=== PATIENT | female | born 2000 | race Two or more races ===

== ENCOUNTER 2020-04-05 21:34 | Emergency (ER) | payer MEDICAID, SELFPAY ==
[2020-04-05 22:04] VITALS: BP 128/81; PULSE 94; RESP 16; TEMP 36.9; O2SAT 99; BMI 35.6
[2020-04-05 23:58] VITALS: BP 141/84; PULSE 92; RESP 18; TEMP 36.1; O2SAT 100
--- NOTE | 2020-04-06 01:11 | ED.EXTPRO ---
HPI - Extremity Problem General Chief complaint: Extremity Problem Stated complaint: Wrist pain Time Seen by Provider: 04/05/20 22:14 Source: patient Mode of arrival: ambulatory Limitations: no limitations History of Present Illness HPI Narrative: Patient comes emergency room complaining of 1 week numbness and tingling, intermittent in the 3rd 4th and 5th fingers of the left hand, sometimes it hurts on the thumb and index. Patient denies any injury. Patient denies loss of strength. Patient states that sometimes there are specific spots in the forearm that heard in the dorsal and ventral part of the forearm. Patient states that in the mornings, her fingers are slightly discolored. Related Data Previous Rx's Medication Instructions Recorded naproxen 375 mg PO BID #10 tab 04/06/20 prednisone 20 mg PO DAILY #5 tab 04/06/20 Allergies Allergy/AdvReac Type Severity Reaction Status Date / Time No Known Allergies Allergy Unverified 11/10/19 18:25 [No Known Allergies*] Review of Systems Review of Systems: Constitutional : No Weight loss, No Fever, No Chills, No Night Sweats, No Fatigue, No Malaise ENT/Mouth : No Hearing loss, No Ear Pain, No Nasal Congestion, No Sinus Pain, No Hoarseness, No sore throat, No Rhinorrhea, No Swallowing Difficulty Eyes: No Eye Pain, No Swelling, No Redness, No Foreign Body, No Discharge, No Vision Changes Cardiovascular : No Chest Pain, No SOB, No Dyspnea on Exertion, No Orthopnea, No Edema, No Palpitations Respiratory : No Cough, No Sputum, No Wheezing, No Smoke Exposure, No Dyspnea Gastrointestinal : No Nausea, No Vomiting, No Diarrhea, No Constipation, No abdominal Pain, No Hematochezia, No Melena Genitourinary : no irregular bleeding, No Dysuria, No Urinary Frequency, No Hematuria, No Urinary Incontinence, No Urgency, No Flank Pain, No Urinary Flow Changes, No Hesitancy Musculoskeletal : Complaining nonspecific intermittent pain in the left hand from the fingers to the elbow Skin : No Skin Lesions, No rash Neuro : No Weakness, No Numbness, No Paresthesias, No Loss of Consciousness, No Dizziness, No Headache Psych : No Anxiety/Panic, No Depression, No SI/HI/AH/VH, No Social Issues, Heme/Lymph: No Bruising, No Bleeding,No Lymphadenopathy Endocrine : No Polyuria, No Polydipsia, No Temperature Intolerance REPLACED BY [facility] Past Medical History Medical History No known health problems Social History Social History Advance Directives: No Physical Exam Vital Signs: Vital Signs: Last Vital Signs Temp 97.0 F 04/05/20 23:58 Pulse 92 04/05/20 23:58 Resp 18 04/05/20 23:58 BP 141/84 H 04/05/20 23:58 Pulse Ox 100 04/05/20 23:58 Body Mass Index 35.6 Appearance: Alert. Oriented X3. No acute distress. Eyes: Pupils equal, round and reactive to light. ENT: Pharynx normal. Neck: Normal inspection. Neck supple. No lymph nodes noted. No crepitus CVS: Normal heart rate and rhythm. Pulses normal. Normal S1 and S2 Respiratory: No respiratory distress. Breath sounds normal. No Wheezing. No rales Abdomen: Soft and nontender. No rigidity. No distention. good BS x4 Skin: Skin warm and dry. Normal skin color. Normal skin turgor. Extremities: No lower extremity edema. Patient is able to flex and extend all fingers, normal strength 5/5 bilaterally, no pain at the elbow or wrist. Dorsal aspect of the left hand is slightly swollen, no ecchymosis, fingers are normal color Neuro: Oriented X 3. No motor deficit. No sensory deficit. Moving all extermities. No slurred speech. Course Course Course Narrative: Although the pattern of discomfort is not related to any specific nerve distribution, it seems that the symptoms are more prominent around the ulnar nerve distribution. Patient states that she spends almost all night sleeping with the flexed elbow. I discussed with the patient that she may have cubital tunnel syndrome. However, she needs to follow up with her primary care physician, as vasculitis is still a differential. However, it is only unilateral. Patient has no symptoms above the elbow. DVT in the arm is not suspected at this time Discharge Plan Discharge Clinical Impression: Cubital tunnel syndrome on left Patient Disposition: Home, Self-Care Instructions: Cubital Tunnel Syndrome (ED) Additional Instructions: Avoid sleeping with your left elbow bent. Please follow-up with your primary care physician tomorrow. If you have any worsening or new symptoms, please return to the emergency room or call 911 Prescriptions: New naproxen 375 mg tablet 375 mg PO BID Qty: 10 RF: 0 prednisone 20 mg tablet 20 mg PO DAILY Qty: 5 RF: 0
== END 2020-04-06 03:21 | disposition home or self-care (01) ==
PROVIDERS: Emergency Provider Emergency Medicine
DX: G56.22 Lesion of ulnar nerve, left upper limb (principal)
CPT/HCPCS: 99283; 99284

== ENCOUNTER 2020-04-17 09:40 | Emergency (ER) | payer MEDICAID, SELFPAY ==
[2020-04-17 11:59] VITALS: BP 129/77; PULSE 89; RESP 18; TEMP 37.2; O2SAT 98; BMI 34.0
--- NOTE | 2020-04-17 12:09 | ED.URI ---
HPI - URI/Sore Throat General Chief Complaint: General Medical Stated Complaint: sorethroat Time Seen by Provider: 04/17/20 12:08 Source: patient Mode of arrival: ambulatory Limitations: no limitations History of Present Illness HPI Narrative: 19 yo female with no PMH here with sore throat and nausea MD elicited complaint: sore throat Onset (ago): day(s) (1) Consistency: constant Severity: mild Description of mucous: clear Able to tolerate fluids by mouth: Yes Exacerbating factors: swallowing Relieving factors: nothing Context: sick contacts Associated symptoms: denies other symptoms Treatments prior to arrival: none Related Data Previous Rx's Medication Instructions Recorded naproxen 375 mg PO BID #10 tab 04/06/20 prednisone 20 mg PO DAILY #5 tab 04/06/20 ondansetron 4 mg PO Q8H PRN #20 tab 04/17/20 Allergies Allergy/AdvReac Type Severity Reaction Status Date / Time No Known Allergies Allergy Unverified 11/10/19 18:25 [No Known Allergies*] Review of Systems Review of Systems: Constitutional : No Fever, No Chills ENT/Mouth : No swallowing difficulty, no change in voice, pos sore throat Eyes: No Eye Pain, No Swelling Cardiovascular : No Chest Pain, No SOB Respiratory : No Cough, No Sputum Gastrointestinal : No Nausea, No Vomiting, No Diarrhea Genitourinary : No Dysuria Musculoskeletal : No Myalgias Skin : No rash Neuro : No Weakness, No Numbness, No Headache PMFSH Past Medical History Attestation statement: The following information was validated with the patient. Medical History No known health problems Social History Social History Alcohol intake: never Smoking Status: Never smoker Use of substances other than those prescribed or required for medical reasons: No Advance Directives: No Advance Directives Information Provided: No Physical Exam Vital Signs: Vital Signs: Last Vital Signs Temp 99.0 F 04/17/20 11:59 Pulse 89 04/17/20 11:59 Resp 18 04/17/20 11:59 BP 129/77 04/17/20 11:59 Pulse Ox 98 04/17/20 11:59 Body Mass Index 34.0 Appearance: Alert. Oriented X3. No acute distress. Eyes: Pupils equal, round and reactive to light. ENT: Pharynx mild erythema no swelling no exudate Neck: Normal inspection. Neck supple. CVS: Normal heart rate and rhythm. Pulses normal. Respiratory: No respiratory distress. Breath sounds normal. Abdomen: Soft and nontender. Skin: Skin warm and dry. Normal skin color. Normal skin turgor. Extremities: No lower extremity edema. No calf ttp Neuro: Oriented X 3. No motor deficit. No sensory deficit. Course Course Course Narrative: results negative called patient MDM - URI/Sore Throat MDM Narrative Medical decision making narrative: 19 yo female with sore throat significant other will need COVID swab and rapid strep - given precautions to return Lab Data Labs: Lab Results 04/17/20 Range/Units 12:52 Coronavirus (PCR) NEGATIVE (Negative) Influenza Type A (PCR) NEGATIVE (Negative) Influenza Type B (PCR) NEGATIVE (Negative) RSV RNA Qual (PCR) NEGATIVE (Negative) Discharge Plan Discharge Clinical Impression: Pharyngitis Qualifiers: Pharyngitis/tonsillitis etiology: unspecified etiology Qualified Code(s): J02.9 - Acute pharyngitis, unspecified Patient Disposition: Home, Self-Care Instructions: Pharyngitis (ED) Additional Instructions: return to ED for any worsening symptoms or concerns I WILL CALL YOU WITH YOUR RESULTS AT HOME Prescriptions: New ondansetron 4 mg tablet,disintegrating 4 mg PO Q8H PRN (Reason: nausea and vomiting) Qty: 20 RF: 0 No Action naproxen 375 mg tablet 375 mg PO BID Qty: 10 RF: 0 prednisone 20 mg tablet 20 mg PO DAILY Qty: 5 RF: 0 Interventions: ED Discharge Assessment Last Done: 04/17/20 12:53 Discharge Date/Time: 04/17/20 12:59
[2020-04-17 14:22] LABS: Influenza A PCR NEGATIVE (Negative); Influenza B PCR NEGATIVE (Negative); Resp Syncy Virus RNA Qual PCR NEGATIVE (Negative); SARS COV2 PCR INHOUSE NEGATIVE (Negative)
== END 2020-04-17 12:59 | disposition home or self-care (01) ==
PROVIDERS: Emergency Provider Emergency Medicine
DX: J02.9 Acute pharyngitis, unspecified (principal); Z20.822 Contact with and (suspected) exposure to COVID-19
CPT/HCPCS: 0241U; 36415; 87071; 87147; 87880; 99283

== ENCOUNTER 2020-07-26 07:37 | Outpatient (REF) | payer MEDICAID, SELFPAY ==
--- NOTE | 2020-07-26 08:00 | EMG_ITS ---
Bilateral median and ulnar motor and sensory studies were performed. Bilateral radial sensory studies were performed and paraspinal muscles were tested with a needle. IMPRESSION: Mild bilateral ulnar neuropathy across cubital tunnel. MD ANA Garcia/DAYO / [id number]
== END 2020-07-26 07:38 | disposition home or self-care (01) ==
LOC: HO.NEURO 07:37
PROVIDERS: PCP Nurse Practitioner; Visit Provider Nurse Practitioner
DX: G56.03 Carpal tunnel syndrome, bilateral upper limbs (principal)
CPT/HCPCS: 95886; 95911

== ENCOUNTER 2020-09-09 19:04 | Emergency (ER) | payer MEDICAID, SELFPAY ==
[2020-09-09 19:15] VITALS: BP 126/90; PULSE 90; RESP 18; TEMP 36.9; O2SAT 99; BMI 30.2
--- NOTE | 2020-09-09 20:00 | ED.GENADULT ---
HPI - General Adult General Chief complaint: General Medical Stated complaint: Cold symptoms Time Seen by Provider: 09/09/20 19:41 Source: patient Mode of arrival: ambulatory Limitations: no limitations History of Present Illness HPI narrative: 20 y/o female presenting with sinus pain and sore throat for the last 4 days. She has been around her boyfriend who is also ill with similar symptoms. She denies known COVID exposure. No fever, chills, vomiting or diarrhea. No abdominal pain, rash or urinary symptoms. Her nasal discharge is green and yellow and she has a headache. MD complaint: sinus pain Onset (ago): day(s) (4) Location: head, face and mouth Radiation: non-radiation Severity: moderate Quality: aching Pain Consistency: constant Relieving factors: none Exacerbating factors: movement Associated symptoms: headaches and malaise Treatments prior to arrival: none Related Data Previous Rx's Medication Instructions Recorded naproxen 375 mg PO BID #10 tab 04/06/20 prednisone 20 mg PO DAILY #5 tab 04/06/20 ondansetron 4 mg PO Q8H PRN #20 tab 04/17/20 amoxicillin-pot clavulanate 1 tab PO BID #14 tab 09/09/20 [Augmentin] fluticasone propionate [Flonase 1 spray INTRANASAL BID #16 g 09/09/20 Allergy Relief] Allergies Allergy/AdvReac Type Severity Reaction Status Date / Time No Known Allergies Allergy Unverified 11/10/19 18:25 [No Known Allergies*] Review of Systems Review of Systems: Constitutional: No Fever, No Chills ENT/Mouth: + sore throat, + Rhinorrhea, No Swallowing Difficulty Cardiovascular: No Chest Pain, No SOB Respiratory: No Cough, No Sputum, No Wheezing, No dyspnea Gastrointestinal: No Nausea, No Vomiting, No Diarrhea, No abdominal Pain Musculoskeletal: No joint pain, No Myalgias Skin: No Skin Lesions, No rash Neuro: No Dizziness, + Headache Heme/Lymph: No Lymphadenopathy PMFSH Past Medical History Attestation statement: The following information was validated with the patient. Medical History No known health problems Social History Social History Alcohol intake: never Advance Directives: No Advance Directives Information Provided: No Patient : No Physical Exam Vital Signs: Vital Signs: Last Vital Signs Temp 98.4 F 09/09/20 19:15 Pulse 90 09/09/20 19:15 Resp 18 09/09/20 19:15 BP 126/90 H 09/09/20 19:15 Pulse Ox 99 09/09/20 19:15 Body Mass Index 30.2 Appearance: Alert. Oriented X3. No acute distress. Eyes: Pupils equal, round and reactive to light. ENT: Pharynx with mild posterior oropharyngeal erythema, mild tonsillar erythema, no exudates. Normal TM's bilaterally. Erythematous nasal turbinates, tender maxillary sinuses Neck: Normal inspection. Neck supple. CVS: Normal heart rate and rhythm. Pulses normal. Respiratory: No respiratory distress. Breath sounds normal. Skin: Skin warm and dry. Normal skin color. Normal skin turgor. No rashes. Extremities: No lower extremity edema. Neuro: Oriented X 3. Non-focal Course Course Course Narrative: 20 y/o female presenting with sinus pain, headache, sore throat x4 days. COVID is negative. Her boyfriend has similar symptoms. She has normal VS and appears well. Given her sinus tenderness and green nasal discharge will treat for acute sinus infection. Stable for d/c home. Medical Decision Making Lab Data Labs: Lab Results 09/09/20 Range/Units 19:43 COVID-19 ([facility]) Negative (Negative) COVID-19 Clin Com See Note Critical Care Time Critical Care Time Critical Care Time: No Discharge Plan Discharge Clinical Impression: Sinus infection Qualifiers: Sinusitis location: maxillary Chronicity: acute Recurrence: non-recurrent Qualified Code(s): J01.00 - Acute maxillary sinusitis, unspecified Patient Disposition: Home, Self-Care Instructions: Sinusitis (ED) Additional Instructions: Your COVID test was negative. Recommend taking the prescribed medications as directed for a sinus infection. Follow up with your doctor this week. If you develop new or worsening symptoms call 911 or come back to the ER for further evaluation. Prescriptions: New amoxicillin-pot clavulanate [Augmentin] 875-125 mg tablet 1 tab PO BID Qty: 14 RF: 0 fluticasone propionate [Flonase Allergy Relief] 50 mcg/actuation spray,suspension 1 spray intranasal BID Qty: 16 RF: 0 No Action naproxen 375 mg tablet 375 mg PO BID Qty: 10 RF: 0 prednisone 20 mg tablet 20 mg PO DAILY Qty: 5 RF: 0 ondansetron 4 mg tablet,disintegrating 4 mg PO Q8H PRN (Reason: nausea and vomiting) Qty: 20 RF: 0
[2020-09-09 20:23] LABS: COVID-19 Test Negative (Negative); IDNOW Serial# 08D9AD1C
== END 2020-09-09 20:33 | disposition home or self-care (01) ==
PROVIDERS: Physician Assistant; Emergency Provider Internal Medicine; PCP Nurse Practitioner
DX: J02.9 Acute pharyngitis, unspecified (principal); Z20.822 Contact with and (suspected) exposure to COVID-19; Z79.899 Other long term (current) drug therapy
CPT/HCPCS: 36415; 87635; 99283

== ENCOUNTER → 2020-11-08 08:19 | Outpatient (BNVA) | payer MEDICAID, SELFPAY | PROVIDERS: Visit Provider Advanced Practice Midwife | DX: Z32.01 Encounter for pregnancy test, result positive (principal) | CPT/HCPCS: 81025; 99202 ==

== ENCOUNTER 2020-11-12 12:26 | Outpatient (REF) | payer MEDICAID, SELFPAY ==
--- NOTE | ~2020-11-12 | US_ITS ---
EXAMINATION: US OBSTETRICAL ULTRASOUND CLINICAL INFORMATION: Encounter for positive test. Spotting. COMPARISON: None. LMP: 09/02/2020. Gestational age by maternal dates is 10 weeks 1 day. Estimated date of delivery by maternal dates is 06/09/2020. TECHNIQUE: Transabdominal first trimester OB ultrasound FINDINGS: The uterus is normal in size and shape and measures 8.2 x 6.4 x 7.5 cm in dimension. There is an intrauterine gestational sac. Handley-rump length measures 1.7 cm suggesting gestational age of 8 weeks 2 days with estimated date of delivery of June 22 2020. heart rate is 167 bpm. There is a yolk sac. The maternal ovaries are normal. The right ovary measures 3.3 x 1.9 x 1.9 cm and the left ovary measures 2.7 x 1.2 x 1.3 cm. There is no fluid in the chest. US/US OB <= 14 weeks fetus IMPRESSION: 1. Single intrauterine gestation with ultrasound gestational age of 8 weeks 2 days +/- 4 days. 2. Estimated date of delivery is 06/22/2020 +/- 4 days.
== END 2020-11-12 12:27 | disposition home or self-care (01) ==
LOC: HO.US 12:26
PROVIDERS: PCP Nurse Practitioner; Visit Provider Advanced Practice Midwife
DX: O26.851 Spotting complicating pregnancy, first trimester (principal); Z3A.10 10 weeks gestation of pregnancy
CPT/HCPCS: 76801

== ENCOUNTER 2020-11-22 09:10 | Outpatient (REF) | payer MEDICAID, SELFPAY | END 2020-11-22 09:11 | disposition home or self-care (01) | LOC: HO.LAB 09:10 | PROVIDERS: PCP Nurse Practitioner; Visit Provider Advanced Practice Midwife | DX: Z36.82 Encounter for antenatal screening for nuchal translucency (principal); Z86.2 Personal history of diseases of the blood and blood-forming organs and certain disorders involving the immune mechanism; Z3A.09 9 weeks gestation of pregnancy; Z79.899 Other long term (current) drug therapy | CPT/HCPCS: 99212 ==

== ENCOUNTER 2020-11-23 13:52 | Outpatient (REF) | payer MEDICAID, SELFPAY ==
[2020-11-23 15:58] LABS: Hematocrit 37.5 % (37-47); Hemoglobin 12.5 g/dl (12.0-16.0); Mean Corpuscular HGB Conc 33.3 g/dl (31.0-35.0); Mean Corpuscular Hemoglobin 28.2 pg (27.0-33.0); Mean Corpuscular Volume 84.5 fL (80-98); Mean Platelet Volume 9.7 fL (9.4-12.3); Platelet Count 296 X10*3/uL (160-400); Red Blood Count 4.44 X10*6/uL (4.20-5.50); Red Cell Distribution Width 14.1 % (11.0-16.0); White Blood Count 9.4 X10*3/uL (4.8-10.8)
[2020-11-23 16:15] LABS: Glucose 1 Hour PP 50gm Dose 126 mg/dL (60-140)
[2020-11-23 16:40] LABS: Syphilis Screen Nonreactive (Nonreactive)
[2020-11-23 16:43] LABS: Amphetamine Screen Urine Not Detected (Not Detect); Barbiturates, Urine Not Detected (Not Detect); Benzodiazepines Screen Urine Not Detected (Not Detect); Cannabinoid Screen Urine Not Detected (Not Detect); Cocaine Screen Urine Not Detected (Not Detect); Fentanyl, urine Not Detected (Not Detect); Opiate Screen Urine Not Detected (Not Detect); Phencyclidine Screen Urine Not Detected (Not Detect)
[2020-11-25 05:01] LABS: Rubella IgG Antibody 1.61 Index
[2020-11-26 04:27] LABS: HIV AB/AG Nonreactive (Nonreactive); HIV Num 1 0.07 S/CO (0.00-0.99); ~HepC Num1 0.09 S/CO (0.00-0.79); ~Hepatitis C Antibody Nonreactive (Nonreactive)
[2020-11-26 04:31] LABS: HBsAGNum1 0.13 S/CO (0.00-0.99); Hepatitis B Surface Antigen Negative (Negative)
== END 2020-11-23 13:53 | disposition home or self-care (01) ==
LOC: HO.LAB 13:52
PROVIDERS: PCP Nurse Practitioner; Visit Provider Advanced Practice Midwife
DX: Z34.90 Encounter for supervision of normal pregnancy, unspecified, unspecified trimester (principal)
CPT/HCPCS: 80307; 85027; 86762; 86780; 86787; 86803; 86850; 86886; 86900; 86901; 87086; 87340; 87389

== ENCOUNTER 2020-12-17 10:28 | Outpatient (REF) | payer MEDICAID, SELFPAY ==
[2020-12-17 16:04] LABS: CT PCR NOT DETECTED (Not Detect.); NG PCR NOT DETECTED (Not Detect.)
[2020-12-18 09:23] LABS: BV Int Neg Control Negative (Negative); BV Int Pos Control Positive (Positive)
== END 2020-12-17 10:29 | disposition home or self-care (01) ==
LOC: HO.LAB 10:28
PROVIDERS: PCP Nurse Practitioner; Visit Provider Advanced Practice Midwife
DX: Z01.419 Encounter for gynecological examination (general) (routine) without abnormal findings (principal); O99.211 Obesity complicating pregnancy, first trimester; Z3A.13 13 weeks gestation of pregnancy; Z20.2 Contact with and (suspected) exposure to infections with a predominantly sexual mode of transmission
CPT/HCPCS: 81003; 87480; 87491; 87510; 87591; 87660; 99212

== ENCOUNTER 2020-12-21 11:11 | Outpatient (REF) | payer MEDICAID, SELFPAY ==
--- NOTE | ~2020-12-21 | US_ITS ---
EXAMINATION: OBSTETRICAL ULTRASOUND, FIRST TRIMESTER HISTORY: 20-year-old at 13.6 weeks of gestation NT screening COMPARISON: 11/12/2020 TECHNIQUE: Real time transabdominal imaging with color and M-mode Doppler. FINDINGS: A single, live IUP Heart Rate: 149 beats per minute. BPD: 2.6:14.3 weeks HC 9.7 :14.4 weeks FL 1.3 cm :13.6 weeks AUA: 14.2 weeks, [facility] 06/19/2021 Due to position, NT measurement was unable to be obtained. The embryo appears sonographically wnl for this GA. Both maternal ovaries are seen and appear normal. GESTATIONAL AGE: 1. Established GA: 13.6 wks 2. GA from AUA: 14.2 wks ESTIMATED DATE OF DELIVERY: 1. Established [facility]: 06/22/2021 2. [place] from [facility]: 06/19/2021 US/US OB 1T nuc measure IMPRESSION: 1. Single live IUP 2. Size equals dates, biometry is consistent with 14.2 weeks confirming her due date of 06/22/2021. MFM Consultation: I reviewed the availability of serum aneuploidy screening which includes cell-free DNA and placental protein based tests. I discussed the sensitivity, false-positive rate, and other limitations associated with each test. I also reviewed the availability of invasive diagnostic tests that are associated small but definite risk of miscarriage. We also reviewed the differences between screening tests and diagnostic tests. After our discussion, she opted for the screening that is based on cell-free DNA or non-invasive testing (NIPT). The result will be faxed to your office in approximately 7 days. A follow up at 18 weeks for survey has been scheduled. Thank you very much for this referral. Total time 30 minutes. The time spent was devoted to counseling the patient about the disease and diagnosis, coordinating care including reviewing her records, pertinent lab data and studies, as well as discussing diagnostic evaluation and workup, plan therapeutic interventions and future disposition of care. This includes any additional research needed to obtain further information in formulating the plan of care of this patient. This note was generated with a voice recognition program. Please excuse any errors which may have been overlooked during my review of this note. Sometimes these errors may affect the content or meaning of a given sentence.
== END 2020-12-21 11:12 | disposition home or self-care (01) ==
LOC: HO.US 11:11
PROVIDERS: PCP Nurse Practitioner; Visit Provider Advanced Practice Midwife
DX: Z36.82 Encounter for antenatal screening for nuchal translucency (principal)
CPT/HCPCS: 76813

== ENCOUNTER → 2021-01-14 09:38 | Outpatient (BNVA) | payer MEDICAID, SELFPAY | PROVIDERS: PCP Nurse Practitioner; Visit Provider Advanced Practice Midwife | DX: Z34.02 Encounter for supervision of normal first pregnancy, second trimester (principal); Z3A.17 17 weeks gestation of pregnancy | CPT/HCPCS: 81003; 99212 ==

== ENCOUNTER 2021-01-25 13:27 | Outpatient (REF) | payer MEDICAID, SELFPAY ==
--- NOTE | ~2021-01-25 | US_ITS ---
EXAMINATION: US OBSTETRICAL CLINICAL INFORMATION: 20-year-old at 18.6 weeks of gestation High BMI Screening for anomaly COMPARISON: 12/21/2020 TECHNIQUE: Real-time transabdominal ultrasound was performed using C1-5 megahertz transducer. FINDINGS: A single, active, fetus is seen in breech presentation. The placenta is posterior without previa, and the amniotic fluid volume is wnl. MEASUREMENTS: 1. Biparietal Diameter: 4.4 cm; 19.2 wks 2. Occipital Frontal Diameter: 5.5 cm 3. Head Circumference: 16.0 cm; 18.6 wks 4. Abdominal Circumference: 13.3 cm; 18.6 wks 5. Femur Length: 2.8 cm; 18.4 wks 6. Humerus Length: 2.7 cm; 18.4 wks 7. Tibia Length: 2.5 cm; 18.6 wks 8. Ulna Length: 2.6 cm; 19.2 wks 9. Lateral ventricle: 0.7 cm 10. Cerebellum: 1.9 cm; 19.3 wks 11. Cisterna Magna: 0.4 cm 12. Nuchal Fold: 3.14 mm 13. Heart Rate: 142 beats per minute Rt ovary: normal Lt ovary: normal Cervical length 3.4 cm on T/A. GESTATIONAL AGE: 1. Established GA: 18.6 wks 2. GA from [facility]: 19.0 wks ESTIMATED DATE OF DELIVERY: 1. Established [facility]: 06/22/2021 2. [facility]: 06/21/2021 ANATOMY: The views of the orbits, 3 vessel trachea, ductal and aortic arches were suboptimal due to position. The visualized anatomy includes but not limited to: 1. Cranium: Normal 2. Intracranial anatomy: cavum septum pellucidi, lateral ventricles, choroid plexus, cerebellum, posterior fossa, third and fourth ventricles. 3. face: lip/palate, profile, nasal bone 4. Heart: four-chamber view of the heart, ventricular septum, foramen ovale, pulmonary vein, left and right outflow tracts, three-vessel view, situs.. 5. Diaphragm: Normal 6. Abdominal wall: Normal 7. Cord Insertion: Normal 8. Spine: Cervical, thoracic, lumbar, sacral. 9. Stomach: Normal size and shape 10. Right Kidney: Normal 11. Left Kidney: Normal 12. 3 vessel cord: Normal 13. Upper extremity: Open hands, fifth digit. 14. Lower extremity: Tibia, fibula, bilateral feet. 15. Bladder: Normal 16. Genitalia: Male, patient aware US/US OB /maternal detail IMPRESSION: 1. Single, living, intrauterine with appropriate biometry. 2. Normal survey DISCUSSION: I reviewed today's ultrasound findings. We discussed the limitations of ultrasound in diagnosing aneuploidy and other congenital abnormalities. I reviewed the differences between screening test and diagnostic test. Amniocentesis was discussed and declined. She was informed that the baseline incidence of congenital abnormalities is approximately 3-5%. Not all these conditions are diagnosable in utero. RECOMMENDATIONS: 1. Follow-up in 4 weeks for growth and cardiac anatomy. (Scheduled) Thank you for allowing me to participate in her care. Total time 20 minutes. The time spent was devoted to counseling the patient about the disease and diagnosis, coordinating care including reviewing her records, pertinent lab data and studies, as well as discussing diagnostic evaluation and workup, plan therapeutic interventions and future disposition of care. This includes any additional research needed to obtain further information in formulating the plan of care of this patient. This note was generated with a voice recognition program. Please excuse any errors which may have been overlooked during my review of this note. Sometimes these errors may affect the content or meaning of a given sentence.
== END 2021-01-25 13:28 | disposition home or self-care (01) ==
LOC: HO.US 13:27
PROVIDERS: Visit Provider Advanced Practice Midwife
DX: O35.9XX0 Maternal care for (suspected) fetal abnormality and damage, unspecified, not applicable or unspecified (principal); Z3A.18 18 weeks gestation of pregnancy
CPT/HCPCS: 76811

== ENCOUNTER → 2021-02-12 14:54 | Outpatient (BNVA) | payer MEDICAID, SELFPAY | PROVIDERS: PCP Nurse Practitioner; Visit Provider Advanced Practice Midwife | DX: Z34.02 Encounter for supervision of normal first pregnancy, second trimester (principal); Z3A.21 21 weeks gestation of pregnancy | CPT/HCPCS: 81003; 90686; 99212 ==

== ENCOUNTER 2021-02-22 10:25 | Outpatient (REF) | payer MEDICAID, SELFPAY ==
--- NOTE | ~2021-02-22 | US_ITS ---
EXAMINATION: OBSTETRICAL ULTRASOUND, Follow up HISTORY: A 20-year-old at the 22.6 weeks of gestation Follow-up survey COMPARISON: 01/25/2021 TECHNIQUE: Real time transabdominal imaging with color and M-mode Doppler. PRESENTATION: Transverse PLACENTA LOCATION: Posterior without previa AMNIOTIC FLUID: Normal MEASUREMENTS: 1. Biparietal Diameter: 5.4 cm; 22.4 wks 2. Head Circumference: 20.5 cm; 22.5 wks 3. Abdominal Circumference: 18.1 cm; 23.0 wks 4. Femur Length: 3.8 cm; 22.3 wks 5. Heart Rate: 144 beats per minute WEIGHT: Estimated weight is 524 grams (1 lbs 2 oz) -- 34 %. Normal views of lateral cerebral ventricle, profile, nose/lips, orbits, 4ch view, LVOT, RVOT, three-vessel view, 3 vessel trachea view, aortic and ductal arches. Previously limited anatomy were seen. No abnormalities were seen in visualized anatomy. GESTATIONAL AGE: 1. Established GA: 22.6 wks 2. GA from AUA: 22.5 wks ESTIMATED DATE OF DELIVERY: 1. Established [facility]: 06/22/2021 2. [facility] from [facility]: 06/23/2021 US/US OB follow up IMPRESSION: 1. A single fetus with appropriate interval growth. 2. Previously limited views of the anatomy were seen as listed above. No abnormalities were noted in visualized anatomy. 3. This completes the survey. I reviewed the limitations of ultrasound in diagnosing aneuploidy and other congenital abnormalities. Amniocentesis was again reviewed and she declined. She was informed that the baseline instance of congenital abnormalities and defects in the general population is approximately 3-5%. Not all these conditions are diagnosable in utero. RECOMMENDATIONS: 1. f/u PRN Thank you very much for this referral. This note was generated with a voice recognition program. Please excuse any errors which may have been overlooked during my review of this note. Sometimes these errors may affect the content or meaning of a given sentence.
== END 2021-02-22 10:26 | disposition home or self-care (01) ==
LOC: HO.US 10:25
PROVIDERS: Visit Provider Advanced Practice Midwife
DX: Z34.92 Encounter for supervision of normal pregnancy, unspecified, second trimester (principal)
CPT/HCPCS: 76816

== ENCOUNTER → 2021-03-13 13:28 | Outpatient (BNVA) | payer MEDICAID, SELFPAY | PROVIDERS: PCP Nurse Practitioner; Visit Provider Advanced Practice Midwife | DX: Z34.02 Encounter for supervision of normal first pregnancy, second trimester (principal); Z3A.25 25 weeks gestation of pregnancy; Z20.2 Contact with and (suspected) exposure to infections with a predominantly sexual mode of transmission | CPT/HCPCS: 81003; 99212 ==

== ENCOUNTER 2021-04-11 13:36 | Outpatient (REF) | payer MEDICAID, SELFPAY ==
[2021-04-11 15:07] LABS: Hematocrit 33.4 % (37.0-47.0); Hemoglobin 10.8 g/dl (12.0-16.0); Mean Corpuscular HGB Conc 32.3 g/dl (31.0-35.0); Mean Corpuscular Volume 86.5 fL (80.0-98.0); Mean Platelet Volume 10.2 fL (9.4-12.3); Platelet Count 287 X10*3/uL (160-400); Red Blood Count 3.86 X10*6/uL (4.20-5.50); Red Cell Distribution Width 13.4 % (11.0-16.0); White Blood Count 9.8 X10*3/uL (4.8-10.8)
[2021-04-11 17:09] LABS: Glucose 1 Hour PP 50gm Dose 92 mg/dL (60-140)
[2021-04-12 08:45] LABS: Syphilis Screen Nonreactive (Nonreactive)
== END 2021-04-11 13:37 | disposition home or self-care (01) ==
LOC: HO.LAB 13:36
PROVIDERS: PCP Nurse Practitioner; Visit Provider Advanced Practice Midwife
DX: Z34.93 Encounter for supervision of normal pregnancy, unspecified, third trimester (principal); Z3A.29 29 weeks gestation of pregnancy
CPT/HCPCS: 36415; 85027; 86780; 99212

== ENCOUNTER → 2021-04-26 14:28 | Outpatient (BNVA) | payer MEDICAID, SELFPAY | PROVIDERS: PCP Nurse Practitioner; Visit Provider Advanced Practice Midwife | DX: Z34.03 Encounter for supervision of normal first pregnancy, third trimester (principal); Z3A.31 31 weeks gestation of pregnancy | CPT/HCPCS: 99212 ==

== ENCOUNTER → 2021-05-15 10:43 | Outpatient (BNVA) | payer MEDICAID, SELFPAY | PROVIDERS: PCP Nurse Practitioner; Visit Provider Advanced Practice Midwife | DX: O99.213 Obesity complicating pregnancy, third trimester (principal); Z3A.34 34 weeks gestation of pregnancy | CPT/HCPCS: 99212 ==

== ENCOUNTER 2021-05-29 10:45 | Outpatient (REF) | payer MEDICAID, SELFPAY ==
[2021-05-29 16:22] LABS: CT PCR NOT DETECTED (Not Detect.); NG PCR NOT DETECTED (Not Detect.)
== END 2021-05-29 10:46 | disposition home or self-care (01) ==
LOC: HO.LAB 10:45
PROVIDERS: PCP Nurse Practitioner; Visit Provider Advanced Practice Midwife
DX: O99.013 Anemia complicating pregnancy, third trimester (principal); D64.9 Anemia, unspecified; O26.893 Other specified pregnancy related conditions, third trimester; R51.9 Headache, unspecified; Z67.40 Type O blood, Rh positive; Z3A.36 36 weeks gestation of pregnancy; Z79.899 Other long term (current) drug therapy
CPT/HCPCS: 87081; 87491; 87591; 99212

== ENCOUNTER → 2021-06-05 13:54 | Outpatient (BNVA) | payer MEDICAID, SELFPAY | PROVIDERS: PCP Nurse Practitioner; Visit Provider Advanced Practice Midwife | DX: Z34.03 Encounter for supervision of normal first pregnancy, third trimester (principal); Z3A.37 37 weeks gestation of pregnancy | CPT/HCPCS: 81003; 99212 ==

== ENCOUNTER → 2021-06-12 09:31 | Outpatient (BNVA) | payer MEDICAID, SELFPAY | PROVIDERS: PCP Nurse Practitioner; Visit Provider Advanced Practice Midwife | DX: O99.213 Obesity complicating pregnancy, third trimester (principal); E66.9 Obesity, unspecified; Z3A.38 38 weeks gestation of pregnancy | CPT/HCPCS: 81003; 99212 ==

== ENCOUNTER → 2021-06-19 09:34 | Outpatient (BNVA) | payer MEDICAID, SELFPAY | PROVIDERS: PCP Nurse Practitioner; Visit Provider Advanced Practice Midwife | DX: O99.213 Obesity complicating pregnancy, third trimester (principal); E66.9 Obesity, unspecified; Z3A.39 39 weeks gestation of pregnancy | CPT/HCPCS: 81003; 99212 ==

== ENCOUNTER → 2021-07-02 15:03 | Outpatient (BNVA) | payer MEDICAID, SELFPAY | PROVIDERS: Visit Provider Obstetrics & Gynecology | DX: Z39.2 Encounter for routine postpartum follow-up (principal) | CPT/HCPCS: 99212 ==

== ENCOUNTER → 2021-09-04 14:38 | Outpatient (BNVA) | payer MEDICAID, SELFPAY | PROVIDERS: PCP Nurse Practitioner; Visit Provider Advanced Practice Midwife | DX: Z39.2 Encounter for routine postpartum follow-up (principal) | CPT/HCPCS: 99212 ==

== ENCOUNTER → 2021-12-17 13:47 | Outpatient (BNVA) | payer MEDICAID, SELFPAY | PROVIDERS: Visit Provider Advanced Practice Midwife | DX: Z39.2 Encounter for routine postpartum follow-up (principal); Z30.09 Encounter for other general counseling and advice on contraception | CPT/HCPCS: 99212 ==

== ENCOUNTER → 2022-01-03 10:16 | Outpatient (BNVA) | payer MEDICAID, SELFPAY | PROVIDERS: Visit Provider Advanced Practice Midwife | DX: Z30.430 Encounter for insertion of intrauterine contraceptive device (principal); Z30.09 Encounter for other general counseling and advice on contraception; Z32.02 Encounter for pregnancy test, result negative | CPT/HCPCS: 58300; 81025; 99212; J7298 ==

== ENCOUNTER 2022-02-06 09:46 | Outpatient (REF) | payer MEDICAID, SELFPAY | END 2022-02-06 09:47 | disposition home or self-care (01) | LOC: HO.LNP 09:46 | PROVIDERS: Visit Provider Advanced Practice Midwife | DX: Z01.419 Encounter for gynecological examination (general) (routine) without abnormal findings (principal) | CPT/HCPCS: 36415; 85027; 88142; 99212 ==

== ENCOUNTER 2022-02-06 10:14 | Outpatient (REF) | payer MEDICAID, SELFPAY ==
[2022-02-06 10:51] LABS: Hematocrit 37.5 % (37.0-47.0); Hemoglobin 12.3 g/dl (12.0-16.0); Mean Corpuscular HGB Conc 32.8 g/dl (31.0-35.0); Mean Corpuscular Hemoglobin 27.8 pg (27.0-33.0); Mean Corpuscular Volume 84.8 fL (80.0-98.0); Mean Platelet Volume 9.5 fL (9.4-12.3); Platelet Count 366 X10*3/uL (160-400); Red Blood Count 4.42 X10*6/uL (4.20-5.50); White Blood Count 8.3 X10*3/uL (4.8-10.8)
== END 2022-02-06 10:15 | disposition home or self-care (01) ==
LOC: HO.LAB 10:14
PROVIDERS: PCP Nurse Practitioner; Visit Provider Advanced Practice Midwife
DX: T83.83XA Hemorrhage due to genitourinary prosthetic devices, implants and grafts, initial encounter (principal); Z86.2 Personal history of diseases of the blood and blood-forming organs and certain disorders involving the immune mechanism; Z30.431 Encounter for routine checking of intrauterine contraceptive device
CPT/HCPCS: 36415; 85027; 99212

== ENCOUNTER 2022-03-28 12:40 | Outpatient (REF) | payer MEDICAID, SELFPAY ==
--- NOTE | ~2022-03-28 | US_ITS ---
EXAMINATION: US PELVIS CLINICAL INFORMATION: Status post IUD 6 weeks ago with pain and bleeding. COMPARISON: OB ultrasound 02/22/2021 TECHNIQUE: Ultrasound of the pelvis is performed using both transabdominal and transvaginal transducers along with Doppler. Transvaginal imaging is performed due to inadequate visualization transabdominally. FINDINGS: Uterus: The uterus is anteverted and measures 7.5 x 3.8 x 5.2 cm. The double wall endometrial thickness is 10 mm. An IUD is present in the endometrial canal in good position. The uterus is smooth in contour and has normal myometrial echogenicity. No visible fibroid. Adnexa: Both ovaries are visualized. There is normal color flow to the adnexa. There is no ovarian torsion. There is no pelvic ascites or fluid collection. Right ovary measures 3.2 x 2.4 x 1.8 cm for a volume of 7.2 mL with numerous follicles noted in a subcortical position. Left ovary measures 3.3 x 1.9 x 2.2 cm for a volume of 7.2 mL. There are numerous follicles present in a subcortical position. US/US pelvic and transvaginal IMPRESSION: An IUD is present in the uterus in good position. No other abnormality is seen.
== END 2022-03-28 12:41 | disposition home or self-care (01) ==
LOC: HO.US 12:40
PROVIDERS: Visit Provider Advanced Practice Midwife
DX: T83.9XXA Unspecified complication of genitourinary prosthetic device, implant and graft, initial encounter (principal)
CPT/HCPCS: 76830; 76856

== ENCOUNTER → 2022-05-01 13:32 | Outpatient (BNVA) | payer MEDICAID, SELFPAY | PROVIDERS: PCP Nurse Practitioner; Visit Provider Advanced Practice Midwife | DX: Z30.431 Encounter for routine checking of intrauterine contraceptive device (principal) | CPT/HCPCS: 99212 ==

== ENCOUNTER 2023-01-23 13:32 | Outpatient (REF) | payer MEDICAID, SELFPAY ==
[2023-01-25 14:32] LABS: BV Int Neg Control Negative (Negative); BV Int Pos Control Positive (Positive)
== END 2023-01-23 13:33 | disposition home or self-care (01) ==
LOC: HO.LNP 13:32
PROVIDERS: Visit Provider Advanced Practice Midwife
DX: Z01.419 Encounter for gynecological examination (general) (routine) without abnormal findings (principal); T83.89XA Other specified complication of genitourinary prosthetic devices, implants and grafts, initial encounter; N92.0 Excessive and frequent menstruation with regular cycle; Z86.2 Personal history of diseases of the blood and blood-forming organs and certain disorders involving the immune mechanism; Z20.2 Contact with and (suspected) exposure to infections with a predominantly sexual mode of transmission; Z78.9 Other specified health status; Z79.899 Other long term (current) drug therapy
CPT/HCPCS: 0353U; 84443; 85027; 87480; 87510; 87660; 99395

== ENCOUNTER 2023-01-23 13:32 | Outpatient (AMB) | payer MEDICAID, SELFPAY ==
[2023-01-23 13:52] VITALS: BP 120/64; BMI 34.0
--- NOTE | 2023-01-23 13:52 | A.OFFVIS_ITS ---
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 Emergency Vehicle Dispatcher Required: Yes Emergency Vehicle Dispatcher Language: Surinamese Information Interpreted: non-clinical & clinical Forensic Audit Expert: Forensic Audit Expert Present (Andreia) Allergies No Known Allergies [No Known Allergies*] Allergy (Verified 01/23/23 13:54) Medication List - Last Reconciled 01/23/23 by Elizabeth Dickinson CNM levonorgestrel (Mirena) intrauterine Is last menstrual period known: Yes Last menstrual period: 01/19/23 Post menopausal: No Patient : No HPI 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 she had a normal negative Pap done last year. She says her periods have gotten longer and heavier since she had the IUD placed. They come for 3-5 days and then they seem to stop for day and then they come back heavier again for another 2-3 days. She still sometimes breastfeed is a 1-year-old baby mostly for comfort. [facility] Medical History Hx of iron deficiency anemia Family History Mother Hypertension Maternal Grandfather Colon cancer Maternal Aunt Hx of breast cancer Social History Household Members: Family Both parents involved: Yes Caregiver staying overnight: No Housing: Apartment Are you a primary healthcare or medical to a significant other at home: No Do you presently have visiting nurse or other home services: No 75 years or older and lives alone: No Alcohol intake: never Patient Tobacco Use Status: Never used Tobacco Special abbey needs: No Agree to transfusion: Yes Patient : No Female Reproductive History Menstrual Age of Menarche: 11 Duration of menses: other (irregular) Date of last menstrual period: 01/19/23 control method: progestin IUCD Total pregnancies: 1 Full term: 1 Number of Living Children: 1 Date of last pap smear: 02/06/22 (negative) History of abnormal pap smear: No Physical Exam Vital Signs: Last Vital Signs BP 120/64 01/23/23 13:52 BMI result Body Mass Index 34.0 Const General: healthy appearing, comfortable, no acute distress, well developed and alert Nutritional Appearance: average body habitus Orientation/consciousness: patient oriented x3 Limitations: no limitations HEENT Head: Yes normocephalic Neck Neck: Yes normal visual inspection Thyroid: Thyroid normal Chest Chest palpation & inspection: normal inspection of the chest Breast/axilla inspection: normal inspection of the breasts and normal inspection of the axillae Breast/axilla palpation: normal palpation of the breasts and normal palpation of the axillae Resp Effort & Inspection: normal respiratory effort GI Inspection: Yes normal to inspection, No Abdominal wall edema and No distended Palpation (GI): Soft to palpation and nontender Other: Moderate menses present cervix multiparous with Mirena string in place about 2-3 cm. Uterus small midposition mobile nontender adnexa nontender good tone with Kegel. General: Yes bladder normal to palpation External Female Exam: normal external appearance and normal appearance of the urethra Speculum Exam - Vagina: normal appearance of the vagina, normal palpation and normal vaginal discharge Speculum Exam - Cervix: normal appearance of the cervix, normal palpation and nontender Bimanual exam- vagina & uterus: normal bimanual exam, normal palpation, uterine size normal, bladder normal to palpation, consistency normal, normal palpation, uterine mobility normal, uterine shape normal, No Cervical tenderness present, non-tender and no cervical motion tenderness Bimanual Exam- Adnexa, other: normal adnexae, no masses, normal and No adnexal tenderness Neuro General: patient oriented x3 Results Reviewed Results Reviewed: Name: Go LangeAnne harris Age/Sex: 21/F Attending: Elizabeth Dickinson CNM : 2000 Submitted by: Elizabeth Dickinson CNM Copies to: MR #: [id number] Status: DEP REF Collected: 02/06/22 [facility] Received: 02/06/22 Interpretation Satisfactory for evaluation. Negative for intraepithelial lesion or malignancy. Clinical Information LMP: 02/13 Previous PAP test: Never Material Received ThinPrep-Cervical Electronically Signed By: An Martinez 02/21/22 7095 The Pap Test is a screening procedure with the inherent possibility of both false negative and false positive results. Results should be interpreted in the context of historic and current clinical findings. Reliability of the Pap Test is enhanced by performing the test on a regular repetitive basis. Patient: Anne Ochoa Age/Sex: 21/F MR#: [id number] Page 1 of 1 Assessment & Plan Assessment & Plan (1) Presence of 52 mg levonorgestrel-releasing intrauterine device (IUD): Code(s): Z97.5 - Presence of (intrauterine) contraceptive device (2) Cervical cancer screening: Comment: 02/06/2022 Pap is negative. Code(s): Z12.4 - Encounter for screening for malignant neoplasm of cervix (3) IUD check up: Code(s): Z30.431 - Encounter for routine checking of intrauterine contraceptive device (4) Encounter for IUD insertion: Comment: mirena iud inserted 01/03/22, w menses, smooth. strings trimmed to 3 cms Code(s): Z30.430 - Encounter for insertion of intrauterine contraceptive device (5) (infant): Code(s): Z78.9 - Other specified health status (6) Menorrhagia due to intrauterine device (IUD): Code(s): T83.89XA - Other specified complication of genitourinary prosthetic devices, implants and grafts, initial encounter; N92.0 - Excessive and frequent menstruation with regular cycle (7) Hx of iron deficiency anemia: Code(s): Z86.2 - Personal history of diseases of the blood and blood-forming organs and certain disorders involving the immune mechanism Plan -----Discussed in this visit the following: healthy balanced diet, regular and consistent exercise, getting recommended health screens, doing the best she can for her particular health concerns, kegel exercises, pap smear screening and followup recommendations, mammography screening and SBE, normal changes in cycles in her life stage--- . Discussed the unusual pattern of heavier menses after placement of a Mirena IUD. Will order an ultrasound to see if there is any other reason that could explain her bleeding pattern for instance a polyp or something. Will also get a CBC and TSH and will see her after to review all. Teaching also done about how to use tampons and discussed other methods of dealing with menses to give her other options. Orders: Orders CT NG by PCR Today Z20.2 - Contact with and (suspected) exposure to infections with a predominantly sexual mode of transmission Complete Blood Count no Diff Today N92.0 - Excessive and frequent menstruation with regular cycle, T83.89XA - Other specified complication of genitourinary prosthetic devices, implants and grafts, initial encounter, Z12.4 - Encounter for screening for malignant neoplasm of cervix, Z30.430 - Encounter for insertion of intrauterine contraceptive device, Z30.431 - Encounter for routine checking of intrauterine contraceptive device, Z78.9 - Other specified health status, Z86.2 - Personal history of diseases of the blood and blood-forming organs and certain disorders involving the immune mechanism, Z97.5 - Presence of (intrauterine) contraceptive device Thyroid Stimulating Hormone Today N92.0 - Excessive and frequent menstruation with regular cycle, T83.89XA - Other specified complication of genitourinary prosthetic devices, implants and grafts, initial encounter, Z12.4 - Encounter for screening for malignant neoplasm of cervix, Z30.430 - Encounter for insertion of intrauterine contraceptive device, Z30.431 - Encounter for routine checking of intrauterine contraceptive device, Z78.9 - Other specified health status, Z97.5 - Presence of (intrauterine) contraceptive device Bacterial Vaginosis Panel Today Z20.2 - Contact with and (suspected) exposure to infections with a predominantly sexual mode of transmission Coding Level of Care Code Est Pt Prev Care 18-39y(75373) Diagnoses Presence of 52 mg levonorgestrel-releasing intrauterine device (IUD) Z97.5 Cervical cancer screening Z12.4 IUD check up Z30.431 Encounter for IUD insertion Z30.430 (infant) Z78.9 Menorrhagia due to intrauterine device (IUD) T83.89XA; N92.0 Hx of iron deficiency anemia Z86.2
== END 2023-01-23 15:02 | disposition home or self-care (01) ==
PROVIDERS: Visit Provider Advanced Practice Midwife
DX: Z01.419 Encounter for gynecological examination (general) (routine) without abnormal findings (principal); Z97.5 Presence of (intrauterine) contraceptive device
CPT/HCPCS: 99395

== ENCOUNTER 2023-01-23 15:12 | Outpatient (REF) | payer MEDICAID, SELFPAY ==
[2023-01-23 16:01] LABS: Hematocrit 37.9 % (37.0-47.0); Hemoglobin 12.6 g/dl (12.0-16.0); Mean Corpuscular HGB Conc 33.2 g/dl (31.0-35.0); Mean Corpuscular Hemoglobin 28.4 pg (27.0-33.0); Mean Corpuscular Volume 85.6 fL (80.0-98.0); Mean Platelet Volume 10.2 fL (9.4-12.3); Platelet Count 328 X10*3/uL (160-400); Red Blood Count 4.43 X10*6/uL (4.20-5.50); Red Cell Distribution Width 13.4 % (11.0-16.0); White Blood Count 9.1 X10*3/uL (4.8-10.8)
[2023-01-23 16:50] LABS: Thyroid Stimulating Hormone 0.82 uIU/mL (0.32-4.0)
[2023-01-24 01:21] LABS: CT PCR NOT DETECTED (Not Detect.); NG PCR NOT DETECTED (Not Detect.)
== END 2023-01-23 15:13 | disposition home or self-care (01) ==
LOC: HO.LAB 15:12
PROVIDERS: Visit Provider Advanced Practice Midwife
DX: N92.0 Excessive and frequent menstruation with regular cycle (principal); T83.89XA Other specified complication of genitourinary prosthetic devices, implants and grafts, initial encounter; Z12.4 Encounter for screening for malignant neoplasm of cervix; Z30.431 Encounter for routine checking of intrauterine contraceptive device; Z78.9 Other specified health status; Z86.2 Personal history of diseases of the blood and blood-forming organs and certain disorders involving the immune mechanism; Z97.5 Presence of (intrauterine) contraceptive device; Z20.2 Contact with and (suspected) exposure to infections with a predominantly sexual mode of transmission
CPT/HCPCS: 0353U; 84443; 85027

== ENCOUNTER 2023-02-18 14:36 | Outpatient (REF) | payer MEDICAID, SELFPAY ==
--- NOTE | ~2023-02-18 | US_ITS ---
EXAMINATION: US PELVIS CLINICAL INFORMATION: Complication of genitourinary prosthetic device. Last menstrual period a week ago. COMPARISON: 03/31/2022 pelvic ultrasound. TECHNIQUE: Ultrasound of the pelvis is performed using both transabdominal and transvaginal transducers along with Doppler. Transvaginal imaging is performed due to inadequate visualization transabdominally. FINDINGS: The uterus measures 7.8 x 3.8 x 4.6 cm. No discrete fibroids are appreciated. US/US pelvic and transvaginal IMPRESSION: No discrete fibroids appreciated. Endometrial thickness is 0.6 cm. No significant free fluid. IUD appears abnormally positioned low in the cervix. Correlation with clinical exam and gynecologic consultation recommended to determine further management. Right ovary measures 3.2 x 1.6 x 1.8 cm, volume 4.8 mL. Left ovary measures 3.0 x 1.8 x 1.6 cm, volume 4.5 mL. Bilateral ovaries demonstrate multiple small follicles. IMPRESSION: IUD appears abnormally positioned low in the cervix. Correlation with clinical exam and gynecologic consultation recommended to determine further management including possible removal/repositioning. This study was presented today, 02/24/2023, at 9:42 AM for interpretation. PSA staff will provide results to referring provider at this time.
== END 2023-02-18 14:37 | disposition home or self-care (01) ==
LOC: HO.US 14:36
PROVIDERS: PCP Nurse Practitioner; Visit Provider Advanced Practice Midwife
DX: T83.89XA Other specified complication of genitourinary prosthetic devices, implants and grafts, initial encounter (principal); N92.0 Excessive and frequent menstruation with regular cycle
CPT/HCPCS: 76830; 76856

== ENCOUNTER 2023-03-17 09:44 | Outpatient (AMB) | payer MEDICAID, SELFPAY ==
--- NOTE | 2023-03-17 09:44 | MHC.OFFVIS ---
Intake Vital Signs 03/17/23 09:46 Height 5 ft 1 in Weight 186 lb BMI 35.1 BP 116/68 Intake Visit Reasons: Ultra sound follow up Clinical Orthoptist Required: No Information Interpreted: clinical only Client Experience Consultant: Client Experience Consultant Present Allergies No Known Allergies [No Known Allergies*] Allergy (Verified 03/17/23 09:46) Medication List - Last Reconciled 03/17/23 by Elizabeth Dickinson CNM levonorgestrel (Mirena) intrauterine Is last menstrual period known: Yes Last menstrual period: 03/11/23 Patient : No Do you need a note to return to daycare/school/sports/work: No HPI Ultra sound follow up HPI Details Patient is here for ultrasound follow-up the ultrasound was done just to double check on her Mirena IUs. She is using it for control she is nursing her 2-year-old still and in the middle of potty training him. PFSH Medical History Hx of iron deficiency anemia Family History Mother Hypertension Maternal Grandfather Colon cancer Maternal Aunt Hx of breast cancer Social History Household Members: Family Both parents involved: Yes Caregiver staying overnight: No Housing: Apartment Are you a primary post acute care nurse practitioner to a significant other at home: No Do you presently have visiting nurse or other home services: No 75 years or older and lives alone: No Alcohol intake: never Patient Tobacco Use Status: Never used Tobacco Special abbey needs: No Agree to transfusion: Yes Patient : No Female Reproductive History Menstrual Age of Menarche: 11 Duration of menses: 8-10 days Date of last menstrual period: 03/11/23 control method: progestin IUCD Date of last pap smear: 02/06/22 (negative, no prev.pap) Physical Exam Vital Signs: Last Vital Signs BP 116/68 03/17/23 09:46 BMI result Body Mass Index 35.1 Results Reviewed Results Reviewed: Patient: Anne Ochoa MR#: [id number] : 2000 Acct:[id number] Age/Sex: 22 / F ADM Date: 02/18/23 Loc: HO.US Attending Dr: Elizabeth Dickinson CNM Ordering Physician: Elizabeth Dickinson CNM Date of Service: 02/18/23 Procedure(s): US pelvic and transvaginal Accession Number(s): [id number] cc: Brinda Lizarraga ; Elizabeth Dickinson CNM~ ADDENDUMResults Acknowledgement: STONEY Cedeno (02/24/2023 11:06:37): Results given to Sabiha Rosas RN from the referring's office, at 11:05 a.m. 02/24/2023. Addendum Dictated By: Kassie Gandhi MD Addendum Signed By: <Electronically signed by Kassie Gandhi MD in OV> 02/24/23 1230 Addendum Cosigned By: DD/ TD/TT: / EXAMINATION: US PELVIS CLINICAL INFORMATION: Complication of genitourinary prosthetic device. Last menstrual period a week ago. COMPARISON: 03/31/2022 pelvic ultrasound. TECHNIQUE: Ultrasound of the pelvis is performed using both transabdominal and transvaginal transducers along with Doppler. Transvaginal imaging is performed due to inadequate visualization transabdominally. FINDINGS: The uterus measures 7.8 x 3.8 x 4.6 cm. No discrete fibroids are appreciated. US/US pelvic and transvaginal IMPRESSION: No discrete fibroids appreciated. Endometrial thickness is 0.6 cm. No significant free fluid. IUD appears abnormally positioned low in the cervix. Correlation with clinical exam and gynecologic consultation recommended to determine further management. Right ovary measures 3.2 x 1.6 x 1.8 cm, volume 4.8 mL. Left ovary measures 3.0 x 1.8 x 1.6 cm, volume 4.5 mL. Bilateral ovaries demonstrate multiple small follicles. IMPRESSION: IUD appears abnormally positioned low in the cervix. Correlation with clinical exam and gynecologic consultation recommended to determine further management including possible removal/repositioning. This study was presented today, 02/24/2023, at 9:42 AM for interpretation. PSA staff will provide results to referring provider at this time. Dictated By: Kassie Gandhi MD Signed By: <Electronically signed by Kassie Gandhi MD in OV> 02/24/23 0949 DD/ 1504 Assessment & Plan Assessment & Plan (1) Presence of 52 mg levonorgestrel-releasing intrauterine device (IUD): Comment: Per ultrasound IUD is slightly low in the uterus we will replace it with her next menses she is getting very regular menses 26 day cycles. IUD still functional not causing her pain she does get right-sided twinges that would be not related to the position of the IUD. Code(s): Z97.5 - Presence of (intrauterine) contraceptive device Plan I reviewed the ultrasound with her and that we do need to replace the IUD and ideally since she is getting regular menses it would be best to replace it with her next menses I reviewed her recent menses dates with her and she essentially has 26 day cycles with the 1st 2 days of her menses being just spotting which she counts as. And then 2 days into it she gets more of a regular flow discussed that optimal replacement would be when she has her regular flow of the menses. It will make insertion easier for her. In the meantime she is having some twinges on the right side but the ultrasound did not show any pathology with either of her ovaries. Discussed normal cyclic changes that can still occur even with the Mirena IU S. also discussed that the Mirena IU S is still emitting levonorgestrel so she is still protected from however if she has any symptoms that feel to her like the IUD has fallen out or has causing pain with intercourse then she should stop and await the re insertion. We will see her with her next menses for removal of this IUD and replacement with a new Mirena. Coding Level of Care Code Est Pt Level 3 (93698) Diagnoses Presence of 52 mg levonorgestrel-releasing intrauterine device (IUD) Z97.5
[2023-03-17 09:46] VITALS: BP 116/68; BMI 35.1
== END 2023-03-17 10:19 | disposition home or self-care (01) ==
LOC: HO.HWSM 09:44
PROVIDERS: PCP Nurse Practitioner; Visit Provider Advanced Practice Midwife
DX: Z97.5 Presence of (intrauterine) contraceptive device (principal)
CPT/HCPCS: 99213

== ENCOUNTER → 2023-03-17 09:44 | Outpatient (BNVA) | payer MEDICAID, SELFPAY | PROVIDERS: PCP Nurse Practitioner; Visit Provider Advanced Practice Midwife | DX: Z30.431 Encounter for routine checking of intrauterine contraceptive device (principal) | CPT/HCPCS: 99212 ==

== ENCOUNTER 2023-06-05 14:09 | Outpatient (AMB) | payer MEDICAID, SELFPAY ==
--- NOTE | 2023-06-05 14:58 | MHC.OFFVIS ---
Intake Vital Signs 06/05/23 15:02 Height 5 ft 1 in Weight 184 lb BMI 34.8 BP 130/70 Intake Visit Reasons: IUD exchange Hazardous Waste Material Technician Required: No Information Interpreted: non-clinical & clinical Hybrid Derivatives Trader: Hybrid Derivatives Trader Present (Andreia) Allergies No Known Allergies [No Known Allergies*] Allergy (Verified 06/05/23 14:59) Medication List - Last Reconciled 06/05/23 by Elizabeth Dickinson CNM levonorgestrel (Mirena) intrauterine Is last menstrual period known: Yes Last menstrual period: 06/03/23 Post menopausal: No HPI IUD exchange HPI Details Patient is here to exchange her IUD she had had an ultrasound done that showed that her Mirena IU S was lowering down in her uterus and needed to be replaced her periods started 2 days ago and is really heavy. The last time she had sex was about a month ago. Her baby's about to be 2 years old. PFSH Medical History Hx of iron deficiency anemia Family History Mother Hypertension Maternal Grandfather Colon cancer Maternal Aunt Hx of breast cancer Social History Household Members: Family Both parents involved: Yes Caregiver staying overnight: No Housing: Apartment Are you a primary live in caregiver to a significant other at home: No Do you presently have visiting nurse or other home services: No 75 years or older and lives alone: No Alcohol intake: never Patient Tobacco Use Status: Never used Tobacco Special abbey needs: No Agree to transfusion: Yes Female Reproductive History Menstrual Age of Menarche: 11 Date of last menstrual period: 06/03/23 control method: progestin IUCD Total pregnancies: 1 Full term: 1 Number of Living Children: 1 Date of last pap smear: 02/06/22 (negative) Physical Exam Vital Signs: Last Vital Signs BP 130/70 06/05/23 15:02 BMI result Body Mass Index 34.8 Other: Heavy menses Mirena strings visible see procedures for details. External Female Exam: normal external appearance Speculum Exam - Vagina: normal appearance of the vagina and normal vaginal discharge Speculum Exam - Cervix: normal appearance of the cervix Bimanual exam- vagina & uterus: normal bimanual exam, uterine size normal, consistency normal, uterine mobility normal, uterine shape normal and non-tender Bimanual Exam- Adnexa, other: normal adnexae, no masses and No adnexal tenderness Office Procedures IUD Insert/Removal Details Details: ---Patient is here for her IUD removal and insertion. Bimanual exam was done. Her uterus is firm, nontender, and appropriate sized, and is midposition to antiverted . The IUD strings were grasped with ring forceps, and as patient coughed the IUD was removed easily with 1 tug. ---The cervix was recleaned with Betadine. Tenaculum was placed on the cervix slowly to minimize cramping. The uterus was sounded slowly and gently she show a measurement of 7 1/2 cm. The IUD was removed from its package, after checking identifying information and lot dates and expiration dates and and gently inserted into the os, as per the IUD insertion procedure. The strings were then trimmed to 3-4 centimetres. The tenaculum was removed and gentle pressure applied with a swab, until any bleeding subsided from the tenaculum sites. The speculum was gently removed. The patient sat up. I Reviewed what to expect, and what indications would necessitate a call. Pt to call for fever, untoward pain or cramping. I reviewed any appropriate backup method. Pt to return for recheck as scheduled. 65177-ABP Insertion 56528-TFE Removal Procedure code (CPT) selection complete Office Meds Mirena 21 mcg/24 hours (8 yrs) 52 mg intrauterine device Performing Provider: Elizabeth Dickinson CNM [facility] Administered by: GEORGIA Zamora on 06/05/23 16:29 Dose Route Admin Location Dispensed Lot Number Expiration Date [facility] Glass Ribbon Machine Operator Assistant 1 device intrauterine [facility] 1 device [id number] 03/24/25 64456-486-26 [employer] Results AMB Test Urine AMB Test Urine Negative Last Edit by GEORGIA Zamora on 06/05/23 16:30 Assessment & Plan Assessment & Plan (1) Presence of 52 mg levonorgestrel-releasing intrauterine device (IUD): Comment: Per ultrasound IUD is slightly low in the uterus we will replace it with her next menses she is getting very regular menses 26 day cycles. IUD still functional not causing her pain she does get right-sided twinges that would be not related to the position of the IUD. Code(s): Z97.5 - Presence of (intrauterine) contraceptive device (2) IUD complication: Code(s): T83.9XXA - Unspecified complication of genitourinary prosthetic device, implant and graft, initial encounter (3) Encounter for IUD insertion: Comment: mirena iud inserted 01/03/22, w menses, smooth. strings trimmed to 3 cms; Mirena which was low in her uterus was removed today 06/05/2023 and new Mirena inserted strings trimmed to between 3 and 3.5 cm., performed with heavy menses. Code(s): Z30.430 - Encounter for insertion of intrauterine contraceptive device (4) Hx of iron deficiency anemia: Code(s): Z86.2 - Personal history of diseases of the blood and blood-forming organs and certain disorders involving the immune mechanism Plan Mirena was removed and new Mirena was inserted per procedure please see the procedure section for the details. I recommend the patient do not have sex for next week reviewed signs and symptoms of expulsion or problem and for her to call if there are any but we will see her in 6 weeks. Orders: Orders AMB HCG Urine Test Today Z32.02 - Encounter for test, result negative AMB IUD Insertion/Removal - Practice Supplied Today Z30.430 - Encounter for insertion of intrauterine contraceptive device Coding Level of Care Code Est Pt Level 3 (98981) Diagnoses Presence of 52 mg levonorgestrel-releasing intrauterine device (IUD) Z97.5 IUD complication T83.9XXA Encounter for IUD insertion Z30.430 Hx of iron deficiency anemia Z86.2 CPT Codes Details - CPT: 50537-VJI Insertion ([id number]) Details - CPT: 36681-DTL Removal ([id number])
[2023-06-05 15:02] VITALS: BP 130/70; BMI 34.8
== END 2023-06-05 16:19 | disposition home or self-care (01) ==
LOC: HO.HWSM 14:09
PROVIDERS: PCP Nurse Practitioner; Visit Provider Advanced Practice Midwife
DX: T83.9XXA Unspecified complication of genitourinary prosthetic device, implant and graft, initial encounter (principal); Z30.433 Encounter for removal and reinsertion of intrauterine contraceptive device; Z86.2 Personal history of diseases of the blood and blood-forming organs and certain disorders involving the immune mechanism
CPT/HCPCS: 58300; 58301

== ENCOUNTER → 2023-06-05 14:09 | Outpatient (BNVA) | payer MEDICAID, SELFPAY | PROVIDERS: PCP Nurse Practitioner; Visit Provider Advanced Practice Midwife | DX: Z30.433 Encounter for removal and reinsertion of intrauterine contraceptive device (principal); T83.9XXA Unspecified complication of genitourinary prosthetic device, implant and graft, initial encounter; Z86.2 Personal history of diseases of the blood and blood-forming organs and certain disorders involving the immune mechanism | CPT/HCPCS: 58300; 58301; J7298 ==

== ENCOUNTER 2023-07-22 13:20 | Outpatient (AMB) | payer MEDICAID, SELFPAY ==
[2023-07-22 14:50] VITALS: BP 110/60; BMI 34.8
--- NOTE | 2023-07-22 14:50 | MHC.OFFVIS ---
Vital Signs 07/22/23 14:50 Height 5 ft 1 in Weight 184 lb BMI 34.8 BP 110/60 Intake Visit Reasons: 6 week follow up Airworthiness Inspector Required: No Information Interpreted: clinical only Adjutant General: Adjutant General Present Allergies No Known Allergies [No Known Allergies*] Allergy (Verified 07/22/23 14:51) Medication List - Last Reconciled 07/22/23 by Elizabeth Dickinson CNM levonorgestrel (Mirena) intrauterine Is last menstrual period known: Yes Last menstrual period: 07/22/23 Do you need a note to return to daycare/school/sports/work: No HPI HPI 6 week follow up: Details: Patient is here for an IUD check she has not having any problems with it at all she had sex with it and it did not bother at all. She is only spotting with a little bit with the last when she would get heavy periods that would last. Inserted 6 weeks ago. We will do an exam and check for the string if the string is not visible then we will do a test.. PFSH Medical History Hx of iron deficiency anemia Family History Mother Hypertension Maternal Grandfather Colon cancer Maternal Aunt Hx of breast cancer Social History Household Members: Family Both parents involved: Yes Caregiver staying overnight: No Housing: Apartment Are you a primary post acute care nurse practitioner to a significant other at home: No Do you presently have visiting nurse or other home services: No 75 years or older and lives alone: No Alcohol intake: never Patient Tobacco Use Status: Never used Tobacco Special abbey needs: No Agree to transfusion: Yes Female Reproductive History Menstrual Age of Menarche: 11 Duration of menses: 3-5 days Date of last menstrual period: 07/22/23 control method: progestin IUCD Total pregnancies: 1 Full term: 1 Physical Exam Vital Signs: Last Vital Signs BP 110/60 07/22/23 14:50 BMI result Body Mass Index 34.8 Other: Light menses present cervix multiparous with Mirena string visible. External Female Exam: normal external appearance and normal appearance of the urethra Speculum Exam - Vagina: normal appearance of the vagina and normal vaginal discharge Speculum Exam - Cervix: normal appearance of the cervix and Cervical os closed Assessment & Plan Assessment & Plan (1) Presence of 52 mg levonorgestrel-releasing intrauterine device (IUD): Comment: Per ultrasound IUD was slightly low in the uterus, mirena replaced on 06/05/23... Code(s): Z97.5 - Presence of (intrauterine) contraceptive device Category: Social Hx Plan Reviewed the there is a range bleeding patterns that may occur for her with this new Mirena it might be her known to get menses it might be to not get menses if her menses go way completely and then start to return in 5 or 6 years, I would recommend using an alternative method of contraception until it is replaced, although it theoretically can be used for up to 8 years you see her for her annual exams whenever they are due. Coding Level of Care Code Est Pt Level 3 (64923) Diagnoses Presence of 52 mg levonorgestrel-releasing intrauterine device (IUD) Z97.5
== END 2023-07-22 15:36 | disposition home or self-care (01) ==
PROVIDERS: PCP Nurse Practitioner; Visit Provider Advanced Practice Midwife
DX: Z97.5 Presence of (intrauterine) contraceptive device (principal)
CPT/HCPCS: 99213

== ENCOUNTER → 2023-07-22 13:20 | Outpatient (BNVA) | payer MEDICAID, SELFPAY | PROVIDERS: PCP Nurse Practitioner; Visit Provider Advanced Practice Midwife | DX: Z97.5 Presence of (intrauterine) contraceptive device (principal) | CPT/HCPCS: 99212 ==

== ENCOUNTER 2023-10-28 08:45 | Outpatient (REF) | payer MEDICAID, SELFPAY ==
[2023-10-28 11:08] LABS: MANUAL DIFF FLAG NO
[2023-10-28 11:17] LABS: Basophils Percent Auto 0.3 % (0-2); Eosinophils Absolute Auto 0.1 X10*3/uL (0.0-0.4); Eosinophils Percent Auto 1.6 % (0-4); Hematocrit 37.5 % (37.0-47.0); Hemoglobin 12.7 g/dl (12.0-16.0); Imm Gran Abs Auto 0.03 X10*3/uL (0.00-0.03); Imm Gran Pct Auto 0.4 % (0.0-0.4); Lymphocytes Absolute Auto 2.6 X10*3/uL (1.2-4.9); Mean Corpuscular HGB Conc 33.9 g/dl (31.0-35.0); Mean Corpuscular Hemoglobin 29.4 pg (27.0-33.0); Mean Corpuscular Volume 86.8 fL (80.0-98.0); Mean Platelet Volume 10.4 fL (9.4-12.3); Monocytes Absolute Auto 0.4 X10*3/uL (0.1-1.2); Monocytes Percent Auto 5.9 % (2-11); Neutrophils Absolute Auto 4.2 x10*3/uL (2.0-8.3); Neutrophils Percent Auto 56.8 % (45-73); Platelet Count 268 X10*3/uL (160-400); Red Blood Count 4.32 X10*6/uL (4.20-5.50); Red Cell Distribution Width 12.8 % (11.0-16.0); White Blood Count 7.4 X10*3/uL (4.8-10.8)
[2023-10-28 11:29] LABS: Estimated Average Glucose 97 mg/dL
[2023-10-28 11:59] LABS: Anion Gap 10 (12-20); Blood Urea Nitrogen 10 mg/dL (9-16); Calcium 9.7 mg/dL (8.4-10.2); Carbon Dioxide 27 mmol/L (22-29); Chloride 106 mmol/L (96-108); Cholesterol 158 mg/dL (<200); Estimated Glomerular Filt Rate > 60; Glucose Random 92 mg/dL (60-115); HDL Cholesterol 33 mg/dL (>40); LDL Cholesterol Calculated 107 mg/dL (<100); Potassium 3.6 mmol/L (3.3-5.1); Sodium 139 mmol/L (135-145); TSH reflex Free T4 1.23 uIU/mL (0.32-4.0); Triglycerides 90 mg/dL (<150)
== END 2023-10-28 08:46 | disposition home or self-care (01) ==
LOC: HO.HHCL 08:45
PROVIDERS: Visit Provider Nurse Practitioner
DX: E66.9 Obesity, unspecified (principal)
CPT/HCPCS: 36415; 80048; 80061; 83036; 84443; 85025

== ENCOUNTER 2023-11-16 12:18 | Outpatient (REF) | payer MEDICAID, SELFPAY ==
--- NOTE | ~2023-11-16 | US_ITS ---
EXAMINATION: US DIAGNOSTIC ULTRASOUND BREAST, RIGHT CLINICAL INFORMATION: 23-year-old female with right breast pain 3-4 o'clock axis. No associated palpable abnormality. COMPARISON: None available. TECHNIQUE: Ultrasound of the right breast is performed with real-time reddy scale imaging and color Doppler. Attention was given to the 3-4:00 axis as directed by the patient in the region of reported breast pain. FINDINGS: There is no focal suspicious finding. There is no solid mass, cystic abnormality, abnormal shadowing, or architectural abnormality. Only normal breast parenchyma is identified. Results are discussed with the patient at time of visit. US/US breast RT limited mamm only IMPRESSION: No findings suspicious for malignancy right breast. No ultrasound abnormality or correlate to explain right breast pain 3-4 o'clock axis. Recommend clinical management and follow-up. ASSESSMENT: BI-RADS 1: Negative RECOMMENDATION: 1. Patient should be managed based on the clinical impression. Electronically signed by: Omar Burns MD 11/16/2023 04:31 PM EDT
== END 2023-11-16 12:19 | disposition home or self-care (01) ==
LOC: HO.MAMMO 12:18
PROVIDERS: PCP Nurse Practitioner; Visit Provider Nurse Practitioner
DX: N64.4 Mastodynia (principal)
CPT/HCPCS: 76642

== ENCOUNTER → 2023-11-16 13:00 | Outpatient (BNV) | payer MEDICAID, SELFPAY | PROVIDERS: PCP Nurse Practitioner; Visit Provider Radiology Diagnostic Radiology | DX: N64.4 Mastodynia (principal) | CPT/HCPCS: 76642 ==

== ENCOUNTER 2024-02-02 07:55 | Outpatient (REF) | payer MEDICAID, SELFPAY ==
--- NOTE | ~2024-02-02 | US_ITS ---
EXAMINATION: US DIAGNOSTIC ULTRASOUND BREAST, RIGHT CLINICAL INFORMATION: Right breast painful warm mass at 12:00. Patient had ultrasound November 16, 2023 which was normal. Patient just completed a 10 day course of antibiotics and feels better.. COMPARISON: Comparison is made with relevant prior imaging. TECHNIQUE: Ultrasound of the breast is performed with real-time reddy scale imaging and color Doppler. FINDINGS: Targeted color Doppler ultrasound scanning from 10-2 o'clock demonstrates normal fibroglandular breast tissue. There is no mass or fluid collection. Results are discussed with the patient at time of visit. US/US breast RT limited mamm only IMPRESSION: No sonographic mass or fluid collection to explain the patient's symptoms of warm painful mass. Recommend clinical evaluation and follow-up at this time. ASSESSMENT: BI-RADS 1: Negative RECOMMENDATION: 1. Patient should be managed based on the clinical impression. Decision to proceed with biopsy should be based on clinical grounds and degree of clinical concern. 2. Otherwise, routine annual screening mammography at age 40. This patient's information was entered into a reminder system with a target due date for their next mammogram. Electronically signed by: Cindy Gibson DO 02/02/2024 09:29 AM PAVAN
== END 2024-02-02 07:56 | disposition home or self-care (01) ==
LOC: HO.MAMMO 07:55
PROVIDERS: PCP Nurse Practitioner; Visit Provider Family Medicine
DX: N61.1 Abscess of the breast and nipple (principal); N63.15 Unspecified lump in the right breast, overlapping quadrants
CPT/HCPCS: 76642

== ENCOUNTER → 2024-02-02 08:45 | Outpatient (BNV) | payer MEDICAID, SELFPAY | PROVIDERS: PCP Nurse Practitioner; Visit Provider Internal Medicine | DX: N61.1 Abscess of the breast and nipple (principal) | CPT/HCPCS: 76642 ==

== ENCOUNTER 2024-02-04 11:22 | Outpatient (AMB) | payer MEDICAID, SELFPAY ==
--- NOTE | 2024-02-04 11:32 | A.OFFVIS_ITS ---
Vital Signs 3 02/04/24 11:40 Height 5 ft 2.5 in Weight 180 lb 2 oz BMI 32.4 BP 120/67 Blood Pressure Location Lt brachial Position Sitting Pulse 87 Intake Visit Reasons: Right breast abscess Intake Note: Patient is seen in office for evaluation of a right breast abscess. Pt c/o: around 10/2023 started having rt breast pain and warm to the touch, had an ultrasound done and was told no mass or fluid, she still can feel a lump in the rt breast, denies discharge, redness or prior breast concerns us:02/02/24 Plastic Boat Buffer Required: No Food Operations Manager: Food Operations Manager Present Accompanied by: Self / Same As Patient Allergies No Known Allergies [No Known Allergies*] Allergy (Verified 02/04/24 11:38) Medication List - Last Reconciled 02/04/24 by Leoncio Nunez MD levonorgestrel (Mirena) intrauterine HPI Comments Details: 23-year-old female patient presenting for evaluation of pain in the right breast. She reports a painful lump which intermittently increases in size and causes increased discomfort. She has undergone ultrasound of the breast on 2 occasions both of which revealed no suspicious findings or fluid collections. She was treated with ibuprofen and doxycycline without significant improvement. She reports breast-feeding her child for approximately 2 years. She underwent an ultrasound of the right breast on 02/02/2024. This revealed no sonographic mass or fluid collection to explain the patient's clinical symptoms. She denies a previous history of breast surgeries. Her family history is significant for breast cancer in a maternal aunt. [facility] Medical History Hx of iron deficiency anemia Family History Mother Hypertension Maternal Grandfather Colon cancer Maternal Aunt Hx of breast cancer Social History Household Members: Family Both parents involved: Yes Caregiver staying overnight: No Housing: Apartment Are you a primary home visit field care manager to a significant other at home: No Do you presently have visiting nurse or other home services: No 75 years or older and lives alone: No Alcohol intake: never Patient Tobacco Use Status: Never used Tobacco Special abbey needs: No Agree to transfusion: Yes Female Reproductive History Menstrual Age of Menarche: 11 Total pregnancies: 1 Number of Living Children: 1 Review of Systems Const All systems reviewed & are unremarkable except as noted in HPI and below Physical Exam Vital Signs: Last Vital Signs Pulse 87 02/04/24 11:40 BP 120/67 02/04/24 11:40 BMI result Body Mass Index 32.4 Const General: no acute distress Nutritional Appearance: well nourished Orientation/consciousness: patient oriented x3 Chest Other: Right breast with a palpable mass located in the upper inner quadrant extending towards the nipple, tender to palpation, not definitely fluctuant. No overlying redness is noted in the skin. No discharge noted from the nipple and no other palpable mass or enlarged lymph nodes are appreciated. Left breast: No skin change, nipple discharge, palpable mass or enlarged lymph nodes appreciated. Chest/axillae images: 2 1. Site of palpable mass right breast. Resp Effort & Inspection: normal respiratory effort, no audible wheezes, no cough and no respiratory distress Neuro General: patient oriented x3 Assessment & Plan Assessment & Plan (1) Breast mass, right: Code(s): N63.10 - Unspecified lump in the right breast, unspecified quadrant Category: Medical Qualifiers: Breast mass location: upper inner quadrant Qualified Code(s): N63.12 - Unspecified lump in the right breast, upper inner quadrant Plan 23-year-old female patient presenting with a painful lump in the right breast at the upper inner quadrant which clinically appears suggestive of an abscess however ultrasound reveals no suspicious findings to indicate a mass or abscess. I therefore recommended a lumpectomy of this painful mass and after discussion of the procedure, risks, and alternatives, she consents to the surgery. Coding Level of Care Code New Pt Level 4 (28071) Diagnoses Mass of upper inner quadrant of right breast N63.12 Breast mass location: upper inner quadrant
[2024-02-04 11:40] VITALS: BP 120/67; PULSE 87; BMI 32.4
== END 2024-02-04 11:52 | disposition home or self-care (01) ==
PROVIDERS: PCP Nurse Practitioner; Visit Provider Surgery
DX: N63.12 Unspecified lump in the right breast, upper inner quadrant (principal)
CPT/HCPCS: 99204

== ENCOUNTER → 2024-02-04 11:22 | Outpatient (BNVA) | payer MEDICAID, SELFPAY | PROVIDERS: PCP Nurse Practitioner; Visit Provider Surgery | DX: N63.12 Unspecified lump in the right breast, upper inner quadrant (principal) | CPT/HCPCS: 99202 ==

== ENCOUNTER 2024-02-29 11:21 | Day surgery (SDC) | payer MEDICAID, SELFPAY ==
[2024-02-25 11:46] VITALS: BMI 32.4
--- NOTE | 2024-02-25 12:17 | P.CONAN_ITS ---
Documented by User: Shira Hooper NP 02/25/24 12:18 HPI - Anesthesia Eval Consult details Narrative: 23yo F for Right Breast Lumpectomy PMFSH Active Problems Active Problems: All Active Problems Breast mass, right (Acute) Menorrhagia due to intrauterine device (IUD) (Acute) Presence of 52 mg levonorgestrel-releasing intrauterine device (IUD) (Acute) Cervical cancer screening (Acute) IUD complication (Acute) IUD check up (Acute) Encounter for IUD insertion (Acute) control counseling (Acute) () (Acute) Encounter for care after hospital delivery (Acute) state (Acute) Encounter for supervision of normal in third trimester (Acute) Obesity (BMI 35.0-39.9 without comorbidity) (Acute) Supervision of normal in second trimester (Acute) test positive (Acute) Hx of iron deficiency anemia (Acute) Past Medical History Medical History Hx of iron deficiency anemia Family History Family History Mother Hypertension Maternal Grandfather Colon cancer Maternal Aunt Hx of breast cancer Surgical History Surgical History (Updated 02/29/24 @ 11:46 by Bita Mejia RN) No pertinent past surgical history Social History Social History Household Members: Family Housing: Apartment Are you a primary career development specialist to a significant other at home: No Do you presently have visiting nurse or other home services: No Alcohol intake: never Patient Tobacco Use Status: Never used Tobacco Have you been hit, kicked, punched, or otherwise hurt by someone within the past year? If so, by whom?: No Special abbey needs: No Agree to transfusion: Yes Are you DNR?: No Advance Directives: No Advance Directives Information Provided: Yes Recently lost weight without trying: No Nutrition Risks: No Nutritional Risk FDLMP: not often due to IUD : No Meds Allergies Allergy/AdvReac Type Severity Reaction Status Date / Time No Known Allergies Allergy Verified 02/29/24 11:18 [No Known Allergies*] Home Medications ?Medication ?Instructions ?Recorded ?Confirmed ?Last Taken ?Type levonorgestrel 21 mcg/24 hr (up to intrauterine 02/06/22 02/04/24 Unknown History 8 years) 52 mg intrauterine device (Mirena) Exam Height,Weight and Vital Signs: Height 5 ft 2.5 in Weight 81.647 kg Assessment and Plan Assessment Anesthesia Assessment: Chart Reviewed Documented by User: Fredy Greenberg MD 02/29/24 12:54 PMFSH Past Medical History Medical History Hx of iron deficiency anemia Family History Family History Mother Hypertension Maternal Grandfather Colon cancer Maternal Aunt Hx of breast cancer Family history of problems with anesthesia: No Surgical History Surgical History (Updated 02/29/24 @ 11:46 by Bita Mejia RN) No pertinent past surgical history History of Problems with Anesthesia: No Social History Social History Household Members: Family Housing: Apartment Are you a primary career development specialist to a significant other at home: No Do you presently have visiting nurse or other home services: No Alcohol intake: never Patient Tobacco Use Status: Never used Tobacco Have you been hit, kicked, punched, or otherwise hurt by someone within the past year? If so, by whom?: No Special abbey needs: No Agree to transfusion: Yes Are you DNR?: No Advance Directives: No Advance Directives Information Provided: Yes Recently lost weight without trying: No Nutrition Risks: No Nutritional Risk FDLMP: not often due to IUD : No Meds Allergies Allergy/AdvReac Type Severity Reaction Status Date / Time No Known Allergies Allergy Verified 02/29/24 11:18 [No Known Allergies*] Home Medications ?Medication ?Instructions ?Recorded ?Confirmed ?Last Taken ?Type levonorgestrel 21 mcg/24 hr (up to intrauterine 02/06/22 02/04/24 Unknown History 8 years) 52 mg intrauterine device (Mirena) Exam Airway Mallampati Class: II TM Dist: >3cm Neck ROM: Full Assessment and Plan Assessment Anesthesia Assessment: Anesthesia Plan Discussed Final Anesthetic Review Family History of Problems with Anesthesia: No History of Problems with Anesthesia: No NPO: Yes ASA Class: II Final Preanesthetic Review: No Changes in Pt Med Stat, Meds/Allgs Chart Reviewed, Consent Obtained/Reviewed, Anes Risks/Benef Reviewed and DNR Form (If Appl.) Patient Risk: Low Procedure Risk: Low Anesthetic Plan Anesthetic Plan: GA Disposition: Standard PACU
[2024-02-29] VITALS (8 sets, daily range): BP systolic 124–137; BP diastolic 82–92; PULSE 65–86; RESP 16–18; TEMP 36.1–36.7; O2SAT 96–100
[2024-02-29 11:38] LABS: UPreg QC Valid YES; Urine Pregnancy NEGATIVE (NEGATIVE)
[2024-02-29] MEDS: Lactated Ringers 1,000 ML 100 ML IVCONT (11:41)
--- NOTE | 2024-02-29 13:05 | MHC.SHP ---
Pre-Procedural Eval Section A - 24 Hr Update-Section A only Date of Service: 02/29/24 The patient is an INPATIENT: No Changes since office visit: Yes Patient answered all questions; No Cold of Flu in the past 2 weeks, No New Medical Problems and No Changes in Medication The patient has been examined within 24 hours of the surgical procedure. The History & Physical has been completed within 30 days and I have reviewed it.: Yes Section B - Complete if H&P > 30 days Chief Complaint: Unspecified lump in the right breast, upper inner Allergies: Allergies Allergy/AdvReac Type Severity Reaction Status Date / Time No Known Allergies Allergy Verified 02/29/24 11:18 [No Known Allergies*] Plan Diagnosis/Plan: Unchanged I have reviewed the history and physical and performed a pertinent physical examination on my patient. No changes have occurred unless specified. Time Spent With Patient Time: Total time managing care of this patient today ____ minutes.
--- NOTE | 2024-02-29 13:57 | P.OP_ITS ---
Operative Note Operative Note Date of Service: 02/29/24 Narrative: Preoperative diagnosis: Right breast mass Postoperative diagnosis: Same Procedure: Right breast lumpectomy Surgeon: Leoncio Nnuez MD Data Software Engineer: Aleida Paredes PA-C Anesthesia: General LMA Indications for procedure: 23-year-old female patient presenting with a painful lump located in the right breast at the upper inner quadrant. The lump has been increasing in size and causing increased discomfort. Ultrasound was negative for any suspicious density or fluid collection. Operative findings: Mastitis with multiple collections of pus. Specimen: Wound culture, right breast mass Estimated blood loss: 10 mL Complications: None Procedure details: Patient was brought to the OR placed in a supine position. After administering general anesthesia the patient's right breast was prepped with ChloraPrep and draped in a sterile fashion. A surgical time-out was called the consent confirmed. Patient received preoperative antibiotics and Venodyne boots were in place. Local anesthesia consisting of 0.5% Sensorcaine was infiltrated along the margin of the areola in the upper inner quadrant. A curvilinear incision was then made measuring the same location and carried out through subcutaneous tissue. Superior and inferior skin flaps were then created using electrocautery. Electrocautery was then used to dissect around the palpable mass. An Allis clamp was used to retract the mass and electrocautery used to dissect the mass free from the surrounding breast tissue. Several collections of purulent material were encountered and cultured. These were suctioned dry. The mass was then removed and marked with a long suture on the lateral margin, short suture on the superior margin and looped suture on the posterior margin. This was sent to pathology for further examination. Wounds were then irrigated with saline solution and suctioned dry. Wounds were checked for hemostasis. Hemostasis was assured using electrocautery. Deep breast tissue was then reapproximated using interrupted 3-0 Polysorb sutures. Dermis was reapproximated using interrupted 3-0 Polysorb sutures. Skin was then closed using a running subcuticular 4-0 Polysorb suture. Steri-Strips, 2 x 2 gauze and Tegaderm were then applied. The patient tolerated the procedure well. Sponge, instrument, needle counts reported as correct. The patient was transferred to PACU in stable condition.
[2024-02-29] MEDS: fentaNYL citrate/PF 100 MCG/2 ML VIAL 50 MCG IVPUSH (14:21)
== END 2024-02-29 15:34 | disposition home or self-care (01) ==
PROVIDERS: Nurse Practitioner; PCP Nurse Practitioner; Visit Provider Surgery
PROC: (CPT 19301; principal; 2024-02-29 14:00)
DX: N61.1 Abscess of the breast and nipple (principal); N64.4 Mastodynia; N60.31 Fibrosclerosis of right breast
CPT/HCPCS: 19301; 81025; 87070; 87205; 88307; J0131; J0690; J1100; J2003; J2250; J2405; J2704; J2795; J3010

== ENCOUNTER → 2024-02-29 11:21 | Outpatient (BNV) | payer MEDICAID, SELFPAY | PROVIDERS: PCP Nurse Practitioner; Visit Provider Surgery | DX: N63.12 Unspecified lump in the right breast, upper inner quadrant (principal) | CPT/HCPCS: 19301 ==

== ENCOUNTER 2024-03-10 13:01 | Outpatient (AMB) | payer MEDICAID, SELFPAY ==
--- NOTE | 2024-03-10 13:08 | A.OFFVIS_ITS ---
Vital Signs 3 03/10/24 13:16 Height 5 ft 2.5 in Weight 178 lb 4 oz BMI 32.1 BP 125/71 Blood Pressure Location Lt brachial Position Sitting Pulse 77 Intake Visit Reasons: S/P Rt breast lumpectomy Intake Note: Patient is seen in office for post op assessment post right breast lumpectomy. Pt c/o:after surgery was 3 days with vomit and diarrhea, unsure if due to stomach bug, currently has no symptoms, incision area is looking well, no redness, discharge or swelling surgery: 02/29/24 Body Line Finisher Required: No Accompanied by: Self / Same As Patient Allergies No Known Allergies [No Known Allergies*] Allergy (Verified 03/10/24 13:16) Medication List - Last Reconciled 03/10/24 by Leoncio Nunez MD doxycycline hyclate 100 mg PO BID levonorgestrel (Mirena) intrauterine HPI Comments Details: 23-year-old female patient status post excision of a large mass of the right breast at the upper inner quadrant on 02/29/2024. Pathology revealed extensive abscess and granulation formation. Subsequent wound cultures were positive for Corynebacterium species. She was placed on doxycycline postoperatively. She continues on this but reports missing several days due to nausea and vomiting. She denies any fever or chills. In general she feels improved. [facility] Medical History (Updated 02/29/24 @ 14:03 by Leoncio Nunez MD) Hx of iron deficiency anemia Surgical History (Updated 03/03/24 @ 09:10 by Brinda Stark Ana Luisa) History of lumpectomy of right breast (02/29/24) No pertinent past surgical history Family History Mother Hypertension Maternal Grandfather Colon cancer Maternal Aunt Hx of breast cancer Social History Household Members: Family Both parents involved: Yes Caregiver staying overnight: No Housing: Apartment Are you a primary career advisor to a significant other at home: No Do you presently have visiting nurse or other home services: No 75 years or older and lives alone: No Alcohol intake: never Comment: improved Patient Tobacco Use Status: Never used Tobacco Special abbey needs: No Agree to transfusion: Yes Female Reproductive History Menstrual Age of Menarche: 11 Physical Exam Const General: comfortable Nutritional Appearance: well nourished Orientation/consciousness: patient oriented x3 Chest Other: Periareolar incision in the upper inner quadrant is clean, dry, and intact. There is a slight redness in the skin at the upper inner quadrant with fullness consistent with a prior excision. No tenderness noted to palpation. This may be postoperative change or residual phlegmon/granulation. Chest/axillae images: 2 1. Incision upper inner quadrant Brook areolar Resp Effort & Inspection: normal respiratory effort Skin Other: Warm, dry, no rash Neuro General: patient oriented x3 Assessment & Plan Assessment & Plan (1) Mastitis of right breast unrelated to of : Code(s): N61.0 - Mastitis without abscess Category: Medical Plan 23-year-old female status post excision of a right breast mass. Pathology revealed abscess and granulation with no malignancy or atypia. Pathology was reviewed with the patient today. Overall she is much improved. I recommended that she continue the antibiotics as prescribed. She will return in 2 weeks for follow-up examination. Coding Level of Care Code Global (87986) Diagnoses Mastitis of right breast unrelated to of N61.0
[2024-03-10 13:16] VITALS: BP 125/71; PULSE 77; BMI 32.1
== END 2024-03-10 13:20 | disposition home or self-care (01) ==
PROVIDERS: PCP Nurse Practitioner; Visit Provider Surgery
DX: N61.0 Mastitis without abscess (principal)
CPT/HCPCS: 99024

== ENCOUNTER → 2024-03-10 13:01 | Outpatient (BNVA) | payer MEDICAID, SELFPAY | PROVIDERS: PCP Nurse Practitioner; Visit Provider Surgery | DX: N61.0 Mastitis without abscess (principal); Z48.817 Encounter for surgical aftercare following surgery on the skin and subcutaneous tissue; Z98.890 Other specified postprocedural states | CPT/HCPCS: 99212 ==

== ENCOUNTER 2024-03-11 22:12 | Emergency (ER) | payer MEDICAID, SELFPAY ==
[2024-03-11 22:35] VITALS: BP 129/80; PULSE 82; RESP 16; TEMP 37.1; O2SAT 98; BMI 32.9
[2024-03-11 23:08] LABS: MANUAL DIFF FLAG NO
[2024-03-11 23:09] LABS: Basophils Percent Auto 0.3 % (0-2); Eosinophils Absolute Auto 0.2 X10*3/uL (0.0-0.4); Eosinophils Percent Auto 1.7 % (0-4); Hematocrit 39.8 % (37.0-47.0); Hemoglobin 13.7 g/dl (12.0-16.0); Imm Gran Abs Auto 0.04 X10*3/uL (0.00-0.03); Imm Gran Pct Auto 0.3 % (0.0-0.4); Lymphocytes Absolute Auto 3.7 X10*3/uL (1.2-4.9); Lymphocytes Percent Auto 31.2 % (20-40); Mean Corpuscular HGB Conc 34.4 g/dl (31.0-35.0); Mean Corpuscular Hemoglobin 29.3 pg (27.0-33.0); Mean Corpuscular Volume 85.2 fL (80.0-98.0); Mean Platelet Volume 9.4 fL (9.4-12.3); Monocytes Absolute Auto 0.5 X10*3/uL (0.1-1.2); Monocytes Percent Auto 4.6 % (2-11); Neutrophils Absolute Auto 7.3 x10*3/uL (2.0-8.3); Neutrophils Percent Auto 61.9 % (45-73); Platelet Count 333 X10*3/uL (160-400); Red Blood Count 4.67 X10*6/uL (4.20-5.50); Red Cell Distribution Width 12.7 % (11.0-16.0); White Blood Count 11.8 X10*3/uL (4.8-10.8)
[2024-03-11 23:25] LABS: Alanine Aminotransferase 35 U/L (0-31); Albumin Level 4.6 g/dL (3.5-5.0); Alkaline Phosphatase 67 U/L (39-117); Anion Gap 12 (12-20); Aspartate Amino Transferase 22 U/L (5-31); Bilirubin Total 0.3 mg/dL (0.0-1.0); Blood Urea Nitrogen 8 mg/dL (9-16); Calcium 9.8 mg/dL (8.4-10.2); Carbon Dioxide 25 mmol/L (22-29); Chloride 106 mmol/L (96-108); Creatinine Clr Calc Pharmacy 122.5; Estimated Glomerular Filt Rate > 60; Glucose Random 84 mg/dL (60-115); Potassium 3.6 mmol/L (3.3-5.1); Sodium 139 mmol/L (135-145); Total Protein 8.6 g/dL (6.5-8.0)
[2024-03-12 00:04] VITALS: BP 113/63; PULSE 79; RESP 16; TEMP 36.8; O2SAT 98
--- NOTE | 2024-03-12 00:19 | ED.GENADULT ---
HPI - General Adult General Chief complaint: General Medical Stated complaint: R breast bleeding Time Seen by Provider: 03/12/24 00:03 Source: patient Mode of arrival: ambulatory Limitations: no limitations History of Present Illness ED Provider: Dr. Macie Cornell HPI narrative: Patient comes to the emergency room complaining of serosanguineous drainage from the right breast incision. Patient denies seeing pus. Patient states that on February 28 she had a lumpectomy done. Patient has been taking doxycycline. Patient states that sometime last week she had and GI bug and could not tolerate anything p.o. and skipped 4 doses of antibiotics. Patient had an appointment [address] Nunez from surgery, patient did not have any significant redness or drainage. Patient states that the pain in her right breast has been present since the surgery, no changes in pain. Denies fever chills Related Data Home Medications ?Medication ?Instructions ?Recorded ?Confirmed levonorgestrel 21 mcg/24 hr (up to intrauterine 02/06/22 03/10/24 8 years) 52 mg intrauterine device (Mirena) Previous Rx's ?Medication ?Instructions ?Recorded doxycycline hyclate 100 mg tablet 100 mg PO BID #20 tabs 02/29/24 ciprofloxacin HCl 500 mg tablet 500 mg PO BID #14 tabs 03/12/24 ketorolac 10 mg tablet 10 mg PO Q8H #12 tabs 03/12/24 Allergies Allergy/AdvReac Type Severity Reaction Status Date / Time No Known Allergies Allergy Verified 03/11/24 22:40 [No Known Allergies*] Review of Systems Review of Systems: Constitutional : No Weight loss, No Fever, No Chills, No Night Sweats, No Fatigue, No Malaise ENT/Mouth : No Hearing loss, No Ear Pain, No Nasal Congestion, No Sinus Pain, No Hoarseness, No sore throat, No Rhinorrhea, No Swallowing Difficulty Eyes: No Eye Pain, No Swelling, No Redness, No Foreign Body, No Discharge, No Vision Changes Cardiovascular : No Chest Pain, No SOB, No Dyspnea on Exertion, No Orthopnea, No Edema, No Palpitations Respiratory : No Cough, No Sputum, No Wheezing, No Smoke Exposure, No Dyspnea Gastrointestinal : No Nausea, No Vomiting, No Diarrhea, No Constipation, No abdominal Pain, No Hematochezia, No Melena Genitourinary : no irregular bleeding, No Dysuria, No Urinary Frequency, No Hematuria, No Urinary Incontinence, No Urgency, No Flank Pain, No Urinary Flow Changes, No Hesitancy Musculoskeletal : No joint pain, No Myalgias, No Joint Swelling Skin : Complaining of serosanguineous drainage from the right breast Neuro : No Weakness, No Numbness, No Paresthesias, No Loss of Consciousness, No Dizziness, No Headache Psych : No Anxiety/Panic, No Depression, No SI/HI/AH/VH, No Social Issues, Heme/Lymph: No Bruising, No Bleeding,No Lymphadenopathy Endocrine : No Polyuria, No Polydipsia, No Temperature Intolerance [facility] Past Medical History Medical History Hx of iron deficiency anemia Surgical History History of lumpectomy of right breast (02/29/24) No pertinent past surgical history Family History Family History Mother Hypertension Maternal Grandfather Colon cancer Maternal Aunt Hx of breast cancer Social History Social History Household Members: Family Housing: Apartment Are you a primary child care associate teacher to a significant other at home: No Do you presently have visiting nurse or other home services: No Alcohol intake: current Alcohol intake frequency: holidays/special occasions only Comment: improved Patient Tobacco Use Status: Never used Tobacco Smoked in Last 30 Days: No Use of substances other than those prescribed or required for medical reasons: No Special abbey needs: No Agree to transfusion: Yes Advance Directives: No Advance Directives Information Provided: Yes Do you have a plan to hurt others: No Plan Patient : No Physical Exam ED Vital Signs: Vital Signs - 24 hr 03/11/24 22:35 03/12/24 00:04 Temperature 98.7 F 98.3 F Pulse Rate 82 79 Respiratory Rate 16 16 Blood Pressure 129/80 113/63 Pulse Oximetry 98 98 Oxygen Delivery Method Room Air Room Air BMI result Body Mass Index 32.9 Const Other: Appearance: Alert. Oriented X3. No acute distress. Well-appearing Eyes: Pupils equal, round and reactive to light. ENT: Pharynx normal. Neck: Normal inspection. Neck supple. No lymph nodes noted. No crepitus CVS: Normal heart rate and rhythm. Pulses normal. Normal S1 and S2 Respiratory: No respiratory distress. Breath sounds normal. No Wheezing. No rales Abdomen: Soft and nontender. No rigidity. No distention. Skin: Incision looks clean, there is no serosanguineous drainage, no pus drainage. No obvious formation of abscess. There is very mild erythema over right breast, a little bit warm to touch but no significantly more than the left breast. Extremities: No lower extremity edema. No Lacerations. No Rash Neuro: Oriented X 3. No motor deficit. No sensory deficit. Moving all extremities. No slurred speech. CN 2 through 12 grossly intact Psych: calm, cooperative, normal affect Medical Decision Making Medical Decision Making MDM Narrative: Patient states that ibuprofen has not been working well for the pain. Patient was given IM Toradol and p.o. for home. Patient's antibiotics were switched to levofloxacin. I reviewed patient's chart, patient had an infection with Corynebacterium species, nonspecific. Corynebacterium mastitis known to be susceptible to doxycycline which she has been taking, also susceptible to ciprofloxacin. Patient was given the 1st dose in the emergency room. Patient has an appointment with Dr. Nunez in 2 days. Patient instructed to follow-up tomorrow, to give a call the office in check of the wants to see her tomorrow. Patient's vitals stable, blood pressure 113/63, heart rate 79, temperature 98.3 degrees, oxygen saturation 98% on room air. I discussed with the patient that it is possible that she may have a seroma. However, there are no signs of cellulitis or pus drainage/abscess at this time. Labs unremarkable Differential Diagnosis Differential Diagnoses: The differential diagnosis associated with the presentation includes (Cellulitis, abscess, seroma) Lab Data 03/11/24 22:58 03/11/24 22:58 Labs: Lab Results 03/11/24 Range/Units 22:58 WBC 11.8 H (4.8-10.8) X10*3/uL RBC 4.67 (4.20-5.50) X10*6/uL Hgb 13.7 (12.0-16.0) g/dl Hct 39.8 (37.0-47.0) % MCV 85.2 (80.0-98.0) fL MCH 29.3 (27.0-33.0) pg MCHC 34.4 (31.0-35.0) g/dl RDW 12.7 (11.0-16.0) % Plt Count 333 (160-400) X10*3/uL MPV 9.4 (9.4-12.3) fL Immature Gran % (Auto) 0.3 (0.0-0.4) % Neut % (Auto) 61.9 (45-73) % Lymph % (Auto) 31.2 (20-40) % [place] % (Auto) 4.6 (2-11) % Eos % (Auto) 1.7 (0-4) % Baso % (Auto) 0.3 (0-2) % Lymph # (Auto) 3.7 (1.2-4.9) X10*3/uL [place] # (Auto) 0.5 (0.1-1.2) X10*3/uL Eos # (Auto) 0.2 (0.0-0.4) X10*3/uL Baso # (Auto) 0.0 (0.0-0.2) X10*3/uL Abs Immat Gran (auto) 0.04 H (0.00-0.03) X10*3/uL Absolute Neuts (auto) 7.3 (2.0-8.3) x10*3/uL Absolute Nucleated RBC 0.000 (0.0-0.012) X10*3/uL Nucleated RBC % (auto) 0.0 (0.0-0.2) /100WBC Sodium 139 (135-145) mmol/L Potassium 3.6 (3.3-5.1) mmol/L Chloride 106 (96-108) mmol/L Carbon Dioxide 25 (22-29) mmol/L Anion Gap 12 (12-20) BUN 8 L (9-16) mg/dL Creatinine 0.68 (0.5-1.4) mg/dL Estim Creat Clear Calc 122.5 Estimated GFR > 60 Random Glucose 84 (60-115) mg/dL Calcium 9.8 (8.4-10.2) mg/dL Total Bilirubin 0.3 (0.0-1.0) mg/dL AST 22 (5-31) U/L ALT 35 H (0-31) U/L Alkaline Phosphatase 67 (39-117) U/L Total Protein 8.6 H (6.5-8.0) g/dL Albumin 4.6 (3.5-5.0) g/dL Discharge Plan Discharge Clinical Impression: Seroma of breast Patient Disposition: Home, Self-Care Instructions: Postoperative Bleeding (ED) Additional Instructions: Please follow-up with your primary care physician tomorrow. If you have any worsening or new symptoms, please return to the emergency room or call 911 Prescriptions: New ciprofloxacin HCl 500 mg tablet 500 mg PO BID Qty: 14 0RF ketorolac 10 mg tablet 10 mg PO Q8H Qty: 12 0RF Rx Instructions: Do not mix this medication with other NSAIDs, only Tylenol needed No Action doxycycline hyclate 100 mg tablet 100 mg PO BID Qty: 20 0RF Mirena 20 mcg/24 hours (8 yrs) 52 mg intrauterine device intrauterine Print Language: Vietnamese
[2024-03-12] MEDS: Ketorolac Tromethamine 30 MG/ML VIAL IVPUSH (00:52)
[2024-03-12] MEDS: levoFLOXacin 500 MG TABLET PO (00:52)
[2024-03-12 00:57] VITALS: BP 113/63; PULSE 79; RESP 16; TEMP 36.8; O2SAT 98
== END 2024-03-12 01:13 | disposition home or self-care (01) ==
PROVIDERS: Emergency Provider Emergency Medicine; PCP Nurse Practitioner
DX: L76.34 Postprocedural seroma of skin and subcutaneous tissue following other procedure (principal); Y83.8 Other surgical procedures as the cause of abnormal reaction of the patient, or of later complication, without mention of misadventure at the time of the procedure; Y82.8 Other medical devices associated with adverse incidents; Y92.009 Unspecified place in unspecified non-institutional (private) residence as the place of occurrence of the external cause; N64.89 Other specified disorders of breast; N64.4 Mastodynia; I10 Essential (primary) hypertension
CPT/HCPCS: 36415; 80053; 85025; 96374; 99284; J1885

== ENCOUNTER 2024-03-14 13:13 | Outpatient (AMB) | payer MEDICAID, SELFPAY ==
--- NOTE | 2024-03-14 13:26 | A.OFFVIS_ITS ---
Intake Visit Reasons: bleeding /drainage rt breast/Seroma? Intake Note: This patient presents for wound check, bleeding, draining right breast, ? seroma. Pt c/o; no changes. [facility] Psychiatrist Required: Yes [employer] [facility] Psychiatrist Language: Honey Producer Services: [facility] Psychiatrist Present [facility] Psychiatrist Name: Yadira Information Interpreted: non-clinical & clinical Accompanied by: Self / Same As Patient Allergies No Known Allergies [No Known Allergies*] Allergy (Verified 03/14/24 13:27) HPI Comments Details: Patient developed discharge from the incision last Thursday. Was seen in the emergency department and noted to have redness in the skin. She was subsequently started on Cipro and ketorolac. She has not taken the ketorolac but has taken the Cipro twice daily. She has pain with palpation however continues to have some discharge. She feels the redness has improved over the last 2 days. She denies any fever or chills. [facility] Medical History Hx of iron deficiency anemia Surgical History History of lumpectomy of right breast (02/29/24) No pertinent past surgical history Family History Mother Hypertension Maternal Grandfather Colon cancer Maternal Aunt Hx of breast cancer Social History Household Members: Family Both parents involved: Yes Caregiver staying overnight: No Housing: Apartment Are you a primary child adolescent care to a significant other at home: No Do you presently have visiting nurse or other home services: No 75 years or older and lives alone: No Alcohol intake: current Alcohol intake frequency: holidays/special occasions only Comment: improved Patient Tobacco Use Status: Never used Tobacco Special abbey needs: No Agree to transfusion: Yes Female Reproductive History Menstrual Age of Menarche: 11 Physical Exam Const General: no acute distress Nutritional Appearance: well nourished Orientation/consciousness: patient oriented x3 Chest Chest/axillae images: 2 1. Healing incision Brook areolar at the upper inner quadrant. No definite separation identified but liquid appears to be coming from the inferior aspect of the wound. Light erythema noted in the skin better compared to picture from Thursday. 2. Area of fullness suggestive of a possible seroma. Neuro General: patient oriented x3 Assessment & Plan Assessment & Plan (1) Mastitis of right breast unrelated to of : Code(s): N61.0 - Mastitis without abscess Category: Medical Plan 23-year-old female patient with a right breast mass status post excision found to have abscess and phlegmon now with a seroma postoperative. She had some leakage over the weekend and was started on Cipro. This seems to be improving. We discussed needle aspiration of the fluid but I will hold off for now as the antibiotics seem to be helping. Patient expressed understanding and agrees with the plan. She will return in 10 days for follow-up examination. Coding Level of Care Code Global (00170) Diagnoses Mastitis of right breast unrelated to of N61.0
== END 2024-03-14 13:33 | disposition home or self-care (01) ==
PROVIDERS: PCP Nurse Practitioner; Visit Provider Surgery
DX: N61.0 Mastitis without abscess (principal)
CPT/HCPCS: 99024

== ENCOUNTER → 2024-03-14 13:13 | Outpatient (BNVA) | payer MEDICAID, SELFPAY | PROVIDERS: PCP Nurse Practitioner; Visit Provider Surgery | DX: N61.0 Mastitis without abscess (principal) | CPT/HCPCS: 99212 ==

== ENCOUNTER 2024-03-24 13:09 | Outpatient (REF) | payer MEDICAID, SELFPAY ==
[2024-03-24 13:54] LABS: MANUAL DIFF FLAG NO
[2024-03-24 14:23] LABS: Basophils Percent Auto 0.3 % (0-2); Eosinophils Absolute Auto 0.2 X10*3/uL (0.0-0.4); Eosinophils Percent Auto 2.1 % (0-4); Hematocrit 37.6 % (37.0-47.0); Imm Gran Abs Auto 0.04 X10*3/uL (0.00-0.03); Imm Gran Pct Auto 0.4 % (0.0-0.4); Mean Corpuscular HGB Conc 34.6 g/dl (31.0-35.0); Mean Corpuscular Hemoglobin 29.5 pg (27.0-33.0); Mean Corpuscular Volume 85.3 fL (80.0-98.0); Mean Platelet Volume 9.3 fL (9.4-12.3); Monocytes Absolute Auto 0.5 X10*3/uL (0.1-1.2); Monocytes Percent Auto 4.9 % (2-11); Neutrophils Percent Auto 61.3 % (45-73); Platelet Count 300 X10*3/uL (160-400); Red Blood Count 4.41 X10*6/uL (4.20-5.50); Red Cell Distribution Width 12.4 % (11.0-16.0); White Blood Count 9.8 X10*3/uL (4.8-10.8)
--- OUTSIDE RECORDS SUMMARY | 2024-03-24 17:29 | XMS_ITS | Encounter Summary ---
Author Organization [employer] Address [address] [facility] 7t [place] [address] Care Team Providers Care Wheel Inspector Name Role Phone Gail Stephens NP Primary Care Provider [phone] Reason for Visit * Reason Onset Date Comments recall april follow up 03/03/2024 Encounter Details Date Type Department Care Team (Late st Contact Info) Description 03/03/2024 Telephone [facility] MEDICINE [address] [place] [address] Gail Stephens NP [address] [place] [address] recall april up Social History Tobacco Use [...] with others, in a hotel, in a long-term, living outside on the street, on a [...] [place] - 03/03/2024 1:52 PM EST T/C medical chemist spoke with pt, pt agreed to come in on 05/23/24 @ 2:30 pm for follow up. Reminder letter will be sent. documented in this encounter Plan of Treatment Upcoming Encounters Date Type Department Care Team (Late st Contact Info) Description 05/23/2024 2:30 PM EDT Office Visit [facility] MEDICINE [address] [place] [address] Gail Stephens NP [address] [place] [address] documented as of this encounter Visit Diagnoses Not on filedocumented in this encounter Additional Health Concerns Assessment Noted Time PHQ-9 Depression Total Score: 0 10/02/19 24 1:26 PM EDT documented as of this encounter Care Teams Wheel Inspector Relationship Specialty Start Date End Date Gail Stephens NP [address] [place] [address] PCP - General Family Medicine 01/12/23 documented as of this encounter
--- OUTSIDE RECORDS SUMMARY | 2024-03-24 17:29 | XMS_ITS | Encounter Summary ---
Author Organization [employer] Address [address] [facility] 7[address] [place] [address] Care Team Providers Care Cad Intern Name Role Phone Gail Stephens NP Primary Care Provider [phone] Encounter Details Date Type Department Care Team [...] with others, in a hotel, in a residential, living outside on the street, on a [...] 2:30 PM EDT Office Visit [facility] [address] [place] [address] Gail Stephens NP [address] [place] [address] documented as of this encounter Procedures Procedure [...] Blood Count 9.8 4.8 - 10.8 X10*3/uL [facility] Red Blood Count 4.41 4.20 - 5.50 X10*6/uL [facility] Hemoglobin 13.0 12.0 - 16.0 g/dl [facility] Hematocrit 37.6 37.0 - 47.0 % [facility] Mean Corpuscular Volume 85.3 80.0 - 98.0 fL [facility] Mean Corpuscular Hemoglobin 29.5 27.0 - 33.0 pg [facility] Mean Corpuscular HGB Conc 34.6 31.0 - 35.0 g/dl [facility] Red Cell Distribution Width 12.4 11.0 - 16.0 % [facility] Platelet Count 300 160 - 400 X10*3/uL [facility] Mean Platelet Volume 9.3(L) 9.4 - 12.3 fL [facility] Neutrophils Percent Auto 61.3 45 - 73 % [facility] Imm Gran Pct Auto 0.4 0.0 - 0.4 % [facility] Lymphocytes Percent Auto 31.0 20 - 40 % [facility] Monocytes Percent Auto 4.9 2 - 11 % [facility] Eosinophils Percent Auto 2.1 0 - 4 % [facility] Basophils Percent Auto 0.3 0 - 2 % [facility] NRBC Pct Auto 0.0 0.0 - 0.2 /100WBC [facility] Neutrophils Absolute Auto 6.0 2.0 - 8.3 x10*3/uL [facility] Imm Gran Abs Auto 0.04(H) 0.00 - 0.03 X10*3/uL [facility] Lymphocytes Absolute Auto 3.0 1.2 - 4.9 X10*3/uL [facility] Monocytes Absolute Auto 0.5 0.1 - 1.2 X10*3/uL [facility] Eosinophils Absolute Auto 0.2 0.0 - 0.4 X10*3/uL [facility] Basophils Absolute Auto 0.0 0.0 - 0.2 X10*3/uL [facility] NRBC Abs Auto 0.000 0.0 - 0.012 X10*3/uL [facility] 03/24/2024 1:52 PM EST 03/24/2024 1:52 PM EST us Generic External Data Provider LAB BLOOD ORDERAB LES Final Result [facility] [address] [place] [phone] * (ABNORMAL) Comprehensive Metabolic Panel (03/11/2024 10:58 PM EST) Sodium 139 135 - 145 mmol/L [facility] Potassium 3.6 3.3 - 5.1 mmol/L [facility] Chloride 106 96 - 108 mmol/L [facility] Carbon Dioxide 25 22 - 29 mmol/L [facility] Anion Gap 12 12 - 20 [facility] Urea Nitrogen (BUN) 8(L) 9 - 16 mg/dL [facility] Creatinine, Serum 0.68 0.5 - 1.4 mg/dL [facility] Creatinine Clr Calc Pharmacy 122.5 [facility] Comment:Provided height and weight: 154.94 cm,79.1 kg.eGFR (calculated from the MDRD study equation) and eCrCl(calculated from the Cockcroft-Gault equation) are based ondifferent parameters and may not yield comparable results.If eCrCl result is absurd, please check patient'sheight/weight. Estimated Glomerular Filt Rate >60 [facility] Comment:Chronic Kidney Disea se: Estimated GFR < 60 mL/min/1.07m5Jcniqe Kidney Disease: Estimated GFR < 15 mL/min/1.73m2 Glucose 84 60 - 115 mg/dL [facility] Calcium 9.8 8.4 - 10.2 mg/dL [facility] Bilirubin, Total 0.3 0.0 - 1.0 mg/dL [facility] Aspartate Amino Transferase 22 5 - 31 U/L [facility] Alanine Aminotransferase 35(H) 0 - 31 U/L [facility] Total Protein 8.6(H) 6.5 - 8.0 g/dL [facility] Albumin Level 4.6 3.5 - 5.0 g/dL [facility] Alkaline Phosphatase 67 39 - 117 U/L [facility] 03/11/2024 10:5 8 PM EST 03/11/2024 11:06 PM EST us Generic External Data Provider LAB BLOOD ORDERAB LES Final Result [facility] [address] [place] [phone] * (ABNORMAL) CBC auto differential (03/11/2024 10:58 PM EST) White Blood Count 11.8(H) 4.8 - 10.8 X10*3/uL [facility] Red Blood Count 4.67 4.20 - 5.50 X10*6/uL [facility] Hemoglobin 13.7 12.0 - 16.0 g/dl [facility] Hematocrit 39.8 37.0 - 47.0 % [facility] Mean Corpuscular Volume 85.2 80.0 - 98.0 fL [facility] Mean Corpuscular Hemoglobin 29.3 27.0 - 33.0 pg [facility] Mean Corpuscular HGB Conc 34.4 31.0 - 35.0 g/dl [facility] Red Cell Distribution Width 12.7 11.0 - 16.0 % [facility] Platelet Count 333 160 - 400 X10*3/uL [facility] Mean Platelet Volume 9.4 9.4 - 12.3 fL [facility] Neutrophils Percent Auto 61.9 45 - 73 % [facility] Imm Gran Pct Auto 0.3 0.0 - 0.4 % [facility] Lymphocytes Percent Auto 31.2 20 - 40 % [facility] Monocytes Percent Auto 4.6 2 - 11 % [facility] Eosinophils Percent Auto 1.7 0 - 4 % [facility] Basophils Percent Auto 0.3 0 - 2 % [facility] NRBC Pct Auto 0.0 0.0 - 0.2 /100WBC [facility] Neutrophils Absolute Auto 7.3 2.0 - 8.3 x10*3/uL [facility] Imm Gran Abs Auto 0.04(H) 0.00 - 0.03 X10*3/uL [facility] Lymphocytes Absolute Auto 3.7 1.2 - 4.9 X10*3/uL [facility] Monocytes Absolute Auto 0.5 0.1 - 1.2 X10*3/uL [facility] Eosinophils Absolute Auto 0.2 0.0 - 0.4 X10*3/uL [facility] Basophils Absolute Auto 0.0 0.0 - 0.2 X10*3/uL [facility] NRBC Abs Auto 0.000 0.0 - 0.012 X10*3/uL [facility] 03/11/2024 10:5 8 PM EST 03/11/2024 11:06 PM EST us Generic External Data Provider LAB BLOOD ORDERAB LES Final Result Performing Organization Address City/State/[facility] Co de Phone Number [facility] [address] [place] [phone] * Gross and Microscopic Level 5 (02/29/2024 1:45 PM EST) 02/29/2024 1:45 PM EST 02/29/2024 3:00 PM EST Narrative [facility] - 03/03/2024 3:12 PM EST ----- ------- Name: Anne Ochoa ? Age/Sex: 23/F ? : 2000 Unit#: [id number] ?? Attend Dr: Leoncio Nunez MD ?Re02/29/24 ?Status: DEP SDC ? Location: HO.SSS ?Disch: ? ----- ------- SPEC : [id number] ? RECD: 02/29/24-1500 ? STATUS: ??SOUT ? REQ NUM: [id number] ? AMRITA: 02/29/24-1345 ? SUBM DR: Leoncio Nunez MD ? ENTERED: ??02/29/24-382 ?SP TYPE: Surgical ? OTHR : Gail [...] ? Age/Sex: 23/F ? : 2000 Unit#: [id number] ?? Attend Dr: Leoncio Nunez MD ?Re02/29/24 ?Status: DEP SDC ? Location: HO.SSS ?Disch: ? ----- ------- SPEC : [id number] ? RECD: 02/29/24-1499 ? STATUS: ??SOUT ? REQ NUM: [id number] ? AMRITA: 02/29/24-1523 ? SUBM DR: Leoncio Nunez MD ? ENTERED: ??02/29/24-1511 ?SP TYPE: Surgical ? OTHR : Gail Stephens ? ORDERED: ??Gross Micro L5 ? Copies To: ?? Leoncio Nunez MD ?? [facility] ?? [address] ?? [place] [address] ?? [phone] ?? Gail Stephens ?? [address] ?? [place] [address] ?? [phone] ----- ------- Signed (signature on file) Rafal Guadarrama MD 03/03/241511 ? ----- ------- ? END OF REPORT ? Generic External Data Provider LAB BLOOD ORDERAB LES Final Result Performing Organization Address [facility] de Phone Number [facility] [address] [place] [phone] * HCG, Qualitative, Urine (02/29/2024 11:30 AM EST) Urine NEGATIVE NEGATIVE [facility] Comment:This test was develo ped to detect early . Falsenegative results may occur after the 5th - 7th week ofpregnancy when using this test method. If clinicallyindicated, consider a serum hCG. 02/29/2024 11:3 0 AM EST 02/29/2024 11:33 AM EST Generic External Data Provider LAB URINE ORDERAB LES Final Result Performing Organization Address [facility] de Phone Number [facility] [address] [place] [phone] * Gram stain (02/29/2024 12:00 AM EST) 02/29/2024 02/29/2024 Comment:Breast Rt Narrative [facility] - 03/03/2024 9:33 AM EST RIGHT BREAST CULTURE Gram stain results: 4+ polys 4+ red blood cells 1+ Gram-positive rods RIGHT BREAST CULTURE Corynebacterium species Quant Org ID 1+ Susc N/A Susceptibility not routinely performed on this isolate. Specimen Source: Breast Right Generic External Data Provider LAB MICROBIOLOGY - GENERAL ORDERABLES Final Result Performing Organization Address [facility] de Phone Number [facility] [address] [place] [phone] documented in this encounter Visit Diagnoses Not on filedocumented in this encounter Additional Health Concerns Assessment Noted Time PHQ-9 Depression Total Score: 0 10/02/19 24 1:26 PM EDT documented as of this encounter Care Teams Cad Intern Relationship Specialty Start Date End Date Gail Stephens NP [address] [place] [phone] PCP - General Family Medicine 01/12/23 documented as of this encounter
--- OUTSIDE RECORDS SUMMARY | 2024-03-24 17:29 | XMS_ITS | Clinical Summary ---
Author Organization [employer] Address [address] [facility] 7t [place] [address] Care Team Providers Care Personal Counselor Name Role Phone Gail Stephens NP Primary Care Provider [phone] Allergies No known active allergies Medications cetirizine (ZyrTEC) 5 MG tablet TAKE 2 TABLETS BY MOUTH EVERY DAY 180 tablet 1 02/22/2024 Active Active Problems Problem Noted Date Diagnosed Date S/P lumpectomy, right breast 03/03/2024 Overview (03/03/2024): Procedure performed 02/29/2024 at [facility] Mass overlapping multiple quadrants of [...] Type Department Care Team Description 03/03/[address] [address] Gail Stephens NP recall april follow up 02/29/2024 Orders Only GENERIC EXTERNAL DATA DEPARTMENT Provider, Generic External Data 02/20/2024 Refill [facility] [address] [place] [address] Gail Stephens NP 02/03/[address] [phone] Elizabeth Delgado RN Results 01/19/2024 5:40 PM EST Office Visit [facility] [address] [place] [address] Lorena Man MD Breast abscess (Primary Dx); Mass overlapping multiple quadrants of right breast 01/19/2024 Travel 01/19/2024 Telephone [facility] [address] [place] [address] Gail Stephens NP Nurse Triage from Last 3 Months Immunizations Name Administration Dates Next Due DTaP 09/25/2004, 3,11/30/2001,05/05,2000 HPV, Quadrivalent 01/17/2013,02/11/2012,12/09/19 12 Hep A, ped/adol, 2 dose 02/11/2012,02/05/2010 Hep B, Adolescent or Pediatric 11/30/2001,2000,2000 Hib ([facility]) 11/30/2001,01/01/2001,2000 IPV 09/25/2004, 2,01/01/2001,10/30 Influenza injectable quadriv [...] with others, in a hotel, in a half-way, living outside on the street, on a [...] Description 05/23/2024 2:30 PM EDT Office Visit [facility] [address] [place] [address] Gail Stephens NP [address] [place], [place] [phone] Health Maintenance Due Date Last Done Comments [...] Blood Count 9.8 4.8 - 10.8 X10*3/uL [facility] Red Blood Count 4.41 4.20 - 5.50 X10*6/uL [facility] Hemoglobin 13.0 12.0 - 16.0 g/dl [facility] Hematocrit 37.6 37.0 - 47.0 % [facility] Mean Corpuscular Volume 85.3 80.0 - 98.0 fL [facility] Mean Corpuscular Hemoglobin 29.5 27.0 - 33.0 pg [facility] Mean Corpuscular HGB Conc 34.6 31.0 - 35.0 g/dl [facility] Red Cell Distribution Width 12.4 11.0 - 16.0 % [facility] Platelet Count 300 160 - 400 X10*3/uL [facility] Mean Platelet Volume 9.3(L) 9.4 - 12.3 fL [facility] Neutrophils Percent Auto 61.3 45 - 73 % [facility] Imm Gran Pct Auto 0.4 0.0 - 0.4 % [facility] Lymphocytes Percent Auto 31.0 20 - 40 % [facility] Monocytes Percent Auto 4.9 2 - 11 % [facility] Eosinophils Percent Auto 2.1 0 - 4 % [facility] Basophils Percent Auto 0.3 0 - 2 % [facility] NRBC Pct Auto 0.0 0.0 - 0.2 /100WBC [facility] Neutrophils Absolute Auto 6.0 2.0 - 8.3 x10*3/uL [facility] Imm Gran Abs Auto 0.04(H) 0.00 - 0.03 X10*3/uL [facility] Lymphocytes Absolute Auto 3.0 1.2 - 4.9 X10*3/uL [facility] Monocytes Absolute Auto 0.5 0.1 - 1.2 X10*3/uL [facility] Eosinophils Absolute Auto 0.2 0.0 - 0.4 X10*3/uL [facility] Basophils Absolute Auto 0.0 0.0 - 0.2 X10*3/uL [facility] NRBC Abs Auto 0.000 0.0 - 0.012 X10*3/uL [facility] 03/24/2024 1:52 PM EST 03/24/2024 1:52 PM EST us Generic External Data Provider LAB BLOOD ORDERAB LES Final Result [facility] [address] [place] [phone] * (ABNORMAL) Comprehensive Metabolic Panel (03/11/2024 10:58 PM EST) Sodium 139 135 - 145 mmol/L [facility] Potassium 3.6 3.3 - 5.1 mmol/L [facility] Chloride 106 96 - 108 mmol/L [facility] Carbon Dioxide 25 22 - 29 mmol/L [facility] Anion Gap 12 12 - 20 [facility] Urea Nitrogen (BUN) 8(L) 9 - 16 mg/dL [facility] Creatinine, Serum 0.68 0.5 - 1.4 mg/dL [facility] Creatinine Clr Calc Pharmacy 122.5 [facility] Comment:Provided height and weight: 154.94 cm,79.1 kg.eGFR (calculated from the MDRD study equation) and eCrCl(calculated from the Cockcroft-Gault equation) are based ondifferent parameters and may not yield comparable results.If eCrCl result is absurd, please check patient'sheight/weight. Estimated Glomerular Filt Rate >60 [facility] Comment:Chronic Kidney Disea se: Estimated GFR < 60 mL/min/1.67w8Enppej Kidney Disease: Estimated GFR < 15 mL/min/1.73m2 Glucose 84 60 - 115 mg/dL [facility] Calcium 9.8 8.4 - 10.2 mg/dL [facility] Bilirubin, Total 0.3 0.0 - 1.0 mg/dL [facility] Aspartate Amino Transferase 22 5 - 31 U/L [facility] Alanine Aminotransferase 35(H) 0 - 31 U/L [facility] Total Protein 8.6(H) 6.5 - 8.0 g/dL [facility] Albumin Level 4.6 3.5 - 5.0 g/dL [facility] Alkaline Phosphatase 67 39 - 117 U/L [facility] 03/11/2024 10:5 8 PM EST 03/11/2024 11:06 PM EST us Generic External Data Provider LAB BLOOD ORDERAB LES Final Result [facility] [address] [place] [phone] * Gross and Microscopic Level 5 (02/29/2024 1:45 PM EST) 02/29/2024 1:45 PM EST 02/29/2024 3:00 PM EST Narrative [facility] - 03/03/2024 3:12 PM EST ----- ------- Name: Anne Ochoa ? Age/Sex: 23/F ? : 2000 Unit#: [id number] ?? Attend Dr: Leoncio Nunez MD ?Re02/29/24 ?Status: DEP SDC ? Location: HO.SSS ?Disch: ? ----- ------- SPEC : [id number] ? RECD: 02/29/24-1500 ? STATUS: ??SOUT ? REQ NUM: [id number] ? AMRITA: 02/29/24-8611 ? SUBM DR: Leoncio Nunez MD ? ENTERED: ??02/29/24-0072 ?SP TYPE: Surgical ? OTHR DR: Gail [...] ? Age/Sex: 23/F ? : 2000 Unit#: [id number] ?? Attend Dr: Leoncio Nunez MD ?Re02/29/24 ?Status: DEP SDC ? Location: HO.SSS ?Disch: ? ----- ------- SPEC : [id number] ? RECD: 02/29/24-1500 ? STATUS: ??SOUT ? REQ NUM: [id number] ? AMRITA: 02/29/24-1345 ? SUBM DR: Leoncio Nunez MD ? ENTERED: ??02/29/24-151 ?SP TYPE: Surgical ? OTHR : Gail Stephens ? ORDERED: ??Gross Micro L5 ? Copies To: ?? Leoncio Nunez MD ?? [facility] ?? [address] ?? [place] [address] ?? [phone] ?? Apprajeffrey,Gail ?? [address] ?? [place] ?? [phone] ----- ------- Signed (signature on file) Rafal Guadarrama MD 03/03/24 1512 ? ----- ------- ? END OF REPORT ? us Generic External Data Provider LAB BLOOD ORDERAB LES Final Result [facility] [address] [facility] [place] [phone] * HCG, Qualitative, Urine (02/29/2024 11:30 AM EST) Urine NEGATIVE NEGATIVE [facility] Comment:This test was develo ped to detect early . Falsenegative results may occur after the 5th - 7th week ofpregnancy when using this test method. If clinicallyindicated, consider a serum hCG. 02/29/2024 11:3 0 AM EST 02/29/2024 11:33 AM EST Generic External Data Provider LAB URINE ORDERAB LES Final Result Performing Organization Address [facility] de Phone Number [facility] [address] [place] [phone] * Gram stain (02/29/2024 12:00 AM EST) 02/29/2024 02/29/2024 Comment:Breast Rt Narrative [facility] - 03/03/2024 9:33 AM EST RIGHT BREAST CULTURE Gram stain results: 4+ polys 4+ red blood cells 1+ Gram-positive rods RIGHT BREAST CULTURE Corynebacterium species Quant Org ID 1+ Susc N/A Susceptibility not routinely performed on this isolate. Specimen Source: Breast Right [facility] External Data Provider LAB MICROBIOLOGY - GENERAL ORDERABLES Final Result Performing Organization Address [facility] de Phone Number [facility] [address] [place] [phone] * BI US Breast Limited Right (02/02/2024 8:45 AM EST) Anatomical Region Laterality Modality Breast Right Ultrasound 02/02/2024 8:45 AM EST Narrative 02/02/2024 9:32 AM EST ? [facility] [place] ? [address] ?[place] [address] ? Ultrasound Report ? Signed ? Patient: Go Lange,Grace ?MR#: ?? [id number] ? : 2000 ?Acct:[id number] ? Age/Sex: 23 / F ?ADM Date: 12/10/24 ? Loc: HO.MAMMO ? Attending Dr: Lorena Man MD ? Ordering Physician: Lorena Man MD ?? Date of Service: 02/02/24 ?? Procedure(s): US breast RT limited mamm only ?? Accession Number(s): [id number] ? cc: Gail Stephens; Lorena Man MD [...] DD/ 0845 ? TD/TT: 02/02/24 0900 ? Hardboard Panel Printer: ? Procedure Note [place], Emily - 02/02/2024 [place] [facility] [address] [place], [place] [address] Ultrasound Report Signed Patient: Anne Ochoa MMR#: [id number] : 2000Acct:[id number] Age/Sex: 23 FADM Date: 02/02/24 Loc: [facility] Attending Dr: Lorena Man MD Ordering Physician: Lorena Man MD Date of Service: 02/02/24 Procedure(s): US breast RT limited mamm only Accession Number(s): [id number] cc: Gail Stephens; Lorena Man MD EXAMINATION: [...] in OV> 02/02/24928 DD/ 4 TD/TT: 02/02/24899 Hardboard Panel Printer: us Lorena Man MD IMG US PROCEDURES Final Re sult * (ABNORMAL) Lipid Panel, Standard (10/28/2023 8:54 AM EDT) Triglycerides 90 <150 mg/dL [facility] Comment:Desirable Triglyceri de: less than 150 mg/dLBorderline High Triglyceride 150-199 mg/dLHigh Triglyceride: 200-499 mg/dLVery High Triglyceride: greater than or equal to 5OO mg/dL Cholesterol 158 <200 mg/dL [facility] Comment:Desirable Cholestero l: less than 200 mg/dLBorderline High Cholesterol: 200-239 mg/dLHigh Cholesterol: greater than 239 mg/dL LDL Cholesterol Calculated 107(H) <100 mg/dL [facility] Comment:Desirable LDL: less than 100 mg/dLNear Optimal/Above Optimal LDL: 110- 129 mg/dLBorderline High LDL: 130-159 mg/dLHigh LDL: 160-189 mg/dLVery High LDL: greater than or equal to 190 mg/dL HDL Cholesterol 33(L) >40 mg/dL [facility] Comment:Desirable HDL: great er than 40 mg/dL Note: This HDL assay may give artificially low results in patients with liver disease. Blood Venous blood specimen / Unknown 10/28/2023 8:54 AM EDT 10/28/2023 11:03 AM EDT Gail Stephens NP LAB BLOOD ORDERABLES Final Resu lt [facility] [address] [place] [phone] * Pap Smear (02/06/2022 9:46 AM EST) 02/06/2022 9:46 AM EST 02/06/2022 3:45 PM EST Narrative [facility] - 02/21/2022 5:05 PM EST ----- ------- Name: Anne Ochoa ? Age/Sex: 21/F ? : 2000 Unit#: [id number] ?? Attend Dr: AlokElizabeth EUGENE ?Re02/06/22 ?Status: DEP REF ? Location: HO.LNP ?Disch: ? ----- ------- SPEC : [id number] ?RECD: 02/06/22-2912 ? STATUS: ??SOUT ? REQ NUM: [id number] ? AMRITA: 02/06/2246 ? SUBM DR: AlokElizabeth EUGENE ? ENTERED: ??02/06/22-1612 ?SP TYPE: Pap Smr ?OTHR DR: ? ORDERED: ??Pap Smear ? Interpretation ?? Satisfactory for evaluation. ?? Negative for intraepithelial lesion or malignancy. ?Clinical Information LMP: 02/13 Previous PAP test: Never ? Material Received ?? ThinPrep-Cervical ----- ------- Signed (signature on file) An Orosco Michelle 02/21/225 ? ----- ------- ? END OF REPORT ? [facility] External Provider LAB CYT OLOGY ORDERABLES Final Result [facility] [address] [place] [phone] * Hepatitis C Antibody (11/23/2020 3:28 PM EDT) Pathologist [facility] Hepatitis C Antibody Nonreactive Nonreactive [facility] Comment: Antibodies to HCV not detected; does not exclude early acute HCV infection. HIV AB/AG Nonreactive Nonreactive [facility] Comment: HIV-1 p24 Ag and/or [...] detection of this assay. ?? The Ochoa Supervisor [employer] HIV Ag/Ab Combo assay result and supplemental assay results should be interpreted in conjunction with the patient's clinical presentation, history and other laboratory results. ??If the results are inconsistent with clinical evidence, additional testing is suggested to confirm the result. Hepatitis B Surface Antigen Negative Negative [facility] 11/23/2020 3:28 PM EDT Elizabeth [place] HISTORICAL/NON ORDERABLE LABS Fi nal Result Performing Organization Address [facility] de Phone Number [facility] [address] * CHLAMYDIA/N. GONORRHOEAE RNA, TMA, UROGENITAL (04/25/2020 3:36 PM EST) Chlamydia trachomatis RNA, TMA, Urogenital NOT DETECTED NOT DETECTED [facility] COMMENT SEE COMMENT [facility] Comment: The analytical performance characteristics of this assay, when used to test SurePath(TM) specimens have been determined by [employer]. The modifications have not been cleared or approved by the FDA. This assay has been validated pursuant to the CLIA regulations and is used for clinical purposes. ?? For additional information, please refer to https://education.ENT Surgical.DosYogures/faq/LWI709 (This link is being provided for information/ educational purposes only.) ?? Neisseria gonorrhoeae RNA, TMA, Urogenital NOT DETECTED NOT DETECTED [facility] 04/25/2020 3:36 PM EST Brinda Lizarraga NP HISTORICAL/NON ORDERABLE LABS F inal Result Performing Organization Address [facility] de Phone Number [facility] [address] from Last 3 Months or Most Recently Relevant to Health Maintenance Insurance # 7 [place] [id number] [facility] C3 # 7 [place] [id number] Care Teams Personal Counselor Relationship Specialty Start Date End Date Gail Stephens NP [address] [place] [phone] PCP - General Family Medicine 01/12/23
--- OUTSIDE RECORDS SUMMARY | 2024-03-24 17:29 | XMS_ITS | Encounter Summary ---
Author Organization [employer] Address [address] [facility] [address] [place] [address] Care Team Providers Care Gluer Machine Setup Operator Name Role Phone Gail Stephens NP Primary Care Provider [phone] Reason for Visit * Reason Onset Date Comments Med Refill 11/24/2023 Encounter Details Date Type Department Care Team (Late st Contact Info) Description 11/24/2023 Refill [facility] MED[facility]INE [address] [place] [address] Gail Stephens NP [address] [place] [address] Social History Tobacco Use Types Packs/Day Years [...] with others, in a hotel, in a fci, living outside on the street, on a [...] Description 05/23/2024 2:30 PM EDT Office Visit [facility] MED[facility]INE [address] [place] [address] Gail Stephens NP [address] [place] [address] documented as of this encounter Visit Diagnoses Not on filedocumented in this encounter Additional Health Concerns Assessment Noted Time PHQ-9 Depression Total Score: 0 10/02/19 24 1:26 PM EDT documented as of this encounter Care Teams Gluer Machine Setup Operator Relationship Specialty Start Date End Date Gail Stephens NP [address] [place] [address] PCP - General Family Medicine 01/12/23 documented as of this encounter
== END 2024-03-24 13:10 | disposition home or self-care (01) ==
LOC: HO.LAB 13:09
PROVIDERS: PCP Nurse Practitioner; Visit Provider Surgery
DX: Z86.2 Personal history of diseases of the blood and blood-forming organs and certain disorders involving the immune mechanism (principal); N63.12 Unspecified lump in the right breast, upper inner quadrant
CPT/HCPCS: 36415; 85025; 99212

== ENCOUNTER 2024-03-24 13:09 | Outpatient (AMB) | payer MEDICAID, SELFPAY ==
--- NOTE | 2024-03-24 13:10 | MHC.OFFVIS ---
Vital Signs 03/24/24 13:19 Height 5 ft 1 in Weight 176 lb BMI 33.3 BP 142/84 H Blood Pressure Location Lt brachial Position Sitting Pulse 78 Intake Visit Reasons: 2wk S/P Rt breast lumpectomy Intake Note: Patient is seen in office for 2 weeks follow up visit, post right breast lumpectomy. Pt c/o: all done with antbx, state been having bloody discharge, changing dressing twice a day Sleeping Car Service Attendant Required: Yes Sleeping Car Service Attendant Language: Seed Analysis Laboratory Assistant Services: Sleeping Car Service Attendant Present Sleeping Car Service Attendant Name: Brinda HO Information Interpreted: non-clinical & clinical Ammonia Box Operator: Ammonia Box Operator Present Accompanied by: Self / Same As Patient Allergies No Known Allergies [No Known Allergies*] Allergy (Verified 03/24/24 13:19) Medication List - Last Reconciled 03/24/24 by Leoncio Nunez MD levonorgestrel (Mirena) intrauterine HPI Comments Details: 23-year-old female patient status post excision of a right breast mass now with a persistent drainage from her incision and probable seroma previously evaluated in the emergency department. Patient continues to have pain in the upper inner quadrant with slight redness in the skin. She completed the antibiotics as previously prescribed. She is requesting excision of the mass in the upper inner quadrant. She denies fever or chills. PFSH Medical History Hx of iron deficiency anemia Surgical History History of lumpectomy of right breast (02/29/24) No pertinent past surgical history Family History Mother Hypertension Maternal Grandfather Colon cancer Maternal Aunt Hx of breast cancer Social History Household Members: Family Both parents involved: Yes Caregiver staying overnight: No Housing: Apartment Are you a primary career specialist to a significant other at home: No Do you presently have visiting nurse or other home services: No 75 years or older and lives alone: No Alcohol intake: current Alcohol intake frequency: holidays/special occasions only Comment: improved Patient Tobacco Use Status: Never used Tobacco Special abbey needs: No Agree to transfusion: Yes Female Reproductive History Menstrual Age of Menarche: 11 Physical Exam Vital Signs: Last Vital Signs Pulse 78 03/24/24 13:19 BP 142/84 H 03/24/24 13:19 BMI result Body Mass Index 33.3 Const General: no acute distress Nutritional Appearance: well nourished Orientation/consciousness: patient oriented x3 Chest Other: Area of fullness noted in the upper inner quadrant right breast with tenderness to palpation. There is a slight pinkish change in the skin overlying this suggestive of a mastitis. Skin Other: Warm, dry, no rash Neuro General: patient oriented x3 Extrem Other: No edema Assessment & Plan Assessment & Plan (1) Breast mass, right: Code(s): N63.10 - Unspecified lump in the right breast, unspecified quadrant Category: Medical Qualifiers: Breast mass location: upper inner quadrant Qualified Code(s): N63.12 - Unspecified lump in the right breast, upper inner quadrant (2) Hx of iron deficiency anemia: Code(s): Z86.2 - Personal history of diseases of the blood and blood-forming organs and certain disorders involving the immune mechanism Category: Medical Plan Recommend ultrasound-guided aspiration of fluid collection right breast. Patient reporting bruising in the lower extremities therefore we will check CBC. Patient will follow-up after ultrasound-guided aspiration. Orders: Orders US breast cyst asp RT Today N63.12 - Unspecified lump in the right breast, upper inner quadrant Complete Blood Count Auto Diff Today Z86.2 - Personal history of diseases of the blood and blood-forming organs and certain disorders involving the immune mechanism Coding Level of Care Code Global (25238) Diagnoses Mass of upper inner quadrant of right breast N63.12 Breast mass location: upper inner quadrant Hx of iron deficiency anemia Z86.2
[2024-03-24 13:19] VITALS: BP 142/84; PULSE 78; BMI 33.3
--- OUTSIDE RECORDS SUMMARY | 2024-03-24 16:58 | XMS_ITS | Encounter Summary ---
Author Organization [employer] Address [address] [place] [address] Care Team Providers Care Skiver Machine Name Role Phone Gail Stephens NP Primary Care Provider [phone] Reason for Visit * Reason Onset Date Comments Med Refill 11/24/2023 Encounter Details Date Type Department Care Team (Late st Contact Info) Description 11/24/2023 Refill [facility] [address] [place] [address] Gail Stephens NP [address] [place] [address] Social History Tobacco Use Types Packs/Day Years Used Date Smoking Tobacco: Never Smokeless Tobacco: Never Alcohol Use Standard Drinks/Week Comments Never 0 (1 standard drink = 0.6 oz pur e alcohol) Alcohol Answer Date Recorded How often do you have a drink containing alcohol ? 0 10/02/2023 How many drinks containing a lcohol do you have on a typical day when you are drinking? 0 10/02/2023 How often do you have six or more drinks on one occasion? 0 10/02/2023 Depression Answer Date Recorded Patient Health Questionnaire-9 Score 0 10/02/2023 Patient Health Questionnaire-9 Score 0 10/02/2023 Last PHQ-9: Questionnaire Data Not on file 0 10/02/2023 Housing Stability Answer Date Recorded What is your housing situation today? I do not have housing (Staying with others, in a hotel, in a jail, living outside on the street, on a beach, in a car, or in a park 10/02/[address] you li ve. Do you have problems with any of the following? None of the above 10/02/2023 Food Insecurity Answer Date Recorded Within the past 12 months, y ou worried that your food would run out before you got money to buy more: Never True 06/24/2023 Within the past 12 months,th e food you bought just didn't last and you didn't have enough money to get more: Never True 02/2023 Transportation Answer Date Recorded In the past 12 months, has l ack of transportation kept you from medical appts, meetings, work or from getting things needed for daily living? No 06/24/2023 Utilities Answer Date Recorded In the past 12 months, has t he electric, gas, oil or water company threatened to shut off services in your home? No 06/24/2023 Depression Answer Date Recorded Patient Health Questionnaire-2 Score 0 10/02/2023 Internet Access Answer Date Recorded Internet Access Q1 Yes 10/26/2023 Internet Access Q2 Not on file 10/26/2023 Comments Unknown Sex and Gender Information Value Date Recorded Sex Assigned at Female 12/23/2021 10:22 AM EDT Legal Sex Female 10:22 AM EDT Gender Identity Female 12/23/2021 10:22 AM EDT Sexual Orientation Straight 12/23/2021 10 :22 AM EDT documented as of this encounter Plan of Treatment Upcoming Encounters Date Type Department Care Team (Late st Contact Info) Description 05/23/2024 2:30 PM EDT Office Visit [facility] [address] [place] [address] Gail Stephens NP [address] [place] [address] documented as of this encounter Visit Diagnoses Not on filedocumented in this encounter Additional Health Concerns Assessment Noted Time PHQ-9 Depression Total Score: 0 10/02/19 24 1:26 PM EDT documented as of this encounter Care Teams Skiver Machine Relationship Specialty Start Date End Date Gail Stephens NP [address] [place] [address] PCP - General Family Medicine 01/12/23 documented as of this encounter
--- OUTSIDE RECORDS SUMMARY | 2024-03-24 16:58 | XMS_ITS | Clinical Summary ---
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 Role Phone Gail Stephens NP Primary Care Provider [phone] Allergies No known active allergies Medications cetirizine (ZyrTEC) 5 MG tablet TAKE 2 TABLETS BY MOUTH EVERY DAY 180 tablet 1 02/22/2024 Active Active Problems Problem Noted Date Diagnosed Date S/P lumpectomy, right breast 03/03/2024 Overview (03/03/2024): Procedure performed 02/29/2024 at [facility] Mass overlapping multiple quadrants of right maryjane ast 01/19/2024 Breast abscess 01/19/2024 Assessment & Plan (01/19/2024 6:01 PM EST): Mass is too deep to be incised and drained today - Recommending warm compression 01/19/24 - Prescribed doxycycline (Vibramycin) 100 MG capsule 01/19/24 - Prescribed ibuprofen 600 MG tablet 01/19/24 - Ordered BI US Breast Complete Right 01/19/24 - Referral to General Surgery 01/19/24 - ER precautions discussed. - Seek medical attention for worsening symptoms. Breast pain, right 10/05/2023 Assessment & Plan (10/05/2023 10:03 PM EDT): -may be due to weaning -will complete US and diagnostic mammogram given her maternal aunt's history of breast cancer at age 30 -reviewed signs of infection -advised application of cold compress to breast to facilitate milk cessation -return to clinic with worsening or no improvement in symptoms -follow-up 6 weeks Obesity (BMI 30-39.9) 10/05/2023 Assessment & Plan (10/05/2023 9:54 PM EDT): -Healthy diet and exercise teaching completed: Eat a variety of fruit and vegetables, whole grains such as whole-wheat flour, bulgur (cracked wheat), oatmeal, and brown rice. Intake protein from beans, nuts, fish, and lean meats. Eat low-fat or fat- free dairy products. Limit highly processed foods such as hot dogs, sandwich meat, etc. Engage in minimum of 150 min of moderate intensity exercise weekly -labs ordered to evaluate Routine adult health maintenance 10/05/2023 Assessment & Plan (10/05/2023 10:04 PM EDT): -age appropriate screening completed. 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 Advised increased dietary consumption of iron rich foods. Will offer supplementation as necessary Encounters Date Type Department Care Team Description 03/03/[address] [address] Gail Stephens NP recall april follow up 02/29/2024 Orders Only GENERIC EXTERNAL DATA DEPARTMENT Provider, Generic External Data 02/20/2024 Refill [facility] [address] [place] [address] Gail Stephens NP 02/03/[address] [address] Elizabeth Delgado RN Results 01/19/2024 5:40 PM EST Office Visit [facility] [address] [place] [address] Lorena Man MD Breast abscess (Primary Dx); Mass overlapping multiple quadrants of right breast 01/19/2024 Travel 01/19/2024 Telephone [facility] [address] [place] [address] Gail Stephens NP Nurse Triage from Last 3 Months Immunizations Name Administration Dates Next Due DTaP 09/25/2004, 3,11/30/2001,05/05,2000 HPV, Quadrivalent 01/17/2013,02/11/2012,12/09/19 12 Hep A, ped/adol, 2 dose 02/11/2012,02/05/2010 Hep B, Adolescent or Pediatric 11/30/2001,2000,2000 Hib ([facility]) 11/30/2001,01/01/2001,2000 IPV 09/25/2004, 2,01/01/2001,10/30 Influenza injectable quadriv alent preservative free 02/12/2021,02/13/2015 Influenza live intranasal qu adrivalent LIAV4 01/23/2014 Influenza, IIV3, injectable 02/05/2010 Influenza, live, intranasal 01/17/2013, 2 MMR 09/25/2004,2001 Meningococcal MCV4P ACYW-135 12/09/2011,02/06/20 10 Pneumococcal Conjugate PCV 7 11/30/2001,05/08/19 02 Tdap 12/09/2011 Varicella 12/09/2011,2001 Family History Medical History Relation Name Comments Hypertension Father Dementia Maternal Grandmother Hypertension Mother Stomach cancer Mother's Brother Breast cancer Mother's Sister Relation Name Status Comments Father Maternal Grandmother Mother Mother's Brother Mother's Sister Social History Tobacco Use Types Packs/Day Years Used Date Smoking Tobacco: Never Smokeless Tobacco: Never Tobacco Cessation:Counseling Given: Not Answered Alcohol Use Standard Drinks/Week Comments Never 0 [...] with others, in a hotel, in a mcfp, living outside on the street, on a [...] Orientation Straight 12/23/2021 10 :22 AM EDT Last Filed Vital Signs Vital Sign Reading Time Taken Comments Blood Pressure 136/79 01/19/2024 5:27 PM EST Pulse 76 01/19/2024 5:27 PM EST Temperature 36.8 ??C (98.2 ??F) 01/19/2024 5:27 PM ES T Respiratory Rate 20 01/19/2024 5:27 PM EST Oxygen Saturation 98% 11/23/2023 2:49 PM EDT Inhaled Oxygen Concentration - - Weight 81.3 kg (179 lb 3.2 oz) 01/19/2024 5:27 P M EST Height 161.9 cm (5' 3.75 ) 11/23/2023 2:49 PM ED T Body Mass Index 31 11/23/2023 2:49 PM EDT Plan of Treatment Upcoming Encounters Date Type Department Care Team (Late st Contact Info) Description 05/23/2024 2:30 PM EDT Office Visit [facility] [address] [place] [address] Gail Stephens NP [address] [place], [place] [phone] Health Maintenance Due Date Last Done Comments Family Planning (PISQ) 08/07/2015 Chlamydia and Gonorrhea Screening 04/25/2021 04/25/2020 DTaP/Tdap/Td Vaccines (7 - Td or Tdap) 12/08/2021 12/09/2011, 09/25/2004, 08/15/2002, Additional history exists COVID-19 Vaccine ( season) 2023 11/03/2020, 10/06/2020 Influenza Vaccine (#1) 2023 , 02/13/2015, 01/23/2014, Additional history exists Alcohol/Substance Use Screening 10/01/2024 10/02/2023 Depression Screening 10/01/2024 10/02/2023, 10/02/19 24 SDOH Screening 10/01/2024 10/02/2023 Tobacco Screening 11/22/2024 11/23/2023 Pap Smear 02/06/2025 02/06/2022 Lipid Panel 10/27/2028 10/28/2023 Zoster Vaccines (1 of 2) 2050 RSV Patients and Patients Aged 60 years or older (1 - 1-dose 75+ series) 08/07/2075 HIB Vaccines Completed 11/30/2001, 10/2000, 2000 Hepatitis B Vaccines Completed 11/30/2001, 01/01/2001, 2000 Pneumococcal Vaccine: Pediatrics (0 to 5 Years) and At-Risk Patients (6 to 49) Years) Aged Out 11/30/2001, 05/07/2001 No longer eligibl e based on patient's age to complete this topic IPV Vaccines Completed 09/25/2004, 04/23, 01/01/2001, Additional history exists Meningococcal Vaccine Aged Out 12/09/2011, 010 No longer eligible based on patient's age to complete this topic Hepatitis A Vaccines Completed 02/11/2012, 02/06/20 10 HPV Vaccines Completed 01/17/2013, 01/23, 12/09/2011 HIV Screening Completed 11/23/2020, 04/25/2020 Hepatitis C Screening Completed 11/23/2020, 021 RSV under 20 months Aged Out No longe r eligible based on patient's age to complete this topic Rotavirus Vaccines Aged Out No longer eligible based on patient's age to complete this topic Procedures Procedure Name Priority Date/Time Associated Diagnosis Comments CBC WITH AUTO DIFFERENTIAL Routine 03/24/2024 1:52 PM EST COMPREHENSIVE METABOLIC PANEL Routine 03/11/2024 10:58 PM EST CBC WITH AUTO DIFFERENTIAL Routine 03/11/2024 10:58 PM EST GROSS AND MICROSCOPIC LEVEL 5 Routine 02/29/2024 1:45 PM EST HCG, QL, URINE Routine 02/29/2024 11:30 AM EST GRAM STAIN Routine 02/29/2024 12:00 AM EST BI US BREAST LIMITED RIGHT Urgent 02/02/2024 8:45 AM EST LIPID PANEL, STANDARD Routine 10/28/2023 8:54 AM EDT Obesity (BMI 30-39.9) PAP SMEAR Routine 02/06/2022 9:46 AM EST KAUR HISTORICAL HEPATITIS C ANTIBODY Routine 11/23/2020 3:28 PM EDT KAUR HISTORICAL CHLAMYDIA/N. GONORRHOEAE RNA, TMA, UROGENITAL Routine 04/25/2020 3:36 PM EST from Last 3 Months or Most Recently Relevant to Health Maintenance Results * (ABNORMAL) CBC auto differential (03/24/2024 1:52 PM EST) Only the most recent of2 resultswithin the time period is included. White Blood Count 9.8 4.8 - 10.8 X10*3/uL [facility] Red Blood Count 4.41 4.20 - 5.50 X10*6/uL [facility] Hemoglobin 13.0 12.0 - 16.0 g/dl [facility] Hematocrit 37.6 37.0 - 47.0 % [facility] Mean Corpuscular Volume 85.3 80.0 - 98.0 fL [facility] Mean Corpuscular Hemoglobin 29.5 27.0 - 33.0 pg [facility] Mean Corpuscular HGB Conc 34.6 31.0 - 35.0 g/dl [facility] Red Cell Distribution Width 12.4 11.0 - 16.0 % [facility] Platelet Count 300 160 - 400 X10*3/uL [facility] Mean Platelet Volume 9.3(L) 9.4 - 12.3 fL [facility] Neutrophils Percent Auto 61.3 45 - 73 % [facility] Imm Gran Pct Auto 0.4 0.0 - 0.4 % [facility] Lymphocytes Percent Auto 31.0 20 - 40 % [facility] Monocytes Percent Auto 4.9 2 - 11 % [facility] Eosinophils Percent Auto 2.1 0 - 4 % [facility] Basophils Percent Auto 0.3 0 - 2 % [facility] NRBC Pct Auto 0.0 0.0 - 0.2 /100WBC [facility] Neutrophils Absolute Auto 6.0 2.0 - 8.3 x10*3/uL [facility] Imm Gran Abs Auto 0.04(H) 0.00 - 0.03 X10*3/uL [facility] Lymphocytes Absolute Auto 3.0 1.2 - 4.9 X10*3/uL [facility] Monocytes Absolute Auto 0.5 0.1 - 1.2 X10*3/uL [facility] Eosinophils Absolute Auto 0.2 0.0 - 0.4 X10*3/uL [facility] Basophils Absolute Auto 0.0 0.0 - 0.2 X10*3/uL [facility] NRBC Abs Auto 0.000 0.0 - 0.012 X10*3/uL [facility] 03/24/2024 1:52 PM EST 03/24/2024 1:52 PM EST us Generic External Data Provider LAB BLOOD ORDERAB LES Final Result [facility] [address] [place] [phone] [phone] * (ABNORMAL) Comprehensive Metabolic Panel (03/11/2024 10:58 PM EST) Sodium 139 135 - 145 mmol/L [facility] Potassium 3.6 3.3 - 5.1 mmol/L [facility] Chloride 106 96 - 108 mmol/L [facility] Carbon Dioxide 25 22 - 29 mmol/L [facility] Anion Gap 12 12 - 20 [facility] Urea Nitrogen (BUN) 8(L) 9 - 16 mg/dL [facility] Creatinine, Serum 0.68 0.5 - 1.4 mg/dL [facility] Creatinine Clr Calc Pharmacy 122.5 [facility] Comment:Provided height and weight: 154.94 cm,79.1 kg.eGFR (calculated from the MDRD study equation) and eCrCl(calculated from the Cockcroft-Gault equation) are based ondifferent parameters and may not yield comparable results.If eCrCl result is absurd, please check patient'sheight/weight. Estimated Glomerular Filt Rate >60 [facility] Comment:Chronic Kidney Disea se: Estimated GFR < 60 mL/min/1.98w1Mmliwx Kidney Disease: Estimated GFR < 15 mL/min/1.73m2 Glucose 84 60 - 115 mg/dL [facility] Calcium 9.8 8.4 - 10.2 mg/dL [facility] Bilirubin, Total 0.3 0.0 - 1.0 mg/dL [facility] Aspartate Amino Transferase 22 5 - 31 U/L [facility] Alanine Aminotransferase 35(H) 0 - 31 U/L [facility] Total Protein 8.6(H) 6.5 - 8.0 g/dL [facility] Albumin Level 4.6 3.5 - 5.0 g/dL [facility] Alkaline Phosphatase 67 39 - 117 U/L [facility] 03/11/2024 10:5 8 PM EST 03/11/2024 11:06 PM EST us Generic External Data Provider LAB BLOOD ORDERAB LES Final Result [facility] [address] [place] [phone] * Gross and Microscopic Level 5 (02/29/2024 1:45 PM EST) 02/29/2024 1:45 PM EST 02/29/2024 3:00 PM EST Narrative [facility] - 03/03/2024 3:12 PM EST ----- ------- Name: Anne Ochoa ? Age/Sex: 23/F ? : 2000 Unit#: [id number] ?? Attend Dr: Leoncio Nunez MD ?Re02/29/24 ?Status: DEP SDC ? Location: HO.SSS ?Disch: ? ----- ------- SPEC : [id number] ? RECD: 02/29/24-1500 ? STATUS: ??SOUT ? REQ NUM: [id number] ? AMRITA: 02/29/24-4882 ? SUBM DR: Leoncio Nunez MD ? ENTERED: ??02/29/24-8322 ?SP TYPE: Surgical ? OTHR DR: Gail Stephens ? ORDERED: ??Gross Micro L5 ? Diagnosis ?? Breast, right, lumpectomy: ?- Breast tissue with extensive abscess and granulation tissue formation, duct ectasia, ?? and associated fibrosis. ?- No atypia or malignancy identified. ?Clinical History Unspecified lump in the right breast, upper inner ?Microscopic Description Microscopic sections reviewed. ? Material Received ?? Right breast lumpectomy ? Gross Description Received in formalin labeled ?right breast lumpectomy? is a 4.3 (medial-lateral) x 3.2 (superior-inferior) x up to 2.0 (anterior-posterior) cm portion of focally cauterized, connolly- white and yellow-brown lobular fibrofatty breast tissue. ??As stated on the specimen container and specimen requisition slip a short stitch denotes the superior margin, a long stitch denotes the lateral margin and a loop stitch denotes the deep margin. ??The tissue at the anterior-lateral aspect is markedly cauterized somewhat concave, connolly-brown. ??The margins are inked as follows: ANTERIOR-YELLOW, POSTERIOR-ORANGE, SUPERIOR-BLUE, INFERIOR-GREEN, MEDIAL-BLACK AND LATERAL-RED. ??The specimen is serially sectioned to reveal predominantly homogeneous, dense, rubbery, firm and focally gritty connolly-white fibrous breast tissue with a lesser amount of fay-yellow lobular fat. ??The breast tissue towards the lateral aspect is remarkable for focal hemorrhage and a clefted-cystic friable focus which communicates with the anterior and posterior margins. ??In addition there is a 0.25 cm cystic focus of question fat necrosis. ??There is no evidence of prior biopsy. ??The specimen is entirely submitted from medial to lateral in cassettes A1-A13 as follows: A1 medial cap (black ink); A2-A12 remaining cross-sections through the center of the specimen perpendicular to the superior (blue), inferior (green), anterior (yellow) and posterior (orange) margins; A13 lateral cap (red ink). ??CEDS This case was reviewed intradepartmentally. ? CONTINUED ON NEXT PAGE ----- ------- Name: Anne Ochoa ? Age/Sex: 23/F ? : 2000 Unit#: [id number] ?? Attend Dr: Leoncio Nunez MD ?Re02/29/24 ?Status: DEP SDC ? Location: HO.SSS ?Disch: ? ----- ------- SPEC : [id number] ? RECD: 02/29/24-1500 ? STATUS: ??SOUT ? REQ NUM: [id number] ? AMRITA: 02/29/24-1345 ? SUBM DR: Leoncio Nunez MD ? ENTERED: ??02/29/24-151 ?SP TYPE: Surgical ? OTHR : Gail Stephens ? ORDERED: ??Gross Micro L5 ? Copies To: ?? Leoncio Nunez MD ?? [facility] Sur[facility] ?? [address] ?? [place] [address] ?? [phone] ?? Apprajeffrey,Gail ?? [address] ?? [place] ?? [phone] ----- ------- Signed (signature on file) Rafal Guadarrama MD 03/03/24 1512 ? ----- ------- ? END OF REPORT ? us Generic External Data Provider LAB BLOOD ORDERAB LES Final Result [facility] [address] [facility] [place] [address] [phone] * HCG, Qualitative, Urine (02/29/2024 11:30 AM EST) Urine NEGATIVE NEGATIVE [facility] Comment:This test was develo ped to detect early . Falsenegative results may occur after the 5th - 7th week ofpregnancy when using this test method. If clinicallyindicated, consider a serum hCG. 02/29/2024 11:3 0 AM EST 02/29/2024 11:33 AM EST Generic External Data Provider LAB URINE ORDERAB LES Final Result Performing Organization Address [facility] de Phone Number [facility] [address] [place] [phone] * Gram stain (02/29/2024 12:00 AM EST) 02/29/2024 02/29/2024 Comment:Breast Rt Narrative [facility] - 03/03/2024 9:33 AM EST RIGHT BREAST CULTURE Gram stain results: 4+ polys 4+ red blood cells 1+ Gram-positive rods RIGHT BREAST CULTURE Corynebacterium species Quant Org ID 1+ Susc N/A Susceptibility not routinely performed on this isolate. Specimen Source: Breast Right [employer] External Data Provider LAB MICROBIOLOGY - GENERAL ORDERABLES Final Result Performing Organization Address [facility] de Phone Number [facility] [address] [place] [phone] * BI US Breast Limited Right (02/02/2024 8:45 AM EST) Anatomical Region Laterality Modality Breast Right Ultrasound 02/02/2024 8:45 AM EST Narrative 02/02/2024 9:32 AM EST ? [facility] ? [address] ?[place] [address] ? Ultrasound Report ? Signed ? Patient: Go Lange,Grace ?MR#: ?? [id number] ? : 2000 ?Acct:[id number] ? Age/Sex: 23 / F ?ADM Date: 12/10/24 ? Loc: HO.MAMMO ? Attending Dr: Lorena Man MD ? Ordering Physician: Lorena Man MD ?? Date of Service: 02/02/24 ?? Procedure(s): US breast RT limited mamm only ?? Accession Number(s): [id number] ? cc: Gail Stephens; Lorena Man MD ? EXAMINATION: ?? US DIAGNOSTIC ULTRASOUND BREAST, RIGHT ? CLINICAL INFORMATION: ? Right breast painful warm mass at 12:00. Patient had ultrasound ?? November 16, 2023 which was normal. Patient just completed a 10 day ?? course of antibiotics and feels better.. ? COMPARISON: ?? Comparison is made with relevant prior imaging. ? TECHNIQUE: ?? Ultrasound of the breast is performed with real-time reddy scale imaging ?? and color Doppler. ? FINDINGS: ?? Targeted color Doppler ultrasound scanning from 10-2 o'clock ?? demonstrates normal fibroglandular breast tissue. There is no mass or ?? fluid collection. ? Results are discussed with the patient at time of visit. ? US/US breast RT limited mamm only ?? IMPRESSION: ?? No sonographic mass or fluid collection to explain the patient's ?? symptoms of warm painful mass. Recommend clinical evaluation and ?? follow-up at this time. ? ASSESSMENT: ? BI-RADS 1: Negative ? RECOMMENDATION: ?? 1. Patient should be managed based on the clinical impression. ? Decision to proceed with biopsy should be based on clinical grounds and ?? degree of clinical concern. ? 2. Otherwise, routine annual screening mammography at age 40. ? This patient's information was entered into a reminder system with a ?? target due date for their next mammogram. ? Electronically signed by: ??Cindy Gibson DO ??02/02/2024 09:29 AM EST ?? RP ? Dictated By: ?Cindy Gibson DO ? Signed By: ?<Electronically signed by Cindy Gibson, DO in OV> ? 02/02/24 0929 ? DD/ 0845 ? TD/TT: 02/02/24 0900 ? [employer]: ? Procedure Note [place], Emliy - 02/02/2024 [place] [facility] [address] [place], [place] [address] Ultrasound Report Signed Patient: Anne Ochoa MMR#: [id number] : 2000Acct:[id number] Age/Sex: 23 FADM Date: 02/02/24 Loc: [facility] Attending Dr: Lorena Man MD Ordering Physician: Lorena Man MD Date of Service: 02/02/24 Procedure(s): US breast RT limited mamm only Accession Number(s): [id number] cc: Gail Stephens; Lorena Man MD EXAMINATION: US DIAGNOSTIC ULTRASOUND BREAST, RIGHT CLINICAL INFORMATION: Right breast painful warm mass at 12:00. Patient had ultrasound November 16, 2023 which was normal. Patient just completed a 10 day course of antibiotics and feels better.. COMPARISON: Comparison is made with relevant prior imaging. TECHNIQUE: Ultrasound of the breast is performed with real-time reddy scale imaging and color Doppler. FINDINGS: Targeted color Doppler ultrasound scanning from 10-2 o'clock demonstrates normal fibroglandular breast tissue. There is no mass or fluid collection. Results are discussed with the patient at time of visit. US/US breast RT limited mamm only IMPRESSION: No sonographic mass or fluid collection to explain the patient's symptoms of warm painful mass. Recommend clinical evaluation and follow-up at this time. ASSESSMENT: BI-RADS 1: Negative RECOMMENDATION: 1. Patient should be managed based on the clinical impression. Decision to proceed with biopsy should be based on clinical grounds and degree of clinical concern. 2. Otherwise, routine annual screening mammography at age 40. This patient's information was entered into a reminder system with a target due date for their next mammogram. Electronically signed by: Cindy Gibson DO 02/02/2024 09:29 AM EST Dictated By: Cindy Gibson DO Signed By: <Electronically signed by Cindy Gibson DO in OV> 02/02/[address]28 DD/ 4 TD/TT: 02/02/24899 [employer]: us Lorena Man MD IMG US PROCEDURES Final Re sult * (ABNORMAL) Lipid Panel, Standard (10/28/2023 8:54 AM EDT) Triglycerides 90 <150 mg/dL [facility] Comment:Desirable Triglyceri de: less than 150 mg/dLBorderline High Triglyceride 150-199 mg/dLHigh Triglyceride: 200-499 mg/dLVery High Triglyceride: greater than or equal to 5OO mg/dL Cholesterol 158 <200 mg/dL [facility] Comment:Desirable Cholestero l: less than 200 mg/dLBorderline High Cholesterol: 200-239 mg/dLHigh Cholesterol: greater than 239 mg/dL LDL Cholesterol Calculated 107(H) <100 mg/dL [facility] Comment:Desirable LDL: less than 100 mg/dLNear Optimal/Above Optimal LDL: 110- 129 mg/dLBorderline High LDL: 130-159 mg/dLHigh LDL: 160-189 mg/dLVery High LDL: greater than or equal to 190 mg/dL HDL Cholesterol 33(L) >40 mg/dL [facility] Comment:Desirable HDL: great er than 40 mg/dL Note: This HDL assay may give artificially low results in patients with liver disease. Blood Venous blood specimen / Unknown 10/28/2023 8:54 AM EDT 10/28/2023 11:03 AM EDT Gail Stephens NP LAB BLOOD ORDERABLES Final Resu lt [facility] [address] [place] [phone] * Pap Smear (02/06/2022 9:46 AM EST) 02/06/2022 9:46 AM EST 02/06/2022 3:45 PM EST Narrative [facility] - 02/21/2022 5:05 PM EST ----- ------- Name: Anne Ochoa ? Age/Sex: 21/F ? : 2000 Unit#: [id number] ?? Attend Dr: AlokElizabeth EUGENE ?Re02/06/22 ?Status: DEP REF ? Location: HO.LNP ?Disch: ? ----- ------- SPEC : [id number] ?RECD: 02/06/22-1073 ? STATUS: ??SOUT ? REQ NUM: [id number] ? AMRITA: 02/06/2246 ? SUBM DR: AlokElizabeth EUGENE ? ENTERED: ??02/06/22-1612 ?SP TYPE: Pap Smr ?OTHR DR: ? ORDERED: ??Pap Smear ? Interpretation ?? Satisfactory for evaluation. ?? Negative for intraepithelial lesion or malignancy. ?Clinical Information LMP: 02/13 Previous PAP test: Never ? Material Received ?? ThinPrep-Cervical ----- ------- Signed (signature on file) An Orocso Michelle 02/21/225 ? ----- ------- ? END OF REPORT ? [facility] External Provider LAB CYT OLOGY ORDERABLES Final Result [facility] [address] [place] [address] [phone] * Hepatitis C Antibody (11/23/2020 3:28 PM EDT) Pathologist [facility] Hepatitis C Antibody Nonreactive Nonreactive [facility] Comment: Antibodies to HCV not detected; does not exclude early acute HCV infection. HIV AB/AG Nonreactive Nonreactive [facility] Comment: HIV-1 p24 Ag and/or HIV-1/HIV-2 Ab not detected. ?? A test result that is nonreactive does not exclude the possibility of exposure to or infection with HIV-1 and/or HIV-2. Nonreactive results in this assay for individuals with prior exposure to HIV-1 and/or HIV-2 may be due to antigen and antibody levels that are below the limit of detection of this assay. ?? The [employer] HIV Ag/Ab Combo assay result and supplemental assay results should be interpreted in conjunction with the patient's clinical presentation, history and other laboratory results. ??If the results are inconsistent with clinical evidence, additional testing is suggested to confirm the result. Hepatitis B Surface Antigen Negative Negative [facility] 11/23/2020 3:28 PM EDT Elizabeth [place] HISTORICAL/NON ORDERABLE LABS Fi nal Result Performing Organization Address [facility] de Phone Number [facility] [address] * CHLAMYDIA/N. GONORRHOEAE RNA, TMA, UROGENITAL (04/25/2020 3:36 PM EST) Chlamydia trachomatis RNA, TMA, Urogenital NOT DETECTED NOT DETECTED [facility] COMMENT SEE COMMENT [facility] Comment: The analytical performance characteristics of this assay, when used to test SurePath(TM) specimens have been determined by [employer]. The modifications have not been cleared or approved by the FDA. This assay has been validated pursuant to the CLIA regulations and is used for clinical purposes. ?? For additional information, please refer to https://[email or web address] Center/faq/[id number] (This link is being provided for information/ educational purposes only.) ?? 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
--- OUTSIDE RECORDS SUMMARY | 2024-03-24 16:58 | XMS_ITS | Encounter Summary ---
Author Organization [employer] Address [address] [facility] 7t [place] [address] Care Team Providers Care Assorter Name Role Phone Gail Stephens NP Primary Care Provider [phone] Encounter Details Date Type Department Care Team (Late st Contact Info) Description 02/29/2024 Orders Only GENERIC EXTERNAL DATA DEPARTMENT Provider, Generic External Data Social History Tobacco Use Types Packs/Day Years [...] with others, in a hotel, in a senior care, living outside on the street, on a [...] Description 05/23/2024 2:30 PM EDT Office Visit [facility] [address] [place] [address] Gail Stephens NP [address] [place] [address] documented as of this encounter Procedures Procedure Name Priority Date/Time Associated Diagnosis Comments CBC WITH AUTO DIFFERENTIAL Routine 03/24/2024 1:52 PM EST CBC WITH AUTO DIFFERENTIAL Routine 03/11/2024 10:58 PM EST COMPREHENSIVE METABOLIC PANEL Routine 03/11/2024 10:58 PM EST GROSS AND MICROSCOPIC LEVEL 5 Routine 02/29/2024 1:45 PM EST HCG, QL, URINE Routine 02/29/2024 11:30 AM EST GRAM STAIN Routine 02/29/2024 12:00 AM EST documented in this encounter Results * (ABNORMAL) CBC auto differential (03/24/2024 1:52 PM EST) White Blood Count 9.8 4.8 - 10.8 X10*3/uL [facility] Red Blood Count 4.41 4.20 - 5.50 X10*6/uL [facility] Hemoglobin 13.0 12.0 - 16.0 g/dl [facility] Hematocrit 37.6 37.0 - 47.0 % [facility] Mean Corpuscular Volume 85.3 80.0 - 98.0 fL [facility] Mean Corpuscular Hemoglobin 29.5 27.0 - 33.0 pg [facility] Mean Corpuscular HGB Conc 34.6 31.0 - 35.0 g/dl [facility] Red Cell Distribution Width 12.4 11.0 - 16.0 % [facility] Platelet Count 300 160 - 400 X10*3/uL [facility] Mean Platelet Volume 9.3(L) 9.4 - 12.3 fL [facility] Neutrophils Percent Auto 61.3 45 - 73 % [facility] Imm Gran Pct Auto 0.4 0.0 - 0.4 % [facility] Lymphocytes Percent Auto 31.0 20 - 40 % [facility] Monocytes Percent Auto 4.9 2 - 11 % [facility] Eosinophils Percent Auto 2.1 0 - 4 % [facility] Basophils Percent Auto 0.3 0 - 2 % [facility] NRBC Pct Auto 0.0 0.0 - 0.2 /100WBC [facility] Neutrophils Absolute Auto 6.0 2.0 - 8.3 x10*3/uL [facility] Imm Gran Abs Auto 0.04(H) 0.00 - 0.03 X10*3/uL [facility] Lymphocytes Absolute Auto 3.0 1.2 - 4.9 X10*3/uL [facility] Monocytes Absolute Auto 0.5 0.1 - 1.2 X10*3/uL [facility] Eosinophils Absolute Auto 0.2 0.0 - 0.4 X10*3/uL [facility] Basophils Absolute Auto 0.0 0.0 - 0.2 X10*3/uL [facility] NRBC Abs Auto 0.000 0.0 - 0.012 X10*3/uL [facility] 03/24/2024 1:52 PM EST 03/24/2024 1:52 PM EST us Generic External Data Provider LAB BLOOD ORDERAB LES Final Result [facility] [address] [place] [phone] * (ABNORMAL) Comprehensive Metabolic Panel (03/11/2024 10:58 PM EST) Sodium 139 135 - 145 mmol/L [facility] Potassium 3.6 3.3 - 5.1 mmol/L [facility] Chloride 106 96 - 108 mmol/L [facility] Carbon Dioxide 25 22 - 29 mmol/L [facility] Anion Gap 12 12 - 20 [facility] Urea Nitrogen (BUN) 8(L) 9 - 16 mg/dL [facility] Creatinine, Serum 0.68 0.5 - 1.4 mg/dL [facility] Creatinine Clr Calc Pharmacy 122.5 [facility] Comment:Provided height and weight: 154.94 cm,79.1 kg.eGFR (calculated from the MDRD study equation) and eCrCl(calculated from the Cockcroft-Gault equation) are based ondifferent parameters and may not yield comparable results.If eCrCl result is absurd, please check patient'sheight/weight. Estimated Glomerular Filt Rate >60 [facility] Comment:Chronic Kidney Disea se: Estimated GFR < 60 mL/min/[id number] Kidney Disease: Estimated GFR < 15 mL/min/1.73m2 Glucose 84 60 - 115 mg/dL [facility] Calcium 9.8 8.4 - 10.2 mg/dL [facility] Bilirubin, Total 0.3 0.0 - 1.0 mg/dL [facility] Aspartate Amino Transferase 22 5 - 31 U/L [facility] Alanine Aminotransferase 35(H) 0 - 31 U/L [facility] Total Protein 8.6(H) 6.5 - 8.0 g/dL [facility] Albumin Level 4.6 3.5 - 5.0 g/dL [facility] Alkaline Phosphatase 67 39 - 117 U/L [facility] 03/11/2024 10:5 8 PM EST 03/11/2024 11:06 PM EST us Generic External Data Provider LAB BLOOD ORDERAB LES Final Result [facility] [address] [place] [phone] * (ABNORMAL) CBC auto differential (03/11/2024 10:58 PM EST) White Blood Count 11.8(H) 4.8 - 10.8 X10*3/uL [facility] Red Blood Count 4.67 4.20 - 5.50 X10*6/uL [facility] Hemoglobin 13.7 12.0 - 16.0 g/dl [facility] Hematocrit 39.8 37.0 - 47.0 % [facility] Mean Corpuscular Volume 85.2 80.0 - 98.0 fL [facility] Mean Corpuscular Hemoglobin 29.3 27.0 - 33.0 pg [facility] Mean Corpuscular HGB Conc 34.4 31.0 - 35.0 g/dl [facility] Red Cell Distribution Width 12.7 11.0 - 16.0 % [facility] Platelet Count 333 160 - 400 X10*3/uL [facility] Mean Platelet Volume 9.4 9.4 - 12.3 fL [facility] Neutrophils Percent Auto 61.9 45 - 73 % [facility] Imm Gran Pct Auto 0.3 0.0 - 0.4 % [facility] Lymphocytes Percent Auto 31.2 20 - 40 % [facility] Monocytes Percent Auto 4.6 2 - 11 % [facility] Eosinophils Percent Auto 1.7 0 - 4 % [facility] Basophils Percent Auto 0.3 0 - 2 % [facility] NRBC Pct Auto 0.0 0.0 - 0.2 /100WBC [facility] Neutrophils Absolute Auto 7.3 2.0 - 8.3 x10*3/uL [facility] Imm Gran Abs Auto 0.04(H) 0.00 - 0.03 X10*3/uL [facility] Lymphocytes Absolute Auto 3.7 1.2 - 4.9 X10*3/uL [facility] Monocytes Absolute Auto 0.5 0.1 - 1.2 X10*3/uL [facility] Eosinophils Absolute Auto 0.2 0.0 - 0.4 X10*3/uL [facility] Basophils Absolute Auto 0.0 0.0 - 0.2 X10*3/uL [facility] NRBC Abs Auto 0.000 0.0 - 0.012 X10*3/uL [facility] 03/11/2024 10:5 8 PM EST 03/11/2024 11:06 PM EST us Generic External Data Provider LAB BLOOD ORDERAB LES Final Result Performing Organization Address City/State/[facility] Co de Phone Number [facility] [address] [place] [phone] * Gross and Microscopic Level 5 (02/29/2024 1:45 PM EST) 02/29/2024 1:45 PM EST 02/29/2024 3:00 PM EST Narrative [facility] - 03/03/2024 3:12 PM EST ----- ------- Name: Anne Ochoa ? Age/Sex: 23/F ? : 2000 Unit#: [id number] ?? Attend Dr: Leoncio Nunez MD ?Re02/29/24 ?Status: DEP SDC ? Location: HO.SSS ?Disch: ? ----- ------- SPEC : [id number] ? RECD: 02/29/24-1500 ? STATUS: ??SOUT ? REQ NUM: [id number] ? AMRITA: 02/29/24-1345 ? SUBM DR: Leoncio Nunez MD ? ENTERED: ??02/29/24-129 ?SP TYPE: Surgical ? OTHR : Gail [...] ? Age/Sex: 23/F ? : 2000 Unit#: [id number] ?? Attend Dr: Leoncio Nunez MD ?Re02/29/24 ?Status: DEP SDC ? Location: HO.SSS ?Disch: ? ----- ------- SPEC : [id number] ? RECD: 02/29/24-1499 ? STATUS: ??SOUT ? REQ NUM: [id number] ? AMRITA: 02/29/24-0980 ? SUBM DR: Leoncio Nunez MD ? ENTERED: ??02/29/24-1511 ?SP TYPE: Surgical ? OTHR : Gail Stephens ? ORDERED: ??Gross Micro L5 ? Copies To: ?? Leoncio Nunez MD ?? [facility] ?? [address] ?? [place] [address] ?? [phone] ?? Gail Stephens ?? [address] ?? [place] [address] ?? [phone] ----- ------- Signed (signature on file) Rafal Guadarrama MD 03/03/241511 ? ----- ------- ? END OF REPORT ? Generic External Data Provider LAB BLOOD ORDERAB LES Final Result Performing Organization Address [facility] de Phone Number [facility] [address] [place] [phone] * HCG, Qualitative, Urine (02/29/2024 11:30 AM EST) Urine NEGATIVE NEGATIVE [facility] Comment:This test was develo ped to detect early . Falsenegative results may occur after the 5th - 7th week ofpregnancy when using this test method. If clinicallyindicated, consider a serum hCG. 02/29/2024 11:3 0 AM EST 02/29/2024 11:33 AM EST Generic External Data Provider LAB URINE ORDERAB LES Final Result Performing Organization Address [facility] de Phone Number [facility] [address] [place] [phone] * Gram stain (02/29/2024 12:00 AM EST) 02/29/2024 02/29/2024 Comment:Breast Rt Narrative [facility] - 03/03/2024 9:33 AM EST RIGHT BREAST CULTURE Gram stain results: 4+ polys 4+ red blood cells 1+ Gram-positive rods RIGHT BREAST CULTURE Corynebacterium species Quant Org ID 1+ Susc N/A Susceptibility not routinely performed on this isolate. Specimen Source: Breast Right Generic External Data Provider LAB MICROBIOLOGY - GENERAL ORDERABLES Final Result Performing Organization Address [facility] de Phone Number [facility] [address] [place] [phone] documented in this encounter Visit Diagnoses Not on filedocumented in this encounter Additional Health Concerns Assessment Noted Time PHQ-9 Depression Total Score: 0 10/02/19 24 1:26 PM EDT documented as of this encounter Care Teams Assorter Relationship Specialty Start Date End Date Gail Stephens NP [address] [place] [phone] PCP - General Family Medicine 01/12/23 documented as of this encounter
--- OUTSIDE RECORDS SUMMARY | 2024-03-24 16:58 | XMS_ITS | Encounter Summary ---
Author Organization [employer] Address [address] [facility] 7t [place] [address] Care Team Providers Care Community Organizer Name Role Phone Gail Stephens NP Primary Care Provider [phone] Reason for Visit * Reason Onset Date Comments recall april follow up 03/03/2024 Encounter Details Date Type Department Care Team (Late st Contact Info) Description 03/03/2024 Telephone [facility] MED[facility]INE [address] [place] [address] Gail Stephens NP [address] [place] [address] recall april up Social History Tobacco Use Types Packs/Day Years [...] with others, in a hotel, in a alf, living outside on the street, on a [...] AM EDT documented as of this encounter Miscellaneous Notes * Telephone Encounter - Rukhsana Aguilar [place] - 03/03/2024 1:52 PM EST T/C vice president medical affairs spoke with pt, pt agreed to come in on 05/23/24 @ 2:30 pm for follow up. Reminder letter will be sent. documented in this encounter Plan of Treatment Upcoming Encounters Date Type Department Care Team (Late st Contact Info) Description 05/23/2024 2:30 PM EDT Office Visit [facility] MED[facility]INE [address] [place] [address] Gail Stephens NP [address] [place] [address] documented as of this encounter Visit Diagnoses Not on filedocumented in this encounter Additional Health Concerns Assessment Noted Time PHQ-9 Depression Total Score: 0 10/02/19 24 1:26 PM EDT documented as of this encounter Care Teams Community Organizer Relationship Specialty Start Date End Date Gail Stephens NP [address] [place] [address] PCP - General Family Medicine 01/12/23 documented as of this encounter
== END 2024-03-24 13:35 | disposition home or self-care (01) ==
PROVIDERS: PCP Nurse Practitioner; Visit Provider Surgery
DX: N63.12 Unspecified lump in the right breast, upper inner quadrant (principal); Z86.2 Personal history of diseases of the blood and blood-forming organs and certain disorders involving the immune mechanism
CPT/HCPCS: 99024

== ENCOUNTER 2024-03-27 13:08 | Emergency (ER) | payer MEDICAID, SELFPAY ==
--- NOTE | ~2024-03-27 | US_ITS ---
CLINICAL HISTORY: Bilateral calf pain. DVT? Venous duplex ultrasound bilateral lower extremity Comparison: None Findings: The visualized deep veins are fully compressible with normal Doppler color flow and spectral tracings. No popliteal cyst. IMPRESSION: 1. Negative for bilateral lower extremity deep vein thrombosis. This document has been electronically signed by: Margoth Martinez MD on 03/27/2024 15:02:14
[2024-03-27 13:23] VITALS: BP 143/91; PULSE 86; RESP 16; TEMP 36.8; O2SAT 99; BMI 316.9
--- NOTE | 2024-03-27 13:28 | ED_ITS ---
HPI - General Adult General Chief complaint: General Medical Stated complaint: feet pain Time Seen by Provider: 03/27/24 14:39 Source: patient Mode of arrival: ambulatory Limitations: no limitations History of Present Illness ED Provider: Tima Gillespie HPI narrative: 23 yold female with pmh of mastitis, iron defiecny anemia presents to the ED for bilateral calf pain since 02/28/23. Patient states she had breast surgery the 28 of February and ever since has had bilateral calf pain. Patient denies any chest pain, shortness of breath, pleurisy, or coughing up blood. Patient denies any recent trauma to lower extremities, fever, redness, bluish black discoloration, or new workouts. Patient denies any abdominal pain or pelvic pain. Patient denies any genitourinary complaints. Related Data Home Medications ?Medication ?Instructions ?Recorded ?Confirmed levonorgestrel 21 mcg/24 hr (up to intrauterine 02/06/22 03/24/24 8 years) 52 mg intrauterine device (Mirena) Previous Rx's ?Medication ?Instructions ?Recorded cyclobenzaprine 10 mg tablet 10 mg PO BEDTIME PRN muscle spasm 03/27/24 #10 tabs ketorolac 10 mg tablet 10 mg PO Q6H PRN pain #20 tabs 03/27/24 ondansetron 4 mg disintegrating 4 mg PO Q8H PRN nausea and 03/27/24 tablet vomiting #6 tabs Allergies Allergy/AdvReac Type Severity Reaction Status Date / Time No Known Allergies Allergy Verified 03/27/24 13:24 [No Known Allergies*] Review of Systems 2 Review of Systems: Bilateral calf pain Yes all other systems are reviewed and are negative PMFSH Past Medical History Medical History Hx of iron deficiency anemia Surgical History History of lumpectomy of right breast (02/29/24) No pertinent past surgical history Family History Family History Mother Hypertension Maternal Grandfather Colon cancer Maternal Aunt Hx of breast cancer Social History Social History Household Members: Family Housing: Apartment Are you a primary care worker to a significant other at home: No Do you presently have visiting nurse or other home services: No Alcohol intake: current Alcohol intake frequency: holidays/special occasions only Comment: improved Patient Tobacco Use Status: Never used Tobacco Special abbey needs: No Agree to transfusion: Yes Advance Directives: No Advance Directives Information Provided: Yes Physical Exam ED Vital Signs: Vital Signs - 24 hr 03/27/24 13:23 Temperature 98.2 F Pulse Rate 86 Respiratory Rate 16 Blood Pressure 143/91 H Pulse Oximetry 99 Oxygen Delivery Method Room Air BMI result Body Mass Index 316.9 Const General: cooperative, healthy appearing, comfortable, no acute distress, well developed, alert, awake and Physically active Orientation/consciousness: patient oriented x3 HENMT Head: Yes normal to inspection, Yes No palpable skull fracture present, Yes normocephalic and Yes atraumatic Eyes General: appearance normal, both eyes and all related structures Neck Neck: Yes normal visual inspection, Yes full ROM, Yes no lymphadenopathy, Yes no meningeal signs, Yes trachea midline, Yes supple, No anterior neck swelling and No tender Chest Chest palpation & inspection: normal inspection of the chest and normal palpation of entire chest wall Resp Effort & Inspection: normal respiratory effort and able to speak in complete sentences Auscultation: clear to auscultation bilaterally Cardio Jugular venous distension: no JVD Heart sounds: S1 normal heart sound present and S2 normal heart sound present GI Inspection: Yes normal to inspection Palpation (GI): Soft to palpation, not firm, nontender, no guarding and not rigid General: Yes no CVA tenderness Back/Spine/Pelvis Back: no CVA tenderness and No back tenderness Skin General skin exam: no rashes or lesions noted, elasticity normal and turgor normal Neuro General: patient oriented x3, gait normal, tone normal, moves all extremities, Normal light touch and pain sensation, no meningeal signs, no focal motor deficits, CN's II-XI intact bilaterally and normal sensation to monofilament Extrem General: Yes normal to inspection, Yes full ROM and Yes capillary refill normal Upper/lower leg/hip images: 2 1. Positive calf pain without any ecchymosis, crepitus, erythema, deformity, or pitting edema. Rest of extremity normal. Motor/neuro/vascular exam intact. 2. Positive calf pain without any ecchymosis, crepitus, erythema, deformity, or pitting edema. Rest of extremity normal. Motor/neuro/vascular exam intact. Psych Appearance: grossly normal, well kempt and not disheveled Course Course Course Narrative: RME; 22-year-old female presents to ED for bilateral leg calf pain since February 28. Patient states she had surgery for breasts on the 28 of February and ever since has had calf pain. Patient denies any chest pain, shortness of breath, pleurisy. Exam positive for bilateral calf tenderness on palpation. Negative for signs of any ulcers, ecchymosis, crepitus, or deformities. Motor/neuro/vascular exam of lower extremities intact. Patient states bilateral legs feel swollen although legs are not swollen on exam. Labs ultrasound ordered. Medications Administered Discontinued Medications Generic Name Dose Route Start Last Admin Trade Name Freq PRN Reason Stop Dose Admin Acetaminophen 975 mg 03/27/24 15:56 03/27/24 16:13 Acetaminophen 325 Mg Tablet PO 03/27/24 15:57 975 mg ONCE ONE Administration Ketorolac Tromethamine 30 mg 03/27/24 15:53 03/27/24 16:15 Ketorolac Tromethamine 30 Mg/Ml Vial IM 03/27/24 15:54 30 mg ONCE ONE Administration Medical Decision Making Medical Decision Making MDM Narrative: 23-year-old female presents to ED for bilateral calf pain since February 28 without any chest pain, shortness of breath or pleurisy. Patient denies any recent trauma to lower extremities. Labs ultrasound ordered. 4:30pm: Patient here for bilateral calf pain since February 28. Ultrasound negative for DVT or popliteal cyst. CPK negative. BNP negative for signs of CHF. No signs of rhabdomyolysis. Not suspecting any fracture or dislocation. Patient's bilateral lower extremities negative for swelling, ecchymosis, crepitus, deformity, hotness, cold, or open wounds. Not suspecting compartment syndrome, fracture, dislocation, arterial occlusion, lymphangitis, osteomyelitis, cellulitis, or any other life-threatening etiology. Patient explained worrisome signs and informed to follow up with primary care provider. Differential Diagnosis Differential Diagnoses: The differential diagnosis associated with the presentation includes (Rhabdomyolysis, DVT, arterial occlusion, periphereal neuropathy) Admission/Observation Consideration of admission/observation: Escalation of care including admission/observation considered Lab Data 03/27/24 13:46 03/27/24 13:46 Labs: Lab Results 03/27/24 Range/Units 13:46 WBC 10.2 (4.8-10.8) X10*3/uL RBC 4.46 (4.20-5.50) X10*6/uL Hgb 13.1 (12.0-16.0) g/dl Hct 37.3 (37.0-47.0) % MCV 83.6 (80.0-98.0) fL MCH 29.4 (27.0-33.0) pg MCHC 35.1 H (31.0-35.0) g/dl RDW 12.5 (11.0-16.0) % Plt Count 310 (160-400) X10*3/uL MPV 9.1 L (9.4-12.3) fL Immature Gran % (Auto) 0.2 (0.0-0.4) % Neut % (Auto) 69.2 (45-73) % Lymph % (Auto) 23.8 (20-40) % [place] % (Auto) 5.6 (2-11) % Eos % (Auto) 1.0 (0-4) % Baso % (Auto) 0.2 (0-2) % Lymph # (Auto) 2.4 (1.2-4.9) X10*3/uL [place] # (Auto) 0.6 (0.1-1.2) X10*3/uL Eos # (Auto) 0.1 (0.0-0.4) X10*3/uL Baso # (Auto) 0.0 (0.0-0.2) X10*3/uL Abs Immat Gran (auto) 0.02 (0.00-0.03) X10*3/uL Absolute Neuts (auto) 7.1 (2.0-8.3) x10*3/uL Absolute Nucleated RBC 0.000 (0.0-0.012) X10*3/uL Nucleated RBC % (auto) 0.0 (0.0-0.2) /100WBC PT 13.4 H (10.9-12.4) SEC INR 1.2 H (0.9-1.1) APTT 34.7 (26.0-36.8) SEC Sodium 140 (135-145) mmol/L Potassium 3.7 (3.3-5.1) mmol/L Chloride 107 (96-108) mmol/L Carbon Dioxide 25 (22-29) mmol/L Anion Gap 12 (12-20) BUN 11 (9-16) mg/dL Creatinine 0.65 (0.5-1.4) mg/dL Estim Creat Clear Calc 731.9 Estimated GFR > 60 Random Glucose 92 (60-115) mg/dL Calcium 9.4 (8.4-10.2) mg/dL Magnesium 2.0 (1.6-2.6) mg/dL Total Bilirubin 0.3 (0.0-1.0) mg/dL AST 19 (5-31) U/L ALT 21 (0-31) U/L Alkaline Phosphatase 53 (39-117) U/L Total Creatine Kinase 64 (26-140) U/L B-Natriuretic Peptide < 10 (<100) pg/mL Total Protein 8.1 H (6.5-8.0) g/dL Albumin 4.5 (3.5-5.0) g/dL Beta HCG, Quant < 2 mIU/mL Independent Interpretation I performed an independent interpretation of an: Ultrasound Radiology Impression Discussion of test interpretation with radiology: I have reviewed the radiologist's reading. Independent Historian Clinical information obtained from an independent historian. History obtained from or confirmed by: Other (Patient) Prescription Management I considered prescription management with: Pain Medication and Other Discharge Plan Discharge Clinical Impression: Bilateral calf pain, Muscle spasm Patient Disposition: Home, Self-Care Instructions: Leg Cramps (ED), Muscle Spasm (ED), Leg Pain (ED) Additional Instructions: Your blood work came back reassuring. Ultrasound came back negative for blood clots. Recommend follow-up with primary care provider. Return to the ED immediately for any swelling, redness, worsening calf pain, chest pain, shortness of breath, bluish black discoloration, inability to walk, fever, chills, or any other concerning symptoms. Do not take any other NSAIDs while taking ketorolac. Do not take any Motrin, ibuprofen, Aleve, naproxen, diclofenac, or meloxicam. CLINICAL HISTORY: Bilateral calf pain. DVT? Venous duplex ultrasound bilateral lower extremity Comparison: None Findings: The visualized deep veins are fully compressible with normal Doppler color flow and spectral tracings. No popliteal cyst. IMPRESSION: 1. Negative for bilateral lower extremity deep vein thrombosis. 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 Do not take work or while driving ondansetron 4 mg tablet,disintegrating 4 mg PO Q8H PRN (Reason: nausea and vomiting) Qty: 6 0RF No Action Mirena 20 mcg/24 hours (8 yrs) 52 mg intrauterine device intrauterine Stand Alone Forms: Work/School Release Interventions: ED Discharge Assessment Last Done: 03/27/24 16:56 Discharge Date/Time: 03/27/24 16:56 Print Language: [place]er
[2024-03-27 13:51] LABS: Basophils Percent Auto 0.2 % (0-2); Eosinophils Absolute Auto 0.1 X10*3/uL (0.0-0.4); Hematocrit 37.3 % (37.0-47.0); Hemoglobin 13.1 g/dl (12.0-16.0); Imm Gran Abs Auto 0.02 X10*3/uL (0.00-0.03); Imm Gran Pct Auto 0.2 % (0.0-0.4); Lymphocytes Absolute Auto 2.4 X10*3/uL (1.2-4.9); Lymphocytes Percent Auto 23.8 % (20-40); MANUAL DIFF FLAG NO; Mean Corpuscular HGB Conc 35.1 g/dl (31.0-35.0); Mean Corpuscular Hemoglobin 29.4 pg (27.0-33.0); Mean Corpuscular Volume 83.6 fL (80.0-98.0); Mean Platelet Volume 9.1 fL (9.4-12.3); Monocytes Absolute Auto 0.6 X10*3/uL (0.1-1.2); Monocytes Percent Auto 5.6 % (2-11); Neutrophils Absolute Auto 7.1 x10*3/uL (2.0-8.3); Neutrophils Percent Auto 69.2 % (45-73); Platelet Count 310 X10*3/uL (160-400); Red Blood Count 4.46 X10*6/uL (4.20-5.50); Red Cell Distribution Width 12.5 % (11.0-16.0); White Blood Count 10.2 X10*3/uL (4.8-10.8)
--- OUTSIDE RECORDS SUMMARY | 2024-03-27 13:51 | XMS_ITS | Encounter Summary ---
Author Organization [employer] Address [address] [facility] [address] [place] [address] Care Team Providers Care Agriculture Engineer Name Role Phone Gail Stephens NP Primary Care Provider [phone] Reason for Visit * Reason Onset Date Comments Med Refill 11/24/2023 Encounter Details Date Type Department Care Team (Late st Contact Info) Description 11/24/2023 Refill [facility] MEDICINE [address] [place] [address] Gail Stephens NP [address] [place] [address] Social History Tobacco Use Types Packs/Day Years [...] with others, in a hotel, in a nursing home, living outside on the street, on a [...] Description 05/23/2024 2:30 PM EDT Office Visit [facility] MEDICINE [address] [place] [address] Gail Stephens NP [address] [place] [address] documented as of this encounter Visit Diagnoses Not on filedocumented in this encounter Additional Health Concerns Assessment Noted Time PHQ-9 Depression Total Score: 0 10/02/19 24 1:26 PM EDT documented as of this encounter Care Teams Agriculture Engineer Relationship Specialty Start Date End Date Gail Stephens NP [address] [place] [address] PCP - General Family Medicine 01/12/23 documented as of this encounter
--- OUTSIDE RECORDS SUMMARY | 2024-03-27 13:51 | XMS_ITS | Encounter Summary ---
Author Organization [employer] Address [address] [facility] [address] [place] [address] Care Team Providers Care Bunghole Borer Name Role Phone Gail Stephens NP Primary Care Provider [phone] Encounter Details Date Type Department Care Team [...] Description 05/23/2024 2:30 PM EDT Office Visit [facility] MEDICINE [address] [place] [address] Gail Stephens NP [address] [place] [address] documented as of this encounter Procedures Procedure [...] Blood Count 9.8 4.8 - 10.8 X10*3/uL [facility] Red Blood Count 4.41 4.20 - 5.50 X10*6/uL [facility] Hemoglobin 13.0 12.0 - 16.0 g/dl [facility] Hematocrit 37.6 37.0 - 47.0 % [facility] Mean Corpuscular Volume 85.3 80.0 - 98.0 fL [facility] Mean Corpuscular Hemoglobin 29.5 27.0 - 33.0 pg [facility] Mean Corpuscular HGB Conc 34.6 31.0 - 35.0 g/dl [facility] Red Cell Distribution Width 12.4 11.0 - 16.0 % [facility] Platelet Count 300 160 - 400 X10*3/uL [facility] Mean Platelet Volume 9.3(L) 9.4 - 12.3 fL [facility] Neutrophils Percent Auto 61.3 45 - 73 % [facility] Imm Gran Pct Auto 0.4 0.0 - 0.4 % [facility] Lymphocytes Percent Auto 31.0 20 - 40 % [facility] Monocytes Percent Auto 4.9 2 - 11 % [facility] Eosinophils Percent Auto 2.1 0 - 4 % [facility] Basophils Percent Auto 0.3 0 - 2 % [facility] NRBC Pct Auto 0.0 0.0 - 0.2 /100WBC [facility] Neutrophils Absolute Auto 6.0 2.0 - 8.3 x10*3/uL [facility] Imm Gran Abs Auto 0.04(H) 0.00 - 0.03 X10*3/uL [facility] Lymphocytes Absolute Auto 3.0 1.2 - 4.9 X10*3/uL [facility] Monocytes Absolute Auto 0.5 0.1 - 1.2 X10*3/uL [facility] Eosinophils Absolute Auto 0.2 0.0 - 0.4 X10*3/uL [facility] Basophils Absolute Auto 0.0 0.0 - 0.2 X10*3/uL [facility] NRBC Abs Auto 0.000 0.0 - 0.012 X10*3/uL [facility] 03/24/2024 1:52 PM EST 03/24/2024 1:52 PM EST us Generic External Data Provider LAB BLOOD ORDERAB LES Final Result [facility] [address] [place] [phone] [phone] * (ABNORMAL) Comprehensive Metabolic Panel (03/11/2024 10:58 PM EST) Sodium 139 135 - 145 mmol/L [facility] Potassium 3.6 3.3 - 5.1 mmol/L [facility] Chloride 106 96 - 108 mmol/L [facility] Carbon Dioxide 25 22 - 29 mmol/L [facility] Anion Gap 12 12 - 20 [facility] Urea Nitrogen (BUN) 8(L) 9 - 16 mg/dL [facility] Creatinine, Serum 0.68 0.5 - 1.4 mg/dL [facility] Creatinine Clr Calc Pharmacy 122.5 [facility] Comment:Provided height and weight: 154.94 cm,79.1 kg.eGFR (calculated from the MDRD study equation) and eCrCl(calculated from the Cockcroft-Gault equation) are based ondifferent parameters and may not yield comparable results.If eCrCl result is absurd, please check patient'sheight/weight. Estimated Glomerular Filt Rate >60 [facility] Comment:Chronic Kidney Disea se: Estimated GFR < 60 mL/min/1.27j0Capzem Kidney Disease: Estimated GFR < 15 mL/min/1.73m2 Glucose 84 60 - 115 mg/dL [facility] Calcium 9.8 8.4 - 10.2 mg/dL [facility] Bilirubin, Total 0.3 0.0 - 1.0 mg/dL [facility] Aspartate Amino Transferase 22 5 - 31 U/L [facility] Alanine Aminotransferase 35(H) 0 - 31 U/L [facility] Total Protein 8.6(H) 6.5 - 8.0 g/dL [facility] Albumin Level 4.6 3.5 - 5.0 g/dL [facility] Alkaline Phosphatase 67 39 - 117 U/L [facility] 03/11/2024 10:5 8 PM EST 03/11/2024 11:06 PM EST us Generic External Data Provider LAB BLOOD ORDERAB LES Final Result [facility] [address] [place] [phone] * (ABNORMAL) CBC auto differential (03/11/2024 10:58 PM EST) White Blood Count 11.8(H) 4.8 - 10.8 X10*3/uL [facility] Red Blood Count 4.67 4.20 - 5.50 X10*6/uL [facility] Hemoglobin 13.7 12.0 - 16.0 g/dl [facility] Hematocrit 39.8 37.0 - 47.0 % [facility] Mean Corpuscular Volume 85.2 80.0 - 98.0 fL [facility] Mean Corpuscular Hemoglobin 29.3 27.0 - 33.0 pg [facility] Mean Corpuscular HGB Conc 34.4 31.0 - 35.0 g/dl [facility] Red Cell Distribution Width 12.7 11.0 - 16.0 % [facility] Platelet Count 333 160 - 400 X10*3/uL [facility] Mean Platelet Volume 9.4 9.4 - 12.3 fL [facility] Neutrophils Percent Auto 61.9 45 - 73 % [facility] Imm Gran Pct Auto 0.3 0.0 - 0.4 % [facility] Lymphocytes Percent Auto 31.2 20 - 40 % [facility] Monocytes Percent Auto 4.6 2 - 11 % [facility] Eosinophils Percent Auto 1.7 0 - 4 % [facility] Basophils Percent Auto 0.3 0 - 2 % [facility] NRBC Pct Auto 0.0 0.0 - 0.2 /100WBC [facility] Neutrophils Absolute Auto 7.3 2.0 - 8.3 x10*3/uL [facility] Imm Gran Abs Auto 0.04(H) 0.00 - 0.03 X10*3/uL [facility] Lymphocytes Absolute Auto 3.7 1.2 - 4.9 X10*3/uL [facility] Monocytes Absolute Auto 0.5 0.1 - 1.2 X10*3/uL [facility] Eosinophils Absolute Auto 0.2 0.0 - 0.4 X10*3/uL [facility] Basophils Absolute Auto 0.0 0.0 - 0.2 X10*3/uL [facility] NRBC Abs Auto 0.000 0.0 - 0.012 X10*3/uL [facility] 03/11/2024 10:5 8 PM EST 03/11/2024 11:06 PM EST us Generic External Data Provider LAB BLOOD ORDERAB LES Final Result Performing Organization Address City/State/[facility] Co de Phone Number [facility] [address] [place] [phone] * Gross and Microscopic Level 5 (02/29/2024 1:45 PM EST) 02/29/2024 1:45 PM EST 02/29/2024 3:00 PM EST Narrative [facility] - 03/03/2024 3:12 PM EST ----- ------- Name: Anne Ochoa ? Age/Sex: 23/F ? : 2000 Unit#: [id number] ?? Attend Dr: Leoncio Nunez MD ?Re02/29/24 ?Status: DEP SDC ? Location: HO.SSS ?Disch: ? ----- ------- SPEC : [id number] ? RECD: 02/29/24-1500 ? STATUS: ??SOUT ? REQ NUM: [id number] ? AMRITA: 02/29/24-1345 ? SUBM DR: Leoncio Nunez MD ? ENTERED: ??02/29/24-308 ?SP TYPE: Surgical ? OTHR : Gail [...] ? Age/Sex: 23/F ? : 2000 Unit#: [id number] ?? Attend Dr: Leoncio Nunez MD ?Re02/29/24 ?Status: DEP SDC ? Location: HO.SSS ?Disch: ? ----- ------- SPEC : [id number] ? RECD: 02/29/24-1499 ? STATUS: ??SOUT ? REQ NUM: [id number] ? AMRITA: 02/29/24-5741 ? SUBM DR: Leoncio Nunez MD ? ENTERED: ??02/29/24-1511 ?SP TYPE: Surgical ? OTHR : Gail Stephens ? ORDERED: ??Gross Micro L5 ? Copies To: ?? Leoncio Nunez MD ?? [facility] ?? [address] ?? [place] [address] ?? [phone] ?? Gail Stephens ?? [address] ?? [place] [address] ?? [phone] ----- ------- Signed (signature on file) Rafal Guadarrama MD 03/03/241511 ? ----- ------- ? END OF REPORT ? Generic External Data Provider LAB BLOOD ORDERAB LES Final Result Performing Organization Address [facility] de Phone Number [facility] [address] [place] [phone] * HCG, Qualitative, Urine (02/29/2024 11:30 AM EST) Urine NEGATIVE NEGATIVE [facility] Comment:This test was develo ped to detect early . Falsenegative results may occur after the 5th - 7th week ofpregnancy when using this test method. If clinicallyindicated, consider a serum hCG. 02/29/2024 11:3 0 AM EST 02/29/2024 11:33 AM EST Generic External Data Provider LAB URINE ORDERAB LES Final Result Performing Organization Address [facility] de Phone Number [facility] [address] [place] [phone] * Gram stain (02/29/2024 12:00 AM EST) 02/29/2024 02/29/2024 Comment:Breast Rt Narrative [facility] - 03/03/2024 9:33 AM EST RIGHT BREAST CULTURE Gram stain results: 4+ polys 4+ red blood cells 1+ Gram-positive rods RIGHT BREAST CULTURE Corynebacterium species Quant Org ID 1+ Susc N/A Susceptibility not routinely performed on this isolate. Specimen Source: Breast Right Generic External Data Provider LAB MICROBIOLOGY - GENERAL ORDERABLES Final Result Performing Organization Address [facility] de Phone Number [facility] [address] [place] [phone] documented in this encounter Visit Diagnoses Not on filedocumented in this encounter Additional Health Concerns Assessment Noted Time PHQ-9 Depression Total Score: 0 10/02/19 24 1:26 PM EDT documented as of this encounter Care Teams Bunghole Borer Relationship Specialty Start Date End Date Gail Stephens NP [address] [place] [phone] PCP - General Family Medicine 01/12/23 documented as of this encounter
--- OUTSIDE RECORDS SUMMARY | 2024-03-27 13:51 | XMS_ITS | Clinical Summary ---
Author Organization [employer] Address [address] [facility] 7t [place] [address] Care Team Providers Care Beef Tagger Name Role Phone Gail Stephens NP Primary Care Provider [phone] Allergies No known active allergies Medications cetirizine (ZyrTEC) 5 MG tablet TAKE 2 TABLETS BY MOUTH EVERY DAY 180 tablet 1 02/22/2024 Active Active Problems Problem Noted Date Diagnosed Date S/P lumpectomy, right breast 03/03/2024 Overview (03/03/2024): Procedure performed 02/29/2024 at [facility] Mass overlapping multiple quadrants of right maryjane [...] Type Department Care Team Description 03/03/[address] [address] Gail Stephens NP recall april follow up 02/29/2024 Orders Only GENERIC EXTERNAL DATA DEPARTMENT Provider, Generic External Data 02/20/2024 Refill [facility] [address] [place] [address] Gail Stephens NP 02/03/[address] [address] Elizabeth Delgado RN Results 01/19/2024 5:40 PM EST Office Visit [facility] [address] [place] [address] Lorena Man MD Breast abscess (Primary Dx); Mass overlapping multiple quadrants of right breast 01/19/2024 Travel 01/19/2024 Telephone [facility] [address] [place] [address] Gail Stephens NP Nurse Triage from Last 3 Months Immunizations Name Administration Dates Next Due DTaP 09/25/2004, 3,11/30/2001,05/05,2000 HPV, Quadrivalent 01/17/2013,02/11/2012,12/09/19 12 Hep A, ped/adol, 2 dose 02/11/2012,02/05/2010 Hep B, Adolescent or Pediatric 11/30/2001,2000,2000 Hib ([facility]) 11/30/2001,01/01/2001,2000 IPV 09/25/2004, 2,01/01/2001,10/30 Influenza injectable quadriv [...] with others, in a [place], in a [place] [facility], living outside on the street, on a [...] Description 05/23/2024 2:30 PM EDT Office Visit [facility] [address] [place] [address] Gail Stephens NP [address] [place], [place] [phone] Health Maintenance Due Date Last Done Comments [...] Blood Count 9.8 4.8 - 10.8 X10*3/uL [facility] Red Blood Count 4.41 4.20 - 5.50 X10*6/uL [facility] Hemoglobin 13.0 12.0 - 16.0 g/dl [facility] Hematocrit 37.6 37.0 - 47.0 % [facility] Mean Corpuscular Volume 85.3 80.0 - 98.0 fL [facility] Mean Corpuscular Hemoglobin 29.5 27.0 - 33.0 pg [facility] Mean Corpuscular HGB Conc 34.6 31.0 - 35.0 g/dl [facility] Red Cell Distribution Width 12.4 11.0 - 16.0 % [facility] Platelet Count 300 160 - 400 X10*3/uL [facility] Mean Platelet Volume 9.3(L) 9.4 - 12.3 fL [facility] Neutrophils Percent Auto 61.3 45 - 73 % [facility] Imm Gran Pct Auto 0.4 0.0 - 0.4 % [facility] Lymphocytes Percent Auto 31.0 20 - 40 % [facility] Monocytes Percent Auto 4.9 2 - 11 % [facility] Eosinophils Percent Auto 2.1 0 - 4 % [facility] Basophils Percent Auto 0.3 0 - 2 % [facility] NRBC Pct Auto 0.0 0.0 - 0.2 /100WBC [facility] Neutrophils Absolute Auto 6.0 2.0 - 8.3 x10*3/uL [facility] Imm Gran Abs Auto 0.04(H) 0.00 - 0.03 X10*3/uL [facility] Lymphocytes Absolute Auto 3.0 1.2 - 4.9 X10*3/uL [facility] Monocytes Absolute Auto 0.5 0.1 - 1.2 X10*3/uL [facility] Eosinophils Absolute Auto 0.2 0.0 - 0.4 X10*3/uL [facility] Basophils Absolute Auto 0.0 0.0 - 0.2 X10*3/uL [facility] NRBC Abs Auto 0.000 0.0 - 0.012 X10*3/uL [facility] 03/24/2024 1:52 PM EST 03/24/2024 1:52 PM EST us Generic External Data Provider LAB BLOOD ORDERAB LES Final Result [facility] [address] [place] [address] [phone] * (ABNORMAL) Comprehensive Metabolic Panel (03/11/2024 10:58 PM EST) Sodium 139 135 - 145 mmol/L [facility] Potassium 3.6 3.3 - 5.1 mmol/L [facility] Chloride 106 96 - 108 mmol/L [facility] Carbon Dioxide 25 22 - 29 mmol/L [facility] Anion Gap 12 12 - 20 [facility] Urea Nitrogen (BUN) 8(L) 9 - 16 mg/dL [facility] Creatinine, Serum 0.68 0.5 - 1.4 mg/dL [facility] Creatinine Clr Calc Pharmacy 122.5 [facility] Comment:Provided height and weight: 154.94 cm,79.1 kg.eGFR (calculated from the MDRD study equation) and eCrCl(calculated from the Cockcroft-Gault equation) are based ondifferent parameters and may not yield comparable results.If eCrCl result is absurd, please check patient'sheight/weight. Estimated Glomerular Filt Rate >60 [facility] Comment:Chronic Kidney Disea se: Estimated GFR < 60 mL/min/1.63u2Rsuhtc Kidney Disease: Estimated GFR < 15 mL/min/1.73m2 Glucose 84 60 - 115 mg/dL [facility] Calcium 9.8 8.4 - 10.2 mg/dL [facility] Bilirubin, Total 0.3 0.0 - 1.0 mg/dL [facility] Aspartate Amino Transferase 22 5 - 31 U/L [facility] Alanine Aminotransferase 35(H) 0 - 31 U/L [facility] Total Protein 8.6(H) 6.5 - 8.0 g/dL [facility] Albumin Level 4.6 3.5 - 5.0 g/dL [facility] Alkaline Phosphatase 67 39 - 117 U/L [facility] 03/11/2024 10:5 8 PM EST 03/11/2024 11:06 PM EST us Generic External Data Provider LAB BLOOD ORDERAB LES Final Result [facility] [address] [place] [phone] * Gross and Microscopic Level 5 (02/29/2024 1:45 PM EST) 02/29/2024 1:45 PM EST 02/29/2024 3:00 PM EST Narrative [facility] - 03/03/2024 3:12 PM EST ----- ------- Name: Anne Ochoa ? Age/Sex: 23/F ? : 2000 Unit#: [id number] ?? Attend Dr: Leoncio Nunez MD ?Re02/29/24 ?Status: DEP SDC ? Location: HO.SSS ?Disch: ? ----- ------- SPEC : [id number] ? RECD: 02/29/24-1500 ? STATUS: ??SOUT ? REQ NUM: [id number] ? AMRITA: 02/29/24-9696 ? SUBM DR: Leoncio Nunez MD ? ENTERED: ??02/29/24-5512 ?SP TYPE: Surgical ? OTHR DR: Gail [...] ? Age/Sex: 23/F ? : 2000 Unit#: [id number] ?? Attend Dr: Leoncio Nunez MD ?Re02/29/24 ?Status: DEP SDC ? Location: HO.SSS ?Disch: ? ----- ------- SPEC : [id number] ? RECD: 02/29/24-1500 ? STATUS: ??SOUT ? REQ NUM: [id number] ? AMRITA: 02/29/24-1345 ? SUBM DR: Leoncio Nunez MD ? ENTERED: ??02/29/24-151 ?SP TYPE: Surgical ? OTHR : Gail Stephens ? ORDERED: ??Gross Micro L5 ? Copies To: ?? Leoncio Nunez MD ?? [facility] ?? [address] ?? [place] [address] ?? [phone] ?? Apprajeffrey,Gail ?? [address] ?? [place] ?? [phone] ----- ------- Signed (signature on file) Rafal Guadarrama MD 03/03/24 1512 ? ----- ------- ? END OF REPORT ? us Generic External Data Provider LAB BLOOD ORDERAB LES Final Result [facility] [address] [facility] [place] [address] [phone] * HCG, Qualitative, Urine (02/29/2024 11:30 AM EST) Urine NEGATIVE NEGATIVE [facility] Comment:This test was develo ped to detect early . Falsenegative results may occur after the 5th - 7th week ofpregnancy when using this test method. If clinicallyindicated, consider a serum hCG. 02/29/2024 11:3 0 AM EST 02/29/2024 11:33 AM EST Generic External Data Provider LAB URINE ORDERAB LES Final Result Performing Organization Address [facility] de Phone Number [facility] [address] [place] [phone] * Gram stain (02/29/2024 12:00 AM EST) 02/29/2024 02/29/2024 Comment:Breast Rt Narrative [facility] - 03/03/2024 9:33 AM EST RIGHT BREAST CULTURE Gram stain results: 4+ polys 4+ red blood cells 1+ Gram-positive rods RIGHT BREAST CULTURE Corynebacterium species Quant Org ID 1+ Susc N/A Susceptibility not routinely performed on this isolate. Specimen Source: Breast Right [employer] External Data Provider LAB MICROBIOLOGY - GENERAL ORDERABLES Final Result Performing Organization Address [facility] de Phone Number [facility] [address] [place] [phone] * BI US Breast Limited Right (02/02/2024 8:45 AM EST) Anatomical Region Laterality Modality Breast Right Ultrasound 02/02/2024 8:45 AM EST Narrative 02/02/2024 9:32 AM EST ? [facility] [place] ? [address] ?[place] [address] ? Ultrasound Report ? Signed ? Patient: Go Lange,Grace ?MR#: ?? [id number] ? : 2000 ?Acct:[id number] ? Age/Sex: 23 / F ?ADM Date: 12/10/24 ? Loc: HO.MAMMO ? Attending Dr: Lorena Man MD ? Ordering Physician: Lorena Man MD ?? Date of Service: 02/02/24 ?? Procedure(s): US breast RT limited mamm only ?? Accession Number(s): [id number] ? cc: Gail Stephens; Lorena Man MD [...] DD/ 0845 ? TD/TT: 02/02/24 0900 ? Plate [place] Hand: ? Procedure Note [place], Emily - 02/02/2024 [place] [facility] [address] [place], [place] [address] Ultrasound Report Signed Patient: Anne Ochoa MMR#: [id number] : 2000Acct:[id number] Age/Sex: 23 FADM Date: 02/02/24 Loc: [facility] Attending Dr: Lorena Man MD Ordering Physician: Lorena Man MD Date of Service: 02/02/24 Procedure(s): US breast RT limited mamm only Accession Number(s): [id number] cc: Gail Stephens; Lorena Man MD EXAMINATION: [...] in OV> 02/02/[address] DD/ 4 TD/TT: 02/02/24899 [place] Hand: us Lorena Man MD IMG US PROCEDURES Final Re sult * (ABNORMAL) Lipid Panel, Standard (10/28/2023 8:54 AM EDT) Triglycerides 90 <150 mg/dL [facility] Comment:Desirable Triglyceri de: less than 150 mg/dLBorderline High Triglyceride 150-199 mg/dLHigh Triglyceride: 200-499 mg/dLVery High Triglyceride: greater than or equal to 5OO mg/dL Cholesterol 158 <200 mg/dL [facility] Comment:Desirable Cholestero l: less than 200 mg/dLBorderline High Cholesterol: 200-239 mg/dLHigh Cholesterol: greater than 239 mg/dL LDL Cholesterol Calculated 107(H) <100 mg/dL [facility] Comment:Desirable LDL: less than 100 mg/dLNear Optimal/Above Optimal LDL: 110- 129 mg/dLBorderline High LDL: 130-159 mg/dLHigh LDL: 160-189 mg/dLVery High LDL: greater than or equal to 190 mg/dL HDL Cholesterol 33(L) >40 mg/dL [facility] Comment:Desirable HDL: great er than 40 mg/dL Note: This HDL assay may give artificially low results in patients with liver disease. Blood Venous blood specimen / Unknown 10/28/2023 8:54 AM EDT 10/28/2023 11:03 AM EDT Gail Stephens NP LAB BLOOD ORDERABLES Final Resu lt [facility] [address] [place] [phone] * Pap Smear (02/06/2022 9:46 AM EST) 02/06/2022 9:46 AM EST 02/06/2022 3:45 PM EST Narrative [facility] - 02/21/2022 5:05 PM EST ----- ------- Name: Anne Ochoa ? Age/Sex: 21/F ? : 2000 Unit#: [id number] ?? Attend Dr: AlokElizabeth EUGENE ?Re02/06/22 ?Status: DEP REF ? Location: HO.LNP ?Disch: ? ----- ------- SPEC : [id number] ?RECD: 02/06/22-0136 ? STATUS: ??SOUT ? REQ NUM: [id number] ? AMRITA: 02/06/2246 ? SUBM DR: AlokElizabeth [...] ----- ------- ? END OF REPORT ? [facility] External Provider LAB CYT OLOGY ORDERABLES Final Result [facility] [address] [place] [address] [phone] * Hepatitis C Antibody (11/23/2020 3:28 PM EDT) Pathologist [facility] Hepatitis C Antibody Nonreactive Nonreactive [facility] Comment: Antibodies to HCV not detected; does not exclude early acute HCV infection. HIV AB/AG Nonreactive Nonreactive [facility] Comment: HIV-1 p24 Ag and/or [...] detection of this assay. ?? The Ochoa Proof Plate Maker HIV Ag/Ab Combo assay result and supplemental assay results should be interpreted in conjunction with the patient's clinical presentation, history and other laboratory results. ??If the results are inconsistent with clinical evidence, additional testing is suggested to confirm the result. Hepatitis B Surface Antigen Negative Negative [facility] 11/23/2020 3:28 PM EDT [place] HISTORICAL/NON ORDERABLE LABS Fi nal Result Performing Organization Address [facility] de Phone Number [facility] [address] * CHLAMYDIA/N. GONORRHOEAE RNA, TMA, UROGENITAL (04/25/2020 3:36 PM EST) Chlamydia trachomatis RNA, TMA, Urogenital NOT DETECTED NOT DETECTED [facility] COMMENT SEE COMMENT [facility] Comment: The analytical performance characteristics of this assay, when used to test SurePath(TM) specimens have been determined by [employer]. The modifications have not been cleared or approved by the FDA. This assay has been validated pursuant to the CLIA regulations and is used for clinical purposes. ?? For additional information, please refer to https://education.[employer]TeSys.iConnectivity/faq/YFU776 (This link is being provided for information/ educational purposes only.) ?? Neisseria gonorrhoeae RNA, TMA, Urogenital NOT DETECTED NOT DETECTED [facility] 04/25/2020 3:36 PM EST Brinda Lizarraga NP HISTORICAL/NON ORDERABLE LABS F inal Result Performing Organization Address [facility] de Phone Number [facility] [address] from Last 3 Months or Most Recently Relevant to Health Maintenance Insurance # 7 [place] [id number] [facility] C3 # 7 [place] [id number] Care Teams Beef Tagger Relationship Specialty Start Date End Date Gail Stephens NP [address] [place] [phone] PCP - General Family Medicine 01/12/23
[2024-03-27 14:04] LABS: INTERNATIONAL NORM RATIO 1.2 (0.9-1.1); Prothrombin Time 13.4 SEC (10.9-12.4)
[2024-03-27 14:07] LABS: Partial Thromboplastin Time 34.7 SEC (26.0-36.8)
[2024-03-27 14:11] LABS: B Type Natriuretic Peptide < 10 pg/mL (<100)
[2024-03-27 14:12] LABS: Alanine Aminotransferase 21 U/L (0-31); Albumin Level 4.5 g/dL (3.5-5.0); Alkaline Phosphatase 53 U/L (39-117); Anion Gap 12 (12-20); Aspartate Amino Transferase 19 U/L (5-31); Bilirubin Total 0.3 mg/dL (0.0-1.0); Blood Urea Nitrogen 11 mg/dL (9-16); Calcium 9.4 mg/dL (8.4-10.2); Carbon Dioxide 25 mmol/L (22-29); Chloride 107 mmol/L (96-108); Creatinine Clr Calc Pharmacy 731.9; Estimated Glomerular Filt Rate > 60; Glucose Random 92 mg/dL (60-115); HCG Quantitative < 2 mIU/mL; Potassium 3.7 mmol/L (3.3-5.1); Sodium 140 mmol/L (135-145); Total Protein 8.1 g/dL (6.5-8.0)
[2024-03-27] MEDS: Acetaminophen 325 MG TABLET 975 MG PO (16:13)
[2024-03-27] MEDS: Ketorolac Tromethamine 30 MG/ML VIAL IM (16:15)
[2024-03-27 16:56] VITALS: BP 143/91; PULSE 86; RESP 16; TEMP 36.8; O2SAT 99
== END 2024-03-27 16:56 | disposition home or self-care (01) ==
PROVIDERS: Physician Assistant; Emergency Provider Emergency Medicine
DX: M79.671 Pain in right foot (principal); M79.672 Pain in left foot; M62.838 Other muscle spasm; R06.02 Shortness of breath; R60.0 Localized edema; Z79.899 Other long term (current) drug therapy
CPT/HCPCS: 36415; 80053; 82550; 83735; 83880; 84702; 85025; 85610; 85730; 93970; 96372; 99283; 99284; J1885

== ENCOUNTER → 2024-03-27 13:28 | Outpatient (BNV) | payer MEDICAID, SELFPAY | PROVIDERS: Emergency Provider Emergency Medicine; Visit Provider Radiology Diagnostic Radiology | DX: M79.661 Pain in right lower leg (principal); M79.662 Pain in left lower leg | CPT/HCPCS: 93970 ==

== ENCOUNTER 2024-04-12 12:32 | Outpatient (AMB) | payer MEDICAID, SELFPAY ==
--- OUTSIDE RECORDS SUMMARY | 2024-04-12 13:26 | XMS_ITS | Encounter Summary ---
Author Organization [employer] Address [address] [facility] 7t [place] [address] Care Team Providers Care Donor Processor Name Role Phone Gail Stephens NP Primary Care Provider [phone] Reason for Visit * Reason Onset Date Comments Med Refill 11/24/2023 Encounter Details Date Type Department Care Team (Late st Contact Info) Description 11/24/[address] [facility] [address] [place] [address] Gail Stephens NP [address] [place] [address] Social History Tobacco Use Types Packs/Day Years [...] Care Team (Late st Contact Info) Description 04/15/2024 10:00 AM EST Office Visit [facility] [address] [place] [phone] Denise Aguirre CNP [address] [place] [address] 05/23/2024 2:30 PM EDT Office Visit [facility] [address] [place] [address] Gail Stephens NP [address] [place] [address] documented as of this encounter Visit Diagnoses Not on filedocumented in this encounter Additional Health Concerns Assessment Noted Time PHQ-9 Depression Total Score: 0 10/02/19 24 1:26 PM EDT documented as of this encounter Care Teams Donor Processor Relationship Specialty Start Date End Date Gail Stephens NP [address] [place] [address] PCP - General Family Medicine 01/12/23 documented as of this encounter
--- OUTSIDE RECORDS SUMMARY | 2024-04-12 13:26 | XMS_ITS | Encounter Summary ---
Author Organization [employer] Address [address] [facility] 7t [place] [address] Care Team Providers Care Assembler Production Line Name Role Phone Gail Stephens NP Primary Care Provider [phone] Reason for Visit * Reason Onset Date Comments Chart Prep 03/31/2024 Encounter Details Date Type Department Care Team ([facility] st Contact Info) Description 03/31/2024 Telephone [facility] [address] [place] [address] Gail Stephens NP [address] [place] [address] Chart Prep Social History Tobacco Use Types Packs/Day Years [...] others, in a hotel, in a senior living, living outside on the street, on a [...] encounter Miscellaneous Notes * Telephone Encounter - Lobito Galvin [place] - 03/31/2024 1:44 PM EST Chart Prep Labs: done Images: not done Vaccines due: yes Tdap Flu Covid Referrals: pending appt Screenings: STI screening PISQ Pap Smear Overdue care gaps: None documented in this encounter Plan of Treatment Upcoming Encounters Date Type Department Care Team (Late st Contact Info) Description 04/15/2024 10:00 AM EST Office Visit [facility] [address] [place] [address] Denise Aguirre CNP [address] [place] [address] 05/23/2024 2:30 PM EDT Office Visit [facility] [address] [place], [place] [phone] Gail Stephens NP [address] [place], [place] [phone] documented as of this encounter Visit Diagnoses Not on filedocumented in this encounter Additional Health Concerns Assessment Noted Time PHQ-9 Depression Total Score: 0 10/02/19 24 1:26 PM EDT documented as of this encounter Care Teams Assembler Production Line Relationship Specialty Start Date End Date Gail Stephens NP [address] [place], [place] [phone] PCP - General Family Medicine 01/12/23 documented as of this encounter
--- OUTSIDE RECORDS SUMMARY | 2024-04-12 13:26 | XMS_ITS | Encounter Summary ---
Author Organization [employer] Address [address] [facility] 7t [place] [address] Care Team Providers Care Environmental Air Specialist Name Role Phone Gail Stephens NP Primary Care Provider [phone] Reason for Visit * Reason Onset Date Comments ER Follow-up 03/29/2024 Encounter Details Date Type Department Care Team ([facility] st Contact Info) Description 03/29/2024 Telephone [facility] [address] [place] [address] Gail Stephens NP [address] [place] [address] ER Follow-up Social History Tobacco Use Types Packs/Day Years [...] encounter Miscellaneous Notes * Telephone Encounter - Lindsay Shoemaker LPN - 03/29/2024 2:48 PM EST Triage call to patient who reports ongoing bilateral leg pain not calf specific and is legs below the knees. No swelling and reports when seen in ED had bruising that is now gone. Patient seen in ED 03/27/24 note in chart. Negative findings and was given cyclobenzaprine to take at night. Patient is taking that as ordered and reports that with Tylenol pain is still 7:10. No shortness of breath and remains ambulatory. Disposition reviewed and patient in agreement with plan ASK/ 03/31/24 @1115am. Protocol Used: Leg Pain (Adult) Protocol-Based Disposition: See in Office or Video Visit within 3 Days Video visit not offered Positive Triage Question: * Moderate pain (e.g., interferes with normal activities, limping) and present > 3 days * All higher-acuity triage questions were negative Care Advice Discussed: * Pain Medicines * Reasons To Call Back - Moderate pain (such as limping) lasts more than 3 days - Mild pain lasts more than 7 days - Signs of infection occur (such as spreading redness, warmth, fever) - You become worse * Telephone Encounter - Romulo Ozuna - 03/29/2024 12:23 PM EST Patient calling to report ED visit on : Date: 03/27/2024 Hospital: [facility] Seen for: Leg Pain Symptomatic Yes *if yes message should go to Triage Patient advised will forward to team nurse for follow up documented in this encounter Plan of Treatment Upcoming Encounters Date Type Department Care Team (Late st Contact Info) Description 04/15/2024 10:00 AM EST Office Visit [address] [address] Denise Aguirre CNP [address] [place] [address] 05/23/2024 2:30 PM EDT Office Visit [address] [address] Gail Stephens NP [address] [place] [address] documented as of this encounter Visit Diagnoses Not on filedocumented in this encounter Additional Health Concerns Assessment Noted Time PHQ-9 Depression Total Score: 0 10/02/19 24 1:26 PM EDT documented as of this encounter Care Teams Environmental Air Specialist Relationship Specialty Start Date End Date Gail Stephens NP [address] [place] [address] PCP - General Family Medicine 01/12/23 documented as of this encounter
--- OUTSIDE RECORDS SUMMARY | 2024-04-12 13:26 | XMS_ITS | Encounter Summary ---
Author Organization [employer] Address [address] [facility] [address] 7[address] [place] [address] Care Team Providers Care Diabetes Specialist Name Role Phone Gail Stephens NP Primary Care Provider [phone] Reason for Visit * Reason Onset Date Comments Chart Prep 04/05/2024 Encounter Details Date Type Department Care Team ([facility] st Contact Info) Description 04/05/2024 Telephone [facility] [address] [place] [address] Gail Stephens NP [address] [place] [address] Chart Prep Social History Tobacco Use Types Packs/Day Years Used Date Smoking Tobacco: Never Passive Smoke Exposure: Never Smokeless Tobacco: Never Alcohol Use Standard [...] Telephone Encounter - Lobito Galvin [place] - 04/05/2024 1:11 PM EST Chart Prep Labs: done Images: not applicable Vaccines due: yes Tdap Flu Covid Referrals: pending appt Screenings: pap smear , STI screening Chlamydia and Gonorrhea Overdue care gaps: None documented in this encounter Plan of Treatment Upcoming Encounters Date Type Department Care Team (Late st Contact Info) Description 04/15/2024 10:00 AM EST Office Visit [facility] [address] [place] [phone] Denise Aguirre CNP [address] [place], [place] [phone] 05/23/2024 2:30 PM EDT Office Visit [facility] [address] [place], [place] [phone] Gail Stephens NP [address] [place], [place] [phone] documented as of this encounter Visit Diagnoses Not on filedocumented in this encounter Additional Health Concerns Assessment Noted Time PHQ-9 Depression Total Score: 0 10/02/19 24 1:26 PM EDT documented as of this encounter Care Teams Diabetes Specialist Relationship Specialty Start Date End Date Gail Stephens NP [address] [place], [place] [phone] PCP - General Family Medicine 01/12/23 documented as of this encounter
--- OUTSIDE RECORDS SUMMARY | 2024-04-12 13:26 | XMS_ITS | Encounter Summary ---
Author Organization [employer] Address [address] [place] [address] [address] [place] [address] Care Team Providers Care Game Warden Name Role Phone Gail Stephens NP Primary Care Provider [phone] Reason for Visit * Reason Comments Sick Onsite bilateral leg pain n egative finding in ED 03/27/24 pain is 09/01 Encounter Details Date Type Department Care Team (Late st Contact Info) Description 04/01/2024 11:15 AM EST Office Visit [facility] [address] [place] [address] Denise Aguirre CNP [address] [place] [address] Pain in both knees, unspecified chronicity (Primary Dx); Soft tissue infection Social History Tobacco Use Types Packs/Day Years Used Date Smoking Tobacco: Never Passive Smoke Exposure: Never Smokeless Tobacco: Never Tobacco Cessation:Counseling Given: [...] AM EDT documented as of this encounter Last Filed Vital Signs Vital Sign Reading Time Taken Comments Blood Pressure 129/82 04/01/2024 10:46 AM EST Pulse 85 04/01/2024 10:46 AM EST Temperature - - Respiratory Rate 20 04/01/2024 10:46 AM EST Oxygen Saturation 98% 04/01/2024 10:46 AM EST Inhaled Oxygen Concentration - - Weight 79.9 kg (176 lb 3.2 oz) 04/01/2024 10:46 AM EST Height 157.5 cm (5' 2 ) 04/01/2024 10:46 AM EST Body Mass Index 32.23 04/01/2024 10:46 AM EST documented in this encounter Progress Notes * Denise JIM Aguirre - 04/01/2024 11:15 AM EST Anne Lange is a 23 y.o. female who presents for an ED f/u. Reporting knee pain since beginning of February describes the pain as sharp and says the pain is worse in the morning and at night. She says that walking makes the pain worse. Reports swelling at night. Says she uses ice, heat, and showed me a pill bottle for flexeril 10 mg which she says she's been using for pain control but it has been ineffective. She denies taking Ketorolac which was prescribed by ED (see below). Not working currently, denies strenuous work environment in the past. No exercise at this time Pt also complaining of R breast pain. She is s/p lumpectomy, completed 02/29/2024 at [facility] General Surgery. Last f/u with general surgery was 03/24/2024. At this time pt completed course of antibx and was reporting bloody discharge. The plan was to complete an u/s guided aspiration of fluid collection of the right breast. And pt advised to f/u after the aspiration. Pt says she is still having breast pain and some bloody discharge coming from incision site. Denies fever, but is reporting chills. HPI Pt presented to [facility] ED on 03/27/24 for bilateral calf pain since 02/28/23, denies recent trauma to lower extremities. Pt reports that pain started since she has breast surgery 02/29/24. Physical exam was wnl. Motor/neuro/vascular exam intact, no leg swelling. U/s was jocy for DVT or popliteal cyst. Labs were wnl. No signs of rhabdomyolysis. Pt was discharged with ketorolac. Patient Active Problem List Diagnosis Anemia Disorder of both ulnar nerves Breast pain, right Obesity (BMI 30-39.9) Routine adult health maintenance Mass overlapping multiple quadrants of right breast Breast abscess S/P lumpectomy, right breast Dietary counseling Exercise counseling Pain in both knees Soft tissue infection No Known Allergies Review of Systems Vitals: 02/07/25 1046 BP: 129/82 BP Location: Left arm Patient Position: Sitting BP Cuff Size: Adult Pulse: 85 Resp: 20 SpO2: 98% Weight: 176 lb 3.2 oz (79.9 kg) Height: 5' 2 (1.575 m) Physical Exam Constitutional: General: She is not in acute distress. Appearance: Normal appearance. She is not ill-appearing or toxic-appearing. HENT: Head: Normocephalic and atraumatic. Cardiovascular: Rate and Rhythm: Normal rate and regular rhythm. Pulses: Normal pulses. Dorsalis pedis pulses are 2+ on the right side and 2+ on the left side. Posterior tibial pulses are 2+ on the right side and 2+ on the left side. Heart sounds: Normal heart sounds. No murmur heard. No friction rub. No gallop. Pulmonary: Effort: Pulmonary effort is normal. No respiratory distress. Breath sounds: Normal breath sounds. No stridor. No wheezing or rales. Chest: Breasts: Right: Swelling, skin change and tenderness present. No bleeding or inverted nipple. Left: Normal. Comments: +swelling, erythema, warmth and tenderness to palpation over right breast. Incision site is dry and intact, no drainage at this time. Musculoskeletal: Right knee: No swelling, deformity, effusion, erythema, ecchymosis or lacerations. Decreased range of motion. Tenderness present over the lateral joint line. No MCL, LCL, ACL, PCL or patellar tendon tenderness. No LCL laxity, MCL laxity, ACL laxity or PCL laxity. Normal pulse. Left knee: No swelling, deformity, effusion, erythema, ecchymosis or lacerations. Decreased range of motion. Tenderness present over the lateral joint line. No MCL, LCL, ACL, PCL or patellar tendon tenderness. No LCL laxity, MCL laxity, ACL laxity or PCL laxity.Normal pulse. Right lower leg: No swelling. No edema. Left lower leg: No swelling. No edema. Neurological: Mental Status: She is alert. Problem List Items Addressed This Visit Pain in both knees - Primary Current Assessment & Plan Physical exam showed tenderness of lateral joint line of both knees and calf tenderness of both lower extremities. No systemic symptoms. Based on physical and history high suspicion for patellofemoral syndrome. Low suspicion for DVT, rhabdomyolysis. Will treat conservatively with NSAIDs, ice, and heat. Advised pt to not take ketoralac (pt already not taking) and to continue taking tylenol prn with ibuprofen 800 mg TID. Offered imaging and physical therapy, pt declines at this time. F/u in 2 weeks to reassess pain and reassess consideration for imaging and referral to PT. Relevant Medications ibuprofen 800 MG tablet Soft tissue infection Current Assessment & Plan R breast appears to be infected based on physical exam Will send rx for Bactrim BID x 7 days Advised pt to call general surgery for f/u appt and U/S guided fluid aspiration procedure of Right breast Relevant Medications sulfamethoxazole-trimethoprim (Bactrim DS) 800-160 MG tablet [facility] TENT FINISHER Attestation TENT FINISHER Resident Attestation: Patient was seen and evaluated by Denise Aguirre TENT FINISHER, in collaboration with Barry Richardson MD who has reviewed my assessment and plan. I, Barry Richardson MD , have reviewed the resident's note and agree with the assessment & plan of care as documented above. Visit Conducted in: Jordanian Translation by: Provided by [facility] staff member Milly Robles MA , documented in this encounter Miscellaneous Notes * Assessment & Plan Note - Denise Aguirre CNP - 04/01/2024 11:51 AM EST Associated Problem(s): Pain in both knees Physical exam showed tenderness of lateral joint line of both knees and calf tenderness of both lower extremities. No systemic symptoms. Based on physical and history high suspicion for patellofemoral syndrome. Low suspicion for DVT, rhabdomyolysis. Will treat conservatively with NSAIDs, ice, and heat. Advised pt to not take ketoralac (pt already not taking) and to continue taking tylenol prn with ibuprofen 800 mg TID. Offered imaging and physical therapy, pt declines at this time. F/u in 2 weeks to reassess pain and reassess consideration for imaging and referral to PT. * Assessment & Plan Note - Denise Aguirre CNP - 04/01/2024 11:47 AM EST Associated Problem(s): Soft tissue infection R breast appears to be infected based on physical exam Will send rx for Bactrim BID x 7 days Advised pt to call general surgery for f/u appt and U/S guided fluid aspiration procedure of Right breast documented in this encounter Plan of Treatment Upcoming Encounters Date Type Department Care Team (Late st Contact Info) Description 04/15/2024 10:00 AM EST Office Visit [facility] [address] [place] [id number] Denise Aguirre CNP [address] [place] [address] 05/23/2024 2:30 PM EDT Office Visit [facility] [address] [place] [id number] Gail Stephens NP [address] [place] [address] documented as of this encounter Visit Diagnoses Diagnosis Pain in both knees, unspecified chronicity- Primary Soft tissue infection Unspecified infectious and parasitic diseases documented in this encounter Additional Health Concerns Assessment Noted Time PHQ-9 Depression Total Score: 0 10/02/19 24 1:26 PM EDT documented as of this encounter Care Teams Game Warden Relationship Specialty Start Date End Date Gail Stephens NP [address] [place] [id number] PCP - General Family Medicine 01/12/23 documented as of this encounter
--- OUTSIDE RECORDS SUMMARY | 2024-04-12 13:26 | XMS_ITS | Clinical Summary ---
Author Organization [employer] Address [address] [facility] [address] [place] [address] Care Team Providers Care Supervisor Tank Cleaning Name Role Phone Gail Stephens NP Primary Care Provider [phone] Allergies No known active allergies Medications cetirizine (ZyrTEC) 5 MG tablet TAKE 2 TABLETS BY MOUTH EVERY DAY 180 tablet 1 4 Active ibuprofen 800 MG tabletIndications:P ain in both knees, unspecified chronicity Take 1 tablet (800 mg) by mouth 3 times daily. 90 tablet 5 05/02/19 25 Active sulfamethoxazole-tr imethoprim (Bactrim DS) 800-160 MG tabletIndications:S oft tissue infection Take 2 tablets per day for 7 days. 14 tablet 5 Active cyclobenzaprine (Flexeril) 10 MG tablet 10 mg. 5 Active ondansetron ODT (Zofran-ODT) 4 MG disintegrating tablet Take 4 mg by mouth every 8 (eight) hours if needed. 5 Active acetaminophen (Tylenol) 325 MG tablet Take 650 mg by mouth. 2 Active Active Problems Problem Noted Date Diagnosed Date Pain in both knees 04/01/2024 Assessment & Plan (04/01/2024 11:51 AM EST): Physical exam showed tenderness of lateral joint [...] consideration for imaging and referral to PT. Soft tissue infection 04/01/2024 Assessment & Plan (04/01/2024 11:47 AM EST): R breast appears to be infected based on physical exam Will send rx for Bactrim BID x 7 days Advised pt to call general surgery for f/u appt and U/S guided fluid aspiration procedure of Right breast Dietary counseling 03/30/2024 Exercise counseling 03/30/2024 S/P lumpectomy, right breast 03/03/2024 Overview (03/03/2024): Procedure performed 02/29/2024 [place] [facility] Mass overlapping multiple quadrants of right maryjane [...] Encounters Date Type Department Care Team Description 04/05/2024 Telephone [facility] [address] [place] [phone] Gail Stephens NP Chart Prep 04/01/2024 11:15 AM EST Office Visit [address] [address] Denise Aguirre CNP Pain in both knees, unspecified chronicity (Primary Dx); Soft tissue infection 03/31/2024 Telephone [facility] [address] [place] [phone] Gail Stephens NP Chart Prep 03/29/[address] [address] Gail Stephens NP ER Follow-up 03/03/[address] [address] Gail Stephens NP recall april follow up 02/29/2024 Orders Only GENERIC EXTERNAL DATA DEPARTMENT Provider, Generic External Data 02/20/2024 Refill [facility] [address] [place] [address] Gail Stephens NP 02/03/2024 Telephone [facility] [address] [place] [address] Elizabeth Delgado RN Results 01/19/2024 5:40 PM EST Office Visit [facility] [address] [place] [phone] Lorena Man MD Breast abscess (Primary Dx); Mass overlapping multiple quadrants of right breast 01/19/2024 Travel 01/19/2024 Telephone [facility] [address] [place] [address] Gail Stephens NP Nurse Triage from Last 3 Months Immunizations Name Administration Dates Next Due DTaP 09/25/2004, 3,11/30/2001,05/05,2000 HPV, Quadrivalent 01/17/2013,02/11/2012,12/09/19 12 Hep A, ped/adol, 2 dose 02/11/2012,02/05/2010 Hep B, Adolescent or Pediatric 11/30/2001,2000,2000 Hib (HbOC) 11/30/2001,01/01/2001,2000 IPV 09/25/2004, 2,01/01/2001,10/30 Influenza injectable quadriv alent preservative free 02/12/2021,02/13/2015 Influenza live intranasal qu adrivalent LIAV4 01/23/2014 Influenza live intranasal trivalent 01/17/2013,1 Influenza, IIV3, injectable 02/05/2010 Influenza, live, intranasal [...] with others, in a hotel, in a prison, living outside on the street, on a [...] Pulse 85 04/01/2024 10:46 AM EST Temperature 36.8 ??C (98.2 ??F) 01/19/2024 5:27 PM ES T Respiratory Rate 20 04/01/2024 10:46 AM EST Oxygen Saturation 98% 04/01/2024 10:46 AM EST Inhaled Oxygen Concentration - - Weight 79.9 kg (176 lb 3.2 oz) 04/01/2024 10:46 AM EST Height 157.5 cm (5' 2 ) 04/01/2024 10:46 AM EST Body Mass Index 32.23 04/01/2024 10:46 AM EST Plan of Treatment Upcoming Encounters Date Type Department Care Team (Late st Contact Info) Description 04/15/2024 10:00 AM EST Office Visit [facility] [address] [place] [phone] Denise Agiurre CNP [address] [place] [address] 05/23/2024 2:30 PM EDT Office Visit [facility] [address] [place] [phone] Gail Stephens NP [address] [place] [address] Health Maintenance Due Date Last Done Comments Family Planning (PISQ) 08/07/2015 Chlamydia and Gonorrhea Screening 04/25/2021 04/25/2020 DTaP/Tdap/Td Vaccines (7 - Td or Tdap) 12/08/2021 12/09/2011, 09/25/2004, 08/15/2002, Additional history exists COVID-19 Vaccine ( season) 2023 11/03/2020, 10/06/2020 Influenza Vaccine (#1) 2023 , 02/13/2015, 01/23/2014, Additional history exists Alcohol/Substance Use Screening 10/01/2024 10/02/2023 Depression Screening 10/01/2024 10/02/2023, 10/02/19 24 SDOH Screening 10/01/2024 10/02/2023 Pap Smear 02/06/2025 02/06/2022 Tobacco Screening 04/01/2025 04/01/2024 Lipid Panel 10/27/2028 10/28/2023 Zoster Vaccines (1 [...] topic Hepatitis A Vaccines Completed 02/11/2012, 02/06/20 HPV Vaccines Completed 01/17/2013, 01/23, 12/09/2011 HIV Screening Completed 11/23/2020, 04/25/2020 Hepatitis C Screening Completed 11/23/2020, 021 RSV under 20 months Aged Out No longe r eligible based on patient's age to complete this topic Rotavirus Vaccines Aged Out No longer eligible based on patient's age to complete this topic Procedures Procedure Name Priority Date/Time Associated Diagnosis Comments VASC US LOWER EXTREMITY VENOUS DUPLEX BILATERAL Routine 03/27/2024 3:02 PM EST CREATINE KINASE, TOTAL Routine 1:46 PM EST MAGNESIUM Routine 03/27/2024 1:46 PM EST HCG, TOTAL, QN Routine 03/27/2024 1:46 PM EST COMPREHENSIVE METABOLIC PANEL Routine 03/27/2024 1:46 PM EST B TYPE NATRIURETIC PEPTIDE (BNP) Routine 03/27/2024 1:46 PM EST APTT Routine 03/27/2024 1:46 PM EST PROTHROMBIN TIME-INR Routine 03/27/2024 1:46 PM EST CBC WITH AUTO DIFFERENTIAL Routine 03/27/2024 1:46 PM EST CBC WITH AUTO DIFFERENTIAL Routine 03/24/2024 1:52 [...] PAP SMEAR Routine 02/06/2022 9:46 AM EST ZRACHANA HISTORICAL HEPATITIS C ANTIBODY Routine 11/23/2020 3:28 PM EDT RACHANA HISTORICAL CHLAMYDIA/N. GONORRHOEAE RNA, TMA, UROGENITAL Routine 04/25/2020 3:36 PM EST from Last 3 Months or Most Recently Relevant to Health Maintenance Results * VASC US Lower Extremity Venous Duplex Bilateral (03/27/2024 3:02 PM EST) 03/27/2024 3:02 PM EST Narrative [facility] - 03/27/2024 3:03 PM EST ? [facility] ?[address] ?[place] [address] ? Ultrasound Report ? Signed ? Patient: Anne Ochoa ?MR#: ?? [id number] ? : 2000 ?Acct:[id number] ? Age/Sex: 23 / F ?ADM Date: 03/27/24 ? Loc: HO.ED ? Attending Dr: ? Ordering Physician: Tima Gillespie ?? Date of Service: 03/27/24 ?? Procedure(s): US venous duplex LE BI ?? Accession Number(s): [id number] ? cc: Tima Gillespie; [facility] ? CLINICAL HISTORY: Bilateral calf pain. ??DVT? Venous duplex ultrasound bilateral lower extremity ? Comparison: None ? Findings: ?? The visualized deep veins are fully compressible with normal Doppler color ?? flow and spectral tracings. ?? No popliteal cyst. ? IMPRESSION: ?? 1. Negative for bilateral lower extremity deep vein thrombosis. ? This document has been electronically signed by: Margoth Martinez MD on ?? 03/27/2024 15:02:14 ? Dictated By: ?Martinez,Muneer MD ? Signed By: ?<Electronically signed by Margoth Martinez MD in OV> ? 03/27/24 1503 ? DD/ 1502 ? TD/TT: 03/27/24 1502 ? Heel Slugger: ? Procedure Note Emily Madison - 03/27/[address] [address] Ultrasound Report Signed Patient: Anne Ochoa [facility]#: [id number] : 2000Acct:[id number] Age/Sex: 23 / FADM Date: 03/27/24 Loc: HO.ED Attending Dr: Ordering Physician: Tima Gillespie Date of Service: 03/27/24 Procedure(s): US venous duplex LE BI Accession Number(s): [id number] cc: Tima Gillespie; [facility] CLINICAL HISTORY: Bilateral calf pain. DVT? Venous duplex ultrasound bilateral lower extremity Comparison: None Findings: The visualized deep veins are fully compressible with normal Doppler color flow and spectral tracings. No popliteal cyst. IMPRESSION: 1. Negative for bilateral lower extremity deep vein thrombosis. This document has been electronically signed by: Margoth Martinez MD on 03/27/2024 15:02:14 Dictated By: Margoth Martinez MD Signed By: <Electronically signed by Margoth Martinez MD in OV> 03/27/24 1503 DD/ 1502 TD/TT: 03/27/24 1502 Heel Slugger: [facility] [place] [facility] External Provider CV VASC ULAR PROCEDURES Edited Result - Final [facility] [address] [place] [phone] * (ABNORMAL) CBC auto differential (03/27/2024 1:46 PM EST) Only the most recent of3 resultswithin the time period is included. White Blood Count 10.2 4.8 - 10.8 X10*3/uL [facility] Red Blood Count 4.46 4.20 - 5.50 X10*6/uL [facility] Hemoglobin 13.1 12.0 - 16.0 g/dl [facility] Hematocrit 37.3 37.0 - 47.0 % [facility] Mean Corpuscular Volume 83.6 80.0 - 98.0 fL [facility] Mean Corpuscular Hemoglobin 29.4 27.0 - 33.0 pg [facility] Mean Corpuscular HGB Conc 35.1(H) 31.0 - 35.0 g/dl [facility] Red Cell Distribution Width 12.5 11.0 - 16.0 % [facility] Platelet Count 310 160 - 400 X10*3/uL [facility] Mean Platelet Volume 9.1(L) 9.4 - 12.3 fL [facility] Neutrophils Percent Auto 69.2 45 - 73 % [facility] Imm Gran Pct Auto 0.2 0.0 - 0.4 % [facility] Lymphocytes Percent Auto 23.8 20 - 40 % [facility] Monocytes Percent Auto 5.6 2 - 11 % [facility] Eosinophils Percent Auto 1.0 0 - 4 % [facility] Basophils Percent Auto 0.2 0 - 2 % [facility] NRBC Pct Auto 0.0 0.0 - 0.2 /100WBC [facility] Neutrophils Absolute Auto 7.1 2.0 - 8.3 x10*3/uL [facility] Imm Gran Abs Auto 0.02 0.00 - 0.03 X10*3/uL [facility] Lymphocytes Absolute Auto 2.4 1.2 - 4.9 X10*3/uL [facility] Monocytes Absolute Auto 0.6 0.1 - 1.2 X10*3/uL [facility] Eosinophils Absolute Auto 0.1 0.0 - 0.4 X10*3/uL [facility] Basophils Absolute Auto 0.0 0.0 - 0.2 X10*3/uL [facility] NRBC Abs Auto 0.000 0.0 - 0.012 X10*3/uL [facility] 03/27/2024 1:46 PM EST 03/27/2024 1:49 PM EST us Generic External Data Provider LAB BLOOD ORDERAB LES Final Result [facility] [address] [place] [phone] * Partial Thromboplastin Time, Activated (APTT) (03/27/2024 1:46 PM EST) Partial Thromboplastin Time 34.7 26.0 - 36.8 SEC [facility] Comment:For information rega rding the monitoring of direct thrombininhibitors, please refer to Pharmacy. 03/27/2024 1:46 PM EST 03/27/2024 1:49 PM EST Generic External Data Provider LAB BLOOD ORDERAB LES Final Result Performing Organization Address [facility] Co de Phone Number [facility] [address] [place] [phone] * (ABNORMAL) Prothrombin Time-INR (03/27/2024 1:46 PM EST) Prothrombin Time 13.4(H) 10.9 - 12.4 SEC [facility] INTERNATIONAL NORM RATIO 1.2(H) 0.9 - 1.1 [facility] Comment:INTERNATIONAL NORMAL IZED RATIO (INR) REFERENCE RANGES Reference RangeFor patients not on anticoagulant therapy: 0.9 - 1.1INR ranges for oral anticoagulanttherapy:For prevention and treatment of venous thrombosis and pulmonary embolism: 2.0 - 3.0For acute myocardial infarction with aspirin therapy: 2.0 - 3.0For acute myocardial infarction without aspirin therapy: 3.0 - 4.0For patients with mechanical prosthetic heart valves: 2.5 - 3.5 03/27/2024 1:46 PM EST 03/27/2024 1:49 PM EST us Generic External Data Provider LAB BLOOD ORDERAB LES Final Result Performing Organization Address [facility] Co de Phone Number [facility] [address] [place] [phone] * hCG, Total, Quantitative (03/27/2024 1:46 PM EST) HCG Quantitative <2 mIU/mL [facility] Comment:Weeks post LMP Appro ximate hCG(Last Menstrual Period) Range (mIU/ml)3 - 4 weeks 9 - 1304 - 5 weeks 75 - 2,6005 - 6 weeks 850 - 20,8006 - 7 weeks 4000 - 100,2007 - 12 weeks 11,500 - 289,19776 - 16 weeks 18,300 - 137,38085 - 29 weeks (2nd trimester) 1,400 - 53,72810 - 41 weeks (3rd trimester) 940 - 60,000The Ochoa B- hCG assay is used for the early detection ofpregnancy; it cannot be used to diagnose any conditionunrelated to . If a B-hCG level is not supportedby the clinical evidence, results should be confirmed by analternative method (qualitative urine hCG, for example). 03/27/2024 1:46 PM EST 03/27/2024 1:49 PM EST Generic External Data Provider LAB BLOOD ORDERAB LES Final Result Performing Organization Address [facility] de Phone Number [facility] [address] [place] [phone] * B Type Natriuretic Peptide (BNP) (03/27/2024 1:46 PM EST) B Type Natriuretic Peptide <10 <100 pg/mL [facility] Comment:For those patients w ho are being treated with Natrecor(nesiritide, recombinant BNP), BNP testing should beperformed at least two hours post treatment in order toensure that only endogenous levels of BNP are detected. 03/27/2024 1:46 PM EST 03/27/2024 1:49 PM EST us Generic External Data Provider LAB BLOOD ORDERAB LES Final Result Performing Organization Address [facility] Co de Phone Number [facility] [address] [place] [phone] * Magnesium (03/27/2024 1:46 PM EST) Magnesium 2.0 1.6 - 2.6 mg/dL [facility] 03/27/2024 1:46 PM EST 03/27/2024 1:49 PM EST us Generic External Data Provider LAB BLOOD ORDERAB LES Final Result [facility] [address] [place] [phone] [phone] * Creatine Kinase, Total (03/27/2024 1:46 PM EST) Pathologist [facility] Creatine Kinase Total 64 26 - 140 U/L [facility] 03/27/2024 1:46 PM EST 03/27/2024 1:49 PM EST us Generic External Data Provider LAB BLOOD ORDERAB LES Final Result Performing Organization Address [facility] Co de Phone Number [facility] [address] [place] [address] [phone] * (ABNORMAL) Comprehensive Metabolic Panel (03/27/2024 1:46 PM EST) Only the most recent of2 resultswithin the time period is included. Pathologist [facility] Sodium 140 135 - 145 mmol/L [facility] Potassium 3.7 3.3 - 5.1 mmol/L [facility] Chloride 107 96 - 108 mmol/L [facility] Carbon Dioxide 25 22 - 29 mmol/L [facility] Anion Gap 12 12 - 20 [facility] Urea Nitrogen (BUN) 11 9 - 16 mg/dL [facility] Creatinine, Serum 0.65 0.5 - 1.4 mg/dL [facility] Creatinine Clr Calc Pharmacy 731.9 [facility] Comment:Provided height and weight: 157.48 cm,786 kg.eGFR (calculated from the MDRD study equation) and eCrCl(calculated from the Cockcroft-Gault equation) are based ondifferent parameters and may not yield comparable results.If eCrCl result is absurd, please check patient'sheight/weight. Estimated Glomerular Filt Rate >60 [facility] Comment:Chronic Kidney Disea se: Estimated GFR < 60 mL/min/1.89x3Flccnq Kidney Disease: Estimated GFR < 15 mL/min/1.73m2 Glucose 92 60 - 115 mg/dL [facility] Calcium 9.4 8.4 - 10.2 mg/dL [facility] Bilirubin, Total 0.3 0.0 - 1.0 mg/dL [facility] Aspartate Amino Transferase 19 5 - 31 U/L [facility] Alanine Aminotransferase 21 0 - 31 U/L [facility] Total Protein 8.1(H) 6.5 - 8.0 g/dL [facility] Albumin Level 4.5 3.5 - 5.0 g/dL [facility] Alkaline Phosphatase 53 39 - 117 U/L [facility] 03/27/2024 1:46 PM EST 03/27/2024 1:49 PM EST us Generic External Data Provider LAB BLOOD ORDERAB LES Final Result Performing Organization Address City/State/[facility] Co de Phone Number [facility] [address] [place] [phone] * Gross and Microscopic Level 5 (02/29/2024 1:45 PM EST) 02/29/2024 1:45 PM EST 02/29/2024 3:00 PM EST Narrative [facility] - 03/03/2024 3:12 PM EST ----- ------- Name: Anne Ochoa ? Age/Sex: 23/F ? : 2000 Unit#: [id number] ?? Attend Dr: Leoncio Nunez MD ?Re02/29/24 ?Status: DEP SDC ? Location: HO.SSS ?Disch: ? ----- ------- SPEC : [id number] ? RECD: 02/29/24 ? STATUS: ??SOUT ? REQ NUM: [id number] ? AMRITA: 02/29/248948 ? SUBM DR: Leoncio Nunez MD ? ENTERED: ??02/29/24 ?SP TYPE: Surgical ? OTHR : Gail [...] ? Age/Sex: 23/F ? : 2000 Unit#: [id number] ?? Attend Dr: Leoncio Nunez MD ?Re02/29/24 ?Status: DEP SDC ? Location: HO.SSS ?Disch: ? ----- ------- SPEC : [id number] ? RECD: 02/29/24-1500 ? STATUS: ??SOUT ? REQ NUM: [id number] ? AMRITA: 02/29/24-2338 ? SUBM DR: Leoncio Nunez MD ? ENTERED: ??02/29/24-5812 ?SP TYPE: Surgical ? OTHR DR: Gail Stephens ? ORDERED: ??Gross Micro L5 ? Copies To: ?? Leoncio Nunez MD ?? [facility] ?? [address] ?? [place] [address] ?? [phone] ?? Gail Stephens ?? [address] ?? [place] [address] ?? [phone] ----- ------- Signed (signature on file) Rafal Guadarrama MD 03/03/24 151 ? ----- ------- ? END OF REPORT ? us Generic External Data Provider LAB BLOOD ORDERAB LES Final Result [facility] [address] [place] [address] [place] [phone] * HCG, Qualitative, Urine (02/29/2024 11:30 AM EST) Pathologist [facility] Urine NEGATIVE NEGATIVE [facility] Comment:This test was develo ped to detect early . Falsenegative results may occur after the 5th - 7th week ofpregnancy when using this test method. If clinicallyindicated, consider a serum hCG. 02/29/2024 11:3 0 AM EST 02/29/2024 11:33 AM EST us Generic External Data Provider LAB URINE ORDERAB LES Final Result Performing Organization Address [facility] Co de Phone Number [facility] [address] [place] [address] [phone] * Gram stain (02/29/2024 12:00 AM EST) 02/29/2024 02/29/2024 Comment:Breast Rt Narrative [facility] - 03/03/2024 9:33 AM EST RIGHT BREAST CULTURE Gram stain results: 4+ polys 4+ red blood cells 1+ Gram-positive rods RIGHT BREAST CULTURE Corynebacterium species Quant Org ID 1+ Susc N/A Susceptibility not routinely performed on this isolate. Specimen Source: Breast Right us Generic External Data Provider LAB MICROBIOLOGY - GENERAL ORDERABLES Final Result Performing Organization Address [facility] de Phone Number [facility] [address] [place] [phone] * BI US Breast Limited Right (02/02/2024 8:45 AM EST) Anatomical Region Laterality Modality Breast Right Ultrasound 02/02/2024 8:45 AM EST Narrative 02/02/2024 9:32 AM EST ? [facility] ? [address] ?[place] [address] ? Ultrasound Report ? Signed ? Patient: Go Lange,Grace ?MR#: ?? [id number] ? : 2000 ?Acct:[id number] ? Age/Sex: 23 / F ?ADM Date: 12/10/24 ? Loc: HO.MAMMO ? Attending Dr: Lorena Man MD ? Ordering Physician: Lorena Man MD ?? Date of Service: 02/02/24 ?? Procedure(s): US breast RT limited mamm only ?? Accession Number(s): [id number] ? cc: Gail Stephens; Lorena Man MD [...] ??Cindy Gibson DO ??02/02/2024 09:29 AM EST ? Dictated By: ?Cindy Gibson DO ? Signed By: ?<Electronically signed by Cindy Gibson, DO in OV> ? 02/02/24 0929 ? DD/ 0845 ? TD/TT: 02/02/24 0900 ? Heel Slugger: ? Procedure Note [place], Image - 02/02/2024 [facility] [address] [place] [address] Dr. [place], [place] [address] Ultrasound Report Signed Patient: Anne Ochoa [facility]#: [id number] : 2000Acct:[id number] Age/Sex: 23 / FADM Date: 02/02/24 Loc: PREM Attending Dr: Lorena Man MD Ordering Physician: Lorena Man MD Date of Service: 02/02/24 Procedure(s): US breast RT limited mamm only Accession Number(s): [id number] cc: Gail Stephens; Lorena Man MD EXAMINATION: [...] in OV> 02/02/24928 DD/ 4 TD/TT: 02/02/24899 Heel Slugger: us Lorena Man MD IMG US PROCEDURES Final Re sult * (ABNORMAL) Lipid Panel, Standard (10/28/2023 8:54 AM EDT) Triglycerides 90 <150 mg/dL [facility] Comment:Desirable Triglyceri de: less than 150 mg/dLBorderline High Triglyceride 150-199 mg/dLHigh Triglyceride: 200-499 mg/dLVery High Triglyceride: greater than or equal to 5OO mg/dL Cholesterol 158 <200 mg/dL [facility] Comment:Desirable Cholestero l: less than 200 mg/dLBorderline High Cholesterol: 200-239 mg/dLHigh Cholesterol: greater than 239 mg/dL LDL Cholesterol Calculated 107(H) <100 mg/dL [facility] Comment:Desirable LDL: less than 100 mg/dLNear Optimal/Above Optimal LDL: 110- 129 mg/dLBorderline High LDL: 130-159 mg/dLHigh LDL: 160-189 mg/dLVery High LDL: greater than or equal to 190 mg/dL HDL Cholesterol 33(L) >40 mg/dL [facility] Comment:Desirable HDL: great er than 40 mg/dL Note: This HDL assay may give artificially low results in patients with liver disease. Blood Venous blood specimen / Unknown 10/28/2023 8:54 AM EDT 10/28/2023 11:03 AM EDT Gail Stephens NP LAB BLOOD ORDERABLES Final Resu lt [facility] [address] [place] [phone] * Pap Smear (02/06/2022 9:46 AM EST) 02/06/2022 9:46 AM EST 02/06/2022 3:45 PM EST Narrative [facility] - 02/21/2022 5:05 PM EST ----- ------- Name: Anne Ochoa ? Age/Sex: 21/F ? : 2000 Unit#: [id number] ?? Attend Dr: Elizabeth Dickinson CNM ?Re02/06/22 ?Status: DEP REF ? Location: HO.LNP ?Disch: ? ----- ------- SPEC : [id number] ?RECD: 02/06/22-1545 ? STATUS: ??SOUT ? REQ NUM: [id number] ? AMRITA: 02/06/22-0946 ? SUBM DR: Elizabeth Dickinson CNM ? ENTERED: ??02/06/22-1613 ?SP TYPE: Pap Smr ?OTHR DR: ? ORDERED: ??Pap Smear ? Interpretation ?? Satisfactory for evaluation. ?? Negative for intraepithelial lesion or malignancy. ?Clinical Information LMP: 02/13 Previous PAP test: Never ? Material Received ?? ThinPrep-Cervical ----- ------- Signed (signature on file) An Martinez 02/21/221704 ? ----- ------- ? END OF REPORT ? [facility] [place] [facility] External Provider LAB CYT OLOGY ORDERABLES Final Result [facility] [address] [place] [phone] * Hepatitis C Antibody (11/23/2020 3:28 PM EDT) [facility] Hepatitis C Antibody Nonreactive Nonreactive [facility] Comment: Antibodies to HCV not detected; does not exclude early acute HCV infection. HIV AB/AG Nonreactive Nonreactive [facility] Comment: HIV-1 p24 Ag and/or [...] detection of this assay. ?? The Ochoa Shredded Filler Cutter Operator HIV Ag/Ab Combo assay result and supplemental assay results should be interpreted in conjunction with the patient's clinical presentation, history and other laboratory results. ??If the results are inconsistent with clinical evidence, additional testing is suggested to confirm the result. Hepatitis B Surface Antigen Negative Negative [facility] 11/23/2020 3:28 PM EDT Elizabeth Petrolia HISTORICAL/NON ORDERABLE LABS Fi nal Result Performing Organization Address [facility] de Phone Number [facility] [address] * CHLAMYDIA/N. GONORRHOEAE RNA, TMA, UROGENITAL (04/25/2020 3:36 PM EST) Chlamydia trachomatis RNA, TMA, Urogenital NOT DETECTED NOT DETECTED [facility] COMMENT SEE COMMENT [facility] Comment: The analytical performance characteristics of this assay, when used to test SurePath(TM) specimens have been determined by [facility]. The modifications have not been cleared or approved by the FDA. This assay has been validated pursuant to the CLIA regulations and is used for clinical purposes. ?? For additional information, please refer to https://education.RRsat/faq/YTF720 (This link is being provided for information/ educational purposes only.) ?? Neisseria gonorrhoeae RNA, TMA, Urogenital NOT DETECTED NOT DETECTED [facility] 04/25/2020 3:36 PM EST Brinda Lizarraga NP HISTORICAL/NON ORDERABLE LABS F inal Result Performing Organization Address [facility] de Phone Number [facility] [address] from Last 3 Months or Most Recently Relevant to Health Maintenance Insurance [facility] C3 # 7 [place] [place]INE [id number] # 7 [place]INE [id number] # 7 W[place]INE [id number] Care Teams Supervisor Tank Cleaning Relationship Specialty Start Date End Date Gail Stephens NP [address] [place] [phone] PCP - General Family Medicine 01/12/23
--- NOTE | 2024-04-12 13:46 | A.OFFVIS_ITS ---
Vital Signs 3 04/12/24 13:52 Height 5 ft 2 in Weight 171 lb 15.369 oz BMI 31.4 Intake Visit Reasons: wound check, redness, pain, draining Intake Note: Patient is seen in office for wound check, post right breast lumpectomy. Pt c/o: admits to redness, draining and pain, would like to have the lump removed Business Services Administrator Required: No Ending Machine Operator: Ending Machine Operator Present Accompanied by: Self / Same As Patient Allergies No Known Allergies [No Known Allergies*] Allergy (Verified 04/12/24 13:53) Medication List - Last Reconciled 04/12/24 by Leoncio Nunez MD cyclobenzaprine 10 mg PO BEDTIME PRN doxycycline hyclate 100 mg PO BID ketorolac 10 mg PO Q6H PRN levonorgestrel (Mirena) intrauterine ondansetron 4 mg PO Q8H PRN HPI Comments Details: 23-year-old female patient returning with redness in the right breast at the upper inner quadrant with increased swelling. She is scheduled for a ultrasound with possible aspiration next week at the [facility]. She denies any chills but has had occasional fevers. She denies any discharge from the incision. [facility] Medical History Hx of iron deficiency anemia Surgical History History of lumpectomy of right breast (02/29/24) No pertinent past surgical history Family History Mother Hypertension Maternal Grandfather Colon cancer Maternal Aunt Hx of breast cancer Social History Household Members: Family Both parents involved: Yes Caregiver staying overnight: No Housing: Apartment Are you a primary personal care aid to a significant other at home: No Do you presently have visiting nurse or other home services: No 75 years or older and lives alone: No Alcohol intake: current Alcohol intake frequency: holidays/special occasions only Comment: improved Patient Tobacco Use Status: Never used Tobacco Special abbey needs: No Agree to transfusion: Yes Female Reproductive History Menstrual Age of Menarche: 11 Review of Systems Const All systems reviewed & are unremarkable except as noted in HPI and below Physical Exam Vital Signs: BMI result Body Mass Index 31.4 Const General: no acute distress Nutritional Appearance: well nourished Orientation/consciousness: patient oriented x3 Chest Other: Area of fullness noted in the upper inner quadrant right breast with tenderness to palpation. There is a slight pinkish change in the skin overlying this suggestive of a mastitis. Chest/axillae images: 2 1. Area of mastitis in the upper inner quadrant. Skin Other: Warm, dry, no rash Neuro General: patient oriented x3 Extrem Other: No edema Assessment & Plan Assessment & Plan (1) Mastitis of right breast unrelated to of : Code(s): N61.0 - Mastitis without abscess Category: Medical Plan 23-year-old female patient with persistent area of mastitis in the right upper inner quadrant. She is scheduled for an ultrasound-guided aspiration next week. I will start her on antibiotics in the meantime. She will follow-up after the aspiration to review the results and discuss possible further excision. Patient has expressed understanding and agrees with the plan. Medications: New 2 doxycycline hyclate 100 mg PO BID 20 tabs 0RF Coding Level of Care Code Est Pt Level 3 (06451) Diagnoses Mastitis of right breast unrelated to of N61.0
[2024-04-12 13:52] VITALS: BMI 31.4
== END 2024-04-12 13:59 | disposition home or self-care (01) ==
PROVIDERS: PCP Nurse Practitioner; Visit Provider Surgery
DX: N61.0 Mastitis without abscess (principal)
CPT/HCPCS: 99024

== ENCOUNTER 2024-04-13 12:46 | Inpatient (IN) | payer MEDICAID, SELFPAY ==
[2024-04-13] VITALS (7 sets, daily range): BP systolic 119–132; BP diastolic 72–90; PULSE 82–108; RESP 14–20; TEMP 2.4–36.8; O2SAT 97–98; BMI 31.4
--- NOTE | 2024-04-13 13:41 | ED_ITS ---
HPI - General Adult General Chief complaint: Skin/Abscess/Foreign Body Stated complaint: pain s/p lumpectomy at [facility] [place] month ago Time Seen by Provider: 04/13/24 14:42 Source: patient, family and old records reviewed Mode of arrival: ambulatory Limitations: no limitations History of Present Illness ED Provider: LEROY ARRINGTON narrative: 23 yo female with R breast lumpectomy 02[facility] has had issues with post operative swelling/redness she has been following up with them and has trialed bactim with some improvement but noted recent worsening. She saw office again yesterday they started doxy and were planning for outpatient US and drainage. She notes fevers, n/v, not feeling well. She has pain. Drainaged from areola area yellow and thick at times, nothing from nipple. Pathology was negative MD complaint: breast abscess Onset (ago): week(s) Location: chest Radiation: non-radiation Severity: moderate Quality: aching Pain Consistency: constant Relieving factors: rest Exacerbating factors: movement Associated symptoms: fever/chills, loss of appetite, malaise and nausea/vomiting Treatments prior to arrival: other (abx) Related Data Home Medications ?Medication ?Instructions ?Recorded ?Confirmed levonorgestrel 21 mcg/24 hr (up to intrauterine 02/06/22 04/12/24 8 years) 52 mg intrauterine device (Mirena) Previous Rx's ?Medication ?Instructions ?Recorded cyclobenzaprine 10 mg tablet 10 mg PO BEDTIME PRN muscle spasm 03/27/24 #10 tabs ketorolac 10 mg tablet 10 mg PO Q6H PRN pain #20 tabs 03/27/24 ondansetron 4 mg disintegrating 4 mg PO Q8H PRN nausea and 03/27/24 tablet vomiting #6 tabs doxycycline hyclate 100 mg tablet 100 mg PO BID #20 tabs 04/12/24 Allergies Allergy/AdvReac Type Severity Reaction Status Date / Time No Known Allergies Allergy Verified 04/13/24 13:42 [No Known Allergies*] Review of Systems 2 Review of Systems: Constitutional : pos Fever, pos Chills ENT/Mouth : No sore throat, No Rhinorrhea Eyes: No Eye Pain, No Swelling, No Redness Cardiovascular : No Chest Pain, No SOB Respiratory : No Cough, No Sputum Gastrointestinal : pos Nausea, pos Vomiting, No Diarrhea, No abdominal Pain Genitourinary : No Dysuria, No Hematuria Musculoskeletal : No joint pain, No Myalgias, No Joint Swelling Skin : No Skin Lesions, positive skin rash Neuro : No Weakness, No Numbness, No Headache Psych : No Anxiety, No Depression Heme/Lymph: No Bruising, No Bleeding,No Lymphadenopathy Endocrine : No Polyuria, No Polydipsia All other systems reviewed and are negative PMFSH Past Medical History Attestation statement: The following information was validated with the patient. Source: old records reviewed Medical History Hx of iron deficiency anemia Surgical History History of lumpectomy of right breast (02/29/24) No pertinent past surgical history Family History Family History Mother Hypertension Maternal Grandfather Colon cancer Maternal Aunt Hx of breast cancer Social History Social History Household Members: Family Housing: Apartment Are you a primary career placement specialist to a significant other at home: No Do you presently have visiting nurse or other home services: No Alcohol intake: current Alcohol intake frequency: holidays/special occasions only Comment: improved Patient Tobacco Use Status: Never used Tobacco Special abbey needs: No Agree to transfusion: Yes Physical Exam ED Vital Signs: Vital Signs - 24 hr 04/13/24 13:38 Temperature 98.1 F Pulse Rate 108 H Respiratory Rate 20 Blood Pressure 128/90 H Pulse Oximetry 97 Oxygen Delivery Method Room Air BMI result Body Mass Index 31.4 Appearance: Alert. Oriented X3. No acute distress. Eyes: Pupils equal, round and reactive to light. ENT: Pharynx normal. Neck: Normal inspection. Neck supple. CVS: tachycardic heart rate and rhythm. Pulses normal. R breast: red swollen fluctuance and overlying purpleish hue noted on medial aspect of breast 1 o clock to 4 o' clock Respiratory: No respiratory distress. Breath sounds normal. Abdomen: Soft and nontender. Skin: Skin warm and dry. Normal skin color. Normal skin turgor. Extremities: No lower extremity edema. No calf ttp Neuro: Oriented X 3. No motor deficit. No sensory deficit. CN2-12 intact Berta GONZALES student present Course Course Course Narrative: RME, this is a rapid medical exam performed by Vicente Ross please refer to primary provider for complete H&P- 23-year-old female presents for evaluation of a breast abscess. She had a right breast lumpectomy on 02/29/[address] Peter. She was initially started on a 10 day course of doxycycline, she was subsequently started on ciprofloxacin and most recently on Bactrim with worsening symptoms. Her breast is erythematous, edematous. She spoke to the surgery office and was referred to the ER. Plan for labs including blood cultures. Medical Decision Making Medical Decision Making [facility] Narrative: 23 yo female with R breast lumpectomy 02/28 at the [facility] now here with cellulitis and abscess. Will obtain labs, start IV abx - infection suspected when I saw her 1445 - RN to start antibiotics, IV Morphine for pain ordered. Dr. Nunez at bedside to admit. Differential Diagnosis Differential Diagnoses: The differential diagnosis associated with the presentation includes abscess, cellulitis Admission/Observation Consideration of admission/observation: Escalation of care including admission/observation considered admit for IV abx Lab Data [facility] Lab Attestation statement: I reviewed the patient's lab results. 04/13/24 14:04 04/13/24 14:04 Labs: Lab Results 04/13/24 Range/Units 14:04 WBC 11.2 H (4.8-10.8) X10*3/uL RBC 4.49 (4.20-5.50) X10*6/uL Hgb 13.1 (12.0-16.0) g/dl Hct 37.7 (37.0-47.0) % MCV 84.0 (80.0-98.0) fL MCH 29.2 (27.0-33.0) pg MCHC 34.7 (31.0-35.0) g/dl RDW 12.3 (11.0-16.0) % Plt Count 334 (160-400) X10*3/uL MPV 9.3 L (9.4-12.3) fL Immature Gran % (Auto) 0.4 (0.0-0.4) % Neut % (Auto) 71.5 (45-73) % Lymph % (Auto) 21.6 (20-40) % [place] % (Auto) 5.3 (2-11) % Eos % (Auto) 0.9 (0-4) % Baso % (Auto) 0.3 (0-2) % Lymph # (Auto) 2.4 (1.2-4.9) X10*3/uL [place] # (Auto) 0.6 (0.1-1.2) X10*3/uL Eos # (Auto) 0.1 (0.0-0.4) X10*3/uL Baso # (Auto) 0.0 (0.0-0.2) X10*3/uL Abs Immat Gran (auto) 0.04 H (0.00-0.03) X10*3/uL Absolute Neuts (auto) 8.0 (2.0-8.3) x10*3/uL Absolute Nucleated RBC 0.000 (0.0-0.012) X10*3/uL Nucleated RBC % (auto) 0.0 (0.0-0.2) /100WBC PT 12.9 H (10.9-12.4) SEC INR 1.1 (0.9-1.1) Sodium 139 (135-145) mmol/L Potassium 4.2 (3.3-5.1) mmol/L Chloride 109 H (96-108) mmol/L Carbon Dioxide 23 (22-29) mmol/L Anion Gap 11 L (12-20) BUN 9 (9-16) mg/dL Creatinine 0.58 (0.5-1.4) mg/dL Estim Creat Clear Calc 140.1 Estimated GFR > 60 Random Glucose 94 (60-115) mg/dL Lactic Acid 0.8 (0.5-2.0) mmol/L Calcium 9.6 (8.4-10.2) mg/dL Total Bilirubin 0.4 (0.0-1.0) mg/dL AST 26 (5-31) U/L ALT 28 (0-31) U/L Alkaline Phosphatase 58 (39-117) U/L Total Protein 8.5 H (6.5-8.0) g/dL Albumin 4.6 (3.5-5.0) g/dL Lipase 10 (8-78) U/L Independent Historian Clinical information obtained from an independent historian. History obtained from or confirmed by: Other (family) External Record Review External record reviewed: Outpatient record Discharge Plan Discharge Clinical Impression: Abscess of breast Patient Disposition: Admitted As Inpatient Prescriptions: No Action ketorolac 10 mg tablet 10 mg PO Q6H PRN (Reason: pain) Qty: 20 0RF Rx Instructions: Patient received 30 mg IM in the ED cyclobenzaprine 10 mg tablet 10 mg PO BEDTIME PRN (Reason: muscle spasm) Qty: 10 0RF Rx Instructions: Side effects of drowsiness. Do not take work or while driving ondansetron 4 mg tablet,disintegrating 4 mg PO Q8H PRN (Reason: nausea and vomiting) Qty: 6 0RF Mirena 20 mcg/24 hours (8 yrs) 52 mg intrauterine device intrauterine doxycycline hyclate 100 mg tablet 100 mg PO BID Qty: 20 0RF Print Language: Latvian
[2024-04-13 14:17] LABS: MANUAL DIFF FLAG NO
[2024-04-13 14:18] LABS: Basophils Percent Auto 0.3 % (0-2); Eosinophils Absolute Auto 0.1 X10*3/uL (0.0-0.4); Eosinophils Percent Auto 0.9 % (0-4); Hematocrit 37.7 % (37.0-47.0); Hemoglobin 13.1 g/dl (12.0-16.0); Imm Gran Abs Auto 0.04 X10*3/uL (0.00-0.03); Imm Gran Pct Auto 0.4 % (0.0-0.4); Lymphocytes Absolute Auto 2.4 X10*3/uL (1.2-4.9); Lymphocytes Percent Auto 21.6 % (20-40); Mean Corpuscular HGB Conc 34.7 g/dl (31.0-35.0); Mean Corpuscular Hemoglobin 29.2 pg (27.0-33.0); Mean Platelet Volume 9.3 fL (9.4-12.3); Monocytes Absolute Auto 0.6 X10*3/uL (0.1-1.2); Monocytes Percent Auto 5.3 % (2-11); Neutrophils Percent Auto 71.5 % (45-73); Platelet Count 334 X10*3/uL (160-400); Red Blood Count 4.49 X10*6/uL (4.20-5.50); Red Cell Distribution Width 12.3 % (11.0-16.0); White Blood Count 11.2 X10*3/uL (4.8-10.8)
[2024-04-13 14:23] LABS: INTERNATIONAL NORM RATIO 1.1 (0.9-1.1); Prothrombin Time 12.9 SEC (10.9-12.4)
[2024-04-13 14:33] LABS: Alanine Aminotransferase 28 U/L (0-31); Albumin Level 4.6 g/dL (3.5-5.0); Alkaline Phosphatase 58 U/L (39-117); Anion Gap 11 (12-20); Aspartate Amino Transferase 26 U/L (5-31); Bilirubin Total 0.4 mg/dL (0.0-1.0); Blood Urea Nitrogen 9 mg/dL (9-16); Calcium 9.6 mg/dL (8.4-10.2); Carbon Dioxide 23 mmol/L (22-29); Chloride 109 mmol/L (96-108); Creatinine Clr Calc Pharmacy 140.1; Estimated Glomerular Filt Rate > 60; Glucose Random 94 mg/dL (60-115); Lipase 10 U/L (8-78); Potassium 4.2 mmol/L (3.3-5.1); Sodium 139 mmol/L (135-145); Total Protein 8.5 g/dL (6.5-8.0)
[2024-04-13 14:34] LABS: Lactic Acid 0.8 mmol/L (0.5-2.0)
[2024-04-13 14:57] LABS: Influenza A PCR NEGATIVE (Negative); Influenza B PCR NEGATIVE (Negative); Resp Syncy Virus RNA Qual PCR NEGATIVE (Negative); SARS COV2 PCR INHOUSE NEGATIVE (Negative)
--- NOTE | 2024-04-13 15:07 | P.HPGS_ITS ---
History of Present Illness History of Present Illness Date of Service: 04/13/24 Chief complaint: pain s/p lumpectomy at [facility] [place] month ago Narrative: Anne Lange is a 23 year old female presenting with a painful right breast. She was previously noted to have a lump in the right upper inner quadrant and subsequently underwent an excisional biopsy. Intraoperative findings were multiple purulent collections with surrounding inflammatory tissue. Subsequent pathology confirmed phlegmon with no atypia or malignancy. Postoperatively she continued to have pain and swelling in this location. She was treated with several courses of antibiotics without much relief. She presents now with increased pain, redness and swelling in the upper inner quadrant. Review of Systems 2 Review of Systems: Yes all other systems are reviewed and are negative Integumentary/Breasts: Skin/Breast: Reports breast pain, Reports breast mass and Reports erythema PMFSH Past Medical History Medical History Hx of iron deficiency anemia Family History Family History Mother Hypertension Maternal Grandfather Colon cancer Maternal Aunt Hx of breast cancer Surgical History Surgical History History of lumpectomy of right breast (02/29/24) No pertinent past surgical history Social History Social History Household Members: Family Housing: Apartment Are you a primary medicare sales representative to a significant other at home: No Do you presently have visiting nurse or other home services: No Alcohol intake: current Alcohol intake frequency: holidays/special occasions only Comment: improved Patient Tobacco Use Status: Never used Tobacco Special abbey needs: No Agree to transfusion: Yes Advance Directives: No Advance Directives Information Provided: Yes Meds Allergies Allergy/AdvReac Type Severity Reaction Status Date / Time No Known Allergies Allergy Verified 04/13/24 13:42 [No Known Allergies*] Active Medications: Current Medications Calcium Carbonate (Calcium Carbonate 750 Mg Tab.Chew) 750 mg PO Q4H PRN PRN Reason: Heartburn Hydromorphone HCl (Hydromorphone Hcl 0.5 Mg/0.5 Ml Syringe) 0.5 mg IVPUSH Q3H PRN; Protocol PRN Reason: Pain, Severe (Pain Scale 7-10) Piperacillin Sod/Tazobactam (Sod 3.375 gm/ Sodium Chloride) 50 mls @ 100 mls/hr IV ONCE ONE Stop: 04/13/24 15:20 Vancomycin HCl (Vancomycin/Ns) 2,000 mg in 500 mls @ 250 mls/hr IV ONCE ONE Stop: 04/13/24 16:50 Lactated Ringer's (Lr) 1,000 mls @ 999 mls/hr IV .Q1H1M ONE Stop: 04/13/24 15:52 Acetaminophen (Ofirmev) 1,000 mg in 100 mls @ 400 mls/hr IV Q6H VENICE Stop: 04/14/24 09:14 Dextrose/Lactated Ringer's (D5lr) 1,000 mls @ 80 mls/hr IVCONT .[id number] VENICE Piperacillin Sod/Tazobactam (Sod 3.375 gm/ Sodium Chloride) 50 mls @ 100 mls/hr IV Q6H VENICE Magnesium Hydroxide (Milk Of Magnesia 30 Ml Oral.Susp) 30 ml PO DAILY PRN PRN Reason: Constipation Ondansetron HCl (Ondansetron Hcl 4 Mg/2 Ml Vial) 4 mg IVPUSH QID PRN PRN Reason: Nausea Oxycodone HCl (Oxycodone Hcl Immed Release 5 Mg Tablet) 5 mg PO Q6H PRN PRN Reason: Pain, Moderate(Pain Scale 4-6) Pharmacy Consult (Consult Rx Vancomycin Dosing) 1 each MISCELLANE DAILY PRN PRN Reason: Consult order Sodium Chloride (0.9 % Sodium Chloride Flush 3 Ml Syringe) 3 ml IVFLUSH QSHIFT VENICE Zolpidem Tartrate (Zolpidem Tartrate 5 Mg Tablet) 5 mg PO BEDTIME PRN PRN Reason: Insomnia Home Medications ?Medication ?Instructions ?Recorded ?Confirmed ?Last Taken ?Type levonorgestrel 21 mcg/24 hr (up to intrauterine 02/06/22 04/12/24 Unknown History 8 years) 52 mg intrauterine device (Mirena) Physical Exam 2 Vital Signs: Vital Signs: Last Vital Signs Temp 98.1 F 04/13/24 13:38 Pulse 108 H 04/13/24 13:38 Resp 20 04/13/24 13:38 BP 128/90 H 04/13/24 13:38 Pulse Ox 97 04/13/24 13:38 O2 Del Method Room Air 04/13/24 13:38 BMI result Body Mass Index 31.4 Const: General: no acute distress Nutritional Appearance: well nourished Orientation/consciousness: patient oriented x3 Chest: Other: Area of fullness noted in the upper inner quadrant right breast with tenderness to palpation. Increased redness is noted in the upper inner quadrant with fluctuance to palpation. Findings are consistent with a upper inner quadrant abscess. Chest/axillae images: 1. Site of abscess for inner quadrant Skin: Other: Warm, dry, no rash Neuro: General: patient oriented x3 Extrem: Other: No edema Results Results Labs: Short CBC 04/13/24 Range/Units 14:04 WBC 11.2 H (4.8-10.8) X10*3/uL Hgb 13.1 (12.0-16.0) g/dl Hct 37.7 (37.0-47.0) % Plt Count 334 (160-400) X10*3/uL BMP 04/13/24 14:04 Sodium 139 Potassium 4.2 Chloride 109 H Carbon Dioxide 23 BUN 9 Creatinine 0.58 Calcium 9.6 Liver Function 04/13/24 Range/Units 14:04 Total Bilirubin 0.4 (0.0-1.0) mg/dL AST 26 (5-31) U/L ALT 28 (0-31) U/L Alkaline Phosphatase 58 (39-117) U/L Albumin 4.6 (3.5-5.0) g/dL Assessment and Plan (1) Abscess of breast: Status: Acute Plan 23-year-old female patient with a known history of mastitis presenting with a recurrent abscess of the right breast the upper inner quadrant. She was in increased pain and therefore will be admitted for IV antibiotics. I will perform an incision and drainage of the abscess today at the bedside. I reviewed the procedure, risks and alternatives in detail with the patient and she gives her consent the procedure. Quality Stroke Does the patient have a stroke diagnosis?: No VTE Prior VTE?: No VTE Risk Level:: Surgical - low VTE Device Contraindication: N/A - Device Ordered VTE Drug Contraindication: Treatment Not Indicated Procedures Date of Service Date of Service: 04/13/24
--- OUTSIDE RECORDS SUMMARY | 2024-04-13 15:08 | XMS_ITS | Encounter Summary ---
Author Organization [employer] Address [address] [facility] [address] [place] [address] Care Team Providers Care Ship Painter Helper Name Role Phone Gail Stephens NP Primary Care Provider [phone] Reason for Visit * Reason Onset Date Comments Med Refill 11/24/2023 Encounter Details Date Type Department Care Team (Late st Contact Info) Description 11/24/2023 Refill [facility] [address] [place] [address] Gail Stephens NP [address] [place] [address] Social History Tobacco Use Types Packs/Day Years [...] with others, in a hotel, in a custodial, living outside on the street, on a [...] Description 04/15/2024 10:00 AM EST Office Visit [facility] [address] [place] [phone] Denise Aguirre CNP [address] [place] [address] 05/23/2024 2:30 PM EDT Office Visit [facility] [address] [place] [address] Gail Stephens NP [address] [place] [address] documented as of this encounter Visit Diagnoses Not on filedocumented in this encounter Additional Health Concerns Assessment Noted Time PHQ-9 Depression Total Score: 0 10/02/19 24 1:26 PM EDT documented as of this encounter Care Teams Ship Painter Helper Relationship Specialty Start Date End Date Gail Stephens NP [address] [place] [address] PCP - General Family Medicine 01/12/23 documented as of this encounter
--- OUTSIDE RECORDS SUMMARY | 2024-04-13 15:08 | XMS_ITS | Encounter Summary ---
Author Organization [employer] Address [address] [facility] [address] [place] [address] Care Team Providers Care Point Of Sale Associate Name Role Phone Gail Stephens NP Primary Care Provider [phone] Reason for Visit * Reason Onset Date Comments Chart Prep 03/31/2024 Encounter Details Date Type Department Care Team ([facility] st Contact Info) Description 03/31/2024 Telephone [facility] [address] [place] [address] Gail Stephens NP [address] [place] [address] Chart Prep Social History Tobacco Use Types [...] with others, in a hotel, in a longterm, living outside on the street, on a [...] Description 04/15/2024 10:00 AM EST Office Visit [facility] [address] [place] [address] Denise Aguirre CNP [address] [place] [address] 05/23/2024 2:30 PM EDT Office Visit [facility] [address] [place], [place] [phone] Gail Stephens NP [address] [place], [place] [phone] documented as of this encounter Visit Diagnoses Not on filedocumented in this encounter Additional Health Concerns Assessment Noted Time PHQ-9 Depression Total Score: 0 10/02/19 24 1:26 PM EDT documented as of this encounter Care Teams Point Of Sale Associate Relationship Specialty Start Date End Date Gail Stephens NP [address] [place], [place] [phone] PCP - General Family Medicine 01/12/23 documented as of this encounter
--- OUTSIDE RECORDS SUMMARY | 2024-04-13 15:08 | XMS_ITS | Encounter Summary ---
Author Organization [employer] Address [address] [facility] [address] [place] [address] Care Team Providers Care Warp Hauler Name Role Phone Gail Stephens NP Primary Care Provider [phone] Reason for Visit * Reason Onset Date Comments Chart Prep 04/05/2024 Encounter Details Date Type Department Care Team ([facility] st Contact Info) Description 04/05/2024 Telephone [facility] [address] [place] [address] Gail Stephens NP [address] [place] [address] Chart Prep Social History Tobacco Use Types [...] with others, in a hotel, in a intermediate, living outside on the street, on a [...] Description 04/15/2024 10:00 AM EST Office Visit [facility] [address] [place] [phone] Denise Aguirre CNP [address] [place], [place] [phone] 05/23/2024 2:30 PM EDT Office Visit [facility] [address] [place], [place] [phone] Gail Stephens NP [address] [place], [place] [phone] documented as of this encounter Visit Diagnoses Not on filedocumented in this encounter Additional Health Concerns Assessment Noted Time PHQ-9 Depression Total Score: 0 10/02/19 24 1:26 PM EDT documented as of this encounter Care Teams Warp Hauler Relationship Specialty Start Date End Date Gail Stephens NP [address] [place], [place] [phone] PCP - General Family Medicine 01/12/23 documented as of this encounter
--- OUTSIDE RECORDS SUMMARY | 2024-04-13 15:08 | XMS_ITS | Encounter Summary ---
Author Organization [employer] Address [address] [place] [address] 7t [place] [address] Care Team Providers Care Body Work Auto Trimmer Name Role Phone Gail Stephens NP Primary Care Provider [phone] Reason for Visit * Reason Comments Sick Onsite bilateral leg pain n egative finding in ED 03/27/24 pain is 09/01 Encounter Details Date Type Department Care Team (Late st Contact Info) Description 04/01/2024 11:15 AM EST Office Visit [facility] [address] [place] [address] Denise Aguirre CNP [address] [place] [address] Pain in both knees, unspecified chronicity (Primary [...] She is s/p lumpectomy, completed 02/29/2024 at [facility] General Surgery. Last f/u with general surgery [...] is reporting chills. HPI Pt presented to [facility] ED on 03/27/24 for bilateral calf [...] Medications sulfamethoxazole-trimethoprim (Bactrim DS) 800-160 MG tablet [facility] KEYBOARDING TEACHER Attestation KEYBOARDING TEACHER Resident Attestation: Patient was seen and evaluated by Denise Aguirre KEYBOARDING TEACHER, in collaboration with Barry Richardson MD who has reviewed my assessment and plan. I, Barry Richardson MD , have reviewed the resident's note and agree with the assessment & plan of care as documented above. Visit Conducted in: Iranian Translation by: Provided by [facility] staff member Milly Robles MA , [...] Description 04/15/2024 10:00 AM EST Office Visit [facility] [address] [place] [address] Denise Aguirre CNP [address] [place] [address] 05/23/2024 2:30 PM EDT Office Visit [facility] [address] [place] [address] Gail Stephens NP [address] [place] [address] documented as of this encounter Visit Diagnoses Diagnosis Pain in both knees, unspecified chronicity- Primary Soft tissue infection Unspecified infectious and parasitic diseases documented in this encounter Additional Health Concerns Assessment Noted Time PHQ-9 Depression Total Score: 0 10/02/19 24 1:26 PM EDT documented as of this encounter Care Teams Body Work Auto Trimmer Relationship Specialty Start Date End Date Gail Stephens NP [address] [place] [phone] PCP - General Family Medicine 01/12/23 documented as of this encounter
--- OUTSIDE RECORDS SUMMARY | 2024-04-13 15:08 | XMS_ITS | Clinical Summary ---
Author Organization [employer] Address [address] [facility] 7t [place] [address] Care Team Providers Care Sorter Upholstery Parts Name Role Phone Gail Stephens NP Primary Care Provider [phone] Allergies No known active allergies Medications cetirizine [...] 03/03/2024 Overview (03/03/2024): [place] [facility] [place] overlapping multiple quadrants of right maryjane [...] Type Department Care Team Description 04/05/2024 Telephone [facility] [address] [place] [address] Gail Stephens NP Chart Prep 04/01/2024 11:15 AM EST Office Visit [address] [address] Denise Aguirre CNP Pain in both knees, unspecified chronicity (Primary Dx); Soft tissue infection 03/31/2024 Telephone [facility] [address] [place] [address] Gail Stephens NP Chart Prep 03/29/[address] [address] Gail Stephens NP ER Follow-up 03/03/[address] [address] Gail Stephens NP recall april follow up 02/29/2024 Orders Only GENERIC EXTERNAL DATA DEPARTMENT Provider, Generic External Data 02/20/2024 Refill [facility] [address] [place] [address] Gail Stephens NP 02/03/2024 Telephone [facility] [address] [place] [address] Elizabeth Delgado RN Results 01/19/2024 5:40 PM EST Office Visit [facility] [address] [place] [address] Lorena Man MD Breast abscess (Primary Dx); Mass overlapping multiple quadrants of right breast 01/19/2024 Travel 01/19/2024 Telephone [facility] [address] [place] [address] Gail Stephens NP Nurse Triage from Last [...] with others, in a hotel, in a fdc, living outside on the street, on a [...] Description 04/15/2024 10:00 AM EST Office Visit [facility] [address] [place] [address] Denise Aguirre CNP [address] [place] [address] 05/23/2024 2:30 PM EDT Office Visit [facility] [address] [place] [address] Gail Stephens NP [address] [place] [address] Health Maintenance Due Date Last Done Comments [...] PM EST) 03/27/2024 3:02 PM EST Narrative [facility] - 03/27/2024 3:03 PM EST ? [facility] ?[address] ?[place] [address] ? Ultrasound Report ? Signed ? Patient: Anne Ochoa ?MR#: ?? [id number] ? : 2000 ?Acct:[id number] ? Age/Sex: 23 / F ?ADM Date: 03/27/24 ? Loc: HO.ED ? Attending Dr: ? Ordering Physician: Tima Gillespie ?? Date of Service: 03/27/24 ?? Procedure(s): US venous duplex LE BI ?? Accession Number(s): [id number] ? cc: iTma Gillespie; [facility] ? CLINICAL HISTORY: Bilateral calf pain. ??DVT? [...] DD/ 1502 ? TD/TT: 03/27/24 1502 ? Continuity Coordinator: ? Procedure Note Emily Madison - 03/27/[address] [address] Ultrasound Report Signed Patient: Anne Ochoa [facility]#: [id number] : 2000Acct:[id number] Age/Sex: 23 / FADM Date: 03/27/24 Loc: HO.ED Attending Dr: Ordering Physician: Tima Gillespie Date of Service: 03/27/24 Procedure(s): US venous duplex LE BI Accession Number(s): [id number] cc: Tima Gillespie; [facility] CLINICAL HISTORY: Bilateral calf pain. DVT? Venous [...] 03/27/24 1503 DD/ 1502 TD/TT: 03/27/24 1502 Continuity Coordinator: [facility] External Provider CV VASC ULAR PROCEDURES Edited Result - Final [facility] [address] [place] [address] * (ABNORMAL) CBC auto differential (03/27/2024 1:46 PM EST) Only the most recent of3 resultswithin the time period is included. White Blood Count 10.2 4.8 - 10.8 X10*3/uL [facility] Red Blood Count 4.46 4.20 - 5.50 X10*6/uL [facility] Hemoglobin 13.1 12.0 - 16.0 g/dl [facility] Hematocrit 37.3 37.0 - 47.0 % [facility] Mean Corpuscular Volume 83.6 80.0 - 98.0 fL [facility] Mean Corpuscular Hemoglobin 29.4 27.0 - 33.0 pg [facility] Mean Corpuscular HGB Conc 35.1(H) 31.0 - 35.0 g/dl [facility] Red Cell Distribution Width 12.5 11.0 - 16.0 % [facility] Platelet Count 310 160 - 400 X10*3/uL [facility] Mean Platelet Volume 9.1(L) 9.4 - 12.3 fL [facility] Neutrophils Percent Auto 69.2 45 - 73 % [facility] Imm Gran Pct Auto 0.2 0.0 - 0.4 % [facility] Lymphocytes Percent Auto 23.8 20 - 40 % [facility] Monocytes Percent Auto 5.6 2 - 11 % [facility] Eosinophils Percent Auto 1.0 0 - 4 % [facility] Basophils Percent Auto 0.2 0 - 2 % [facility] NRBC Pct Auto 0.0 0.0 - 0.2 /100WBC [facility] Neutrophils Absolute Auto 7.1 2.0 - 8.3 x10*3/uL [facility] Imm Gran Abs Auto 0.02 0.00 - 0.03 X10*3/uL [facility] Lymphocytes Absolute Auto 2.4 1.2 - 4.9 X10*3/uL [facility] Monocytes Absolute Auto 0.6 0.1 - 1.2 X10*3/uL [facility] Eosinophils Absolute Auto 0.1 0.0 - 0.4 X10*3/uL [facility] Basophils Absolute Auto 0.0 0.0 - 0.2 X10*3/uL [facility] NRBC Abs Auto 0.000 0.0 - 0.012 X10*3/uL [facility] 03/27/2024 1:46 PM EST 03/27/2024 1:49 PM EST us Generic External Data Provider LAB BLOOD ORDERAB LES Final Result [facility] [address] [place] [phone] * Partial Thromboplastin Time, Activated (APTT) (03/27/2024 1:46 PM EST) Partial Thromboplastin Time 34.7 26.0 - 36.8 SEC [facility] Comment:For information rega rding the monitoring of direct thrombininhibitors, please refer to Pharmacy. 03/27/2024 1:46 PM EST 03/27/2024 1:49 PM EST Generic External Data Provider LAB BLOOD ORDERAB LES Final Result Performing Organization Address [facility] Co de Phone Number [facility] [address] [place] [phone] * (ABNORMAL) Prothrombin Time-INR (03/27/2024 1:46 PM EST) Prothrombin Time 13.4(H) 10.9 - 12.4 SEC [facility] INTERNATIONAL NORM RATIO 1.2(H) 0.9 - 1.1 [facility] Comment:INTERNATIONAL NORMAL IZED RATIO (INR) [...] ORDERAB LES Final Result Performing Organization Address [facility] Co de Phone Number [facility] [address] [place] [phone] * hCG, Total, Quantitative (03/27/2024 1:46 PM EST) HCG Quantitative <2 mIU/mL [facility] Comment:Weeks post LMP Appro ximate hCG(Last Menstrual Period) Range (mIU/ml)3 - 4 weeks 9 - 1304 - 5 weeks 75 - 2,6005 - 6 weeks 850 - 20,8006 - 7 weeks 4000 - 100,2007 - 12 weeks 11,500 - 289,55755 - 16 weeks 18,300 - 137,99533 - 29 weeks (2nd trimester) 1,400 - 53,14401 - 41 weeks (3rd trimester) 940 - [...] ORDERAB LES Final Result Performing Organization Address [facility] de Phone Number [facility] [address] [place] [phone] * B Type Natriuretic Peptide (BNP) (03/27/2024 1:46 PM EST) B Type Natriuretic Peptide <10 <100 pg/mL [facility] Comment:For those patients w ho are being treated with Natrecor(nesiritide, recombinant BNP), BNP testing should beperformed at least two hours post treatment in order toensure that only endogenous levels of BNP are detected. 03/27/2024 1:46 PM EST 03/27/2024 1:49 PM EST us Generic External Data Provider LAB BLOOD ORDERAB LES Final Result Performing Organization Address [facility] Co de Phone Number [facility] [address] [place] [phone] * Magnesium (03/27/2024 1:46 PM EST) Magnesium 2.0 1.6 - 2.6 mg/dL [facility] 03/27/2024 1:46 PM EST 03/27/2024 1:49 PM EST us Generic External Data Provider LAB BLOOD ORDERAB LES Final Result [facility] [address] [place] [address] [phone] * Creatine Kinase, Total (03/27/2024 1:46 PM EST) Pathologist [facility] Creatine Kinase Total 64 26 - 140 U/L [facility] 03/27/2024 1:46 PM EST 03/27/2024 1:49 PM EST us Generic External Data Provider LAB BLOOD ORDERAB LES Final Result Performing Organization Address [facility] Co de Phone Number [facility] [address] [place] [address] [phone] * (ABNORMAL) Comprehensive Metabolic Panel (03/27/2024 1:46 PM EST) Only the most recent of2 resultswithin the time period is included. Pathologist [facility] Sodium 140 135 - 145 mmol/L [facility] Potassium 3.7 3.3 - 5.1 mmol/L [facility] Chloride 107 96 - 108 mmol/L [facility] Carbon Dioxide 25 22 - 29 mmol/L [facility] Anion Gap 12 12 - 20 [facility] Urea Nitrogen (BUN) 11 9 - 16 mg/dL [facility] Creatinine, Serum 0.65 0.5 - 1.4 mg/dL [facility] Creatinine Clr Calc Pharmacy 731.9 [facility] Comment:Provided height and weight: 157.48 cm,786 kg.eGFR (calculated from the MDRD study equation) and eCrCl(calculated from the Cockcroft-Gault equation) are based ondifferent parameters and may not yield comparable results.If eCrCl result is absurd, please check patient'sheight/weight. Estimated Glomerular Filt Rate >60 [facility] Comment:Chronic Kidney Disea se: Estimated GFR < 60 mL/min/1.17f2Dcythe Kidney Disease: Estimated GFR < 15 mL/min/1.73m2 Glucose 92 60 - 115 mg/dL [facility] Calcium 9.4 8.4 - 10.2 mg/dL [facility] Bilirubin, Total 0.3 0.0 - 1.0 mg/dL [facility] Aspartate Amino Transferase 19 5 - 31 U/L [facility] Alanine Aminotransferase 21 0 - 31 U/L [facility] Total Protein 8.1(H) 6.5 - 8.0 g/dL [facility] Albumin Level 4.5 3.5 - 5.0 g/dL [facility] Alkaline Phosphatase 53 39 - 117 U/L [facility] 03/27/2024 1:46 PM EST 03/27/2024 1:49 PM EST us Generic External Data Provider LAB BLOOD ORDERAB LES Final Result Performing Organization Address City/State/[facility] Co de Phone Number [facility] [address] [place] [phone] * Gross and Microscopic Level 5 (02/29/2024 1:45 PM EST) 02/29/2024 1:45 PM EST 02/29/2024 3:00 PM EST Narrative [facility] - 03/03/2024 3:12 PM EST ----- ------- Name: Anne Ochoa ? Age/Sex: 23/F ? : 2000 Unit#: [id number] ?? Attend Dr: Leoncio Nunez MD ?Re02/29/24 ?Status: DEP SDC ? Location: HO.SSS ?Disch: ? ----- ------- SPEC : [id number] ? RECD: 02/29/24 ? STATUS: ??SOUT ? REQ NUM: [id number] ? AMRITA: 02/29/245744 ? SUBM DR: Leoncio Nunez MD ? [...] ? Age/Sex: 23/F ? : 2000 Unit#: [id number] ?? Attend Dr: Leoncio Nunez MD ?Re02/29/24 ?Status: DEP SDC ? Location: HO.SSS ?Disch: ? ----- ------- SPEC : [id number] ? RECD: 02/29/24-1500 ? STATUS: ??SOUT ? REQ NUM: [id number] ? AMRITA: 02/29/24-4506 ? SUBM DR: Leoncio Nunez MD ? ENTERED: ??02/29/24-9142 ?SP TYPE: Surgical ? OTHR DR: Gail Stephens ? ORDERED: ??Gross Micro L5 ? Copies To: ?? Leoncio Nunez MD ?? [facility] [place] [facility] ?? [address] ?? [place] [address] ?? [phone] ?? Gail Stephens ?? [address] ?? [place] [address] ?? [phone] ----- ------- Signed (signature on file) Rafal Guadarrama MD 03/03/24 151 ? ----- ------- ? END OF REPORT ? us Generic External Data Provider LAB BLOOD ORDERAB LES Final Result [facility] [address] [place] [address] [place] [phone] * HCG, Qualitative, Urine (02/29/2024 11:30 AM EST) Pathologist [facility] Urine NEGATIVE NEGATIVE [facility] Comment:This test was develo ped to detect early . Falsenegative results may occur after the 5th - 7th week ofpregnancy when using this test method. If clinicallyindicated, consider a serum hCG. 02/29/2024 11:3 0 AM EST 02/29/2024 11:33 AM EST us Generic External Data Provider LAB URINE ORDERAB LES Final Result Performing Organization Address [facility] Co de Phone Number [facility] [address] [place] [address] [phone] * Gram stain (02/29/2024 12:00 AM EST) 02/29/2024 02/29/2024 Comment:Breast Rt Narrative [facility] - 03/03/2024 9:33 AM EST RIGHT BREAST CULTURE Gram stain results: 4+ polys 4+ red blood cells 1+ Gram-positive rods RIGHT BREAST CULTURE Corynebacterium species Quant Org ID 1+ Susc N/A Susceptibility not routinely performed on this isolate. Specimen Source: Breast Right us Generic External Data Provider LAB MICROBIOLOGY - GENERAL ORDERABLES Final Result Performing Organization Address [facility] de Phone Number [facility] [address] [place] [address] [phone] * BI US Breast Limited Right (02/02/2024 8:45 AM EST) Anatomical Region Laterality Modality Breast Right Ultrasound 02/02/2024 8:45 AM EST Narrative 02/02/2024 9:32 AM EST ? [facility] ? [address] ?[place] [address] ? Ultrasound Report ? Signed ? Patient: Go Lange,Grace ?MR#: ?? [id number] ? : 2000 ?Acct:[id number] ? Age/Sex: 23 / F ?ADM Date: 12/10/24 ? Loc: HO.MAMMO ? Attending Dr: Lorena Man MD ? Ordering Physician: Lorena Man MD ?? Date of Service: 02/02/24 ?? Procedure(s): US breast RT limited mamm only ?? Accession Number(s): [id number] ? cc: Gail Stephens; Lorena Man MD [...] ??02/02/2024 09:29 AM EST ? Dictated By: ?Cinyd Gibson DO ? Signed By: ?<Electronically signed by Cindy Gibson, DO in OV> ? 02/02/24 0929 ? DD/ 0845 ? TD/TT: 02/02/24 0900 ? Continuity Coordinator: ? Procedure Note [place], Image - 02/02/2024 [facility] [address] [place] [address] Dr. [place], [place] [address] Ultrasound Report Signed Patient: Anne Ochoa [facility]#: [id number] : 2000Acct:[id number] Age/Sex: 23 / FADM Date: 02/02/24 Loc: PREM Attending Dr: Lorena Man MD Ordering Physician: Lorena Man MD Date of Service: 02/02/24 Procedure(s): US breast RT limited mamm only Accession Number(s): [id number] cc: Gail Stephens; Lorena Man MD EXAMINATION: [...] in OV> 02/02/24928 DD/ 4 TD/TT: 02/02/24899 Continuity Coordinator: us Lorena Man MD IMG US PROCEDURES Final Re sult * (ABNORMAL) Lipid Panel, Standard (10/28/2023 8:54 AM EDT) Triglycerides 90 <150 mg/dL [facility] Comment:Desirable Triglyceri de: less than 150 mg/dLBorderline High Triglyceride 150-199 mg/dLHigh Triglyceride: 200-499 mg/dLVery High Triglyceride: greater than or equal to 5OO mg/dL Cholesterol 158 <200 mg/dL [facility] Comment:Desirable Cholestero l: less than 200 mg/dLBorderline High Cholesterol: 200-239 mg/dLHigh Cholesterol: greater than 239 mg/dL LDL Cholesterol Calculated 107(H) <100 mg/dL [facility] Comment:Desirable LDL: less than 100 [...] NP LAB BLOOD ORDERABLES Final Resu lt [facility] [address] [place] [phone] * Pap Smear (02/06/2022 9:46 AM EST) 02/06/2022 9:46 AM EST 02/06/2022 3:45 PM EST Narrative [facility] - 02/21/2022 5:05 PM EST ----- ------- Name: Anne Ochoa ? Age/Sex: 21/F ? : 2000 Unit#: [id number] ?? Attend Dr: Elizabeth Dickinson CNM ?Re02/06/22 ?Status: DEP REF ? Location: HO.LNP ?Disch: ? ----- ------- SPEC : [id number] ?RECD: 02/06/22-1545 ? STATUS: ??SOUT ? REQ NUM: [id number] ? AMRITA: 02/06/22-0946 ? SUBM DR: Elizabeth [...] ----- ------- ? END OF REPORT ? [facility] External Provider LAB CYT OLOGY ORDERABLES Final Result [facility] [address] [place] [phone] * Hepatitis C Antibody (11/23/2020 3:28 PM EDT) [facility] Hepatitis C Antibody Nonreactive Nonreactive [facility] Comment: Antibodies to HCV not detected; does not exclude early acute HCV infection. HIV AB/AG Nonreactive Nonreactive [facility] Comment: HIV-1 p24 Ag and/or [...] detection of this assay. ?? The [employer] Sales Representative HIV Ag/Ab Combo assay result and supplemental assay results should be interpreted in conjunction with the patient's clinical presentation, history and other laboratory results. ??If the results are inconsistent with clinical evidence, additional testing is suggested to confirm the result. Hepatitis B Surface Antigen Negative Negative [facility] 11/23/2020 3:28 PM EDT [facility] [place] HISTORICAL/NON ORDERABLE LABS Fi nal Result Performing Organization Address [facility] de Phone Number [facility] [address] * CHLAMYDIA/N. GONORRHOEAE RNA, TMA, UROGENITAL (04/25/2020 3:36 PM EST) Chlamydia trachomatis RNA, TMA, Urogenital NOT DETECTED NOT DETECTED [facility] COMMENT SEE COMMENT [facility] Comment: The analytical performance characteristics of this assay, when used to test SurePath(TM) specimens have been determined by [employer]. The modifications have not been cleared or approved by the FDA. This assay has been validated pursuant to the CLIA regulations and is used for clinical purposes. ?? For additional information, please refer to https://education.Kil[employer]/faq/DBI849 (This link is being provided for information/ educational purposes only.) ?? Neisseria gonorrhoeae RNA, TMA, Urogenital NOT DETECTED NOT DETECTED [facility] 04/25/2020 3:36 PM EST Brinda Lizarraga NP HISTORICAL/NON ORDERABLE LABS F inal Result Performing Organization Address [facility] de Phone Number [facility] [address] from Last 3 Months or Most Recently Relevant to Health Maintenance Insurance [facility] C3 # 7 [place] [id number] # 7 [place] [id number] # 7 [place] [id number] Care Teams Sorter [employer]ol[employer] Relationship Specialty Start Date End Date Gail Stephens NP [address] [place] [address] PCP - General Family Medicine 01/12/23
--- OUTSIDE RECORDS SUMMARY | 2024-04-13 15:08 | XMS_ITS | Encounter Summary ---
Author Organization [employer] Address [address] [facility] 7t [place] [address] Care Team Providers Care Hanger Name Role Phone Gail Stephens NP Primary Care Provider [phone] Reason for Visit * Reason Onset Date Comments ER Follow-up 03/29/2024 Encounter Details Date Type Department Care Team ([facility] st Contact Info) Description 03/29/2024 Telephone [facility] [address] [place] [address] Gail Stephens NP [address] [place] [address] ER Follow-up Social History Tobacco Use Types [...] ED visit on : Date: 03/27/2024 Hospital: [facility] Seen for: Leg Pain Symptomatic Yes *if yes message should go to Triage Patient advised will forward to team nurse for follow up documented in this encounter Plan of Treatment Upcoming Encounters Date Type Department Care Team (Late st Contact Info) Description 04/15/2024 10:00 AM EST Office Visit [address] [address] Denise Aguirre CNP [address] [place] [address] 05/23/2024 2:30 PM EDT Office Visit [address] [address] Gail Stephens NP [address] [place] [address] documented as of this encounter Visit Diagnoses Not on filedocumented in this encounter Additional Health Concerns Assessment Noted Time PHQ-9 Depression Total Score: 0 10/02/19 24 1:26 PM EDT documented as of this encounter Care Teams Hanger Relationship Specialty Start Date End Date Gail Stephens NP [address] [place] [address] PCP - General Family Medicine 01/12/23 documented as of this encounter
[2024-04-13] MEDS: Lactated Ringers 1,000 ML 999 ML IV (15:11)
[2024-04-13] MEDS: ondansetron HCL 4 MG/2 ML VIAL IVPUSH ×2 (15:11→21:51)
[2024-04-13] MEDS: Piperacillin Sodium/Tazobactam 3.375 GM in 0.9 % Sodium Chloride 50 ML IV ×2 (15:12→20:48)
[2024-04-13] MEDS: Morphine Sulfate 4 MG/ML CARTRIDGE IVPUSH (15:12)
[2024-04-13] MEDS: Ketorolac Tromethamine 15 MG/ML VIAL IVPUSH (15:16)
[2024-04-13] MEDS: Lidocaine HCl 1 % MPF 5 ML VIAL SUBCUT (15:17)
[2024-04-13 15:27] LABS: HCG Quantitative < 2 mIU/mL
--- NOTE | 2024-04-13 15:42 | W.PM.OPN ---
Operative Note Operative Note Date of Service: 04/13/24 Narrative: Preoperative diagnosis: Right breast abscess Postoperative diagnosis:same Procedure:Incision and drainage right breast abscess Surgeon: Leoncio Nunez MD Regeneration Operator: none Anesthesia: local lidocaine 1% 5 mls Indications for procedure: abscess UIQ Operative findings: Bloody abscess Specimen: Wound culture Estimated blood loss: 2 mls Complications:none Procedure details: Site of surgery was confirmed by patient in the right breast. Skin was prepped with betadyne and draped in a sterile fashion. Local was infiltrated over the abscess. An 11 blade was used to incise the skin and enter the abscess cavity. Loculations were opened with a hemostat. A large abscess was drained. Wound culture was obtained. Wounds were packed with 1/4 inch Nugauze. Sterile dressings were applied. The patient tolerated the procedure well.
[2024-04-13] MEDS: Acetaminophen 1,000 MG/100 ML PIGGYBACK 400 MG IV ×2 (15:58→20:48)
[2024-04-13] MEDS: vancomycin/NS 2,000 MG/500 ML PLAST..BAG 250 MG IV (16:08)
[2024-04-13] MEDS: Dextrose 5 % and Lactated Ring 1,000 ML 80 ML IVCONT (16:30)
--- NOTE | 2024-04-13 17:02 | PHA.MEDREC ---
Addendum entered by Shaheed Lima RPh 04/13/24 18:20: Med rec was reviewed by [facility]. Original Note: Pharmacy Consult ? Medication Reconciliation Pharmacy has completed the medication reconciliation. Spoke to patient to confirm med list.
[2024-04-13] MEDS: Zolpidem Tartrate 5 MG TABLET PO (21:05)
[2024-04-13] MEDS: HYDROmorphone HCl 0.5 MG/0.5 ML SYRINGE IVPUSH (21:51)
[2024-04-14 03:01] VITALS: BP 111/65; PULSE 80; RESP 20; TEMP 36.8; O2SAT 97
[2024-04-14 03:03] VITALS: RESP 20
[2024-04-14] MEDS: Piperacillin Sodium/Tazobactam 3.375 GM in 0.9 % Sodium Chloride 50 ML IV ×4 (03:03→22:26)
[2024-04-14] MEDS: HYDROmorphone HCl 0.5 MG/0.5 ML SYRINGE IVPUSH ×4 (03:03→19:58)
[2024-04-14] MEDS: Acetaminophen 1,000 MG/100 ML PIGGYBACK 400 MG IV ×2 (03:03→08:01)
[2024-04-14 05:05] LABS: MANUAL DIFF FLAG NO
[2024-04-14 05:09] LABS: Basophils Percent Auto 0.1 % (0-2); Eosinophils Absolute Auto 0.2 X10*3/uL (0.0-0.4); Eosinophils Percent Auto 1.9 % (0-4); Hematocrit 31.3 % (37.0-47.0); Hemoglobin 10.7 g/dl (12.0-16.0); Imm Gran Abs Auto 0.05 X10*3/uL (0.00-0.03); Imm Gran Pct Auto 0.5 % (0.0-0.4); Lymphocytes Absolute Auto 2.8 X10*3/uL (1.2-4.9); Lymphocytes Percent Auto 26.1 % (20-40); Mean Corpuscular HGB Conc 34.2 g/dl (31.0-35.0); Mean Corpuscular Hemoglobin 29.2 pg (27.0-33.0); Mean Corpuscular Volume 85.5 fL (80.0-98.0); Mean Platelet Volume 9.1 fL (9.4-12.3); Monocytes Absolute Auto 0.7 X10*3/uL (0.1-1.2); Monocytes Percent Auto 6.7 % (2-11); Neutrophils Absolute Auto 7.1 x10*3/uL (2.0-8.3); Neutrophils Percent Auto 64.7 % (45-73); Platelet Count 274 X10*3/uL (160-400); Red Blood Count 3.66 X10*6/uL (4.20-5.50); Red Cell Distribution Width 12.2 % (11.0-16.0); White Blood Count 10.9 X10*3/uL (4.8-10.8)
[2024-04-14] MEDS: Dextrose 5 % and Lactated Ring 1,000 ML 80 ML IVCONT ×2 (06:24→21:58)
[2024-04-14] MEDS: ondansetron HCL 4 MG/2 ML VIAL IVPUSH ×3 (07:54→17:04)
[2024-04-14] MEDS: 0.9 % Sodium Chloride Flush 3 ML SYRINGE IVFLUSH (07:54)
--- NOTE | 2024-04-14 08:08 | P.PNGS_ITS ---
Subjective Subjective Date of Service: 04/14/24 Interval history: Patient reports breast pain and nausea. Dressings have been changed several times overnight Physical Exam 2 Vital Signs: Vital Signs: Last Vital Signs Temp 98.2 F 04/14/24 03:01 Pulse 80 04/14/24 03:01 Resp 20 04/14/24 03:03 BP 111/65 04/14/24 03:01 Pulse Ox 97 04/14/24 03:01 O2 Del Method Room Air 04/14/24 03:01 BMI result Body Mass Index 31.4 Const: General: no acute distress Nutritional Appearance: well nourished Orientation/consciousness: patient oriented x3 Chest: Other: Erythema much improved. Wick advanced. Small amount of purulence discharge noted. Skin: Other: Warm and dry, Neuro: General: patient oriented x3 Objective Data Active Medications Calcium Carbonate (Calcium Carbonate 750 Mg Tab.Chew) 750 mg PO Q4H PRN PRN Reason: Heartburn Hydromorphone HCl (Hydromorphone Hcl 0.5 Mg/0.5 Ml Syringe) 0.5 mg IVPUSH Q3H PRN; Protocol PRN Reason: Pain, Severe (Pain Scale 7-10) Last Admin: 04/14/24 07:53 Dose: 0.5 mg Documented By: WANDER Acetaminophen (Ofirmev) 1,000 mg in 100 mls @ 400 mls/hr IV Q6H [facility] Stop: 04/14/24 09:14 Last Admin: 04/14/24 08:01 Dose: 400 mls/hr Documented By: WANDER Dextrose/Lactated Ringer's (D5lr) 1,000 mls @ 80 mls/hr IVCONT .[id number] [facility] Last Admin: 04/14/24 06:24 Dose: 80 mls/hr Documented By: JOVANY Piperacillin Sod/Tazobactam (Sod 3.375 gm/ Sodium Chloride) 50 mls @ 100 mls/hr IV Q6H [facility] Last Infusion: 04/14/24 04:08 Dose: Infused Documented By: JOVANY Magnesium Hydroxide (Milk Of Magnesia 30 Ml Oral.Susp) 30 ml PO DAILY PRN PRN Reason: Constipation Ondansetron HCl (Ondansetron Hcl 4 Mg/2 Ml Vial) 4 mg IVPUSH QID PRN PRN Reason: Nausea Last Admin: 04/14/24 07:54 Dose: 4 mg Documented By: WANDER Oxycodone HCl (Oxycodone Hcl Immed Release 5 Mg Tablet) 5 mg PO Q6H PRN PRN Reason: Pain, Moderate(Pain Scale 4-6) Sodium Chloride (0.9 % Sodium Chloride Flush 3 Ml Syringe) 3 ml IVFLUSH QSHIFT [facility] Last Admin: 04/14/24 07:54 Dose: 3 ml Documented By: WANDER Zolpidem Tartrate (Zolpidem Tartrate 5 Mg Tablet) 5 mg PO BEDTIME PRN PRN Reason: Insomnia Last Admin: 04/13/24 21:05 Dose: 5 mg Documented By: TIM Labs 04/14/24 04:53 04/13/24 14:04 Labs: Laboratory Results - last 24 hr 04/13/24 04/14/24 14:04 04:53 MCV 84.0 85.5 MCH 29.2 29.2 MCHC 34.7 34.2 RDW 12.3 12.2 Plt Count 334 274 MPV 9.3 L 9.1 L Immature Gran % (Auto) 0.4 0.5 H Neut % (Auto) 71.5 64.7 Lymph % (Auto) 21.6 26.1 [place] % (Auto) 5.3 6.7 Eos % (Auto) 0.9 1.9 Baso % (Auto) 0.3 0.1 Lymph # (Auto) 2.4 2.8 [place] # (Auto) 0.6 0.7 Eos # (Auto) 0.1 0.2 Baso # (Auto) 0.0 0.0 Abs Immat Gran (auto) 0.04 H 0.05 H Absolute Neuts (auto) 8.0 7.1 Absolute Nucleated RBC 0.000 0.000 Nucleated RBC % (auto) 0.0 0.0 PT 12.9 H INR 1.1 Anion Gap 11 L Estim Creat Clear Calc 140.1 Estimated GFR > 60 Random Glucose 94 Lactic Acid 0.8 Calcium 9.6 Total Bilirubin 0.4 AST 26 ALT 28 Alkaline Phosphatase 58 Total Protein 8.5 H Albumin 4.6 Lipase 10 Beta HCG, Quant < 2 Influenza Type A (PCR) NEGATIVE Influenza Type B (PCR) NEGATIVE RSV RNA Qual (PCR) NEGATIVE SARS-CoV-2 RNA (RT-PCR) NEGATIVE Procedures Date of Service Date of Service: 04/14/24 Progress Note: A&P Assessment and plan (1) Abscess of breast: Status: Acute Plan Pod 1 status post incision and drainage right breast abscess. Wound cultures pending. Continue IV antibiotics. Overall wounds appear improved with decreased erythema. Continues to drain purulence discharge. Time Spent With Patient Time: Total time managing care of this patient today ____ minutes. Quality Stroke Does the patient have a stroke diagnosis?: No VTE Prior VTE?: No VTE Risk Level:: Surgical - low VTE Device Contraindication: N/A - Device Ordered VTE Drug Contraindication: Treatment Not Indicated
[2024-04-14] MEDS: oxyCODONE HCl Immed Release 5 MG TABLET PO ×2 (08:49→16:40)
[2024-04-14 09:06] VITALS: BP 120/77; PULSE 80; RESP 12; TEMP 36.9; O2SAT 97
--- NOTE | 2024-04-14 13:19 | MHC.CM.PN ---
Pt is functionally independent, She goes to [facility] for PCP, she said her provider is Alisia Flores, but was confused about the name. She is able to arrange transport home at DC. DCP: home, self care. CM to follow for DC needs.
[2024-04-14 13:42] VITALS: RESP 18
--- NOTE | 2024-04-14 17:28 | PC.NURSE ---
Pt becomes agitated and reports he is uncomfortable at this hospital and wishes to leave Pt dresses himself and requests to use a phone. Attending notified and Pt provided with phone. Pts family arrives and is able to convince Pt to remain inpatient. Attending to come speak with Pt.
[2024-04-14 20:09] VITALS: BP 126/77; PULSE 86; RESP 16; TEMP 37.1; O2SAT 97
--- NOTE | 2024-04-14 20:37 | PC.NURSE ---
dressing changed on R. breast. nonstick placed on incision, packing remains in place, drainage pack covered on breast.
--- NOTE | 2024-04-14 22:00 | PC.NURSE ---
pt reports pain relieved to 4/10 immediately after medicating previously but relief was short lasting. currently reports 7/10 pain of R. breast. as well as nausea. prns not due at this time. message sent to maranda GONZALES who stated will increase prn dilaudid to 1mg and can be administered at this time as well as compazine for nausea.
[2024-04-14] MEDS: Prochlorperazine Edisylate 10 MG/2 ML VIAL 5 MG IVPUSH (22:25)
[2024-04-14] MEDS: HYDROmorphone HCl 1 MG/ML SYRINGE IVPUSH (22:25)
[2024-04-15] VITALS (8 sets, daily range): BP systolic 105–177; BP diastolic 57–101; PULSE 80–115; RESP 16–24; TEMP 36.8–37.2; O2SAT 96–100; BMI 31.4
--- NOTE | 2024-04-15 | ECG_ITS ---
Test Reason : chest pain Blood Pressure : */* mmHG Vent. Rate : 97 BPM Atrial Rate : 97 BPM P-R Int : 128 ms QRS Dur : 78 ms QT Int : 352 ms P-R-T Axes : 47 63 -40 degrees QTcB Int : 447 ms Artifact in tracing Normal sinus rhythm Nonspecific ST and T wave abnormality Abnormal ECG No previous ECGs available Referred By: Bib Rouse Electronically Signed By: DAVE JOHNSON
[2024-04-15] MEDS: Piperacillin Sodium/Tazobactam 3.375 GM in 0.9 % Sodium Chloride 50 ML IV ×4 (04:09→20:54)
[2024-04-15] MEDS: oxyCODONE HCl Immed Release 5 MG TABLET PO (04:49)
[2024-04-15] MEDS: ondansetron HCL 4 MG/2 ML VIAL IVPUSH (04:49)
[2024-04-15] MEDS: HYDROmorphone HCl 1 MG/ML SYRINGE IVPUSH (08:41)
[2024-04-15] MEDS: Dextrose 5 % and Lactated Ring 1,000 ML 80 ML IVCONT ×2 (08:43→22:40)
--- NOTE | 2024-04-15 09:06 | PC.NURSE ---
Duplicate fluid orders, one ended by this RN. New bag started and documented.
--- NOTE | 2024-04-15 11:10 | P.PNGS_ITS ---
Subjective Subjective Date of Service: 04/15/24 Interval history: Continues to c/o breast pain and nausea. Physical Exam 2 Vital Signs: Vital Signs: Last Vital Signs Temp 98.6 F 04/15/24 09:45 Pulse 80 04/15/24 09:45 Resp 16 04/15/24 09:45 BP 133/78 04/15/24 09:45 Pulse Ox 98 04/15/24 09:45 O2 Del Method Room Air 04/15/24 09:45 BMI result Body Mass Index 31.4 Const: General: no acute distress and alert Orientation/consciousness: p atient oriented x3 Chest: Other: right breast I&D site with sanguineous drainage, moderate surrounding induration and residual erythema, remains very tender to palpation Skin: General skin exam: no rashes or lesions noted Neuro: General: patient oriented x3 and moves all extremities Objective Data Active Medications Calcium Carbonate (Calcium Carbonate 750 Mg Tab.Chew) 750 mg PO Q4H PRN PRN Reason: Heartburn Hydromorphone HCl (Hydromorphone Hcl 1 Mg/Ml Syringe) 1 mg IVPUSH Q3H PRN; Protocol PRN Reason: Pain, Severe (Pain Scale 7-10) Last Admin: 04/15/24 08:41 Dose: 1 mg Documented By: JESSE Piperacillin Sod/Tazobactam (Sod 3.375 gm/ Sodium Chloride) 50 mls @ 100 mls/hr IV Q6H [facility] Last Infusion: 04/15/24 08:42 Dose: Infused Documented By: JESSE Dextrose/Lactated Ringer's (D5lr) 1,000 mls @ 80 mls/hr IVCONT .[id number] [facility] Last Admin: 04/15/24 08:43 Dose: 80 mls/hr Documented By: JESSE Magnesium Hydroxide (Milk Of Magnesia 30 Ml Oral.Susp) 30 ml PO DAILY PRN PRN Reason: Constipation Ondansetron HCl (Ondansetron Hcl 4 Mg/2 Ml Vial) 4 mg IVPUSH QID PRN PRN Reason: Nausea Last Admin: 04/15/24 04:49 Dose: 4 mg Documented By: CELINE Oxycodone HCl (Oxycodone Hcl Immed Release 5 Mg Tablet) 5 mg PO Q6H PRN PRN Reason: Pain, Moderate(Pain Scale 4-6) Last Admin: 04/15/24 04:49 Dose: 5 mg Documented By: CELINE Sodium Chloride (0.9 % Sodium Chloride Flush 3 Ml Syringe) 3 ml IVFLUSH QSHIFT [facility] Last Admin: 04/15/24 07:37 Dose: Not Given Documented By: JESSE Non-Admin Reason: IV Running Zolpidem Tartrate (Zolpidem Tartrate 5 Mg Tablet) 5 mg PO BEDTIME PRN PRN Reason: Insomnia Last Admin: 04/13/24 21:05 Dose: 5 mg Documented By: TIM Labs 04/14/24 04:53 04/13/24 14:04 Microbiology Microbiology Results: Microbiology 04/13/24 18:45 Gram Stain - Final Breast Routine Culture - Final No growth after 2 days 04/13/24 14:04 Blood Culture - Preliminary Blood - Venous No growth after 24 hours. 04/13/24 14:04 Blood Culture - Preliminary Blood - Venous No growth after 24 hours. Procedures Date of Service Date of Service: 04/15/24 Progress Note: A&P Assessment and plan (1) Abscess of breast: Status: Acute Plan POD #2 status post incision and drainage right breast abscess. Wound cultures no growth. Continue IV antibiotics. Wounds continue to improve, recommend hot packs to abscess site to help with drainage, induration. Hopefully home tomorrow on oral abx. Time Spent With Patient Time: Total time managing care of this patient today ____ minutes. Quality Stroke Does the patient have a stroke diagnosis?: No VTE Prior VTE?: No VTE Risk Level:: Surgical - low VTE Device Contraindication: N/A - Device Ordered VTE Drug Contraindication: Treatment Not Indicated
[2024-04-15 15:17] LABS: Glucose, Whole Blood 107 mg/dL (60-115)
[2024-04-15] MEDS: 0.9 % Sodium Chloride Flush 3 ML SYRINGE IVFLUSH ×2 (15:55→21:06)
[2024-04-15] MEDS: LORazepam 1 MG TABLET PO (17:39)
[2024-04-15 22:12] LABS: Hematocrit 33.1 % (37.0-47.0); Hemoglobin 11.7 g/dl (12.0-16.0); Mean Corpuscular HGB Conc 35.3 g/dl (31.0-35.0); Mean Corpuscular Hemoglobin 29.5 pg (27.0-33.0); Mean Corpuscular Volume 83.4 fL (80.0-98.0); Mean Platelet Volume 8.9 fL (9.4-12.3); Platelet Count 336 X10*3/uL (160-400); Red Blood Count 3.97 X10*6/uL (4.20-5.50); Red Cell Distribution Width 12.2 % (11.0-16.0); White Blood Count 8.5 X10*3/uL (4.8-10.8)
[2024-04-15 22:26] LABS: Anion Gap 15 (12-20); Blood Urea Nitrogen 4 mg/dL (9-16); Carbon Dioxide 23 mmol/L (22-29); Chloride 106 mmol/L (96-108); Creatinine Clr Calc Pharmacy 106.9; Estimated Glomerular Filt Rate > 60; Glucose Random 114 mg/dL (60-115); Potassium 3.6 mmol/L (3.3-5.1); Sodium 140 mmol/L (135-145)
[2024-04-15 22:37] LABS: Troponin-I High Sensitivity < 2.7 ng/L (<3.5-17.0)
--- NOTE | 2024-04-16 02:46 | PC.NURSE ---
2140 on 04-15-24, patient noted to be weepy, stating to feel mid sternal chest pressure with no radiation to arms, jaw line, or back. Patient is POD #3 I/D to right breast abscess. (see MD notes for full details). Dressing C-D-I at this time, and patient clarified pain is mis chest, not breast site. vitals taken were 98.1-163-69-177/101, o2 sat 96%room air. patient with good color, slightly diaphoretic, pacing, anxious, feeling scared. Hospitalist on duty quickly alerted, RR called per MD, patient assisted into bed, reassurance provided, [place] AUT[employer] SCREEN PRINTER at bedside to help, also male visitor at bedside. Lab work, EKG, O2 applied, Trops drawn. Lung solares with no change, clear but dim to bases, patient denied dizziness or feeling lightheaded. patient noted to be able to relax, pain improved, vitals within 25 minutes, returned to WNL, HR 97-20-124/81 O2 sat level 99-100% with oxygen at 2 liters. monitored and checked frequently, patient back to baseline, calm, no complaints to pain, noted eating fruit approx., 2240. Patient felt she suffered a panic episode, and relieved all results were good. Will continue to monitor closely.
[2024-04-16] MEDS: Piperacillin Sodium/Tazobactam 3.375 GM in 0.9 % Sodium Chloride 50 ML IV ×2 (03:16→08:46)
[2024-04-16 03:37] VITALS: BP 125/73; PULSE 72; RESP 18; TEMP 36; O2SAT 98
[2024-04-16 07:08] VITALS: BP 106/63; PULSE 76; RESP 16; TEMP 37.7; O2SAT 98
[2024-04-16] MEDS: ondansetron HCL 4 MG/2 ML VIAL IVPUSH (08:46)
[2024-04-16 08:57] VITALS: O2SAT 97
--- NOTE | 2024-04-16 09:56 | P.PNGS_ITS ---
Subjective Subjective Date of Service: 04/16/24 Interval history: Feels better Less anxious No fever Much less pain on I&D site Physical Exam 2 Vital Signs: Vital Signs: Last Vital Signs Temp 99.8 F 04/16/24 07:08 Pulse 76 04/16/24 07:08 Resp 16 04/16/24 07:08 BP 106/63 04/16/24 07:08 Pulse Ox 97 04/16/24 08:57 O2 Del Method Room Air 04/16/24 08:57 O2 Flow Rate 2 04/16/24 07:08 BMI result Body Mass Index 31.4 Const: General: comfortable and no acute distress Chest: Other: Right breast - I&D sites clean, minimal residual induration, scanty discharge, no cellulitis Resp: Effort & Inspection: normal respiratory effort Cardio: Rate: regular rate GI: Palpation (GI): Soft to palpation Objective Data Active Medications Calcium Carbonate (Calcium Carbonate 750 Mg Tab.Chew) 750 mg PO Q4H PRN PRN Reason: Heartburn Hydromorphone HCl (Hydromorphone Hcl 1 Mg/Ml Syringe) 1 mg IVPUSH Q3H PRN; Protocol PRN Reason: Pain, Severe (Pain Scale 7-10) Last Admin: 04/15/24 08:41 Dose: 1 mg Documented By: JESSE Piperacillin Sod/Tazobactam (Sod 3.375 gm/ Sodium Chloride) 50 mls @ 100 mls/hr IV Q6H [facility] Last Infusion: 04/16/24 09:54 Dose: Infused Documented By: DOROTHY Dextrose/Lactated Ringer's (D5lr) 1,000 mls @ 80 mls/hr IVCONT .[id number] [facility] Last Admin: 04/15/24 22:40 Dose: 80 mls/hr Documented By: NOELLE Lorazepam (Lorazepam 1 Mg Tablet) 1 mg PO Q6H PRN PRN Reason: Anxiety Last Admin: 04/15/24 17:39 Dose: 1 mg Documented By: WALI Magnesium Hydroxide (Milk Of Magnesia 30 Ml Oral.Susp) 30 ml PO DAILY PRN PRN Reason: Constipation Ondansetron HCl (Ondansetron Hcl 4 Mg/2 Ml Vial) 4 mg IVPUSH QID PRN PRN Reason: Nausea Last Admin: 04/16/24 08:46 Dose: 4 mg Documented By: DOROTHY Oxycodone HCl (Oxycodone Hcl Immed Release 5 Mg Tablet) 5 mg PO Q6H PRN PRN Reason: Pain, Moderate(Pain Scale 4-6) Last Admin: 04/15/24 04:49 Dose: 5 mg Documented By: CELINE Sodium Chloride (0.9 % Sodium Chloride Flush 3 Ml Syringe) 3 ml IVFLUSH QSHIFT [facility] Last Admin: 04/16/24 08:47 Dose: Not Given Documented By: DOROTHY Non-Admin Reason: IV Running Zolpidem Tartrate (Zolpidem Tartrate 5 Mg Tablet) 5 mg PO BEDTIME PRN PRN Reason: Insomnia Last Admin: 04/13/24 21:05 Dose: 5 mg Documented By: TIM Labs 04/15/24 22:04 04/15/24 22:04 Labs: Laboratory Results - last 24 hr 04/15/24 04/15/24 15:13 22:04 MCV 83.4 MCH 29.5 MCHC 35.3 H RDW 12.2 Plt Count 336 MPV 8.9 L Absolute Nucleated RBC 0.000 Nucleated RBC % (auto) 0.0 Anion Gap 15 Estim Creat Clear Calc 106.9 Estimated GFR > 60 POC Glucose 107 Random Glucose 114 Calcium 10.0 Hold Yellow Top See Note Microbiology Microbiology Results: Microbiology 04/13/24 14:04 Blood Culture - Preliminary Blood - Venous No growth after 48 hours. 04/13/24 14:04 Blood Culture - Preliminary Blood - Venous No growth after 48 hours. 04/13/24 18:45 Gram Stain - Final Breast Routine Culture - Final No growth after 2 days Procedures Date of Service Date of Service: 04/16/24 Progress Note: A&P Assessment and plan (1) Abscess of breast: Status: Acute Assessment and Plan: Status post I&D Doing well Pain much improved I changed her dressing I instructed her on good wound care with daily dry dressings She is going home on oral antibiotics She is to follow up with Dr. Nunez Instructions reinforced with patient Time Spent With Patient Time: Total time managing care of this patient today ____ minutes. Quality Stroke Does the patient have a stroke diagnosis?: No VTE Prior VTE?: No VTE Risk Level:: Surgical - low VTE Device Contraindication: N/A - Device Ordered VTE Drug Contraindication: Treatment Not Indicated
--- NOTE | 2024-04-16 10:16 | MHC.CM.PN ---
PT TO DC HOME TODAY WITH NO SERVICES VIA PRIVATE TRANSPORT
--- NOTE | 2024-04-16 11:02 | PM.DS ---
DS: Providers Provider Date of Service: 04/16/24 Date of admission: 04/13/24 15:01 Date of discharge: 04/16/24 Primary care physician: Niki Muniz MD Attending physician on admission: Leoncio Nunez Attending physician on discharge: Harry Jim DS: Diagnosis Discharge Diagnosis (1) Abscess of breast: Status: Acute DS: Summary Hospital Course Hospital Course: HPI AT ADMISSION: Anne Lange is a 23 year old female presenting with a painful right breast. She was previously noted to have a lump in the right upper inner quadrant and subsequently underwent an excisional biopsy. Intraoperative findings were multiple purulent collections with surrounding inflammatory tissue. Subsequent pathology confirmed phlegmon with no atypia or malignancy. Postoperatively she continued to have pain and swelling in this location. She was treated with several courses of antibiotics without much relief. She presents now with increased pain, redness and swelling in the upper inner quadrant. HOSPITAL COURSE: She was admitted to the surgical service for further treatment of the recurrent abscess of the right breast the upper inner quadrant. She was started on IV antibiotics. I&D of the right breast abscess was performed at bedside and the I&D site was packed. She tolerated this well. Her packing was removed the next day. Her surrounding cellulitic changes slowly resolved. Her WBC count normalized. Wound cultures had no growth. On the day of discharge, she felt overall well and improved and had little pain. She was hemodynamically stable and afebrile. Her right breast had very little remaining induration, erythema and scant drainage. She was discharged to home on 04/16/24 in stable condition. She was to continue her course of oral doxycyline. She was instructed on wound care with daily dry dressings. She is to follow up in the office in 1 week. Status at Discharge Functional status at discharge: independent ambulation Time Attestation Discharge Coordination Time (in mins): 30 Quality: Safe Use of Opioids Does Pt have an Active Cancer Diagnosis on the Problem List?: No Quality: Stroke Does the patient have a stroke diagnosis?: No Physical Exam Vital Signs: Vital Signs: Last Vital Signs Temp 98.5 F 04/16/24 11:06 Pulse 76 04/16/24 07:08 Resp 16 04/16/24 07:08 BP 106/63 04/16/24 07:08 Pulse Ox 97 04/16/24 08:57 O2 Del Method Room Air 04/16/24 08:57 O2 Flow Rate 2 04/16/24 07:08 BMI result Body Mass Index 31.4 Const: General: comfortable, no acute distress and alert Orientation/consciousness: patient oriented x3 Chest: Other: right breast with very little residual induration, erythema, scant drainage Neuro: General: patient oriented x3 and moves all extremities Discharge Plan Discharge Anticipated Discharge Date/Time: 04/16/24 09:57 Patient Disposition: Home, Self-Care Discharge Diagnosis: Right breast abscess Referrals: Niki Muniz MD [Primary Care Provider] - 1 Week Leoncio Nunez MD [Physician] - 1 Week Discharge Medications: New ondansetron HCl 4 mg tablet 4 mg PO Q8H PRN (Reason: nausea) Qty: 10 0RF Continued cetirizine 5 mg tablet 10 mg PO DAILY PRN (Reason: Allergy Symptoms) ibuprofen 800 mg tablet 800 mg PO TID Mirena 20 mcg/24 hours (8 yrs) 52 mg intrauterine device intrauterine doxycycline hyclate 100 mg tablet 100 mg PO BID Qty: 20 0RF Rx Instructions: End date 04/22/24 Discharge Orders: Discharge Order (Routine); Ordered 04/16/24 Ordered By: Harry Jim Diet: Advance to usual diet Activity on Discharge: No heavy lifting Stand Alone Forms: Patient Portal Discharge page Print Language: Kiswahili Activity Restrictions/Additional Instructions: Dry dressings daily with gauze Call Dr. Nunez for a follow-up in 1-2 weeks Care Plan Goals: Returned to baseline Health Concerns: Recent breast abscess Plan of Treatment: Wound care Oral antibiotics Assessment: Doing well Discharge Date/Time: 04/16/24 12:23
[2024-04-16 11:06] VITALS: TEMP 36.9
== END 2024-04-16 12:23 | disposition home or self-care (01) | DRG 721 ==
LOC: HO.ED 15:04 → HO.EDOVER 15:15 → HO.S3 04-15 09:02
PROVIDERS: Physician Assistant; Student in an Organized Health Care Education/Training Program; Admitting Provider Surgery; Emergency Provider Emergency Medicine; PCP Internal Medicine; Visit Provider Surgery
DX: T81.42XA Infection following a procedure, deep incisional surgical site, initial encounter (principal); N61.1 Abscess of the breast and nipple; Z20.822 Contact with and (suspected) exposure to COVID-19; Z79.899 Other long term (current) drug therapy
CPT/HCPCS: 0241U; 36415; 80048; 80053; 82947; 83605; 83690; 84484; 84702; 85025; 85027; 85610; 87040; 87070; 87205; 93005; 99285; J0131; J0737; J1171; J1885; J2003; J2270; J2405; J2543; J3370; J7120

== ENCOUNTER → 2024-04-13 15:00 | Outpatient (BNV) | payer MEDICAID, SELFPAY | PROVIDERS: Emergency Provider Emergency Medicine; Visit Provider Surgery | DX: T81.41XA Infection following a procedure, superficial incisional surgical site, initial encounter (principal); N61.1 Abscess of the breast and nipple | CPT/HCPCS: 10060; 99024 ==

== ENCOUNTER 2024-04-13 15:01 | Outpatient (BNV) | payer MEDICAID, SELFPAY | END 2024-04-15 21:40 | PROVIDERS: Admitting Provider Surgery; Emergency Provider Emergency Medicine; PCP Internal Medicine; Visit Provider Internal Medicine | DX: R94.31 Abnormal electrocardiogram [ECG] [EKG] (principal); R07.9 Chest pain, unspecified | CPT/HCPCS: 93010 ==

== ENCOUNTER 2024-04-26 13:20 | Outpatient (AMB) | payer MEDICAID, SELFPAY ==
--- NOTE | 2024-04-26 13:42 | A.OFFVIS_ITS ---
Vital Signs 3 04/26/24 13:44 Height 5 ft Weight 166 lb 7.184 oz BMI 32.5 BP 110/62 Blood Pressure Location Lt brachial Position Sitting Intake Visit Reasons: 2 wks f/up post right breast lumpectomy Intake Note: Patient is seen in office for 2 weeks follow up visit, post right breast lumpectomy. Pt c/o:has one more day of antbx, continued discharge from 2 openings, since taking antbx has vaginal itching, denies redness Provider Relations Consultant Required: No Accompanied by: Other Relationship Allergies No Known Allergies [No Known Allergies*] Allergy (Verified 04/28/24 13:01) HPI Comments Details: 23-year-old female patient returning following incision and drainage of a large breast abscess in the upper inner quadrant of the right breast, recently hospitalized for an abscess which required incision and drainage in the emergency department. She currently feels much improved and has completed her antibiotics. She does not report any breast pain at this time. She does have some discharge from the I&D sites. [facility] Medical History Hx of iron deficiency anemia Surgical History History of lumpectomy of right breast (02/29/24) No pertinent past surgical history Family History Mother Hypertension Maternal Grandfather Colon cancer Maternal Aunt Hx of breast cancer Social History Household Members: Family and Children Both parents involved: Yes Caregiver staying overnight: No Housing: Apartment Are you a primary physician assistant primary care to a significant other at home: No Do you presently have visiting nurse or other home services: No 75 years or older and lives alone: No Alcohol intake: current Alcohol intake frequency: holidays/special occasions only Comment: Patient felt dizzy on previous shift Patient Tobacco Use Status: Never used Tobacco Special abbey needs: No Agree to transfusion: Yes service: No Female Reproductive History Menstrual Age of Menarche: 11 Physical Exam Vital Signs: Last Vital Signs BP 110/62 04/26/24 13:44 BMI result Body Mass Index 32.5 Const General: in distress Nutritional Appearance: well nourished Orientation/consciousness: patient oriented x3 Chest Other: Right breast with an area of swelling in the upper inner quadrant, minimally tender to palpation. No fluctuance is noted. There is an open incision in the areola as well which is draining bloody fluid. Chest/axillae images: 2 1. Skin Other: Right breast as noted above Neuro General: patient oriented x3 Extrem Other: No edema Assessment & Plan Assessment & Plan (1) Vaginal yeast infection: Code(s): B37.31 - Acute candidiasis of vulva and vagina Category: Medical (2) Mastitis of right breast unrelated to of : Code(s): N61.0 - Mastitis without abscess Category: Medical Plan I recommended excision of the large mass located in the upper inner quadrant of the right breast because of the repeated infections associated with this location. The patient is in agreement and wishes to proceed with the surgery as soon as possible. I reviewed the procedure, risks and alternatives, and she consents to the surgery. She will be given a dose of Diflucan for the vaginal yeast infection. Medications: New 2 fluconazole (Diflucan) 200 mg PO ONCE 1 tab 0RF B37.31 - Acute candidiasis of vulva and vagina ibuprofen 800 mg PO TID 20 tabs 0RF Coding Level of Care Code Est Pt Level 3 (39109) Diagnoses Vaginal yeast infection B37.31 Mastitis of right breast unrelated to of N61.0
[2024-04-26 13:44] VITALS: BP 110/62; BMI 32.5
--- OUTSIDE RECORDS SUMMARY | 2024-04-26 16:41 | XMS_ITS | Encounter Summary ---
Author Organization [facility] Address [address] [place] [address] Care Team Providers Care Rubber Covering Machine Operator Name Role Phone Gail Stephens NP Primary Care Provider [phone] Reason for Visit * Reason Onset Date Comments Chart Prep 04/05/2024 Encounter Details Date Type Department Care Team ([facility] st Contact Info) Description 04/05/2024 Telephone [facility] [address] [place] [address] Gail Stephens NP [address] [place] [address] Chart Prep Social History Tobacco Use Types [...] Care Team (Late st Contact Info) Description 05/06/2024 2:00 PM EDT Office Visit [facility] [address] [place] [address] [phone] Gail Stephens NP [address] [place] [address] 05/23/2024 2:30 PM EDT Office Visit [facility] [address] [place] [address] Gail Stephens NP [address] [place] [address] documented as of this encounter Visit Diagnoses Not on filedocumented in this encounter Additional Health Concerns Assessment Noted Time PHQ-9 Depression Total Score: 0 10/02/19 24 1:26 PM EDT documented as of this encounter Care Teams Rubber Covering Machine Operator Relationship Specialty Start Date End Date Gail Stephens NP [address] [place] [address] PCP - General Family Medicine 01/12/23 documented as of this encounter
--- OUTSIDE RECORDS SUMMARY | 2024-04-26 16:41 | XMS_ITS | Encounter Summary ---
Author Organization [employer] Address [address] [facility] 7t [place] [address] Care Team Providers Care Partition Assembler Name Role Phone Gail Stephens NP Primary Care Provider [phone] Reason for Visit * Reason Onset Date Comments Med Refill 11/24/2023 Encounter Details Date Type Department Care Team (Late st Contact Info) Description 11/24/2023 Refill [facility] [address] [place] [address] Gail Stephens NP [address] [place] [address] Social History Tobacco Use Types Packs/Day Years [...] Description 05/06/2024 2:00 PM EDT Office Visit [facility] [address] [place] [address] Gail Stephens NP [address] [place] [address] 05/23/2024 2:30 PM EDT Office Visit [facility] [address] [place] [address] Gail Stephens NP [address] [place] [address] documented as of this encounter Visit Diagnoses Not on filedocumented in this encounter Additional Health Concerns Assessment Noted Time PHQ-9 Depression Total Score: 0 10/02/19 24 1:26 PM EDT documented as of this encounter Care Teams Partition Assembler Relationship Specialty Start Date End Date Gail Stephens NP [address] [place] [address] PCP - General Family Medicine 01/12/23 documented as of this encounter
--- OUTSIDE RECORDS SUMMARY | 2024-04-26 16:41 | XMS_ITS | Encounter Summary ---
Author Organization [employer] Address [address] [facility] 7t [place] [address] Care Team Providers Care Hearing Aid Assistant Name Role Phone Gail Stephens NP Primary Care Provider [phone] Reason for Visit * Reason Onset Date Comments Med Refill 04/18/2024 Encounter Details Date Type Department Care Team (Late st Contact Info) Description 04/18/2024 Refill [facility] [address] [place] [address] Denise Aguirre CNP [address] [place] [address] Pain in both knees, unspecified chronicity Social History Tobacco Use Types Packs/Day Years [...] Description 05/06/2024 2:00 PM EDT Office Visit [facility] [address] [place] [address] Gail Stephens NP [address] [place] [address] 05/23/2024 2:30 PM EDT Office Visit [facility] [address] [place] [address] Gail Stephens NP [address] [place] [address] documented as of this encounter Visit Diagnoses Diagnosis Pain in both knees, unspecified chronicity documented in this encounter Additional Health Concerns Assessment Noted Time PHQ-9 Depression Total Score: 0 10/02/19 24 1:26 PM EDT documented as of this encounter Care Teams Hearing Aid Assistant Relationship Specialty Start Date End Date Gail Stephens NP [address] [place] [address] PCP - General Family Medicine 01/12/23 documented as of this encounter
--- OUTSIDE RECORDS SUMMARY | 2024-04-26 16:41 | XMS_ITS | Encounter Summary ---
Author Organization [employer] Address [address] [facility] 7t [place] [address] Care Team Providers Care Nailhead Setter Name Role Phone Gail Stephens NP Primary Care Provider [phone] Reason for Visit * Reason Onset Date Comments No Show 04/15/2024 Encounter Details Date Type Department Care Team ([facility] st Contact Info) Description 04/15/2024 Telephone [facility] [address] [place] [address] Gail Stephens NP [address] [place] [address] No Show Social History Tobacco Use Types Packs/Day Years [...] with others, in a hotel, in a usp, living outside on the street, on a [...] encounter Miscellaneous Notes * Telephone Encounter - Aaliyah Segundo - 04/15/2024 10:34 AM EST Patient no show to FOLLOW UP appointment on 04/15/24. documented in this encounter Plan of Treatment Upcoming Encounters Date Type Department Care Team (Late st Contact Info) Description 05/06/2024 2:00 PM EDT Office Visit [facility] [address] [place] [address] Gail Stephens NP [address] [place] [address] 05/23/2024 2:30 PM EDT Office Visit [facility] [address] [place] [address] Gail Stephens NP [address] [place] [address] documented as of this encounter Visit Diagnoses Not on filedocumented in this encounter Additional Health Concerns Assessment Noted Time PHQ-9 Depression Total Score: 0 10/02/19 24 1:26 PM EDT documented as of this encounter Care Teams Nailhead Setter Relationship Specialty Start Date End Date Gail Stephens NP [address] [place] [address] PCP - General Family Medicine 01/12/23 documented as of this encounter
--- OUTSIDE RECORDS SUMMARY | 2024-04-26 16:41 | XMS_ITS | Encounter Summary ---
Author Organization [employer] Address [address] [facility] 7t [place] [address] Care Team Providers Care Assistant Chief Of Police Name Role Phone Gail Stephens NP Primary Care Provider [phone] Reason for Visit * Reason Onset Date Comments Chart Prep 03/31/2024 Encounter Details Date Type Department Care Team ([facility] st Contact Info) Description 03/31/2024 Telephone [facility] [address] [place] [address] Gail Stephens NP [address] [place] [address] Chart Prep Social History Tobacco Use Types [...] with others, in a hotel, in a care home, living outside on the street, on [...] Upcoming Encounters Date Type Department Care Team ([facility] st Contact Info) Description 05/06/2024 2:00 PM EDT Office Visit [facility] [address] [place] [address] Gail Stephens NP [address] [place] [address] 05/23/2024 2:30 PM EDT Office Visit [facility] [address] [place] [address] Gail Stephens NP [address] [place] [address] documented as of this encounter Visit Diagnoses Not on filedocumented in this encounter Additional Health Concerns Assessment Noted Time PHQ-9 Depression Total Score: 0 10/02/19 24 1:26 PM EDT documented as of this encounter Care Teams Assistant Chief Of Police Relationship Specialty Start Date End Date Gail Stephens NP [address] [place] [address] PCP - General Family Medicine 01/12/23 documented as of this encounter
--- OUTSIDE RECORDS SUMMARY | 2024-04-26 16:41 | XMS_ITS | Encounter Summary ---
Author Organization [employer] Address [address] [place] [address] 7t [place] [address] Care Team Providers Care Credit Support Counselor Name Role Phone Gail Stephens NP Primary Care Provider [phone] Reason for Visit * Reason Comments Sick Onsite bilateral leg pain n egative finding in ED 03/27/24 pain is 09/01 Encounter Details Date Type Department Care Team (Late st Contact Info) Description 04/01/2024 11:15 AM EST Office Visit [facility] [address] [place] [address] Denise Aguirre CNP [address] [place] [address] Pain in both knees, unspecified chronicity (Primary [...] with others, in a hotel, in a chcf, living outside on the street, on a [...] She is s/p lumpectomy, completed 02/29/2024 at [facility] General Surgery. Last f/u with general [...] is reporting chills. HPI Pt presented to [facility] ED on 03/27/24 for bilateral calf [...] Medications sulfamethoxazole-trimethoprim (Bactrim DS) 800-160 MG tablet [facility] SNOW PLOW OPERATOR Attestation SNOW PLOW OPERATOR Resident Attestation: Patient was seen and evaluated by Denise Aguirre SNOW PLOW OPERATOR, in collaboration with Barry Richardson MD who has reviewed my assessment and plan. I, Barry Richardson MD , have reviewed the resident's note and agree with the assessment & plan of care as documented above. Visit Conducted in: Serbian Translation by: Provided by [facility] staff member Milly Robles MA , documented [...] Description 05/06/2024 2:00 PM EDT Office Visit [facility]INE [address] [place] [address] Gail Stephens NP [address] [place] [address] 05/23/2024 2:30 PM EDT Office Visit [facility] [address] [place] [address] Gail Stephens NP [address] [place] [address] documented as of this encounter Visit Diagnoses Diagnosis Pain in both knees, unspecified chronicity- Primary Soft tissue infection Unspecified infectious and parasitic diseases documented in this encounter Additional Health Concerns Assessment Noted Time PHQ-9 Depression Total Score: 0 10/02/19 24 1:26 PM EDT documented as of this encounter Care Teams Credit Support Counselor Relationship Specialty Start Date End Date Gail Stephens NP [address] [place] [address] PCP - General Family Medicine 01/12/23 documented as of this encounter
--- OUTSIDE RECORDS SUMMARY | 2024-04-26 16:41 | XMS_ITS | Encounter Summary ---
Author Organization [employer] Address [address] [facility] 7t [place] [address] Care Team Providers Care Personal Chef Name Role Phone Gail Stephens NP Primary Care Provider [phone] Reason for Visit * Reason Comments Transition Of Care (Tcm) HDF scheduled. Encounter Details Date Type Department Care Team (Late st Contact Info) Description 04/18/2024 Patient Outreach [facility] [address] [place] [address] Gail Stephens NP [address] [place] [address] Transition Of Care (Tcm) (HDF scheduled. ) Social History Tobacco Use Types Packs/Day Years [...] as of this encounter Miscellaneous Notes * Significant Event - Berenice Smith - 04/18/2024 2:01 PM EST 04/18/24 1333 Hospital Discharges and Admission for PCM Type of Visit Hospital Admission Date of Admission/Visit 04/13/24 Date of Discharge 04/16/24 Facility [facility] Diagnosis Right breast abcess Disposition Discharged Home Follow-Up Actions Follow-Up Needed Provider appointment Follow-Up Outcome Spoke to Patient Initial Contact Date 04/18/24 EDWIN Read placed outbound call to patient for HDF outreach. Patient's name and were confirmed. Patient educated on the importance of follow up with provider following inpatient admission. Patient offered an HDF appt. Patient is agreeable to an appointment and has been scheduled for 05/06 at2:00pm with Dr. Stephens. Patient provided with education on contacting the Health Center with any questions or concerns prior to the scheduled appointment. Patient educated on extended clinic hours onMondays and Wednesdays, and Walk-In Urgent Care Located in [facility] of [facility]. Patient provided with after-hours line for [facility], , which offer night time triage service and option to transfer to disaster or damage control specialist provider if needed. CC scanned discharge summary into patient's chart.. Biggest concern for appointment at this time is no concerns. Appropriate screenings completed in anticipation of appointment. documented in this encounter Plan of Treatment Upcoming Encounters Date Type Department Care Team (Late st Contact Info) Description 05/06/2024 2:00 PM EDT Office Visit [facility] [address] [place] [address] Gail Stephens NP [address] [place] [address] 05/23/2024 2:30 PM EDT Office Visit [facility] [address] [place] [address] Gail Stephens NP [address] [place] [address] documented as of this encounter Visit Diagnoses Not on filedocumented in this encounter Additional Health Concerns Assessment Noted Time PHQ-9 Depression Total Score: 0 10/02/19 24 1:26 PM EDT documented as of this encounter Care Teams Personal Chef Relationship Specialty Start Date End Date Gail Stephens NP [address] [place] [address] PCP - General Family Medicine 01/12/23 documented as of this encounter
--- OUTSIDE RECORDS SUMMARY | 2024-04-26 16:41 | XMS_ITS | Encounter Summary ---
Author Organization [employer] Address [address] [facility] 7t [place] [address] Care Team Providers Care Global Mobility Specialist Name Role Phone Gail Stephens NP Primary Care Provider [phone] Reason for Visit * Reason Onset Date Comments ER Follow-up 03/29/2024 Encounter Details Date Type Department Care Team ([facility] st Contact Info) Description 03/29/2024 Telephone [facility] [address] [place] [address] Gail Stephens NP [address] [place] [address] ER Follow-up Social History Tobacco Use Types [...] with others, in a hotel, in a snf, living outside on the street, on a [...] ED visit on : Date: 03/27/2024 Hospital: [facility] Seen for: Leg Pain Symptomatic Yes *if yes message should go to Triage Patient advised will forward to team nurse for follow up documented in this encounter Plan of Treatment Upcoming Encounters Date Type Department Care Team (Late st Contact Info) Description 05/06/2024 2:00 PM EDT Office Visit [facility] [address] [place] [address] Gail Stephens NP [address] [place] [address] 05/23/2024 2:30 PM EDT Office Visit [facility] [address] [place] [address] Gail Stephens NP [address] [place] [address] documented as of this encounter Visit Diagnoses Not on filedocumented in this encounter Additional Health Concerns Assessment Noted Time PHQ-9 Depression Total Score: 0 10/02/19 24 1:26 PM EDT documented as of this encounter Care Teams Global Mobility Specialist Relationship Specialty Start Date End Date Gail Stephens NP [address] [place] [address] PCP - General Family Medicine 01/12/23 documented as of this encounter
--- OUTSIDE RECORDS SUMMARY | 2024-04-26 16:41 | XMS_ITS | Clinical Summary ---
Author Organization [employer] Address [address] [facility] 7[address] [place] [address] Care Team Providers Care Automatic Beam Warper Tender Name Role Phone Gail Stephens NP Primary Care Provider [phone] Allergies No known active allergies Medications cetirizine [...] 03/03/2024 Overview (03/03/2024): Procedure performed 02/29/2024 at [facility] Mass overlapping multiple quadrants of right maryjane [...] Encounters Date Type Department Care Team Description 04/18/[address] [facility] [address] [place] [phone] Denise Aguirre CNP Pain in both knees, unspecified chronicity 04/18/[address] [facility] [address] [place] [address] Gail tSephens NP Transition Of Care (Tcm) (HDF scheduled. ) 04/15/[address] [facility] [address] [place] [phone] Gail Stephens NP No Show 04/05/[address] [facility] [address] [place] [phone] Gail Stephens NP Chart Prep 04/01/2024 11:15 AM EST Office Visit [address] [address] Denise Aguirre, JIM Pain in both knees, unspecified chronicity (Primary Dx); Soft tissue infection 03/31/[address] [facility] [address] [place] [address] Gail Stephens NP Chart Prep 03/29/[address] [facility] [address] [place] [phone] Gail Stephens NP ER Follow-up 03/03/[address] [address] Gail Stephens NP recall april follow up 02/29/2024 Orders Only GENERIC EXTERNAL DATA DEPARTMENT Provider, Generic External Data 02/20/[address] [address] Gail Stephens NP 02/03/[address] [address] Elizabeth Delgado RN Results from Last 3 Months Immunizations Name Administration [...] with others, in a hotel, in a halfway, living outside on the street, on a [...] Description 05/06/2024 2:00 PM EDT Office Visit [facility] [address] [place] [address] Gail Stephens NP [address] [place] [address] 05/23/2024 2:30 PM EDT Office Visit [facility] [address] [place] [address] Gail Stephens NP [address] [place] [address] Health Maintenance Due Date Last Done Comments [...] PAP SMEAR Routine 02/06/2022 9:46 AM EST ZZZ HISTORICAL HEPATITIS C ANTIBODY Routine 11/23/2020 3:28 PM EDT KAUR HISTORICAL CHLAMYDIA/N. GONORRHOEAE RNA, TMA, UROGENITAL Routine 04/25/2020 3:36 PM EST from Last 3 Months or Most Recently Relevant to Health Maintenance Results * VASC US Lower Extremity Venous Duplex Bilateral (03/27/2024 3:02 PM EST) 03/27/2024 3:02 PM EST Narrative [facility] - 03/27/2024 3:03 PM EST ? [facility] ?[address] ?[place] [address] ? Ultrasound Report ? Signed ? Patient: Go TaylorAnne harris ?MR#: ?? [id number] ? : 2000 ?Acct:[id number] ? Age/Sex: 23 / F ?ADM Date: 03/27/24 ? Loc: HO.ED ? Attending Dr: ? Ordering Physician: Tima Gillespie ?? Date of Service: 03/27/24 ?? Procedure(s): US venous duplex LE BI ?? Accession Number(s): [id number] ? cc: Tiam Gillespie; [facility] ? CLINICAL HISTORY: Bilateral calf pain. ??DVT? [...] on ?? 03/27/2024 15:02:14 ? Dictated By: ?Margoth Martinez MD ? Signed By: ?<Electronically signed by Margoth Martinez MD in OV> ? 03/27/24 1503 ? DD/ 1502 ? TD/TT: 03/27/24 1502 ? Adjunct Professor Of Voice: ? Procedure Note Los, Emily - 03/27/2024 [id number] [place] [address] Ultrasound Report Signed Patient: Anne Ochoa [facility]#: [id number] : 2000Acct:[id number] Age/Sex: 23 / FADM Date: 03/27/24 Loc: HO.ED Attending Dr: Ordering Physician: Tima Gillespie Date of Service: 03/27/24 Procedure(s): US venous duplex LE BI Accession Number(s): [id number] cc: Tima Gillespie; [facility] CLINICAL HISTORY: Bilateral calf pain. DVT? Venous [...] 03/27/24 1503 DD/ 1502 TD/TT: 03/27/24 1502 Adjunct Professor Of Voice: [facility] External Provider CV VASC ULAR PROCEDURES Edited Result - Final [facility] [address] [place] [phone] * (ABNORMAL) CBC auto differential (03/27/2024 1:46 PM EST) Only the most recent of3 resultswithin the time period is included. White Blood Count 10.2 4.8 - 10.8 X10*3/uL [facility] Red Blood Count 4.46 4.20 - 5.50 X10*6/uL [facility] Hemoglobin 13.1 12.0 - 16.0 g/dl [facility] Hematocrit 37.3 37.0 - 47.0 % [facility] Mean Corpuscular Volume 83.6 80.0 - 98.0 fL [facility] Mean Corpuscular Hemoglobin 29.4 27.0 - 33.0 pg [facility] Mean Corpuscular HGB Conc 35.1(H) 31.0 - 35.0 g/dl [facility] Red Cell Distribution Width 12.5 11.0 - 16.0 % [facility] Platelet Count 310 160 - 400 X10*3/uL [facility] Mean Platelet Volume 9.1(L) 9.4 - 12.3 fL [facility] Neutrophils Percent Auto 69.2 45 - 73 % [facility] Imm Gran Pct Auto 0.2 0.0 - 0.4 % [facility] Lymphocytes Percent Auto 23.8 20 - 40 % [facility] Monocytes Percent Auto 5.6 2 - 11 % [facility] Eosinophils Percent Auto 1.0 0 - 4 % [facility] Basophils Percent Auto 0.2 0 - 2 % [facility] NRBC Pct Auto 0.0 0.0 - 0.2 /100WBC [facility] Neutrophils Absolute Auto 7.1 2.0 - 8.3 x10*3/uL [facility] Imm Gran Abs Auto 0.02 0.00 - 0.03 X10*3/uL [facility] Lymphocytes Absolute Auto 2.4 1.2 - 4.9 X10*3/uL [facility] Monocytes Absolute Auto 0.6 0.1 - 1.2 X10*3/uL [facility] Eosinophils Absolute Auto 0.1 0.0 - 0.4 X10*3/uL [facility] Basophils Absolute Auto 0.0 0.0 - 0.2 X10*3/uL [facility] NRBC Abs Auto 0.000 0.0 - 0.012 X10*3/uL [facility] 03/27/2024 1:46 PM EST 03/27/2024 1:49 PM EST us Generic External Data Provider LAB BLOOD ORDERAB LES Final Result [facility] [address] [place] [address] [phone] * Partial Thromboplastin Time, Activated (APTT) (03/27/2024 1:46 PM EST) Partial Thromboplastin Time 34.7 26.0 - 36.8 SEC [facility] Comment:For information rega rding the monitoring of direct thrombininhibitors, please refer to Pharmacy. 03/27/2024 1:46 PM EST 03/27/2024 1:49 PM EST Generic External Data Provider LAB BLOOD ORDERAB LES Final Result Performing Organization Address [facility]/ZIP Co de Phone Number [facility] [address] [place] [phone] * (ABNORMAL) Prothrombin Time-INR (03/27/2024 1:46 PM EST) Pathologist [facility] Prothrombin Time 13.4(H) 10.9 - 12.4 SEC [facility] INTERNATIONAL NORM RATIO 1.2(H) 0.9 - 1.1 [facility] Comment:INTERNATIONAL NORMAL IZED RATIO (INR) [...] 1:46 PM EST 03/27/2024 1:49 PM EST [employer] External Data Provider LAB BLOOD ORDERAB LES Final Result Performing Organization Address [facility]/ZIP Co de Phone Number [facility] [address] [place] [address] [phone] * hCG, Total, Quantitative (03/27/2024 1:46 PM EST) HCG Quantitative <2 mIU/mL [facility] Comment:Weeks post LMP Appro ximate hCG(Last Menstrual Period) Range (mIU/ml)3 - 4 weeks 9 - 1304 - 5 weeks 75 - 2,6005 - 6 weeks 850 - 20,8006 - 7 weeks 4000 - 100,2007 - 12 weeks 11,500 - 289,01232 - 16 weeks 18,300 - 137,78246 - 29 weeks (2nd trimester) 1,400 - 53,48739 - 41 weeks (3rd trimester) 940 - [...] ORDERAB LES Final Result Performing Organization Address [facility] de Phone Number [facility] [address] [place] [phone] * B Type Natriuretic Peptide (BNP) (03/27/2024 1:46 PM EST) B Type Natriuretic Peptide <10 <100 pg/mL [facility] Comment:For those patients w ho are being treated with Natrecor(nesiritide, recombinant BNP), BNP testing should beperformed at least two hours post treatment in order toensure that only endogenous levels of BNP are detected. 03/27/2024 1:46 PM EST 03/27/2024 1:49 PM EST Generic External Data Provider LAB BLOOD ORDERAB LES Final Result Performing Organization Address [facility] Co de Phone Number [facility] [address] [place] [phone] * Magnesium (03/27/2024 1:46 PM EST) Magnesium 2.0 1.6 - 2.6 mg/dL [facility] 03/27/2024 1:46 PM EST 03/27/2024 1:49 PM EST us Generic External Data Provider LAB BLOOD ORDERAB LES Final Result Performing Organization Address City/[facility]/ZIP Co de Phone Number [facility] [address] [place] [phone] * Creatine Kinase, Total (03/27/2024 1:46 PM EST) Creatine Kinase Total 64 26 - 140 U/L [facility] 03/27/2024 1:46 PM EST 03/27/2024 1:49 PM EST Generic External Data Provider LAB BLOOD ORDERAB LES Final Result Performing Organization Address [facility] de Phone Number [facility] [address] [place] [phone] * (ABNORMAL) Comprehensive Metabolic Panel (03/27/2024 1:46 PM EST) Only the most recent of2 resultswithin the time period is included. Sodium 140 135 - 145 mmol/L [facility] Potassium 3.7 3.3 - 5.1 mmol/L [facility] Chloride 107 96 - 108 mmol/L [facility] Carbon Dioxide 25 22 - 29 mmol/L [facility] Anion Gap 12 12 - 20 [facility] Urea Nitrogen (BUN) 11 9 - 16 mg/dL [facility] Creatinine, Serum 0.65 0.5 - 1.4 mg/dL [facility] Creatinine Clr Calc Pharmacy 731.9 [facility] Comment:Provided height and weight: 157.48 cm,786 kg.eGFR (calculated from the MDRD study equation) and eCrCl(calculated from the Cockcroft-Gault equation) are based ondifferent parameters and may not yield comparable results.If eCrCl result is absurd, please check patient'sheight/weight. Estimated Glomerular Filt Rate >60 [facility] Comment:Chronic Kidney Disea se: Estimated GFR < 60 mL/min/1.82h2Mfgpsn Kidney Disease: Estimated GFR < 15 mL/min/1.73m2 Glucose 92 60 - 115 mg/dL [facility] Calcium 9.4 8.4 - 10.2 mg/dL [facility] Bilirubin, Total 0.3 0.0 - 1.0 mg/dL [facility] Aspartate Amino Transferase 19 5 - 31 U/L [facility] Alanine Aminotransferase 21 0 - 31 U/L [facility] Total Protein 8.1(H) 6.5 - 8.0 g/dL [facility] Albumin Level 4.5 3.5 - 5.0 g/dL [facility] Alkaline Phosphatase 53 39 - 117 U/L [facility] 03/27/2024 1:46 PM EST 03/27/2024 1:49 PM EST us Generic External Data Provider LAB BLOOD ORDERAB LES Final Result Performing Organization Address City/State/[facility] Co de Phone Number [facility] [address] [place] [phone] * Gross and Microscopic Level 5 (02/29/2024 1:45 PM EST) 02/29/2024 1:45 PM EST 02/29/2024 3:00 PM EST Narrative [facility] - 03/03/2024 3:12 PM EST ----- ------- Name: Anne Ochoa ? Age/Sex: 23/F ? : 2000 Unit#: [id number] ?? Attend Dr: Leoncio Nunez MD ?Re02/29/24 ?Status: DEP SDC ? Location: HO.SSS ?Disch: ? ----- ------- SPEC : [id number] ? RECD: 02/29/24-1500 ? STATUS: ??SOUT ? REQ NUM: [id number] ? AMRITA: 02/29/24-2645 ? SUBM DR: Leoncio Nunez MD ? ENTERED: ??02/29/24-1512 ?SP TYPE: Surgical ? OTHR DR: Gail [...] ? Age/Sex: 23/F ? : 2000 Unit#: [id number] ?? Attend Dr: Leoncio Nunez MD ?Re02/29/24 ?Status: DEP SDC ? Location: HO.SSS ?Disch: ? ----- ------- SPEC : [id number] ? RECD: 02/29/24-1499 ? STATUS: ??SOUT ? REQ NUM: [id number] ? AMRITA: 02/29/24-5998 ? SUBM DR: Leoncio Nunez MD ? ENTERED: ??02/29/24-983 ?SP TYPE: Surgical ? OTHR : Gail Stephens ? ORDERED: ??Gross Micro L5 ? Copies To: ?? Leoncio Nunez MD ?? [facility] ?? [address] ?? [place] [address] ?? [phone] ?? Gail Stephens ?? [address] ?? [place] [address] ?? [phone] ----- ------- Signed (signature on file) Rafal Guadarrama MD 03/03/24 1512 ? ----- ------- ? END OF REPORT ? us Generic External Data Provider LAB BLOOD ORDERAB LES Final Result [facility] [address] [place] [address] [phone] * HCG, Qualitative, Urine (02/29/2024 11:30 AM EST) Urine NEGATIVE NEGATIVE [facility] Comment:This test was develo ped to detect early . Falsenegative results may occur after the 5th - 7th week ofpregnancy when using this test method. If clinicallyindicated, consider a serum hCG. 02/29/2024 11:3 0 AM EST 02/29/2024 11:33 AM EST Generic External Data Provider LAB URINE ORDERAB LES Final Result Performing Organization Address [facility] de Phone Number [facility] [address] [place] [address] [phone] * Gram stain (02/29/2024 12:00 AM EST) 02/29/2024 02/29/2024 Comment:Breast Rt Narrative [facility] - 03/03/2024 9:33 AM EST RIGHT BREAST CULTURE Gram stain results: 4+ polys 4+ red blood cells 1+ Gram-positive rods RIGHT BREAST CULTURE Corynebacterium species Quant Org ID 1+ Susc N/A Susceptibility not routinely performed on this isolate. Specimen Source: Breast Right Generic External Data Provider LAB MICROBIOLOGY - GENERAL ORDERABLES Final Result Performing Organization Address [facility] de Phone Number [facility] [address] [place] [address] [phone] * BI US Breast Limited Right (02/02/2024 8:45 AM EST) Anatomical Region Laterality Modality Breast Right Ultrasound 02/02/2024 8:45 AM EST Narrative 02/02/2024 9:32 AM EST ? [facility] ? [address] ?[place] [address] ? Ultrasound Report ? Signed ? Patient: Go Lange,Grace ?MR#: ?? [id number] ? : 2000 ?Acct:[id number] ? Age/Sex: 23 / F ?ADM Date: 12/10/24 ? Loc: HO.MAMMO ? Attending Dr: Lorena Man MD ? Ordering Physician: Lorena Man MD ?? Date of Service: 02/02/24 ?? Procedure(s): US breast RT limited mamm only ?? Accession Number(s): [id number] ? cc: Gail Stephens; Lorena Man MD [...] DD/ 0845 ? TD/TT: 02/02/24 0900 ? Adjunct Professor Of Voice: ? Procedure Note Emily Madison - 02/02/2024 [facility] [address] [place] [address] Dr. [place], [place] [address] Ultrasound Report Signed Patient: Anne Ochoa MMR#: [id number] : 2000Acct:[id number] Age/Sex: 23 / FADM Date: 02/02/24 Loc: HO.MAMMO Attending Dr: Lorena Man MD Ordering Physician: Lorena Man MD Date of Service: 02/02/24 Procedure(s): US breast RT limited mamm only Accession Number(s): [id number] cc: TimothyjeffreyAkshatGail; Lorena Man MD EXAMINATION: US DIAGNOSTIC ULTRASOUND [...] DO in OV> 02/02/24928 DD/ 4 TD/TT: 02/02/24 09 Adjunct Professor Of Voice: us Lorena Man MD IMG US PROCEDURES Final Re sult * (ABNORMAL) Lipid Panel, Standard (10/28/2023 8:54 AM EDT) Triglycerides 90 <150 mg/dL [facility] Comment:Desirable Triglyceri de: less than 150 mg/dLBorderline High Triglyceride 150-199 mg/dLHigh Triglyceride: 200-499 mg/dLVery High Triglyceride: greater than or equal to 5OO mg/dL Cholesterol 158 <200 mg/dL [facility] Comment:Desirable Cholestero l: less than 200 mg/dLBorderline High Cholesterol: 200-239 mg/dLHigh Cholesterol: greater than 239 mg/dL LDL Cholesterol Calculated 107(H) <100 mg/dL [facility] Comment:Desirable LDL: less than 100 mg/dLNear Optimal/Above Optimal LDL: 110- 129 mg/dLBorderline High LDL: 130-159 mg/dLHigh LDL: 160-189 mg/dLVery High LDL: greater than or equal to 190 mg/dL HDL Cholesterol 33(L) >40 mg/dL [facility] Comment:Desirable HDL: great er than 40 mg/dL Note: This HDL assay may give artificially low results in patients with liver disease. Blood Venous blood specimen / Unknown 10/28/2023 8:54 AM EDT 10/28/2023 11:03 AM EDT Gail Stephens SHOE STITCHER LAB BLOOD ORDERABLES Final Resu lt [facility] [address] [place] [phone] * Pap Smear (02/06/2022 9:46 AM EST) 02/06/2022 9:46 AM EST 02/06/2022 3:45 PM EST Narrative [facility] - 02/21/2022 5:05 PM EST ----- ------- Name: Anne Ochoa ? Age/Sex: 21/F ? : 2000 Unit#: [id number] ?? Attend Dr: AlokElizabeth EUGENE ?Re02/06/22 ?Status: DEP REF ? Location: HO.LNP ?Disch: ? ----- ------- SPEC : [id number] ?RECD: 02/06/22-1545 ? STATUS: ??SOUT ? REQ NUM: [id number] ? AMRITA: 02/06/22-945 ? SUBM DR: AlokElizabeth EUGENE ? ENTERED: ??02/06/22-1612 ?SP TYPE: Pap Smr ?OTHR DR: ? ORDERED: ??Pap Smear ? Interpretation ?? Satisfactory for evaluation. ?? Negative for intraepithelial lesion or malignancy. ?Clinical Information LMP: 02/13 Previous PAP test: Never ? Material Received ?? ThinPrep-Cervical ----- ------- Signed (signature on file) An Martinez 02/21/22 3712 ? ----- ------- ? END OF REPORT ? [facility] External Provider LAB CYT OLOGY ORDERABLES Final Result [facility] [address] [place], [place] [phone] * Hepatitis C Antibody (11/23/2020 3:28 PM EDT) [facility] Hepatitis C Antibody Nonreactive Nonreactive [facility] Comment: Antibodies to HCV not [...] detection of this assay. ?? The [employer] HIV Ag/Ab Combo assay result and supplemental assay results should be interpreted in conjunction with the patient's clinical presentation, history and other laboratory results. ??If the results are inconsistent with clinical evidence, additional testing is suggested to confirm the result. Hepatitis B Surface Antigen Negative Negative [facility] 11/23/2020 3:28 PM EDT us Elizabeth [place] HISTORICAL/NON ORDERABLE LABS Fi nal Result Performing Organization Address [facility] Co de Phone Number [facility] [address] * CHLAMYDIA/N. GONORRHOEAE RNA, TMA, UROGENITAL (04/25/2020 3:36 PM EST) Chlamydia trachomatis RNA, TMA, Urogenital NOT DETECTED NOT DETECTED [facility] COMMENT SEE COMMENT [facility] Comment: The analytical performance characteristics of this assay, when used to test SurePath(TM) specimens have been determined by [employer]. The modifications have not been cleared or approved by the FDA. This assay has been validated pursuant to the CLIA regulations and is used for clinical purposes. ?? For additional information, please refer to https://education.Innovid/faq/XGS385 (This link is being provided for information/ educational purposes only.) ?? Neisseria gonorrhoeae RNA, TMA, Urogenital NOT DETECTED NOT DETECTED [facility] 04/25/2020 3:36 PM EST Brinda Lizarraga NP HISTORICAL/NON ORDERABLE LABS F inal Result Performing Organization Address [facility] de Phone Number [facility] [address] from Last 3 Months or Most Recently Relevant to Health Maintenance Insurance [facility] C[facility] Care Teams Automatic Beam Warper Tender Relationship Specialty Start Date End Date Gail Stephens NP [address] [place] [phone] PCP - General Family Medicine 01/12/23
== END 2024-04-26 13:58 | disposition home or self-care (01) ==
PROVIDERS: PCP Internal Medicine; Visit Provider Surgery
DX: B37.31 Acute candidiasis of vulva and vagina (principal); N61.0 Mastitis without abscess
CPT/HCPCS: 99024

== ENCOUNTER → 2024-04-26 13:20 | Outpatient (BNVA) | payer MEDICAID, SELFPAY | PROVIDERS: PCP Internal Medicine; Visit Provider Surgery | DX: B37.31 Acute candidiasis of vulva and vagina (principal); N61.0 Mastitis without abscess | CPT/HCPCS: 99212 ==

== ENCOUNTER 2024-04-28 12:56 | Outpatient (AMB) | payer MEDICAID, SELFPAY ==
--- NOTE | 2024-04-28 13:00 | MHC.OFFVIS ---
Vital Signs 04/28/24 13:06 Height 5 ft Weight 165 lb 12.602 oz BMI 32.4 BP 141/75 H Blood Pressure Location Lt brachial Position Sitting Pulse 93 Pulse Source Pulse Oximeter Temp 98.8 F Temp Source Temporal Artery Scan Oxygen Delivery Method Room Air Oxygen Flow Rate 99 Intake Visit Reasons: Check for infection/pain in breast Intake Note: Patient is seen in office for wound check, possible infection of the breast post bx. Pt c/o: since yesterday discharge, redness, swelling, unable to lift arm due to pain, nausea, denies fever chills, or other concerns Computer Language Coder Required: Yes Computer Language Coder Language: Assisted Living Care Manager Services: Computer Language Coder Present Computer Language Coder Name: Brinda HO Information Interpreted: non-clinical & clinical Side Laster Tack: Side Laster Tack Present Accompanied by: Family/Other Allergies No Known Allergies [No Known Allergies*] Allergy (Verified 04/28/24 13:01) HPI Comments Details: Lose returns with increased pain swelling in the right breast at the upper inner quadrant. Drainage has stopped from the incision and drainage site but she is now noticing more discharge from the areolar incision. [facility] Medical History Hx of iron deficiency anemia Surgical History History of lumpectomy of right breast (02/29/24) No pertinent past surgical history Family History Mother Hypertension Maternal Grandfather Colon cancer Maternal Aunt Hx of breast cancer Social History Household Members: Family and Children Both parents involved: Yes Caregiver staying overnight: No Housing: Apartment Are you a primary childbirth and infant care teacher to a significant other at home: No Do you presently have visiting nurse or other home services: No 75 years or older and lives alone: No Alcohol intake: current Alcohol intake frequency: holidays/special occasions only Comment: Patient felt dizzy on previous shift Patient Tobacco Use Status: Never used Tobacco Special abbey needs: No Agree to transfusion: Yes service: No Female Reproductive History Menstrual Age of Menarche: 11 Physical Exam Vital Signs: Last Vital Signs Temp 98.8 F 04/28/24 13:06 Pulse 93 04/28/24 13:06 BP 141/75 H 04/28/24 13:06 Oxygen Delivery Method Room Air 04/28/24 13:06 Oxygen Flow Rate 99 04/28/24 13:06 BMI result Body Mass Index 32.4 Const General: in distress Nutritional Appearance: well nourished Orientation/consciousness: patient oriented x3 Chest Other: Right breast with an area of swelling in the upper inner quadrant, exquisitely tender to palpation. There is fluctuance to palpation. Chest/axillae images: 1. Area of swelling, tenderness, erythema and fluctuance Skin Other: Right breast as noted above Neuro General: patient oriented x3 Extrem Other: No edema Office Procedures I&D Drain Details: Preoperative diagnosis: Abscess right breast Postoperative diagnosis: Hematoma right breast Procedure: Incision and drainage of hematoma right breast Surgeon: Leoncio Nunez MD Bump Grader Operator: None Anesthesia: Lidocaine 1% with epinephrine Indications for procedure: 23-year-old female with a previous abscess mastitis in the right breast at the upper inner quadrant now with increased swelling and pain Operative findings: Incision and drainage produced a large collection of thin bloody fluid suggestive of a hematoma Specimen: Wound culture Estimated blood loss: 2 mL Complications: None Procedure details: Patient was placed in a supine position. The site of procedure was confirmed by the patient in the right breast at the upper inner quadrant. Skin was prepped with Betadine and draped in a sterile fashion. Local anesthesia was then infiltrated around the lesion. An incision was made with a 11 blade and a large fluid collection drained as noted above. Wound cultures were obtained. Wound was then packed with quarter-inch Nu Gauze. Sterile dressings were then applied. The patient tolerated the procedure well was discharged to home in stable condition. [id number] of Skin Abscess, simple All charges added?: Procedure code (CPT) selection complete Assessment & Plan Assessment & Plan (1) Mastitis of right breast unrelated to of : Code(s): N61.0 - Mastitis without abscess Category: Medical Plan 23-year-old female returning with a fluid collection in the right breast at the upper inner quadrant which appeared to be thin bloody fluid. Wound cultures are pending. She will return in 1 week for wound examination. She will be restarted on antibiotics as well. Orders: Orders Routine Culture w Gram Stain Today N61.0 - Mastitis without abscess Medications: Refilled doxycycline hyclate End date 04/22/24 100 mg PO BID 20 tabs 0RF Coding Level of Care Code Est Pt Level 3 (24391) Diagnoses Mastitis of right breast unrelated to of N61.0 CPT Codes I&D Drain - Drain 1: 49647-Qpoxlbpu of Skin Abscess, simple ([id number])
[2024-04-28 13:06] VITALS: BP 141/75; PULSE 93; TEMP 37.1; BMI 32.4
--- OUTSIDE RECORDS SUMMARY | 2024-04-28 15:37 | XMS_ITS | Clinical Summary ---
Author Organization [employer] Address [address] [facility] 7[address] [place] [address] Care Team Providers Care Loan Review Manager Name Role Phone Gail Stephens NP Primary Care Provider [phone] Allergies No known active allergies Medications cetirizine [...] 03/03/2024 Overview (03/03/2024): Procedure performed 02/29/2024 at [facility] Mass overlapping multiple quadrants [...] Type Department Care Team Description 04/18/2024 Refill [facility] [address] [place] [phone] Denise Aguirre CNP Pain in both knees, unspecified chronicity 04/18/2024 Patient Outreach [facility] [address] [place] [address] Gail Stephens NP Transition Of Care (Tcm) (HDF scheduled. ) 04/15/2024 Telephone [facility] [address] [place] [address] Gail Stephens NP No Show 04/05/2024 Telephone [facility] [address] [place] [address] Gail Stephens NP Chart Prep 04/01/2024 11:15 AM EST Office Visit [address] [address] Denise Aguirre, JIM Pain in both knees, unspecified chronicity (Primary Dx); Soft tissue infection 03/31/2024 Telephone [facility] [address] [place] [address] Gail Stephens NP Chart Prep 03/29/2024 Telephone [facility] [address] [place] [address] Gail Stephens NP ER Follow-up 03/03/[address] [address] Gail Stephens NP recall april follow up 02/29/2024 Orders Only GENERIC EXTERNAL DATA DEPARTMENT Provider, Generic External Data 02/20/[address] [address] Gail Stephens NP 02/03/[address] [address] Elizabeth Delgado RN Results from Last 3 [...] 2:00 PM EDT Office Visit [facility] [address] [place] [address] Gail Stephens NP [address] [place] [address] 05/23/2024 2:30 PM EDT Office Visit [facility] [address] [place] [address] Gail Stephens NP [address] [place] [address] Health Maintenance Due Date Last Done Comments [...] PM EST) 03/27/2024 3:02 PM EST Narrative [facility] - 03/27/2024 3:03 PM EST ? [facility] ?[address] ?[place] [address] ? Ultrasound Report ? Signed ? Patient: Go TaylorAnne harris ?MR#: ?? [id number] ? : 2000 ?Acct:[id number] ? Age/Sex: 23 / F ?ADM Date: 03/27/24 ? Loc: HO.ED ? Attending Dr: ? Ordering Physician: Tima Gillespie ?? Date of Service: 03/27/24 ?? Procedure(s): US venous duplex LE BI ?? Accession Number(s): [id number] ? cc: Tima Gillespie; [facility] ? CLINICAL HISTORY: Bilateral calf pain. ??DVT? [...] DD/ 1502 ? TD/TT: 03/27/24 1502 ? Career Technical Education Instructor: ? Procedure Note Los, Emily - 03/27/2024 [id number] [place] [address] Ultrasound Report Signed Patient: Anne Ochoa [facility]#: [id number] : 2000Acct:[id number] Age/Sex: 23 / FADM Date: 03/27/24 Loc: HO.ED Attending Dr: Ordering Physician: Tima Gillespie Date of Service: 03/27/24 Procedure(s): US venous duplex LE BI Accession Number(s): [id number] cc: Tima Gillespie; [facility] CLINICAL HISTORY: Bilateral calf pain. DVT? Venous [...] 03/27/24 1503 DD/ 1502 TD/TT: 03/27/24 1502 Career Technical Education Instructor: [facility] External Provider CV VASC ULAR PROCEDURES Edited Result - Final [facility] [address] [place] [address] * (ABNORMAL) CBC auto differential (03/27/2024 1:46 PM EST) Only the most recent of3 resultswithin the time period is included. White Blood Count 10.2 4.8 - 10.8 X10*3/uL [facility] Red Blood Count 4.46 4.20 - 5.50 X10*6/uL [facility] Hemoglobin 13.1 12.0 - 16.0 g/dl [facility] Hematocrit 37.3 37.0 - 47.0 % [facility] Mean Corpuscular Volume 83.6 80.0 - 98.0 fL [facility] Mean Corpuscular Hemoglobin 29.4 27.0 - 33.0 pg [facility] Mean Corpuscular HGB Conc 35.1(H) 31.0 - 35.0 g/dl [facility] Red Cell Distribution Width 12.5 11.0 - 16.0 % [facility] Platelet Count 310 160 - 400 X10*3/uL [facility] Mean Platelet Volume 9.1(L) 9.4 - 12.3 fL [facility] Neutrophils Percent Auto 69.2 45 - 73 % [facility] Imm Gran Pct Auto 0.2 0.0 - 0.4 % [facility] Lymphocytes Percent Auto 23.8 20 - 40 % [facility] Monocytes Percent Auto 5.6 2 - 11 % [facility] Eosinophils Percent Auto 1.0 0 - 4 % [facility] Basophils Percent Auto 0.2 0 - 2 % [facility] NRBC Pct Auto 0.0 0.0 - 0.2 /100WBC [facility] Neutrophils Absolute Auto 7.1 2.0 - 8.3 x10*3/uL [facility] Imm Gran Abs Auto 0.02 0.00 - 0.03 X10*3/uL [facility] Lymphocytes Absolute Auto 2.4 1.2 - 4.9 X10*3/uL [facility] Monocytes Absolute Auto 0.6 0.1 - 1.2 X10*3/uL [facility] Eosinophils Absolute Auto 0.1 0.0 - 0.4 X10*3/uL [facility] Basophils Absolute Auto 0.0 0.0 - 0.2 X10*3/uL [facility] NRBC Abs Auto 0.000 0.0 - 0.012 X10*3/uL [facility] 03/27/2024 1:46 PM EST 03/27/2024 1:49 PM EST us Generic External Data Provider LAB BLOOD ORDERAB LES Final Result [facility] [address] [place] [address] [phone] * Partial Thromboplastin Time, Activated (APTT) (03/27/2024 1:46 PM EST) Partial Thromboplastin Time 34.7 26.0 - 36.8 SEC [facility] Comment:For information rega rding the monitoring of direct thrombininhibitors, please refer to Pharmacy. 03/27/2024 1:46 PM EST 03/27/2024 1:49 PM EST Generic External Data Provider LAB BLOOD ORDERAB LES Final Result Performing Organization Address [facility]/ZIP Co de Phone Number [facility] [address] [place] [phone] * (ABNORMAL) Prothrombin Time-INR (03/27/2024 1:46 PM EST) Pathologist [facility] Prothrombin Time 13.4(H) 10.9 - 12.4 SEC [facility] INTERNATIONAL NORM RATIO 1.2(H) 0.9 - 1.1 [facility] Comment:INTERNATIONAL NORMAL IZED RATIO (INR) [...] 1:46 PM EST 03/27/2024 1:49 PM EST [employer] External Data Provider LAB BLOOD ORDERAB LES Final Result Performing Organization Address [facility]/ZIP Co de Phone Number [facility] [address] [place] [address] [phone] * hCG, Total, Quantitative (03/27/2024 1:46 PM EST) HCG Quantitative <2 mIU/mL [facility] Comment:Weeks post LMP Appro ximate hCG(Last Menstrual Period) Range (mIU/ml)3 - 4 weeks 9 - 1304 - 5 weeks 75 - 2,6005 - 6 weeks 850 - 20,8006 - 7 weeks 4000 - 100,2007 - 12 weeks 11,500 - 289,35330 - 16 weeks 18,300 - 137,26230 - 29 weeks (2nd trimester) 1,400 - 53,88147 - 41 weeks (3rd trimester) 940 - [...] ORDERAB LES Final Result Performing Organization Address [facility] de Phone Number [facility] [address] [place] [phone] * B Type Natriuretic Peptide (BNP) (03/27/2024 1:46 PM EST) B Type Natriuretic Peptide <10 <100 pg/mL [facility] Comment:For those patients w ho are being treated with Natrecor(nesiritide, recombinant BNP), BNP testing should beperformed at least two hours post treatment in order toensure that only endogenous levels of BNP are detected. 03/27/2024 1:46 PM EST 03/27/2024 1:49 PM EST Generic External Data Provider LAB BLOOD ORDERAB LES Final Result Performing Organization Address [facility] Co de Phone Number [facility] [address] [place] [phone] * Magnesium (03/27/2024 1:46 PM EST) Magnesium 2.0 1.6 - 2.6 mg/dL [facility] 03/27/2024 1:46 PM EST 03/27/2024 1:49 PM EST us Generic External Data Provider LAB BLOOD ORDERAB LES Final Result Performing Organization Address City/[facility]/ZIP Co de Phone Number [facility] [address] [place] [phone] * Creatine Kinase, Total (03/27/2024 1:46 PM EST) Creatine Kinase Total 64 26 - 140 U/L [facility] 03/27/2024 1:46 PM EST 03/27/2024 1:49 PM EST Generic External Data Provider LAB BLOOD ORDERAB LES Final Result Performing Organization Address [facility] de Phone Number [facility] [address] [place] [phone] * (ABNORMAL) Comprehensive Metabolic Panel (03/27/2024 1:46 PM EST) Only the most recent of2 resultswithin the time period is included. Sodium 140 135 - 145 mmol/L [facility] Potassium 3.7 3.3 - 5.1 mmol/L [facility] Chloride 107 96 - 108 mmol/L [facility] Carbon Dioxide 25 22 - 29 mmol/L [facility] Anion Gap 12 12 - 20 [facility] Urea Nitrogen (BUN) 11 9 - 16 mg/dL [facility] Creatinine, Serum 0.65 0.5 - 1.4 mg/dL [facility] Creatinine Clr Calc Pharmacy 731.9 [facility] Comment:Provided height and weight: 157.48 cm,786 kg.eGFR (calculated from the MDRD study equation) and eCrCl(calculated from the Cockcroft-Gault equation) are based ondifferent parameters and may not yield comparable results.If eCrCl result is absurd, please check patient'sheight/weight. Estimated Glomerular Filt Rate >60 [facility] Comment:Chronic Kidney Disea se: Estimated GFR < 60 mL/min/1.08f0Zmoein Kidney Disease: Estimated GFR < 15 mL/min/1.73m2 Glucose 92 60 - 115 mg/dL [facility] Calcium 9.4 8.4 - 10.2 mg/dL [facility] Bilirubin, Total 0.3 0.0 - 1.0 mg/dL [facility] Aspartate Amino Transferase 19 5 - 31 U/L [facility] Alanine Aminotransferase 21 0 - 31 U/L [facility] Total Protein 8.1(H) 6.5 - 8.0 g/dL [facility] Albumin Level 4.5 3.5 - 5.0 g/dL [facility] Alkaline Phosphatase 53 39 - 117 U/L [facility] 03/27/2024 1:46 PM EST 03/27/2024 1:49 PM EST us Generic External Data Provider LAB BLOOD ORDERAB LES Final Result Performing Organization Address City/State/[facility] Co de Phone Number [facility] [address] [place] [phone] * Gross and Microscopic Level 5 (02/29/2024 1:45 PM EST) 02/29/2024 1:45 PM EST 02/29/2024 3:00 PM EST Narrative [facility] - 03/03/2024 3:12 PM EST ----- ------- Name: Anne Ochoa ? Age/Sex: 23/F ? : 2000 Unit#: [id number] ?? Attend Dr: Leoncio Nunez MD ?Re02/29/24 ?Status: DEP SDC ? Location: HO.SSS ?Disch: ? ----- ------- SPEC : [id number] ? RECD: 02/29/24-1500 ? STATUS: ??SOUT ? REQ NUM: [id number] ? AMRITA: 02/29/24-4795 ? SUBM DR: Leoncio Nunez MD ? [...] ? Age/Sex: 23/F ? : 2000 Unit#: [id number] ?? Attend Dr: Leoncio Nunez MD ?Re02/29/24 ?Status: DEP SDC ? Location: HO.SSS ?Disch: ? ----- ------- SPEC : [id number] ? RECD: 02/29/24-1499 ? STATUS: ??SOUT ? REQ NUM: [id number] ? AMRITA: 02/29/24-6910 ? SUBM DR: Leoncio Nunez MD ? ENTERED: ??02/29/24-878 ?SP TYPE: Surgical ? OTHR : Gail Stephens ? ORDERED: ??Gross Micro L5 ? Copies To: ?? Leoncio Nunez MD ?? [facility] General Surgeons ?? [address] ?? [place] [address] ?? [phone] ?? Gail Stephens ?? [address] ?? [place] [address] ?? [phone] ----- ------- Signed (signature on file) Rafal Guadarrama MD 03/03/24 1512 ? ----- ------- ? END OF REPORT ? us Generic External Data Provider LAB BLOOD ORDERAB LES Final Result [facility] [address] [place] [address] [phone] * HCG, Qualitative, Urine (02/29/2024 11:30 AM EST) Urine NEGATIVE NEGATIVE [facility] Comment:This test was develo ped to detect early . Falsenegative results may occur after the 5th - 7th week ofpregnancy when using this test method. If clinicallyindicated, consider a serum hCG. 02/29/2024 11:3 0 AM EST 02/29/2024 11:33 AM EST Generic External Data Provider LAB URINE ORDERAB LES Final Result Performing Organization Address [facility] de Phone Number [facility] [address] [place] [address] [phone] * Gram stain (02/29/2024 12:00 AM EST) 02/29/2024 02/29/2024 Comment:Breast Rt Narrative [facility] - 03/03/2024 9:33 AM EST RIGHT BREAST CULTURE Gram stain results: 4+ polys 4+ red blood cells 1+ Gram-positive rods RIGHT BREAST CULTURE Corynebacterium species Quant Org ID 1+ Susc N/A Susceptibility not routinely performed on this isolate. Specimen Source: Breast Right Generic External Data Provider LAB MICROBIOLOGY - GENERAL ORDERABLES Final Result Performing Organization Address [facility] de Phone Number [facility] [address] [place] [address] [phone] * BI US Breast Limited Right (02/02/2024 8:45 AM EST) Anatomical Region Laterality Modality Breast Right Ultrasound 02/02/2024 8:45 AM EST Narrative 02/02/2024 9:32 AM EST ? [facility] [place] ? [address] ?[place] [address] ? Ultrasound Report ? Signed ? Patient: Go Lange,Grace ?MR#: ?? [id number] ? : 2000 ?Acct:[id number] ? Age/Sex: 23 / F ?ADM Date: 12/10/24 ? Loc: HO.MAMMO ? Attending Dr: Lorena Man MD ? Ordering Physician: Lorena Man MD ?? Date of Service: 02/02/24 ?? Procedure(s): US breast RT limited mamm only ?? Accession Number(s): [id number] ? cc: Gail Stephens; Lorena Man MD [...] DD/ 0845 ? TD/TT: 02/02/24 0900 ? Career Technical Education Instructor: ? Procedure Note Emily Madison - 02/02/2024 [facility] [address] [place] [address] Dr. [place], [place] [address] Ultrasound Report Signed Patient: Anne Ochoa MMR#: [id number] : 2000Acct:[id number] Age/Sex: 23 / FADM Date: 02/02/24 Loc: HO.MAMMO Attending Dr: Lorena Man MD Ordering Physician: Lorena Man MD Date of Service: 02/02/24 Procedure(s): US breast RT limited mamm only Accession Number(s): [id number] cc: TimothyjeffreyAkshatGail; Lorena Man MD EXAMINATION: US [...] OV> 02/02/24928 DD/ 4 TD/TT: 02/02/24 09 Career Technical Education Instructor: us Lorena Man MD IMG US PROCEDURES Final Re sult * (ABNORMAL) Lipid Panel, Standard (10/28/2023 8:54 AM EDT) Triglycerides 90 <150 mg/dL [facility] Comment:Desirable Triglyceri de: less than 150 mg/dLBorderline High Triglyceride 150-199 mg/dLHigh Triglyceride: 200-499 mg/dLVery High Triglyceride: greater than or equal to 5OO mg/dL Cholesterol 158 <200 mg/dL [facility] Comment:Desirable Cholestero l: less than 200 mg/dLBorderline High Cholesterol: 200-239 mg/dLHigh Cholesterol: greater than 239 mg/dL LDL Cholesterol Calculated 107(H) <100 mg/dL [facility] Comment:Desirable LDL: less than 100 mg/dLNear Optimal/Above Optimal LDL: 110- 129 mg/dLBorderline High LDL: 130-159 mg/dLHigh LDL: 160-189 mg/dLVery High LDL: greater than or equal to 190 mg/dL HDL Cholesterol 33(L) >40 mg/dL [facility] Comment:Desirable HDL: great er than 40 mg/dL Note: This HDL assay may give artificially low results in patients with liver disease. Blood Venous blood specimen / Unknown 10/28/2023 8:54 AM EDT 10/28/2023 11:03 AM EDT Gail Stephens CAT SKINNER LAB BLOOD ORDERABLES Final Resu lt [facility] [address] [place] [phone] * Pap Smear (02/06/2022 9:46 AM EST) 02/06/2022 9:46 AM EST 02/06/2022 3:45 PM EST Narrative [facility] - 02/21/2022 5:05 PM EST ----- ------- Name: Anne Ochoa ? Age/Sex: 21/F ? : 2000 Unit#: [id number] ?? Attend Dr: AlokElizabeth EUGENE ?Re02/06/22 ?Status: DEP REF ? Location: HO.LNP ?Disch: ? ----- ------- SPEC : [id number] ?RECD: 02/06/22-1545 ? STATUS: ??SOUT ? REQ NUM: [id number] ? AMRITA: 02/06/22-945 ? SUBM DR: AlokElizabeth EUGENE ? ENTERED: ??02/06/22-1612 ?SP TYPE: Pap Smr ?OTHR DR: ? ORDERED: ??Pap Smear ? Interpretation ?? Satisfactory for evaluation. ?? Negative for intraepithelial lesion or malignancy. ?Clinical Information LMP: 02/13 Previous PAP test: Never ? Material Received ?? ThinPrep-Cervical ----- ------- Signed (signature on file) An Martinez 02/21/22 0828 ? ----- ------- ? END OF REPORT ? [facility] External Provider LAB CYT OLOGY ORDERABLES Final Result [facility] [address] [place], [place] [phone] * Hepatitis C Antibody (11/23/2020 3:28 PM EDT) [facility] Hepatitis C Antibody Nonreactive Nonreactive [facility] Comment: Antibodies to HCV not [...] detection of this assay. ?? The Ochoa Merchandising Manager HIV Ag/Ab Combo assay result and supplemental assay results should be interpreted in conjunction with the patient's clinical presentation, history and other laboratory results. ??If the results are inconsistent with clinical evidence, additional testing is suggested to confirm the result. Hepatitis B Surface Antigen Negative Negative [facility] 11/23/2020 3:28 PM EDT us Elizabeth Millburn HISTORICAL/NON ORDERABLE LABS Fi nal Result Performing Organization Address [facility] Co de Phone Number [facility] [address] * CHLAMYDIA/N. GONORRHOEAE RNA, TMA, UROGENITAL (04/25/2020 3:36 PM EST) Chlamydia trachomatis RNA, TMA, Urogenital NOT DETECTED NOT DETECTED [facility] COMMENT SEE COMMENT [facility] Comment: The analytical performance characteristics of this assay, when used to test SurePath(TM) specimens have been determined by [employer]. The modifications have not been cleared or approved by the FDA. This assay has been validated pursuant to the CLIA regulations and is used for clinical purposes. ?? For additional information, please refer to https://education.TaKaDu/faq/RLR133 (This link is being provided for information/ educational purposes only.) ?? Neisseria gonorrhoeae RNA, TMA, Urogenital NOT DETECTED NOT DETECTED [facility] 04/25/2020 3:36 PM EST Brinda Lizarraga NP HISTORICAL/NON ORDERABLE LABS F inal Result Performing Organization Address [facility] de Phone Number [facility] [address] from Last 3 Months or Most Recently Relevant to Health Maintenance Insurance [facility] C3 Care Teams Loan Review Manager Relationship Specialty Start Date End Date Gail Stephens NP [address] [place] [phone] PCP - General Family Medicine 01/12/23
--- OUTSIDE RECORDS SUMMARY | 2024-04-28 15:37 | XMS_ITS | Encounter Summary ---
Author Organization [employer] Address [address] [facility] 7t [place] [address] Care Team Providers Care Earthmoving Plant Operator Name Role Phone Gail Stephens NP Primary Care Provider [phone] Reason for Visit * Reason Onset Date Comments ER Follow-up 03/29/2024 Encounter Details Date Type Department Care Team ([facility] st Contact Info) Description 03/29/2024 Telephone [facility] [address] [place] [address] Gail Stephens NP [address] [place] [address] ER Follow-up Social History Tobacco Use Types [...] ED visit on : Date: 03/27/2024 Hospital: [facility] Seen for: Leg Pain Symptomatic Yes *if yes message should go to Triage Patient advised will forward to team nurse for follow up documented in this encounter Plan of Treatment Upcoming Encounters Date Type Department Care Team (Late st Contact Info) Description 05/06/2024 2:00 PM EDT Office Visit [facility] MED[facility]INE [address] [place] [phone] Gail Stephens NP [address] [place] [phone] 05/23/2024 2:30 PM EDT Office Visit [facility] [address] [place] [address] Gail Stephens NP [address] [place] [phone] documented as of this encounter Visit Diagnoses Not on filedocumented in this encounter Additional Health Concerns Assessment Noted Time PHQ-9 Depression Total Score: 0 10/02/19 24 1:26 PM EDT documented as of this encounter Care Teams Earthmoving Plant Operator Relationship Specialty Start Date End Date Gail Stephens NP [address] [place] [phone] PCP - General Family Medicine 01/12/23 documented as of this encounter
--- OUTSIDE RECORDS SUMMARY | 2024-04-28 15:37 | XMS_ITS | Encounter Summary ---
Author Organization [employer] Address [address] [facility] [address] [place] [address] Care Team Providers Care Freight Car Builder Name Role Phone Gail Stephens NP Primary Care Provider [phone] Reason for Visit * Reason Onset Date Comments Med Refill 11/24/2023 Encounter Details Date Type Department Care Team (Late st Contact Info) Description 11/24/2023 Refill [facility] [address] [place] [address] Gail Stephens NP [address] [place] [address] Social History Tobacco Use Types Packs/Day Years [...] with others, in a hotel, in a correction, living outside on the street, on a [...] Description 05/06/2024 2:00 PM EDT Office Visit [facility] [address] [place] [address] Gail Stephens NP [address] [place] [address] 05/23/2024 2:30 PM EDT Office Visit [facility] [address] [place] [address] Gail Stephens NP [address] [place] [address] documented as of this encounter Visit Diagnoses Not on filedocumented in this encounter Additional Health Concerns Assessment Noted Time PHQ-9 Depression Total Score: 0 10/02/19 24 1:26 PM EDT documented as of this encounter Care Teams Freight Car Builder Relationship Specialty Start Date End Date Gail Stephens NP [address] [place] [address] PCP - General Family Medicine 01/12/23 documented as of this encounter
--- OUTSIDE RECORDS SUMMARY | 2024-04-28 15:37 | XMS_ITS | Encounter Summary ---
Author Organization [employer] Address [address] [facility] 7t [place] [address] Care Team Providers Care Health Sciences Manager Name Role Phone Gail Stephens NP Primary Care Provider [phone] Reason for Visit * Reason Onset Date Comments No Show 04/15/2024 Encounter Details Date Type Department Care Team ([facility] st Contact Info) Description 04/15/2024 Telephone [facility] [address] [place] [address] Gail Stephens NP [address] [place] [address] No Show Social History Tobacco Use Types [...] with others, in a hotel, in a long term, living outside on the street, on a [...] Description 05/06/2024 2:00 PM EDT Office Visit [facility] [address] [place] [address] Gail Stephens NP [address] [place] [address] 05/23/2024 2:30 PM EDT Office Visit [facility] [address] [place] [address] Gail Stephens NP [address] [place] [address] documented as of this encounter Visit Diagnoses Not on filedocumented in this encounter Additional Health Concerns Assessment Noted Time PHQ-9 Depression Total Score: 0 10/02/19 24 1:26 PM EDT documented as of this encounter Care Teams Health Sciences Manager Relationship Specialty Start Date End Date Gail Stephens NP [address] [place] [address] PCP - General Family Medicine 01/12/23 documented as of this encounter
--- OUTSIDE RECORDS SUMMARY | 2024-04-28 15:37 | XMS_ITS | Encounter Summary ---
Author Organization [employer] Address [address] [facility] [address] 7t [place] [address] Care Team Providers Care Amusement Centre Manager Name Role Phone Gail Stephens NP Primary Care Provider [phone] Reason for Visit * Reason Onset Date Comments Chart Prep 04/05/2024 Encounter Details Date Type Department Care Team ([facility] st Contact Info) Description 04/05/2024 Telephone [facility] [address] [place] [address] Gail Stephens NP 230 [place] [address] Chart Prep Social History Tobacco Use Types [...] 05/06/2024 2:00 PM EDT Office Visit [facility] [address] [place] [address] [phone] Gail Stephens NP [address] [place] [address] 05/23/2024 2:30 PM EDT Office Visit [facility] [address] [place] [address] Gail Stephens NP [address] [place] [address] documented as of this encounter Visit Diagnoses Not on filedocumented in this encounter Additional Health Concerns Assessment Noted Time PHQ-9 Depression Total Score: 0 10/02/19 24 1:26 PM EDT documented as of this encounter Care Teams Amusement Centre Manager Relationship Specialty Start Date End Date Gail Stephens NP 230 [place] [address] PCP - General Family Medicine 01/12/23 documented as of this encounter
--- OUTSIDE RECORDS SUMMARY | 2024-04-28 15:37 | XMS_ITS | Encounter Summary ---
Author Organization [employer] Address [address] [facility] 7t [place] [address] Care Team Providers Care Dental Surgery Doctor Name Role Phone Gail Stephens NP Primary Care Provider [phone] Reason for Visit * Reason Onset Date Comments Med Refill 04/18/2024 Encounter Details Date Type Department Care Team (Late st Contact Info) Description 04/18/2024 Refill [facility] 230 [place] [address] Denise Aguirre CNP 230 [place] [address] Pain in both knees, unspecified chronicity Social [...] with others, in a hotel, in a fpc, living outside on the street, on a [...] Description 05/06/2024 2:00 PM EDT Office Visit [facility] [address] [place] [address] Gail Stephens NP [address] [place] [address] 05/23/2024 2:30 PM EDT Office Visit [facility] [address] [place] [address] Gail Stephens NP [address] [place] [address] documented as of this encounter Visit Diagnoses Diagnosis Pain in both knees, unspecified chronicity documented in this encounter Additional Health Concerns Assessment Noted Time PHQ-9 Depression Total Score: 0 10/02/19 24 1:26 PM EDT documented as of this encounter Care Teams Dental Surgery Doctor Relationship Specialty Start Date End Date Gail Stephens NP [address] [place] [address] PCP - General Family Medicine 01/12/23 documented as of this encounter
--- OUTSIDE RECORDS SUMMARY | 2024-04-28 15:37 | XMS_ITS | Encounter Summary ---
Author Organization [employer] Address [address] [place] [address] 7t [place] [address] Care Team Providers Care Environmental Intern Name Role Phone Gail Stephens NP Primary Care Provider [phone] Reason for Visit * Reason Comments Sick Onsite bilateral leg pain n egative finding in ED 03/27/24 pain is 09/01 Encounter Details Date Type Department Care Team (Late st Contact Info) Description 04/01/2024 11:15 AM EST Office Visit [facility] 230 [place] [address] Denise Aguirre CNP 230 [place] [address] Pain in both knees, unspecified chronicity (Primary [...] She is s/p lumpectomy, completed 02/29/2024 at [facility] General Surgery. Last f/u with general [...] is reporting chills. HPI Pt presented to [facility] ED on 03/27/24 for bilateral calf pain [...] Medications sulfamethoxazole-trimethoprim (Bactrim DS) 800-160 MG tablet [facility] COOKEE Attestation COOKEE Resident Attestation: Patient was seen and evaluated by Denise Aguirre COOKEE, in collaboration with Barry Richardson MD who has reviewed my assessment and plan. I, Barry Richardson MD , have reviewed the resident's note and agree with the assessment & plan of care as documented above. Visit Conducted in: Danish Translation by: Provided by [facility] staff member Milly Robles MA , [...] Description 05/06/2024 2:00 PM EDT Office Visit [facility] [address] [place] [address] Gail Stephens NP 230 [place] [address] 05/23/2024 2:30 PM EDT Office Visit [facility] [address] [place] [address] Gail Stephens NP 230 [place] [address] documented as of this encounter Visit Diagnoses Diagnosis Pain in both knees, unspecified chronicity- Primary Soft tissue infection Unspecified infectious and parasitic diseases documented in this encounter Additional Health Concerns Assessment Noted Time PHQ-9 Depression Total Score: 0 10/02/19 24 1:26 PM EDT documented as of this encounter Care Teams Environmental Intern Relationship Specialty Start Date End Date Gail Stephens NP [address] [place] [address] PCP - General Family Medicine 01/12/23 documented as of this encounter
--- OUTSIDE RECORDS SUMMARY | 2024-04-28 15:37 | XMS_ITS | Encounter Summary ---
Author Organization [employer] Address [address] [facility] 7t [place] [address] Care Team Providers Care Bicycle Designer Name Role Phone Gail Stephens NP Primary Care Provider [phone] Reason for Visit * Reason Comments Transition Of Care (Tcm) HDF scheduled. Encounter Details Date Type Department Care Team (Late st Contact Info) Description 04/18/[address] [facility] [address] [place] [address] Gail Stephens NP [address] [place] [address] Transition Of Care (Tcm) (HDF scheduled. ) [...] Admission/Visit 04/13/24 Date of Discharge 04/16/24 Facility [facility] Diagnosis Right breast abcess Disposition Discharged Home [...] Wednesdays, and Walk-In Urgent Care Located in [facility]. Patient provided with after-hours line for [facility], , which offer night time triage service and option to transfer to guest relations executive provider if needed. CC scanned discharge summary into patient's chart.. Biggest concern for appointment at this time is no concerns. Appropriate screenings completed in anticipation of appointment. documented in this encounter Plan of Treatment Upcoming Encounters Date Type Department Care Team (Late st Contact Info) Description 05/06/2024 2:00 PM EDT Office Visit [facility] [address] [place] [address] Gail Stephens NP [address] [place] [address] 05/23/2024 2:30 PM EDT Office Visit [facility] [address] [place] [address] Gail Stephens NP [address] [place] [address] documented as of this encounter Visit Diagnoses Not on filedocumented in this encounter Additional Health Concerns Assessment Noted Time PHQ-9 Depression Total Score: 0 10/02/19 24 1:26 PM EDT documented as of this encounter Care Teams Bicycle Designer Relationship Specialty Start Date End Date Gail Stephens NP [address] [place] [address] PCP - General Family Medicine 01/12/23 documented as of this encounter
--- OUTSIDE RECORDS SUMMARY | 2024-04-28 15:37 | XMS_ITS | Encounter Summary ---
Author Organization [employer] Address 75 [facility] 7t [place] [address] Care Team Providers Care Sintering Plant Supervisor Name Role Phone Gail Stephens NP Primary Care Provider [phone] Reason for Visit * Reason Onset Date Comments Chart Prep 03/31/2024 Encounter Details Date Type Department Care Team ([facility] st Contact Info) Description 03/31/2024 Telephone [facility] 230 [place] [address] Gail Stephens NP 230 [place] [address] Chart Prep Social History Tobacco Use Types [...] with others, in a hotel, in a mcc, living outside on the street, on a [...] Upcoming Encounters Date Type Department Care Team ([facility] st Contact Info) Description 05/06/2024 2:00 PM EDT Office Visit [facility] [address] [place] [address] Gail Stephens NP [address] [place] [address] 05/23/2024 2:30 PM EDT Office Visit [facility] [address] [place] [address] Gail Stephens NP [address] [place] [address] documented as of this encounter Visit Diagnoses Not on filedocumented in this encounter Additional Health Concerns Assessment Noted Time PHQ-9 Depression Total Score: 0 10/02/19 24 1:26 PM EDT documented as of this encounter Care Teams Sintering Plant Supervisor Relationship Specialty Start Date End Date Gail Stephens NP 230 [place] [address] PCP - General Family Medicine 01/12/23 documented as of this encounter
== END 2024-04-28 13:29 | disposition home or self-care (01) ==
PROVIDERS: PCP Internal Medicine; Visit Provider Surgery
DX: N61.1 Abscess of the breast and nipple (principal)
CPT/HCPCS: 10060; 99024

== ENCOUNTER 2024-04-28 12:56 | Outpatient (REF) | payer MEDICAID, SELFPAY ==
--- OUTSIDE RECORDS SUMMARY | 2024-04-28 16:15 | XMS_ITS | Encounter Summary ---
Author Organization [employer] Address [address] [facility] [address] 7t [place] [address] Care Team Providers Care Hazardous Material Technician Name Role Phone Gail Stephens NP Primary Care Provider [phone] Reason for Visit * Reason Onset Date Comments Chart Prep 04/05/2024 Encounter Details Date Type Department Care Team ([facility] st Contact Info) Description 04/05/2024 Telephone [facility] 230 [place] [address] Gail Stephens NP 230 [place] [address] Chart Prep Social History Tobacco Use Types [...] 2:00 PM EDT Office Visit [facility] [address] [place] [phone] Gail Stephens NP [address] [place] [address] 05/23/2024 2:30 PM EDT Office Visit [facility] [address] [place] [address] Gail Stephens NP [address] [place] [address] documented as of this encounter Visit Diagnoses Not on filedocumented in this encounter Additional Health Concerns Assessment Noted Time PHQ-9 Depression Total Score: 0 10/02/19 24 1:26 PM EDT documented as of this encounter Care Teams Hazardous Material Technician Relationship Specialty Start Date End Date Gail Stephens NP [address] [place] [address] PCP - General Family Medicine 01/12/23 documented as of this encounter
--- OUTSIDE RECORDS SUMMARY | 2024-04-28 16:15 | XMS_ITS | Encounter Summary ---
Author Organization [employer] Address [address] [facility] 7t [place] [address] Care Team Providers Care Carpet Sewing Machine Operator Name Role Phone Gail Stephens NP Primary Care Provider [phone] Reason for Visit * Reason Onset Date Comments Med Refill 04/18/2024 Encounter Details Date Type Department Care Team (Late st Contact Info) Description 04/18/2024 Refill [facility] 230 [place] [address] Denise Aguirre CNP [address] [place] [address] Pain in both knees, unspecified chronicity Social [...] Description 05/06/2024 2:00 PM EDT Office Visit [facility] MED[facility] [address] [place] [address] Gail Stephens NP 230 [place] [address] 05/23/2024 2:30 PM EDT Office Visit [facility] [address] [place] [address] Gail Stephens NP [address] [place] [address] documented as of this encounter Visit Diagnoses Diagnosis Pain in both knees, unspecified chronicity documented in this encounter Additional Health Concerns Assessment Noted Time PHQ-9 Depression Total Score: 0 10/02/19 24 1:26 PM EDT documented as of this encounter Care Teams Carpet Sewing Machine Operator Relationship Specialty Start Date End Date Gail Stephens NP [address] [place] [address] PCP - General Family Medicine 01/12/23 documented as of this encounter
--- OUTSIDE RECORDS SUMMARY | 2024-04-28 16:15 | XMS_ITS | Encounter Summary ---
Author Organization [employer] Address [address] [facility] 7t [place] [address] Care Team Providers Care Nursing Unit Manager Name Role Phone Gail Stephens NP Primary Care Provider [phone] Reason for Visit * Reason Onset Date Comments Chart Prep 03/31/2024 Encounter Details Date Type Department Care Team ([facility] st Contact Info) Description 03/31/2024 Telephone [facility] 230 [place] [address] Gail Stephens NP 230 [place] [address] Chart Prep Social History Tobacco Use Types [...] Description 05/06/2024 2:00 PM EDT Office Visit [facility] [address] [place] [address] Gail Stephens NP [address] [place] [address] 05/23/2024 2:30 PM EDT Office Visit [facility] [address] [place] [address] Gail Stephens NP [address] [place] [address] documented as of this encounter Visit Diagnoses Not on filedocumented in this encounter Additional Health Concerns Assessment Noted Time PHQ-9 Depression Total Score: 0 10/02/19 24 1:26 PM EDT documented as of this encounter Care Teams Nursing Unit Manager Relationship Specialty Start Date End Date Gail Stephens NP 230 [place] [address] PCP - General Family Medicine 01/12/23 documented as of this encounter
--- OUTSIDE RECORDS SUMMARY | 2024-04-28 16:15 | XMS_ITS | Encounter Summary ---
Author Organization [employer] Address [address] [facility] 7t [place] [address] Care Team Providers Care Health Manager Name Role Phone Gail Stephens NP Primary Care Provider [phone] Reason for Visit * Reason Onset Date Comments Med Refill 11/24/2023 Encounter Details Date Type Department Care Team (Late st Contact Info) Description 11/24/2023 Refill [facility] 230 [place] [address] Gail Stephens NP [address] [place] [address] Social History Tobacco Use Types Packs/Day Years [...] Description 05/06/2024 2:00 PM EDT Office Visit [facility] MEDICINE [address] [place] [address] Gail Stephens NP [address] [place] [address] 05/23/2024 2:30 PM EDT Office Visit [facility]INE [address] [place] [address] Gail Stephens NP [address] [place] [address] documented as of this encounter Visit Diagnoses Not on filedocumented in this encounter Additional Health Concerns Assessment Noted Time PHQ-9 Depression Total Score: 0 10/02/19 24 1:26 PM EDT documented as of this encounter Care Teams Health Manager Relationship Specialty Start Date End Date Gail Stephens NP [address] [place] [address] PCP - General Family Medicine 01/12/23 documented as of this encounter
--- OUTSIDE RECORDS SUMMARY | 2024-04-28 16:15 | XMS_ITS | Encounter Summary ---
Author Organization [employer] Address [address] [place] [address] 7t [place] [address] Care Team Providers Care Service Support Representative Name Role Phone Gail Stephens NP Primary Care Provider [phone] Reason for Visit * Reason Comments Sick Onsite bilateral leg pain n egative finding in ED 03/27/24 pain is 09/01 Encounter Details Date Type Department Care Team (Late st Contact Info) Description 04/01/2024 11:15 AM EST Office Visit [facility] MEDICINE [address] [place] [address] Denise Aguirre CNP 230 [place] [address] Pain in both knees, unspecified chronicity (Primary [...] She is s/p lumpectomy, completed 02/29/2024 at [facility] General Surgery. Last f/u with general surgery [...] is reporting chills. HPI Pt presented to [facility] ED on 03/27/24 for bilateral calf [...] Medications sulfamethoxazole-trimethoprim (Bactrim DS) 800-160 MG tablet [facility] LEAD TRAINER Attestation LEAD TRAINER Resident Attestation: Patient was seen and evaluated by Denise Aguirre LEAD TRAINER, in collaboration with Barry Richardson MD who has reviewed my assessment and plan. I, Barry Richardson MD , have reviewed the resident's note and agree with the assessment & plan of care as documented above. Visit Conducted in: Ukrainian Translation by: Provided by [facility] staff member Milly Robles MA , documented [...] Description 05/06/2024 2:00 PM EDT Office Visit [facility] MEDICINE [address] [place] [address] Gail Stephens NP [address] [place] [address] 05/23/2024 2:30 PM EDT Office Visit [facility] [address] [place] [address] Gail Stephens NP [address] [place] [address] documented as of this encounter Visit Diagnoses Diagnosis Pain in both knees, unspecified chronicity- Primary Soft tissue infection Unspecified infectious and parasitic diseases documented in this encounter Additional Health Concerns Assessment Noted Time PHQ-9 Depression Total Score: 0 10/02/19 24 1:26 PM EDT documented as of this encounter Care Teams Service Support Representative Relationship Specialty Start Date End Date Gail Stephens NP [address] [place] [address] PCP - General Family Medicine 01/12/23 documented as of this encounter
--- OUTSIDE RECORDS SUMMARY | 2024-04-28 16:15 | XMS_ITS | Clinical Summary ---
Author Organization [facility] Address [address] [facility] 7t [place] [address] Care Team Providers Care Finance Attorney Name Role Phone Gail Stephens NP Primary Care Provider [phone] Allergies No known active allergies Medications cetirizine [...] 03/03/2024 Overview (03/03/2024): Procedure performed 02/29/2024 at [facility] Mass overlapping multiple quadrants [...] Department Care Team Description 04/18/[address] [facility] [address] [place] [address] Denise Aguirre CNP Pain in both knees, unspecified chronicity 04/18/[address] [facility] [address] [place] [address] Gail Stephens NP Transition Of Care (Tcm) (HDF scheduled. ) 04/15/[address] [facility] [address] [place] [address] Gail Stephens NP No Show 04/05/[address] [facility] [address] [place] [address] Gail Stephens NP Chart Prep 04/01/2024 11:15 AM EST Office Visit [address] [address] Denise Aguirre, JIM Pain in both knees, unspecified chronicity (Primary Dx); Soft tissue infection 03/31/[address] [facility] [address] [place] [address] Gail Stephens NP Chart Prep 03/29/[address] [facility] [address] [place] [address] Gail Stephens NP ER Follow-up 03/03/[address] [address] Gail Stephens NP recall april follow up 02/29/2024 Orders Only GENERIC EXTERNAL DATA DEPARTMENT Provider, Generic External Data 02/20/[address] [address] Gail Stephens NP 02/03/[address] [address] Elizabeth Delgado RN Results from Last 3 [...] with others, in a hotel, in a detention, living outside on the street, on a [...] 05/06/2024 2:00 PM EDT Office Visit [facility] [address] [place] [address] Gail Stephens NP [address] [place] [address] 05/23/2024 2:30 PM EDT Office Visit [facility] [address] [place] [address] Gail Stephens NP [address] [place] [address] Health Maintenance Due Date Last Done Comments [...] Procedure Name Priority Date/Time Associated Diagnosis Comments GRAM STAIN Routine 04/28/2024 12:56 PM EST VASC US LOWER EXTREMITY VENOUS DUPLEX BILATERAL [...] Recently Relevant to Health Maintenance Results * Gram stain (04/28/2024 12:56 PM EST) Only the most recent of2 resultswithin the time period is included. 04/28/2024 12:5 6 PM EST 04/28/2024 2:26 PM EST Comment:Breast Narrative [facility] - 04/28/2024 3:44 PM EST Gram stain results: 4+ polys 2+ epithelial cells 4+ red blood cells No organisms seen Specimen Source: Breast us Generic External Data Provider LAB MICROBIOLOGY - GENERAL ORDERABLES Final Result Performing Organization Address City/State/[facility] [email or web address]] Co de Phone Number [facility] [address] [place] [address] [phone] * VASC Lower Extremity Venous Duplex Bilateral (03/27/2024 3:02 PM EST) 03/27/2024 3:02 PM EST Narrative [facility] - 03/27/2024 3:03 PM EST ? [facility] ?[address] ?[place] [address] ? Ultrasound Report ? Signed ? Patient: Go Lange,Grace ?MR#: ?? [id number] ? : 2000 ?Acct:[id number] ? Age/Sex: 23 / F ?ADM Date: 02/02/25 ? Loc: HO.ED ? Attending Dr: ? Ordering Physician: Tima Gillespie ?? Date of Service: 03/27/24 ?? Procedure(s): US venous duplex LE BI ?? Accession Number(s): [id number] ? cc: Tima Gillespie; [facility] ? CLINICAL HISTORY: Bilateral calf pain. [...] DD/ 1502 ? TD/TT: 03/27/24 1502 ? Pipeline Dispatcher: ? Procedure Note Donmalloriemaria victoria, Image - 03/27/2024 [place] [address] Ultrasound Report Signed Patient: Anne Ochoa MMR#: [id number] : 2000Acct:[id number] Age/Sex: 23 FADM Date: 03/27/24 Loc: HO.ED Attending Dr: Ordering Physician: Tima Gillespie Date of Service: 03/27/24 Procedure(s): US venous duplex LE BI Accession Number(s): [id number] cc: Tima Gillespie; [facility] CLINICAL HISTORY: Bilateral calf pain. DVT? [...] 03/27/24 1503 DD/ 1502 TD/TT: 03/27/24 1502 Pipeline Dispatcher: [facility] External Provider CV VASC ULAR PROCEDURES Edited Result - Final [facility] [address] [place] [phone] * (ABNORMAL) CBC auto differential (03/27/2024 1:46 PM EST) Only the most recent of3 resultswithin the time period is included. White Blood Count 10.2 4.8 - 10.8 X10*3/uL [facility] Red Blood Count 4.46 4.20 - 5.50 X10*6/uL [facility] Hemoglobin 13.1 12.0 - 16.0 g/dl [facility] Hematocrit 37.3 37.0 - 47.0 % [facility] Mean Corpuscular Volume 83.6 80.0 - 98.0 fL [facility] Mean Corpuscular Hemoglobin 29.4 27.0 - 33.0 pg [facility] Mean Corpuscular HGB Conc 35.1(H) 31.0 - 35.0 g/dl [facility] Red Cell Distribution Width 12.5 11.0 - 16.0 % [facility] Platelet Count 310 160 - 400 X10*3/uL [facility] Mean Platelet Volume 9.1(L) 9.4 - 12.3 fL [facility] Neutrophils Percent Auto 69.2 45 - 73 % [facility] Imm Gran Pct Auto 0.2 0.0 - 0.4 % [facility] Lymphocytes Percent Auto 23.8 20 - 40 % [facility] Monocytes Percent Auto 5.6 2 - 11 % [facility] Eosinophils Percent Auto 1.0 0 - 4 % [facility] Basophils Percent Auto 0.2 0 - 2 % [facility] NRBC Pct Auto 0.0 0.0 - 0.2 /100WBC [facility] Neutrophils Absolute Auto 7.1 2.0 - 8.3 x10*3/uL [facility] Imm Gran Abs Auto 0.02 0.00 - 0.03 X10*3/uL [facility] Lymphocytes Absolute Auto 2.4 1.2 - 4.9 X10*3/uL [facility] Monocytes Absolute Auto 0.6 0.1 - 1.2 X10*3/uL [facility] Eosinophils Absolute Auto 0.1 0.0 - 0.4 X10*3/uL [facility] Basophils Absolute Auto 0.0 0.0 - 0.2 X10*3/uL [facility] NRBC Abs Auto 0.000 0.0 - 0.012 X10*3/uL [facility] 03/27/2024 1:46 PM EST 03/27/2024 1:49 PM EST Generic External Data Provider LAB BLOOD ORDERAB LES Final Result Performing Organization Address [facility] [[email or web address]] Co de Phone Number [facility] [address] [place] [phone] * Partial Thromboplastin Time, Activated (APTT) (03/27/2024 1:46 PM EST) Partial Thromboplastin Time 34.7 26.0 - 36.8 SEC [facility] Comment:For information rega rding the monitoring of direct thrombininhibitors, please refer to Pharmacy. 03/27/2024 1:46 PM EST 03/27/2024 1:49 PM EST Generic External Data Provider LAB BLOOD ORDERAB LES Final Result Performing Organization Address [facility] de Phone Number [facility] [address] [place] [phone] * (ABNORMAL) Prothrombin Time-INR (03/27/2024 1:46 PM EST) Prothrombin Time 13.4(H) 10.9 - 12.4 SEC [facility] INTERNATIONAL NORM RATIO 1.2(H) 0.9 - 1.1 [facility] Comment:INTERNATIONAL NORMAL IZED RATIO (INR) REFERENCE [...] ORDERAB LES Final Result Performing Organization Address City/[facility]/ZIP Co de Phone Number [facility] [address] [place] [phone] * hCG, Total, Quantitative (03/27/2024 1:46 PM EST) HCG Quantitative <2 mIU/mL [facility] Comment:Weeks post LMP Appro ximate hCG(Last Menstrual Period) Range (mIU/ml)3 - 4 weeks 9 - 1304 - 5 weeks 75 - 2,6005 - 6 weeks 850 - 20,8006 - 7 weeks 4000 - 100,2007 - 12 weeks 11,500 - 289,31973 - 16 weeks 18,300 - 137,78562 - 29 weeks (2nd trimester) 1,400 - 53,84175 - 41 weeks (3rd trimester) 940 - [...] ORDERAB LES Final Result Performing Organization Address [facility]/ZIP Co de Phone Number [facility] [address] [place] [phone] * B Type Natriuretic Peptide (BNP) (03/27/2024 1:46 PM EST) B Type Natriuretic Peptide <10 <100 pg/mL [facility] Comment:For those patients w ho are being treated with Natrecor(nesiritide, recombinant BNP), BNP testing should beperformed at least two hours post treatment in order toensure that only endogenous levels of BNP are detected. 03/27/2024 1:46 PM EST 03/27/2024 1:49 PM EST Generic External Data Provider LAB BLOOD ORDERAB LES Final Result Performing Organization Address [facility] Phone Number [facility] [address] [place] [phone] * Magnesium (03/27/2024 1:46 PM EST) Pathologist [facility] Magnesium 2.0 1.6 - 2.6 mg/dL [facility] 03/27/2024 1:46 PM EST 03/27/2024 1:49 PM EST Generic External Data Provider LAB BLOOD ORDERAB LES Final Result Performing Organization Address [facility] Phone Number [facility] [address] [place] [phone] * Creatine Kinase, Total (03/27/2024 1:46 PM EST) Pathologist [facility] Creatine Kinase Total 64 26 - 140 U/L [facility] 03/27/2024 1:46 PM EST 03/27/2024 1:49 PM EST Generic External Data Provider LAB BLOOD ORDERAB LES Final Result Performing Organization Address [facility] Phone Number [facility] [address] [place] [phone] * (ABNORMAL) Comprehensive Metabolic Panel (03/27/2024 1:46 PM EST) Only the most recent of2 resultswithin the time period is included. Pathologist [facility] Sodium 140 135 - 145 mmol/L [facility] Potassium 3.7 3.3 - 5.1 mmol/L [facility] Chloride 107 96 - 108 mmol/L [facility] Carbon Dioxide 25 22 - 29 mmol/L [facility] Anion Gap 12 12 - 20 [facility] Urea Nitrogen (BUN) 11 9 - 16 mg/dL [facility] Creatinine, Serum 0.65 0.5 - 1.4 mg/dL [facility] Creatinine Clr Calc Pharmacy 731.9 [facility] Comment:Provided height and weight: 157.48 cm,786 kg.eGFR (calculated from the MDRD study equation) and eCrCl(calculated from the Cockcroft-Gault equation) are based ondifferent parameters and may not yield comparable results.If eCrCl result is absurd, please check patient'sheight/weight. Estimated Glomerular Filt Rate >60 [facility] Comment:Chronic Kidney Disea se: Estimated GFR < 60 mL/min/1.30j5Sfpfbd Kidney Disease: Estimated GFR < 15 mL/min/1.73m2 Glucose 92 60 - 115 mg/dL [facility] Calcium 9.4 8.4 - 10.2 mg/dL [facility] Bilirubin, Total 0.3 0.0 - 1.0 mg/dL [facility] Aspartate Amino Transferase 19 5 - 31 U/L [facility] Alanine Aminotransferase 21 0 - 31 U/L [facility] Total Protein 8.1(H) 6.5 - 8.0 g/dL [facility] Albumin Level 4.5 3.5 - 5.0 g/dL [facility] Alkaline Phosphatase 53 39 - 117 U/L [facility] 03/27/2024 1:46 PM EST 03/27/2024 1:49 PM EST us Generic External Data Provider LAB BLOOD ORDERAB LES Final Result [facility] [address] [place] [address] [phone] * Gross and Microscopic Level 5 (02/29/2024 1:45 PM EST) 02/29/2024 1:45 PM EST 02/29/2024 3:00 PM EST Narrative [facility] - 03/03/2024 3:12 PM EST ----- ------- Name: Anne Ochoa ? Age/Sex: 23/ ? : 2000 Unit#: [id number] ?? Attend Dr: Leoncio Nunez MD ?Re02/29/24 ?Status: DEP SDC ? Location: HO.SSS ?Disch: ? ----- ------- SPEC : [id number] ? RECD: 02/29/24-1500 ? STATUS: ??SOUT ? REQ NUM: [id number] ? AMRITA: 02/29/24-1345 ? SUBM DR: Leoncio Nunez MD ? ENTERED: ??01/ ?SP TYPE: Surgical ? OTHR : Gail [...] ? Age/Sex: 23/F ? : 2000 Unit#: [id number] ?? Attend Dr: Leoncio Nunez MD ?Re02/29/24 ?Status: DEP SDC ? Location: HO.SSS ?Disch: ? ----- ------- SPEC : [id number] ? RECD: 02/29/24-1500 ? STATUS: ??SOUT ? REQ NUM: [id number] ? AMRITA: 02/29/24-2285 ? SUBM DR: Leoncio Nunez MD ? ENTERED: ??02/29/24-1511 ?SP TYPE: Surgical ? OTHR DR: Gail Stephens ? ORDERED: ??Gross Micro L5 ? Copies To: ?? Leoncio Nunez MD ?? [facility] General Surgeons ?? [address] ?? [place] [address] ?? [phone] ?? Gail Stephens ?? [address] ?? [place] [address] ?? [phone] ----- ------- Signed (signature on file) Rafal Guadarrama MD 03/03/241511 ? ----- ------- ? END OF REPORT ? Generic External Data Provider LAB BLOOD ORDERAB LES Final Result Performing Organization Address [facility] de Phone Number [facility] [address] [place] [address] [phone] * HCG, Qualitative, Urine (02/29/2024 11:30 AM EST) Urine NEGATIVE NEGATIVE [facility] Comment:This test was develo ped to detect early . Falsenegative results may occur after the 5th - 7th week ofpregnancy when using this test method. If clinicallyindicated, consider a serum hCG. 02/29/2024 11:3 0 AM EST 02/29/2024 11:33 AM EST Generic External Data Provider LAB URINE ORDERAB LES Final Result Performing Organization Address [facility] de Phone Number [facility] [address] [place] [phone] * BI US Breast Limited Right (02/02/2024 8:45 AM EST) Anatomical Region Laterality Modality Breast Right Ultrasound 02/02/2024 8:45 AM EST Narrative 02/02/2024 9:32 AM EST ? [facility] ? [address] ?[place] [address] ? Ultrasound Report ? Signed ? Patient: Go Nazario,Grace ?MR#: ?? [id number] ? : 2000 ?Acct:[id number] ? Age/Sex: 23 / F ?ADM Date: 12/10/24 ? Loc: HO.MAMMO ? Attending Dr: Lorena Man MD ? Ordering Physician: Lorena Man MD ?? Date of Service: 02/02/24 ?? Procedure(s): US breast RT limited mamm only ?? Accession Number(s): [id number] ? cc: Gail Stephens; Lorena Man MD [...] ??02/02/2024 09:29 AM EST ? Dictated By: ?Arthur,Cindy DO ? Signed By: ?<Electronically signed by Cindy Gibson, DO in OV> ? 02/02/24 0929 ? DD/ 0845 ? TD/TT: 02/02/24 0900 ? Pipeline Dispatcher: ? Procedure Note Emily Madison - 02/02/2024 [facility] [address] [place], [place] [address] Ultrasound Report Signed Patient: Go NazarioDangz MMR#: [id number] : 2000Acct:[id number] Age/Sex: 23 / FADM Date: 02/02/24 Loc: HO.MAMMO Attending Dr: Lorena Man MD Ordering Physician: Lorena Man MD Date of Service: 02/02/24 Procedure(s): US breast RT limited mamm only Accession Number(s): [id number] cc: Gail Stephens; Lorena Man MD EXAMINATION: [...] in OV> 02/02/24928 DD/ 4 TD/TT: 02/02/24899 Pipeline Dispatcher: Lorena Man MD IMG US PROCEDURES Final Re sult * (ABNORMAL) Lipid Panel, Standard (10/28/2023 8:54 AM EDT) Triglycerides 90 <150 mg/dL [facility] Comment:Desirable Triglyceri de: less than 150 mg/dLBorderline High Triglyceride 150-199 mg/dLHigh Triglyceride: 200-499 mg/dLVery High Triglyceride: greater than or equal to 5OO mg/dL Cholesterol 158 <200 mg/dL [facility] Comment:Desirable Cholestero l: less than 200 mg/dLBorderline High Cholesterol: 200-239 mg/dLHigh Cholesterol: greater than 239 mg/dL LDL Cholesterol Calculated 107(H) <100 mg/dL [facility] Comment:Desirable LDL: less than 100 mg/dLNear Optimal/Above Optimal LDL: 110- 129 mg/dLBorderline High LDL: 130-159 mg/dLHigh LDL: 160-189 mg/dLVery High LDL: greater than or equal to 190 mg/dL HDL Cholesterol 33(L) >40 mg/dL [facility] Comment:Desirable HDL: great er than 40 mg/dL Note: This HDL assay may give artificially low results in patients with liver disease. Blood Venous blood specimen / Unknown 10/28/2023 8:54 AM EDT 10/28/2023 11:03 AM EDT Gail Stephens NP LAB BLOOD ORDERABLES Final Resu lt [facility] [address] [place] [phone] * Pap Smear (02/06/2022 9:46 AM EST) 02/06/2022 9:46 AM EST 02/06/2022 3:45 PM EST Narrative [facility] - 02/21/2022 5:05 PM EST ----- ------- Name: Anne Ochoa ? Age/Sex: 21/F ? : 2000 Unit#: [id number] ?? Attend Dr: Elizabeth Dickinson CNM ?Re02/06/22 ?Status: DEP REF ? Location: HO.LNP ?Disch: ? ----- ------- SPEC : [id number] ?RECD: 02/06/22-7 ? STATUS: ??SOUT ? REQ NUM: [id number] ? AMRITA: 02/06/22 ? SUBM DR: Elizabeth Dickinson CNM ? ENTERED: ??02/06/22 ?SP TYPE: Pap Smr ?OTHR DR: ? ORDERED: ??Pap Smear ? Interpretation ?? Satisfactory for evaluation. ?? Negative for intraepithelial lesion or malignancy. ?Clinical Information LMP: 02/13 Previous PAP test: Never ? Material Received ?? ThinPrep-Cervical ----- ------- Signed (signature on file) An Orosco Michelle 02/21/221704 ? ----- ------- ? END OF REPORT ? [facility] External Provider LAB CYT OLY ORDERABLES Final Result [facility] [address] [place] [phone] * Hepatitis C Antibody (11/23/2020 3:28 PM EDT) Pathologist [facility] Hepatitis C Antibody Nonreactive Nonreactive [facility] Comment: Antibodies to HCV not detected; does not exclude early acute HCV infection. HIV AB/AG Nonreactive Nonreactive [facility] Comment: HIV-1 p24 Ag and/or [...] detection of this assay. ?? The [employer] Executive Communications Manager HIV Ag/Ab Combo assay result and supplemental assay results should be interpreted in conjunction with the patient's clinical presentation, history and other laboratory results. ??If the results are inconsistent with clinical evidence, additional testing is suggested to confirm the result. Hepatitis B Surface Antigen Negative Negative [facility] 11/23/2020 3:28 PM EDT us Elizabeth Presidio HISTORICAL/NON ORDERABLE LABS Fi nal Result Performing Organization Address [facility] de Phone Number [facility] [address] * CHLAMYDIA/N. GONORRHOEAE RNA, TMA, UROGENITAL (04/25/2020 3:36 PM EST) Chlamydia trachomatis RNA, TMA, Urogenital NOT DETECTED NOT DETECTED [facility] COMMENT SEE COMMENT [facility] Comment: The analytical performance characteristics of this assay, when used to test SurePath(TM) specimens have been determined by [employer]. The modifications have not been cleared or approved by the FDA. This assay has been validated pursuant to the CLIA regulations and is used for clinical purposes. ?? For additional information, please refer to https://education.[employer]/faq/EJY572 (This link is being provided for information/ educational purposes only.) ?? Neisseria gonorrhoeae RNA, TMA, Urogenital NOT DETECTED NOT DETECTED [facility] 04/25/2020 3:36 PM EST Brinda Lizarraga NP HISTORICAL/NON ORDERABLE LABS F inal Result Performing Organization Address [facility] de Phone Number [facility] [address] from Last 3 Months or Most Recently Relevant to Health Maintenance Insurance # 7 [place] [id number] [facility] C3 # 7 [place] [id number] 7 [place] [id number] Care Teams Finance Attorney Relationship Specialty Start Date End Date Gail Stephens NP [address] [place] [phone] PCP - General Family Medicine 01/12/23
--- OUTSIDE RECORDS SUMMARY | 2024-04-28 16:15 | XMS_ITS | Encounter Summary ---
Author Organization [employer] Address [address] [facility] 7t [place] [address] Care Team Providers Care Card Brusher Name Role Phone Gail Stephens NP Primary Care Provider [phone] Reason for Visit * Reason Onset Date Comments ER Follow-up 03/29/2024 Encounter Details Date Type Department Care Team ([facility] st Contact Info) Description 03/29/2024 Telephone [facility] [address] [place] [address] Gail Stephens NP [address] [place] [address] ER Follow-up Social History Tobacco Use Types [...] ED visit on : Date: 03/27/2024 Hospital: [facility] Seen for: Leg Pain Symptomatic Yes *if yes message should go to Triage Patient advised will forward to team nurse for follow up documented in this encounter Plan of Treatment Upcoming Encounters Date Type Department Care Team (Late st Contact Info) Description 05/06/2024 2:00 PM EDT Office Visit [facility] [address] [place] [address] Gail Stephens NP [address] [place] [phone] 05/23/2024 2:30 PM EDT Office Visit [facility] [address] [place] [address] Gail Stephens NP [address] [place] [phone] documented as of this encounter Visit Diagnoses Not on filedocumented in this encounter Additional Health Concerns Assessment Noted Time PHQ-9 Depression Total Score: 0 10/02/19 24 1:26 PM EDT documented as of this encounter Care Teams Card Brusher Relationship Specialty Start Date End Date Gail Stephens NP [address] [place] [address] PCP - General Family Medicine 01/12/23 documented as of this encounter
--- OUTSIDE RECORDS SUMMARY | 2024-04-28 16:15 | XMS_ITS | Encounter Summary ---
Author Organization [employer] Address [address] [facility] 7t [place] [address] Care Team Providers Care Personal Coach Name Role Phone Gail Stephens NP Primary Care Provider [phone] Reason for Visit * Reason Onset Date Comments No Show 04/15/2024 Encounter Details Date Type Department Care Team ([facility] st Contact Info) Description 04/15/2024 Telephone [facility] MEDICINE [address] [place] [address] Gail Stephens NP [address] [place] [address] No Show Social History Tobacco Use Types [...] 05/06/2024 2:00 PM EDT Office Visit [facility] [address] [place] [address] Gail Stephens NP [address] [place] [address] 05/23/2024 2:30 PM EDT Office Visit [facility] MED[facility] [address] [place] [address] Gail Stephens NP [address] [place] [address] documented as of this encounter Visit Diagnoses Not on filedocumented in this encounter Additional Health Concerns Assessment Noted Time PHQ-9 Depression Total Score: 0 10/02/19 24 1:26 PM EDT documented as of this encounter Care Teams Personal Coach Relationship Specialty Start Date End Date Gail Stephens NP [address] [place] [address] PCP - General Family Medicine 01/12/23 documented as of this encounter
--- OUTSIDE RECORDS SUMMARY | 2024-04-28 16:15 | XMS_ITS | Encounter Summary ---
Author Organization [employer] Address [address] [facility] 7t [place] [address] Care Team Providers Care Tie Binder Name Role Phone Gail Stephens NP Primary Care Provider [phone] Reason for Visit * Reason Comments Transition Of Care (Tcm) HDF scheduled. Encounter Details Date Type Department Care Team (Late st Contact Info) Description 04/18/2024 Patient Outreach [facility] [address] [place] [address] Gail Stephens NP [address] [place] [address] Transition Of Care (Tcm) (HDF scheduled. ) [...] Admission/Visit 04/13/24 Date of Discharge 04/16/24 Facility [facility] Diagnosis Right breast abcess Disposition Discharged [...] Wednesdays, and Walk-In Urgent Care Located in [facility] of [facility]. Patient provided with after-hours line for [facility], , which offer night time triage service and option to transfer to absorption plant operator helper provider if needed. CC scanned discharge summary into patient's chart.. Biggest concern for appointment at this time is no concerns. Appropriate screenings completed in anticipation of appointment. documented in this encounter Plan of Treatment Upcoming Encounters Date Type Department Care Team (Late st Contact Info) Description 05/06/2024 2:00 PM EDT Office Visit [facility] [address] [place] [address] Gail Stephens NP [address] [place] [address] 05/23/2024 2:30 PM EDT Office Visit [facility] [address] [place] [address] Gail Stephens NP [address] [place] [address] documented as of this encounter Visit Diagnoses Not on filedocumented in this encounter Additional Health Concerns Assessment Noted Time PHQ-9 Depression Total Score: 0 10/02/19 24 1:26 PM EDT documented as of this encounter Care Teams Tie Binder Relationship Specialty Start Date End Date Gail Stephens NP [address] [place] [address] PCP - General Family Medicine 01/12/23 documented as of this encounter
== END 2024-04-28 12:57 | disposition home or self-care (01) ==
LOC: HO.LNP 12:56
PROVIDERS: PCP Internal Medicine; Visit Provider Surgery
DX: N61.0 Mastitis without abscess (principal)
CPT/HCPCS: 10060; 87070; 87205; 99212

== ENCOUNTER 2024-05-05 13:59 | Outpatient (AMB) | payer MEDICAID, SELFPAY ==
--- NOTE | 2024-05-05 14:02 | A.OFFVIS_ITS ---
Vital Signs 3 05/05/24 14:04 Height 5 ft Weight 168 lb 6.931 oz BMI 32.9 BP 142/85 H Blood Pressure Location Rt brachial Position Sitting Pulse Oximetry (%) 98 Intake Visit Reasons: 1 wk follow up Check for infection/pain in breast Intake Note: Anne presents in 1 week follow up of wound check s/p breast bx. CC: Patient c/o panic or anxiety attacks since last , and last Thursday his mother called an ambulance. She reports the wounds are still open and draining. She also reports pain only if she touches the wounds. Sales Representative Uniforms Required: Yes Sales Representative Uniforms Services: Sales Representative Uniforms Present Sales Representative Uniforms Name: Paulo Jarvis LM Accompanied by: Self / Same As Patient Allergies No Known Allergies [No Known Allergies*] Allergy (Verified 05/05/24 14:11) HPI Comments Details: 23-year-old female patient returning for follow-up examination of a right upper inner quadrant breast mass with abscess, status post repeat incision and drainage 1 week ago. She continues to note drainage from the wound as well as pain when the lesion is palpated however overall feels much improved. Continues to feel a mass in the upper inner quadrant. There is also drainage from the Brook areolar incision. Wound cultures were negative for any bacteria. Remains on the doxycycline and is tolerating this well. She denies any fever or chills. She was scheduled for excision of the mass on 05/30/2024. She will be admitted postoperatively for IV antibiotics given the persistent infection in the right breast. [facility] Medical History Hx of iron deficiency anemia Surgical History History of lumpectomy of right breast (02/29/24) No pertinent past surgical history Family History Mother Hypertension Maternal Grandfather Colon cancer Maternal Aunt Hx of breast cancer Social History Household Members: Family and Children Both parents involved: Yes Caregiver staying overnight: No Housing: Apartment Are you a primary anesthesiologist and critical care to a significant other at home: No Do you presently have visiting nurse or other home services: No 75 years or older and lives alone: No Alcohol intake: current Alcohol intake frequency: holidays/special occasions only Comment: Patient felt dizzy on previous shift Patient Tobacco Use Status: Never used Tobacco Special abbey needs: No Agree to transfusion: Yes service: No Female Reproductive History Menstrual Age of Menarche: 11 Review of Systems Const All systems reviewed & are unremarkable except as noted in HPI and below Skin/Breast Reports breast skin changes, Reports breast pain, Reports breast mass, Reports change in breast shape and Reports skin swelling Physical Exam Vital Signs: Last Vital Signs BP 142/85 H 05/05/24 14:04 BMI result Body Mass Index 32.9 Const General: in distress Nutritional Appearance: well nourished Orientation/consciousness: patient oriented x3 Chest Other: Right breast with an area of swelling in the upper inner quadrant, measuring approximately 3 cm in diameter with overlying skin redness and crusted skin, tender to palpation but no further fluctuance identified. An open wound at the I&D site is draining bloody fluid. The Brook areolar incision is also open but no evidence of infection. Chest/axillae images: 2 1. Palpable mass upper inner quadrant right breast 3 cm diameter with overlying skin changes Skin Other: Right breast as noted above Neuro General: patient oriented x3 Extrem Other: No edema Assessment & Plan Assessment & Plan (1) Breast mass, right: Code(s): N63.10 - Unspecified lump in the right breast, unspecified quadrant Category: Medical Qualifiers: Breast mass location: upper inner quadrant Qualified Code(s): N63.12 - Unspecified lump in the right breast, upper inner quadrant (2) Mastitis of right breast unrelated to of : Code(s): N61.0 - Mastitis without abscess Category: Medical Plan 23-year-old female patient with chronic persistent mastitis with a palpable mass in the upper inner quadrant, s/p multiple incision and drainage procedures presenting for follow-up examination. I recommended excision of the persistently infected tissue in the upper inner quadrant to be performed as a short-stay admit with the admission postoperatively for IV antibiotics. After discussion of the procedure, risks, and alternatives, she consents to the right breast lumpectomy. Medications: Refilled 2 doxycycline hyclate End date 04/22/24 100 mg PO BID 20 tabs 0RF Coding Level of Care Code Global (78587) Diagnoses Mass of upper inner quadrant of right breast N63.12 Breast mass location: upper inner quadrant Mastitis of right breast unrelated to of N61.0
[2024-05-05 14:04] VITALS: BP 142/85; O2SAT 98; BMI 32.9
--- OUTSIDE RECORDS SUMMARY | 2024-05-05 17:46 | XMS_ITS | Encounter Summary ---
Author Organization [employer] Address [address] [facility] 7[address] [place] [address] Care Team Providers Care Stock Holder Name Role Phone Gail Stephens NP Primary Care Provider [phone] Reason for Visit * Reason Onset Date Comments Med Refill 04/18/2024 Encounter Details Date Type Department Care Team (Late st Contact Info) Description 04/18/2024 Refill [facility] [address] [place] [address] Denise Aguirre CNP [address] [place] [address] Pain in both knees, unspecified chronicity Social [...] Description 05/06/2024 2:00 PM EDT Office Visit [facility] [address] [place] [address] Gail Stephens NP [address] [place] [address] 05/23/2024 2:30 PM EDT Office Visit [facility] [address] [place] [address] Gail Stephens NP [address] [place] [address] documented as of this encounter Visit Diagnoses Diagnosis Pain in both knees, unspecified chronicity documented in this encounter Additional Health Concerns Assessment Noted Time PHQ-9 Depression Total Score: 0 10/02/19 24 1:26 PM EDT documented as of this encounter Care Teams Stock Holder Relationship Specialty Start Date End Date Gail Stephens NP [address] [place] [address] PCP - General Family Medicine 01/12/23 documented as of this encounter
--- OUTSIDE RECORDS SUMMARY | 2024-05-05 17:46 | XMS_ITS | Encounter Summary ---
Author Organization [employer] [facility] Address [address] [facility] 7t [place] [address] Care Team Providers Care Excellence Consultant Name Role Phone Gail Stephens NP Primary Care Provider [phone] Reason for Visit * Reason Onset Date Comments Med Refill 11/24/2023 Encounter Details Date Type Department Care Team (Late st Contact Info) Description 11/24/2023 Refill [facility] [address] [place] [address] Gail Stephens NP [address] [place] [address] Social History Tobacco Use Types Packs/Day Years [...] Description 05/06/2024 2:00 PM EDT Office Visit [facility] [address] [place] [phone] Gail Stephens NP [address] [place] [address] 05/23/2024 2:30 PM EDT Office Visit [facility] [address] [place] [phone] Gail Stephens NP [address] [place] [address] documented as of this encounter Visit Diagnoses Not on filedocumented in this encounter Additional Health Concerns Assessment Noted Time PHQ-9 Depression Total Score: 0 10/02/19 24 1:26 PM EDT documented as of this encounter Care Teams Excellence Consultant Relationship Specialty Start Date End Date Gail Stephens NP [address] [place] [address] PCP - General Family Medicine 01/12/23 documented as of this encounter
--- OUTSIDE RECORDS SUMMARY | 2024-05-05 17:46 | XMS_ITS | Encounter Summary ---
Author Organization [employer] Address [address] [facility] 7t [place] [address] Care Team Providers Care Motorized Squad Lieutenant Name Role Phone Gail Stephens NP Primary Care Provider [phone] Reason for Visit * Reason Comments Transition Of Care (Tcm) HDF scheduled. Encounter Details Date Type Department Care Team ([facility] st Contact Info) Description 04/18/2024 Patient Outreach [facility] [address] [place] [address] Gail Stephens NP [address] [place] [address] Transition Of Care (Tcm) (HDF scheduled. ) [...] 04/18/24 1333 Hospital Discharges and Admission for [facility] Type of Visit Hospital Admission Date of Admission/Visit 04/13/24 Date of Discharge 04/16/24 Facility [facility] Diagnosis Right breast abcess Disposition Discharged [...] Wednesdays, and Walk-In Urgent Care Located in [facility]. Patient provided with after-hours line for [facility], , which offer night time triage service and option to transfer to travel accommodations rater provider if needed. CC scanned discharge summary into patient's chart.. Biggest concern for appointment at this time is no concerns. Appropriate screenings completed in anticipation of appointment. documented in this encounter Plan of Treatment Upcoming Encounters Date Type Department Care Team (Late st Contact Info) Description 05/06/2024 2:00 PM EDT Office Visit [facility] [address] [place] [address] Gail Stephens NP [address] [place] [address] 05/23/2024 2:30 PM EDT Office Visit [facility] [address] [place] [address] Gail Stephens NP [address] [place] [address] documented as of this encounter Visit Diagnoses Not on filedocumented in this encounter Additional Health Concerns Assessment Noted Time PHQ-9 Depression Total Score: 0 10/02/19 24 1:26 PM EDT documented as of this encounter Care Teams Motorized Squad Lieutenant Relationship Specialty Start Date End Date Gail Stephens NP [address] [place] [address] PCP - General Family Medicine 01/12/23 documented as of this encounter
--- OUTSIDE RECORDS SUMMARY | 2024-05-05 17:46 | XMS_ITS | Encounter Summary ---
Author Organization [employer] [facility] Address [address] [facility] 7t [place] [address] Care Team Providers Care Tool Design Draftsperson Name Role Phone Gail Stephens NP Primary Care Provider [phone] Reason for Visit * Reason Onset Date Comments No Show 04/15/2024 Encounter Details Date Type Department Care Team ([facility] st Contact Info) Description 04/15/2024 Telephone [facility] [address] [place] [address] Gail Stephens NP [address] [place] [address] No Show Social History Tobacco Use Types [...] with others, in a hotel, in a retirement, living outside on the street, on a [...] 2:00 PM EDT Office Visit [facility] [address] [place], [place] [phone] Gail Stephens NP [address] [place] [address] 05/23/2024 2:30 PM EDT Office Visit [facility] [address] [place] [address] Gail Stephens NP [address] [place] [address] documented as of this encounter Visit Diagnoses Not on filedocumented in this encounter Additional Health Concerns Assessment Noted Time PHQ-9 Depression Total Score: 0 10/02/19 24 1:26 PM EDT documented as of this encounter Care Teams Tool Design Draftsperson Relationship Specialty Start Date End Date Gail Stephens NP [address] [place] [address] PCP - General Family Medicine 01/12/23 documented as of this encounter
--- OUTSIDE RECORDS SUMMARY | 2024-05-05 17:46 | XMS_ITS | Clinical Summary ---
Author Organization [employer] Address [address] [facility] 7[address] [place] [address] Care Team Providers Care Trial Judge Name Role Phone Gail Stephens NP Primary Care Provider [phone] Allergies No known active allergies Medications cetirizine (ZyrTEC) 5 MG tablet TAKE 2 TABLETS BY MOUTH EVERY DAY 180 tablet 1 02/22/20 24 Active doxycycline (Vibra-Tabs) 100 MG tablet Take 1 tablet by mouth 2 times daily. Take with a full glass of water and do not lie down for at least 30 minutes after. 04/29/19 25 025 Active ibuprofen 800 MG tablet Take 1 tablet by mouth 3 times daily. 04/28/19 25 Active ondansetron (Zofran) 4 MG tablet Take 1 tablet by mouth every 8 (eight) hours if needed for nausea. 04/16/19 25 Active ibuprofen 800 MG tabletIndications :Pain in both knees, unspecified chronicity Take 1 tablet (800 mg) by mouth 3 times daily. 90 tablet 04/01/19 25 025 Discontinued(Me d list cleanup (will not trigger notification to Pharmacy)) sulfamethoxazole- trimethoprim (Bactrim DS) 800-160 MG tabletIndications :Soft tissue infection Take 2 tablets per day for 7 days. 14 tablet 04/01/19 25 025 Discontinued(Me d list cleanup (will not trigger notification to Pharmacy)) cyclobenzaprine (Flexeril) 10 MG tablet 10 mg. 03/27/19 025 Discontinued(Me d list cleanup (will not trigger notification to Pharmacy)) ondansetron ODT (Zofran-ODT) 4 MG disintegrating tablet Take 4 mg by mouth every 8 (eight) hours if needed. 03/27/19 025 Discontinued(Me d list cleanup (will not trigger notification to Pharmacy)) acetaminophen (Tylenol) 325 MG tablet Take 650 mg by mouth. 06/27/19 22 025 Discontinued(Me d list cleanup (will not trigger notification to Pharmacy)) Active Problems Problem Noted Date Diagnosed Date [...] 03/03/2024 Overview (03/03/2024): Procedure performed 02/29/2024 at [facility] Mass overlapping multiple quadrants of [...] Encounters Date Type Department Care Team Description 05/03/2024 Telephone [facility] [address] [place] [phone] Jeff RukhsanaWANDA chartprep 04/18/2024 Refill [facility] [address] [place] [address] Aguirre, Inderjitzaidas, AUTOMATIC FURNACE OPERATOR Pain in both knees, unspecified chronicity 04/18/2024 Patient Outreach [facility] [address] [place] [address] Gail Stephens NP Transition Of Care (Tcm) (HDF scheduled. ) 04/15/2024 Telephone [facility] [address] [place] [address] Gail Stephens NP No Show 04/05/2024 Telephone [facility] [address] [place] [address] Gail Stephens NP Chart Prep 04/01/2024 11:15 AM EST Office Visit [address] [address] Guicho Aguirres, AUTOMATIC FURNACE OPERATOR Pain in both knees, unspecified chronicity (Primary Dx); Soft tissue infection 03/31/2024 Telephone [facility] [address] [place] [address] Gail Stephens NP Chart Prep 03/29/[address] [address] Gail Stephens NP ER Follow-up 03/03/[address] [address] Gail Stephens NP recall april follow up 02/29/2024 Orders Only GENERIC EXTERNAL DATA DEPARTMENT Provider, Generic External Data 02/20/2024 Refill [facility] [address] [place] [address] Gail Stephens NP from Last 3 Months Immunizations Name Administration [...] Upcoming Encounters Date Type Department Care Team ([facility] st Contact Info) Description 05/06/2024 2:00 PM EDT Office Visit [facility] [address] [place] [address] AngeloGail, GIS PROGRAMMER [address] [place] [address] 05/23/2024 2:30 PM EDT Office Visit [facility] [address] [facility] [place] [address] TimothyjeffreyGail, GIS PROGRAMMER [address] [place], [place] [phone] Health Maintenance Due Date Last Done Comments [...] GRAM STAIN Routine 02/29/2024 12:00 AM EST LIPID PANEL, STANDARD Routine 10/28/2023 8:54 AM EDT Obesity (BMI 30-39.9) PAP SMEAR Routine 02/06/2022 9:46 AM EST [facility] HISTORICAL HEPATITIS C ANTIBODY Routine 11/23/2020 3:28 PM EDT [facility] HISTORICAL CHLAMYDIA/N. GONORRHOEAE RNA, TMA, UROGENITAL Routine 04/25/2020 3:36 PM EST from Last 3 Months or Most Recently Relevant to Health Maintenance Results * Gram stain (04/28/2024 12:56 PM EST) Only the most recent of2 resultswithin the time period is included. 04/28/2024 12:5 6 PM EST 04/28/2024 2:26 PM EST Comment:Breast Narrative [facility] - 04/30/2024 8:35 AM EST Gram stain results: 4+ polys 2+ epithelial cells 4+ red blood cells No organisms seen Routine Culture No growth after 2 days Specimen Source: Breast us Generic External Data Provider LAB MICROBIOLOGY - GENERAL ORDERABLES Final Result [facility] [address] [place] [phone] * [facility] US Lower Extremity Venous Duplex Bilateral (03/27/2024 3:02 PM EST) 03/27/2024 3:02 PM EST Narrative [facility] - 03/27/2024 3:03 PM EST ? [facility] ?[address] ?[place] [address] ? Ultrasound Report ? Signed ? Patient: Go Lange,Grace ?MR#: ?? [id number] ? : 2000 ?Acct:[id number] ? Age/Sex: 23 / F ?ADM Date: 03/27/24 ? Loc: HO.ED ? Attending Dr: ? Ordering Physician: Tima Gillespie ?? Date of Service: 03/27/24 ?? Procedure(s): US venous duplex LE BI ?? Accession Number(s): [id number] ? cc: Tima Gillespie; [facility] ? CLINICAL HISTORY: Bilateral calf pain. ??DVT? [...] DD/ 1502 ? TD/TT: 03/27/24 1502 ? Automobile Engine Assembler: ? Procedure Note [place], Image - 03/27/2024 [place] [address] Ultrasound Report Signed Patient: Anne Ochoa MMR#: [id number] : 2000Acct:[id number] Age/Sex: 23 / FADM Date: 03/27/24 Loc: HO.ED Attending Dr: Ordering Physician: Tima Gillespie Date of Service: 03/27/24 Procedure(s): US venous duplex LE BI Accession Number(s): [id number] cc: Tima Gillespie; [facility] CLINICAL HISTORY: Bilateral calf pain. DVT? Venous [...] 03/27/24 1503 DD/ 1502 TD/TT: 03/27/24 1502 Automobile Engine Assembler: us [facility] External Provider CV VASC ULAR PROCEDURES Edited Result - Final [facility] [address] [place] [address] [phone] * (ABNORMAL) CBC auto differential (03/27/2024 1:46 PM EST) Only the most recent of3 resultswithin the time period is included. White Blood Count 10.2 4.8 - 10.8 X10*3/uL [facility] Red Blood Count 4.46 4.20 - 5.50 X10*6/uL [facility] Hemoglobin 13.1 12.0 - 16.0 g/dl [facility] Hematocrit 37.3 37.0 - 47.0 % [facility] Mean Corpuscular Volume 83.6 80.0 - 98.0 fL [facility] Mean Corpuscular Hemoglobin 29.4 27.0 - 33.0 pg [facility] Mean Corpuscular HGB Conc 35.1(H) 31.0 - 35.0 g/dl [facility] Red Cell Distribution Width 12.5 11.0 - 16.0 % [facility] Platelet Count 310 160 - 400 X10*3/uL [facility] Mean Platelet Volume 9.1(L) 9.4 - 12.3 fL [facility] Neutrophils Percent Auto 69.2 45 - 73 % [facility] Imm Gran Pct Auto 0.2 0.0 - 0.4 % [facility] Lymphocytes Percent Auto 23.8 20 - 40 % [facility] Monocytes Percent Auto 5.6 2 - 11 % [facility] Eosinophils Percent Auto 1.0 0 - 4 % [facility] Basophils Percent Auto 0.2 0 - 2 % [facility] NRBC Pct Auto 0.0 0.0 - 0.2 /100WBC [facility] Neutrophils Absolute Auto 7.1 2.0 - 8.3 x10*3/uL [facility] Imm Gran Abs Auto 0.02 0.00 - 0.03 X10*3/uL [facility] Lymphocytes Absolute Auto 2.4 1.2 - 4.9 X10*3/uL [facility] Monocytes Absolute Auto 0.6 0.1 - 1.2 X10*3/uL [facility] Eosinophils Absolute Auto 0.1 0.0 - 0.4 X10*3/uL [facility] Basophils Absolute Auto 0.0 0.0 - 0.2 X10*3/uL [facility] NRBC Abs Auto 0.000 0.0 - 0.012 X10*3/uL [facility] 03/27/2024 1:46 PM EST 03/27/2024 1:49 PM EST us Generic External Data Provider LAB BLOOD ORDERAB LES Final Result Performing Organization Address City/[facility]/ZIP Co de Phone Number [facility] [address] [place] [address] [phone] * Partial Thromboplastin Time, Activated (APTT) (03/27/2024 1:46 PM EST) Partial Thromboplastin Time 34.7 26.0 - 36.8 SEC [facility] Comment:For information rega rding the monitoring of direct thrombininhibitors, please refer to Pharmacy. 03/27/2024 1:46 PM EST 03/27/2024 1:49 PM EST us Generic External Data Provider LAB BLOOD ORDERAB LES Final Result [facility] [address] [place] [phone] * (ABNORMAL) Prothrombin Time-INR (03/27/2024 1:46 PM EST) Prothrombin Time 13.4(H) 10.9 - 12.4 SEC [facility] INTERNATIONAL NORM RATIO 1.2(H) 0.9 - 1.1 [facility] Comment:INTERNATIONAL NORMAL IZED RATIO (INR) [...] LES Final Result Performing Organization Address City/State/[facility] Co de Phone Number [facility] [address] [place] [phone] * hCG, Total, Quantitative (03/27/2024 1:46 PM EST) HCG Quantitative <2 mIU/mL [facility] Comment:Weeks post LMP Appro ximate hCG(Last Menstrual Period) Range (mIU/ml)3 - 4 weeks 9 - 1304 - 5 weeks 75 - 2,6005 - 6 weeks 850 - 20,8006 - 7 weeks 4000 - 100,2007 - 12 weeks 11,500 - 289,44152 - 16 weeks 18,300 - 137,66963 - 29 weeks (2nd trimester) 1,400 - 53,55051 - 41 weeks (3rd trimester) 940 - [...] ORDERAB LES Final Result Performing Organization Address [facility] Co de Phone Number [facility] [address] [place] [phone] * B Type Natriuretic Peptide (BNP) (03/27/2024 1:46 PM EST) Pathologist [facility] B Type Natriuretic Peptide <10 <100 pg/mL [facility] Comment:For those patients w ho are being treated with Natrecor(nesiritide, recombinant BNP), BNP testing should beperformed at least two hours post treatment in order toensure that only endogenous levels of BNP are detected. 03/27/2024 1:46 PM EST 03/27/2024 1:49 PM EST us Generic External Data Provider LAB BLOOD ORDERAB LES Final Result Performing Organization Address [facility] de Phone Number [facility] [address] [place] [phone] * Magnesium (03/27/2024 1:46 PM EST) Pathologist [facility] Magnesium 2.0 1.6 - 2.6 mg/dL [facility] 03/27/2024 1:46 PM EST 03/27/2024 1:49 PM EST Generic External Data Provider LAB BLOOD ORDERAB LES Final Result Performing Organization Address [facility] Co de Phone Number [facility] [address] [place] [phone] * Creatine Kinase, Total (03/27/2024 1:46 PM EST) Creatine Kinase Total 64 26 - 140 U/L [facility] 03/27/2024 1:46 PM EST 03/27/2024 1:49 PM EST us Generic External Data Provider LAB BLOOD ORDERAB LES Final Result [facility] [address] [place] [phone] * (ABNORMAL) Comprehensive Metabolic Panel (03/27/2024 1:46 PM EST) Only the most recent of2 resultswithin the time period is included. Sodium 140 135 - 145 mmol/L [facility] Potassium 3.7 3.3 - 5.1 mmol/L [facility] Chloride 107 96 - 108 mmol/L [facility] Carbon Dioxide 25 22 - 29 mmol/L [facility] Anion Gap 12 12 - 20 [facility] Urea Nitrogen (BUN) 11 9 - 16 mg/dL [facility] Creatinine, Serum 0.65 0.5 - 1.4 mg/dL [facility] Creatinine Clr Calc Pharmacy 731.9 [facility] Comment:Provided height and weight: 157.48 cm,786 kg.eGFR (calculated from the MDRD study equation) and eCrCl(calculated from the Cockcroft-Gault equation) are based ondifferent parameters and may not yield comparable results.If eCrCl result is absurd, please check patient'sheight/weight. Estimated Glomerular Filt Rate >60 [facility] Comment:Chronic Kidney Disea se: Estimated GFR < 60 mL/min/1.75d2Kklfzl Kidney Disease: Estimated GFR < 15 mL/min/1.73m2 Glucose 92 60 - 115 mg/dL [facility] Calcium 9.4 8.4 - 10.2 mg/dL [facility] Bilirubin, Total 0.3 0.0 - 1.0 mg/dL [facility] Aspartate Amino Transferase 19 5 - 31 U/L [facility] Alanine Aminotransferase 21 0 - 31 U/L [facility] Total Protein 8.1(H) 6.5 - 8.0 g/dL [facility] Albumin Level 4.5 3.5 - 5.0 g/dL [facility] Alkaline Phosphatase 53 39 - 117 U/L [facility] 03/27/2024 1:46 PM EST 03/27/2024 1:49 PM EST us Generic External Data Provider LAB BLOOD ORDERAB LES Final Result Performing Organization Address City/State/[facility] Co de Phone Number [facility] [address] [place] [phone] * Gross and Microscopic Level 5 (02/29/2024 1:45 PM EST) 02/29/2024 1:45 PM EST 02/29/2024 3:00 PM EST Narrative [facility] - 03/03/2024 3:12 PM EST ----- ------- Name: Anne Ochoa ? Age/Sex: 23/F ? : 2000 Unit#: [id number] ?? Attend Dr: Leoncio Nunez MD ?Re02/29/24 ?Status: DEP SDC ? Location: HO.SSS ?Disch: ? ----- ------- SPEC : [id number] ? RECD: 02/29/24-1500 ? STATUS: ??SOUT ? REQ NUM: [id number] ? AMRITA: 02/29/24-5 ? SUBM DR: Leoncio Nunez MD ? ENTERED: ??02/29/24 ?SP TYPE: Surgical ? OTHR DR: Gail [...] ? Age/Sex: 23/F ? : 2000 Unit#: [id number] ?? Attend Dr: Leoncio Nunez MD ?Re02/29/24 ?Status: DEP SDC ? Location: HO.SSS ?Disch: ? ----- ------- SPEC : [id number] ? RECD: 02/29/24 ? STATUS: ??SOUT ? REQ NUM: [id number] ? AMRITA: 02/29/249442 ? SUBM DR: Leoncio Nunez MD ? ENTERED: ??02/29/24531 ?SP TYPE: Surgical ? OTHR : Gail Stephens ? ORDERED: ??Gross Micro L5 ? Copies To: ?? Leoncio Nunez MD ?? [facility] ?? [address] ?? [place] [address] ?? [phone] ?? Gail Stephens ?? [address] ?? [place] [address] ?? [phone] ----- ------- Signed (signature on file) Rafal Guadarrama MD 03/03/24 1512 ? ----- ------- ? END OF REPORT ? Generic External Data Provider LAB BLOOD ORDERAB LES Final Result Performing Organization Address [facility] de Phone Number [facility] [address] [place], [place] [phone] * HCG, Qualitative, Urine (02/29/2024 11:30 AM EST) Pathologist [facility] Urine NEGATIVE NEGATIVE [facility] Comment:This test was develo ped to detect early . Falsenegative results may occur after the 5th - 7th week ofpregnancy when using this test method. If clinicallyindicated, consider a serum hCG. 02/29/2024 11:3 0 AM EST 02/29/2024 11:33 AM EST Generic External Data Provider LAB URINE ORDERAB LES Final Result Performing Organization Address [facility] Co de Phone Number [facility] [address] [place] [phone] * (ABNORMAL) Lipid Panel, Standard (10/28/2023 8:54 AM EDT) Triglycerides 90 <150 mg/dL [facility] Comment:Desirable Triglyceri de: less than 150 mg/dLBorderline High Triglyceride 150-199 mg/dLHigh Triglyceride: 200-499 mg/dLVery High Triglyceride: greater than or equal to 5OO mg/dL Cholesterol 158 <200 mg/dL [facility] Comment:Desirable Cholestero l: less than 200 mg/dLBorderline High Cholesterol: 200-239 mg/dLHigh Cholesterol: greater than 239 mg/dL LDL Cholesterol Calculated 107(H) <100 mg/dL [facility] Comment:Desirable LDL: less than 100 mg/dLNear Optimal/Above Optimal LDL: 110- 129 mg/dLBorderline High LDL: 130-159 mg/dLHigh LDL: 160-189 mg/dLVery High LDL: greater than or equal to 190 mg/dL HDL Cholesterol 33(L) >40 mg/dL [facility] Comment:Desirable HDL: great er than 40 mg/dL Note: This HDL assay may give artificially low results in patients with liver disease. Blood Venous blood specimen / Unknown 10/28/2023 8:54 AM EDT 10/28/2023 11:03 AM EDT Gail Stephens GIS PROGRAMMER LAB BLOOD ORDERABLES Final Resu lt [facility] [address] [place] [phone] * Pap Smear (02/06/2022 9:46 AM EST) 02/06/2022 9:46 AM EST 02/06/2022 3:45 PM EST Narrative [facility] - 02/21/2022 5:05 PM EST ----- ------- Name: Anne Ochoa ? Age/Sex: 21/F ? : 2000 Unit#: [id number] ?? Attend Dr: Elizabeth Dickinson CNM ?Re02/06/22 ?Status: DEP REF ? Location: HO.LNP ?Disch: ? ----- ------- SPEC : [id number] ?RECD: 02/06/22-9342 ? STATUS: ??SOUT ? REQ NUM: [id number] ? AMRITA: 02/06/220946 ? SUBM DR: Elizaebth Dickinson CNM ? ENTERED: ??02/06/22 ?SP TYPE: Pap Smr ?OTHR : ? ORDERED: ??Pap Smear ? Interpretation ?? Satisfactory for evaluation. ?? Negative for intraepithelial lesion or malignancy. ?Clinical Information LMP: 02/13 Previous PAP test: Never ? Material Received ?? ThinPrep-Cervical ----- ------- Signed (signature on file) An Orosco Michelle 02/21/221704 ? ----- ------- ? END OF REPORT ? us [facility] External Provider LAB CYT OLOGY ORDERABLES Final Result [facility] [address] [place] [phone] * Hepatitis C Antibody (11/23/2020 3:28 PM EDT) Pathologist [facility] Hepatitis C Antibody Nonreactive Nonreactive [facility] Comment: Antibodies to HCV not detected; does not exclude early acute HCV infection. HIV AB/AG Nonreactive Nonreactive [facility] Comment: HIV-1 p24 Ag and/or [...] detection of this assay. ?? The Ochoa Sprinkler Inspector HIV Ag/Ab Combo assay result and supplemental assay results should be interpreted in conjunction with the patient's clinical presentation, history and other laboratory results. ??If the results are inconsistent with clinical evidence, additional testing is suggested to confirm the result. Hepatitis B Surface Antigen Negative Negative [facility] 11/23/2020 3:28 PM EDT Elizabeth Dickinson HISTORICAL/NON ORDERABLE LABS Fi nal Result Performing Organization Address [facility] de Phone Number [facility] [address] * CHLAMYDIA/N. GONORRHOEAE RNA, TMA, UROGENITAL (04/25/2020 3:36 PM EST) Chlamydia trachomatis RNA, TMA, Urogenital NOT DETECTED NOT DETECTED [facility] COMMENT SEE COMMENT [facility] Comment: The analytical performance characteristics of this assay, when used to test SurePath(TM) specimens have been determined by [email or web address]. The modifications have not been cleared or approved by the FDA. This assay has been validated pursuant to the CLIA regulations and is used for clinical purposes. ?? For additional information, please refer to https://education.[employer]gle.Dialectica/faq/BOB794 (This link is being provided for information/ educational purposes only.) ?? Neisseria gonorrhoeae RNA, TMA, Urogenital NOT DETECTED NOT DETECTED [facility] 04/25/2020 3:36 PM EST Brinda Lizarraga NP HISTORICAL/NON ORDERABLE LABS F inal Result Performing Organization Address [facility] Co de Phone Number [facility] [address] from Last 3 Months or Most Recently Relevant to Health Maintenance Insurance [facility] C3 Care Teams Trial Judge Relationship Specialty Start Date End Date Gail Stephens NP [address] [place] [phone] PCP - General Family Medicine 01/12/23
--- OUTSIDE RECORDS SUMMARY | 2024-05-05 17:46 | XMS_ITS | Encounter Summary ---
Author Organization [employer] Address [address] [facility] [address] [place] [address] Care Team Providers Care Mash Tub Cooker Name Role Phone Gail Stephens NP Primary Care Provider [phone] Reason for Visit * Reason Onset Date Comments chartprep 05/03/2024 Encounter Details Date Type Department Care Team (Late st Contact Info) Description 05/03/[address] [facility] [address] [place] [address] Rukhsana Aguilar MA chartprep Social History Tobacco Use Types Packs/Day Years [...] Telephone Encounter - Rukhsana Aguilar MA - 05/03/2024 3:26 PM EDT Chart Prep Labs: done Images: done Vaccines due: yes covid,flu, tdap Referrals: complete Screenings: pap smear , STI screening Overdue care gaps: na documented in this encounter Plan of Treatment Upcoming Encounters Date Type Department Care Team (Late st Contact Info) Description 05/06/2024 2:00 PM EDT Office Visit [facility] [address] [place] [address] Gail Stephens NP [address] [place] [address] 05/23/2024 2:30 PM EDT Office Visit [facility] [address] [place] [address] Gail Stephens NP [address] [place] [address] documented as of this encounter Visit Diagnoses Not on filedocumented in this encounter Additional Health Concerns Assessment Noted Time PHQ-9 Depression Total Score: 0 10/02/19 24 1:26 PM EDT documented as of this encounter Care Teams Mash Tub Cooker Relationship Specialty Start Date End Date Gail Stephens NP [address] [place] [address] PCP - General Family Medicine 01/12/23 documented as of this encounter
--- OUTSIDE RECORDS SUMMARY | 2024-05-05 17:46 | XMS_ITS | Encounter Summary ---
Author Organization [facility] Address [address] [place] [address] Care Team Providers Care Network Manager Name Role Phone Gail Stephens NP Primary Care Provider [phone] Reason for Visit * Reason Onset Date Comments Chart Prep 04/05/2024 Encounter Details Date Type Department Care Team ([facility] st Contact Info) Description 04/05/2024 Telephone [facility] [address] [place] [address] Gail Stephens NP [address] [place] [address] Chart Prep Social History Tobacco Use Types [...] Description 05/06/2024 2:00 PM EDT Office Visit [facility] [address] [place] [address] Gail Stephens NP [address] [place] [address] 05/23/2024 2:30 PM EDT Office Visit [facility] [address] [place] [address] Gail Stephens NP [address] [place] [address] documented as of this encounter Visit Diagnoses Not on filedocumented in this encounter Additional Health Concerns Assessment Noted Time PHQ-9 Depression Total Score: 0 10/02/19 24 1:26 PM EDT documented as of this encounter Care Teams Network Manager Relationship Specialty Start Date End Date Gail Stephens NP [address] [place] [address] PCP - General Family Medicine 01/12/23 documented as of this encounter
== END 2024-05-05 14:22 | disposition home or self-care (01) ==
LOC: HO.HGS 13:59
PROVIDERS: PCP Internal Medicine; Visit Provider Surgery
DX: N63.12 Unspecified lump in the right breast, upper inner quadrant (principal); N61.0 Mastitis without abscess
CPT/HCPCS: 99024

== ENCOUNTER → 2024-05-05 13:59 | Outpatient (BNVA) | payer MEDICAID, SELFPAY | PROVIDERS: PCP Internal Medicine; Visit Provider Surgery | DX: N61.0 Mastitis without abscess (principal); N63.12 Unspecified lump in the right breast, upper inner quadrant | CPT/HCPCS: 99212 ==

== ENCOUNTER 2024-05-17 10:49 | Outpatient (AMB) | payer MEDICAID, SELFPAY ==
--- NOTE | 2024-05-17 10:55 | MHC.OFFVIS ---
Intake Visit Reasons: Drain placement opening Intake Note: Patient is seen in office for wound check, following right breast . Pt c/o: admits to opening, and redness in the right breast, has opening near the prior incision, is still on antbx Power Plant Operations Manager Required: Yes Power Plant Operations Manager Language: Life Care Planner Services: Power Plant Operations Manager Present Power Plant Operations Manager Name: Brinda HO Information Interpreted: non-clinical & clinical Wallpaper Cleaner: Wallpaper Cleaner Present Accompanied by: Self / Same As Patient Allergies No Known Allergies [No Known Allergies*] Allergy (Verified 05/17/24 11:03) Medication List - Last Reconciled 05/17/24 by Leoncio Nunez MD cetirizine 10 mg PO DAILY PRN doxycycline hyclate 100 mg PO BID hydroxyzine pamoate 25 mg PO QID ibuprofen 800 mg PO TID levonorgestrel (Mirena) 1 device intrauterine ONCE ondansetron HCl 4 mg PO Q8H PRN HPI Comments Details: 23-year-old female patient returning for follow-up examination of a right upper inner quadrant breast mass with abscess, status post repeat incision and drainage 2 weeks ago. She continues to note drainage from the wound as well as pain when the lesion is palpated however overall feels much improved. Continues to feel a mass in the upper inner quadrant. There is also drainage from the [place] areolar incision. Wound cultures were negative for any bacteria. Remains on the doxycycline and is tolerating this well. She denies any fever or chills. She was scheduled for excision of the mass on 05/30/2024. She will be admitted postoperatively for IV antibiotics given the persistent infection in the right breast. [facility] Medical History PONV (postoperative nausea and vomiting) Panic attacks Anxiety Mastitis Hx of iron deficiency anemia Surgical History History of lumpectomy of right breast (02/29/24) Family History Mother Hypertension Maternal Grandfather Colon cancer Maternal Aunt Hx of breast cancer Social History Household Members: Family and Children Both parents involved: Yes Caregiver staying overnight: No Housing: Apartment Are you a primary family day care provider to a significant other at home: No Do you presently have visiting nurse or other home services: No 75 years or older and lives alone: No Alcohol intake: current Alcohol intake frequency: does not drink Comment: Patient felt dizzy on previous shift Patient Tobacco Use Status: Never used Tobacco Special abbey needs: No Agree to transfusion: Yes service: No Female Reproductive History Menstrual Age of Menarche: 11 Review of Systems Const All systems reviewed & are unremarkable except as noted in HPI and below Physical Exam Const General: in distress Nutritional Appearance: well nourished Orientation/consciousness: patient oriented x3 Chest Other: Right breast with an area in the upper inner quadrant with skin ulceration x2 at the site of the previous incision and drainage procedure. There is still underlying inflammation palpable which is tender but does not appear fluctuant. Periareolar incision is nearly healed with no erythema. Chest/axillae images: 1. Two open areas of skin in the upper inner quadrant 2. Skin Other: Right breast as noted above Neuro General: patient oriented x3 Extrem Other: No edema Assessment & Plan Assessment & Plan (1) Mastitis of right breast unrelated to of : Code(s): N61.0 - Mastitis without abscess Category: Medical Plan 23-year-old female patient with a recurring mastitis in the upper inner quadrant returning 2 weeks following incision and drainage of a large abscess. Overall she is improved. She will be completing her antibiotics in 2 days but her excision is not scheduled until 05/30/2024. I will extend her antibiotics to cover the preoperative. I also recommended applying silver alginate to the skin ulceration in the upper inner quadrant right breast. She was provided with the material for dressings. I reviewed the procedure, risks, and alternatives regarding the right breast lumpectomy and she consents to the surgery. Medications: Refilled doxycycline hyclate End date 04/22/24 100 mg PO BID 20 tabs 0RF Coding Level of Care Code Est Pt Level 3 (12116) Diagnoses Mastitis of right breast unrelated to of N61.0
== END 2024-05-17 11:19 | disposition home or self-care (01) ==
LOC: HO.HGS 10:49
PROVIDERS: PCP Internal Medicine; Visit Provider Surgery
DX: N61.0 Mastitis without abscess (principal)
CPT/HCPCS: 99024

== ENCOUNTER → 2024-05-17 10:49 | Outpatient (BNVA) | payer MEDICAID, SELFPAY | PROVIDERS: PCP Internal Medicine; Visit Provider Surgery | DX: N61.0 Mastitis without abscess (principal) | CPT/HCPCS: 99212 ==

== ENCOUNTER 2024-05-30 07:47 | Inpatient (IN) | payer MEDICAID, SELFPAY ==
[2024-05-16 11:02] VITALS: BMI 31.7
--- NOTE | 2024-05-26 13:24 | P.CONAN_ITS ---
Documented by User: Shira Hooper NP 05/26/24 13:27 HPI - Anesthesia Eval Consult details Narrative: 23yo F for Right Breast Lumpectomy s/p same 02/2024 with GA-LMA 4 PMFSH Active Problems Active Problems: All Active Problems Vaginal yeast infection (Acute) Mastitis of right breast unrelated to of (Acute) Breast mass, right (Acute) Menorrhagia due to intrauterine device (IUD) (Acute) Presence of 52 mg levonorgestrel-releasing intrauterine device (IUD) (Acute) Cervical cancer screening (Acute) IUD complication (Acute) IUD check up (Acute) Encounter for IUD insertion (Acute) control counseling (Acute) (infant) (Acute) Encounter for care after hospital delivery (Acute) state (Acute) Encounter for supervision of normal in third trimester (Acute) Obesity (BMI 35.0-39.9 without comorbidity) (Acute) Supervision of normal in second trimester (Acute) test positive (Acute) Hx of iron deficiency anemia (Acute) Past Medical History Medical History PONV (postoperative nausea and vomiting) Panic attacks Anxiety Mastitis Hx of iron deficiency anemia Family History Family History Mother Hypertension Maternal Grandfather Colon cancer Maternal Aunt Hx of breast cancer Family history of problems with anesthesia: No Surgical History Surgical History History of lumpectomy of right breast (02/29/24) History of Problems with Anesthesia: No Social History Social History Household Members: Family and Children Housing: Apartment Are you a primary career technical education instructor to a significant other at home: No Do you presently have visiting nurse or other home services: No Alcohol intake: current Alcohol intake frequency: does not drink Comment: Patient felt dizzy on previous shift Patient Tobacco Use Status: Never used Tobacco Use of substances other than those prescribed or required for medical reasons: No Have you been hit, kicked, punched, or otherwise hurt by someone within the past year? If so, by whom?: No Spiritual Healthcare Practices: none Presybeterian Healthcare Practices: none Cultural Healthcare Practices: none Special abbey needs: No Agree to transfusion: Yes Are you DNR?: No Advance Directives: No (mother is primary contact) Advance Directives Information Provided: No Advance Directives on File: No Recently lost weight without trying: No Eating poorly because of decreased appetite: No Nutrition Risks: No Nutritional Risk Patient : No FDLMP: 03/14/24 : No Poor oral hygiene: No service: No Meds Allergies Allergy/AdvReac Type Severity Reaction Status Date / Time No Known Allergies Allergy Verified 05/17/24 11:03 [No Known Allergies*] Home Medications ?Medication ?Instructions ?Recorded ?Confirmed ?Last Taken ?Type levonorgestrel 21 mcg/24 hr (up to 1 device intrauterine ONCE 02/06/22 05/17/24 Unknown History 8 years) 52 mg intrauterine device (Mirena) cetirizine 5 mg tablet 10 mg PO DAILY PRN Allergy Symptoms 04/13/24 05/17/24 04/12/24 History hydroxyzine pamoate 25 mg capsule 25 mg PO QID anxiety 05/16/24 05/17/24 05/29/24 History Exam Height,Weight and Vital Signs: Height 5 ft 1 in Weight 76.204 kg Pertinent Lab Results Pertinent Lab Results: Laboratory Tests 04/15/24 22:04 WBC 8.5 Hgb 11.7 L Hct 33.1 L Plt Count 336 Sodium 140 Potassium 3.6 Chloride 106 Carbon Dioxide 23 BUN 4 L Creatinine 0.76 Narrative Narrative: EKG 03/2024 Vent. Rate : 97 BPM Atrial Rate : 97 BPM P-R Int : 128 ms QRS Dur : 78 ms QT Int : 352 ms P-R-T Axes : 47 63 -40 degrees QTcB Int : 447 ms Artifact in tracing Normal sinus rhythm Nonspecific ST and T wave abnormality Abnormal ECG No previous ECGs available Assessment and Plan Assessment Anesthesia Assessment: Chart Reviewed Final Anesthetic Review Family History of Problems with Anesthesia: No History of Problems with Anesthesia: No Documented by User: Sara Sifuentes MD 05/30/24 08:18 PMFSH Past Medical History Medical History PONV (postoperative nausea and vomiting) Panic attacks Anxiety Mastitis Hx of iron deficiency anemia Family History Family History Mother Hypertension Maternal Grandfather Colon cancer Maternal Aunt Hx of breast cancer Surgical History Surgical History History of lumpectomy of right breast (02/29/24) Social History Social History Household Members: Family and Children Housing: Apartment Are you a primary career technical education instructor to a significant other at home: No Do you presently have visiting nurse or other home services: No Alcohol intake: current Alcohol intake frequency: does not drink Comment: Patient felt dizzy on previous shift Patient Tobacco Use Status: Never used Tobacco Use of substances other than those prescribed or required for medical reasons: No Have you been hit, kicked, punched, or otherwise hurt by someone within the past year? If so, by whom?: No Spiritual Healthcare Practices: none Presybeterian Healthcare Practices: none Cultural Healthcare Practices: none Special abbey needs: No Agree to transfusion: Yes Are you DNR?: No Advance Directives: No (mother is primary contact) Advance Directives Information Provided: No Advance Directives on File: No Recently lost weight without trying: No Eating poorly because of decreased appetite: No Nutrition Risks: No Nutritional Risk Patient : No FDLMP: 03/14/24 : No Poor oral hygiene: No service: No Meds Allergies Allergy/AdvReac Type Severity Reaction Status Date / Time No Known Allergies Allergy Verified 05/17/24 11:03 [No Known Allergies*] Home Medications ?Medication ?Instructions ?Recorded ?Confirmed ?Last Taken ?Type levonorgestrel 21 mcg/24 hr (up to 1 device intrauterine ONCE 02/06/22 05/17/24 Unknown History 8 years) 52 mg intrauterine device (Mirena) cetirizine 5 mg tablet 10 mg PO DAILY PRN Allergy Symptoms 04/13/24 05/17/24 04/12/24 History hydroxyzine pamoate 25 mg capsule 25 mg PO QID anxiety 05/16/24 05/17/24 05/29/24 History Assessment and Plan Final Anesthetic Review NPO: Yes ASA Class: II Final Preanesthetic Review: No Changes in Pt Med Stat, Meds/Allgs Chart Reviewed, Consent Obtained/Reviewed and Anes Risks/Benef Reviewed Patient Risk: Low Procedure Risk: Low Anesthetic Plan Anesthetic Plan: GA Disposition: Standard PACU
[2024-05-30] VITALS (12 sets, daily range): BP systolic 103–151; BP diastolic 59–86; PULSE 80–105; RESP 16–20; TEMP 36.1–36.9; O2SAT 94–99; BMI 32.2
--- NOTE | 2024-05-30 07:27 | MHC.SHP ---
Pre-Procedural Eval Section A - 24 Hr Update-Section A only Date of Service: 05/30/24 The patient is an INPATIENT: No Changes since office visit: Yes Patient answered all questions; No Cold of Flu in the past 2 weeks, No New Medical Problems and No Changes in Medication The patient has been examined within 24 hours of the surgical procedure. The History & Physical has been completed within 30 days and I have reviewed it.: Yes Section B - Complete if H&P > 30 days Chief Complaint: Mastitis without abscess Allergies: Allergies Allergy/AdvReac Type Severity Reaction Status Date / Time No Known Allergies Allergy Verified 05/17/24 11:03 [No Known Allergies*] Plan Diagnosis/Plan: Unchanged I have reviewed the history and physical and performed a pertinent physical examination on my patient. No changes have occurred unless specified. Time Spent With Patient Time: Total time managing care of this patient today ____ minutes.
--- OUTSIDE RECORDS SUMMARY | 2024-05-30 07:52 | XMS_ITS | Clinical Summary ---
Author Organization [employer] Address [address] [facility] 7[address] [place] [address] Care Team Providers Care Reinforcing Steel Erector Name Role Phone Gail Stephens NP Primary Care Provider [phone] Allergies No known active allergies Medications * This document contains information received from the source organization and may not represent a complete record from that organization. cetirizine (ZyrTEC) 5 MG tablet TAKE 2 TABLETS BY MOUTH EVERY DAY 180 tablet 1 02/22/20 24 Active ibuprofen 800 MG tablet Take 1 tablet by mouth 3 times daily. 04/28/19 25 Active ondansetron (Zofran) 4 MG tablet Take 1 tablet by mouth every 8 (eight) hours if needed for nausea. 04/16/19 25 Active hydrOXYzine HCl (Atarax) 25 MG tabletIndications :Anxiety Take 1 tablet (25 mg) by mouth 4 times daily. 120 tablet 1 05/07/19 25 025 Active ibuprofen 800 MG tabletIndications :Pain in [...] cleanup (will not trigger notification to Pharmacy)) doxycycline (Vibra-Tabs) 100 MG tablet Take 1 tablet by mouth 2 times daily. Take with a full glass of water and do not lie down for at least 30 minutes after. 04/29/19 025 Active Problems Problem Noted Date Diagnosed Date Adjustment disorder with anxious mood 05/06/2024 Assessment & Plan (05/24/2024 7:03 AM EDT): - Situational anxiety secondary to current health state -Advised continued use of hydroxyzine -Follow-up as needed Pain in both knees 04/01/2024 Assessment & [...] 03/03/2024 Overview (03/03/2024): Procedure performed 02/29/2024 at [facility] [place] Mass overlapping multiple [...] foods. Will offer supplementation as necessary Encounters * This document contains information received from the source organization and may not represent a complete record from that organization. Date Type Department Care Team Description 05/23/2024 2:30 PM EDT Office Visit [address] [address] Gail Stephens NP Wound of right breast, subsequent encounter (Primary Dx); Adjustment disorder with anxious mood; Obesity (BMI 30-39.9) 05/23/2024 Travel 05/16/[address] [address] Rukhsana Aguilar MA chartprep 05/06/2024 2:00 PM EDT Office Visit [address] [address] Gail Stephens NP Anxiety (Primary Dx) 05/06/2024 Population Health Risk Score Community [facility] (C3) Department [address] [place] [phone] Provider, Population Health Generic 05/03/[address] [address] Rukhsana Aguilar MA chartprep 04/18/2024 Refill [facility] [address] [place] [address] Denise Aguirre CNP Pain in both knees, unspecified chronicity 04/18/2024 Patient Outreach [facility] PEDS [address] [place] [address] Gail Stephens NP Transition Of Care (Tcm) (HDF scheduled. ) 04/15/2024 Telephone [facility] [address] [place] [address] Gail Stephens NP No Show 04/05/2024 Telephone [facility] [address] [place] [address] Gail Stephens NP Chart Prep 04/01/2024 11:15 AM EST Office Visit [facility] [address] [place] [phone] Aguirre, Alexxis, MILK DRIER Pain in both knees, unspecified chronicity (Primary Dx); Soft tissue infection 03/31/2024 Telephone [facility] [address] [place] [address] Gail Stephens NP Chart Prep 03/29/[address] [address] Gail Stephens NP ER Follow-up 03/03/[address] [address] Gail Stephens NP recall april follow up from Last 3 Months Immunizations Name Administration [...] Answer Date Recorded Patient Health Questionnaire-9 Score 5 05/06/2024 Patient Health Questionnaire-9 Score 5 05/06/2024 Last PHQ-9: Questionnaire Data Not on file 0 05/06/2024 Housing Stability Answer Date Recorded What is [...] Date Recorded Patient Health Questionnaire-2 Score 0 05/06/2024 Internet Access Answer Date Recorded Internet Access [...] Sign Reading Time Taken Comments Blood Pressure 117/75 05/23/2024 2:38 PM EDT Pulse 73 05/23/2024 2:38 PM EDT Temperature 36.6 ??C (97.9 ??F) 05/23/2024 2:38 PM ED T Respiratory Rate 20 05/23/2024 2:38 PM EDT Oxygen Saturation 98% 05/23/2024 2:38 PM EDT Inhaled Oxygen Concentration - - Weight 78.9 kg (174 lb) 05/23/2024 2:38 PM EDT Height 154.9 cm (5' 1 ) 05/23/2024 2:38 PM EDT Body Mass Index 32.88 05/23/2024 2:38 PM EDT Plan of Treatment Upcoming Encounters Date Type Department Care Team (Late st Contact Info) Description 07/04/2024 3:00 PM EDT Office Visit [facility] [address] [place] [address] Gail Stephens NP [address] [place] [address] Health Maintenance Due Date Last Done Comments Family Planning (PISQ) 08/07/2015 Chlamydia and Gonorrhea Screening 04/25/2021 04/25/2020 DTaP/Tdap/Td Vaccines (7 - Td or Tdap) 12/08/2021 12/09/2011, 09/25/2004, 08/15/2002, Additional history exists COVID-19 Vaccine ( season) 2023 11/03/2020, 10/06/2020 Influenza Vaccine (#1) 2023 , 02/13/2015, 01/23/2014, Additional history exists Alcohol/Substance Use Screening 10/01/2024 10/02/2023 SDOH Screening 10/01/2024 10/02/2023 Pap Smear 02/06/2025 02/06/2022 Depression Screening 05/06/2025 05/06/2024, 05/07/19 25 Tobacco Screening 05/24/2025 05/24/2024 Lipid Panel 10/27/2028 10/28/2023 Zoster Vaccines (1 [...] AUTO DIFFERENTIAL Routine 03/11/2024 10:58 PM EST LIPID PANEL, STANDARD Routine 10/28/2023 8:54 AM EDT Obesity (BMI 30-39.9) PAP SMEAR Routine 02/06/2022 9:46 AM EST [facility] HISTORICAL HEPATITIS C ANTIBODY Routine 11/23/2020 3:28 PM EDT [facility] HISTORICAL CHLAMYDIA/N. GONORRHOEAE RNA, TMA, UROGENITAL Routine 04/25/2020 3:36 PM EST from Last 3 Months or Most Recently Relevant to Health Maintenance Results * Gram stain (04/28/2024 12:56 PM EST) 04/28/2024 12:5 6 PM EST 04/28/2024 2:26 PM EST Comment:Breast Narrative [facility] - 04/30/2024 8:35 AM EST Gram stain results: 4+ polys 2+ epithelial cells 4+ red blood cells No organisms seen Routine Culture No growth after 2 days Specimen Source: Breast us Generic External Data Provider LAB MICROBIOLOGY - GENERAL ORDERABLES Final Result [facility] [address] [place] [address] [phone] * VASC US Lower Extremity Venous Duplex Bilateral (03/27/2024 3:02 PM EST) 03/27/2024 3:02 PM EST Narrative [facility] - 03/27/2024 3:03 PM EST ? [facility] ?[address] ?[place] [address] ? Ultrasound Report ? Signed ? Patient: Go TaylorAnne harris M ?MR#: ?? [id number] ? : 2000 ?Acct:[id number] ? Age/Sex: 23 / F ?ADM Date: 03/27/24 ? Loc: HO.ED ? Attending Dr: ? Ordering Physician: Tima Gillespie ?? Date of Service: 03/27/24 ?? Procedure(s): US venous duplex LE BI ?? Accession Number(s): [id number] ? cc: Tima Gillespie; [facility] ? CLINICAL HISTORY: Bilateral calf pain. [...] DD/ 1502 ? TD/TT: 03/27/24 1502 ? Drum Handler: ? Procedure Note Los, Emily - 03/27/[address] [address] Ultrasound Report Signed Patient: Anne Ochoa [facility]#: [id number] : 2000Acct:[id number] Age/Sex: 23 FADM Date: 03/27/24 Loc: HO.ED Attending Dr: Ordering Physician: Tima Gillespie Date of Service: 03/27/24 Procedure(s): US venous duplex LE BI Accession Number(s): [id number] cc: Tima Gillespie; [facility] CLINICAL HISTORY: Bilateral calf pain. DVT? [...] 03/27/24 1503 DD/ 1502 TD/TT: 03/27/24 1502 Drum Handler: [facility] External Provider CV VASC ULAR PROCEDURES Edited Result - Final [facility] [address] [place] [address] [phone] * (ABNORMAL) CBC auto differential (03/27/2024 1:46 PM EST) Only the most recent of3 resultswithin the time period is included. White Blood Count 10.2 4.8 - 10.8 X10*3/uL [facility] Red Blood Count 4.46 4.20 - 5.50 X10*6/uL [facility] Hemoglobin 13.1 12.0 - 16.0 g/dl [facility] Hematocrit 37.3 37.0 - 47.0 % [facility] Mean Corpuscular Volume 83.6 80.0 - 98.0 fL [facility] Mean Corpuscular Hemoglobin 29.4 27.0 - 33.0 pg [facility] Mean Corpuscular HGB Conc 35.1(H) 31.0 - 35.0 g/dl [facility] Red Cell Distribution Width 12.5 11.0 - 16.0 % [facility] Platelet Count 310 160 - 400 X10*3/uL [facility] Mean Platelet Volume 9.1(L) 9.4 - 12.3 fL [facility] Neutrophils Percent Auto 69.2 45 - 73 % [facility] Imm Gran Pct Auto 0.2 0.0 - 0.4 % [facility] Lymphocytes Percent Auto 23.8 20 - 40 % [facility] Monocytes Percent Auto 5.6 2 - 11 % [facility] Eosinophils Percent Auto 1.0 0 - 4 % [facility] Basophils Percent Auto 0.2 0 - 2 % [facility] NRBC Pct Auto 0.0 0.0 - 0.2 /100WBC [facility] Neutrophils Absolute Auto 7.1 2.0 - 8.3 x10*3/uL [facility] Imm Gran Abs Auto 0.02 0.00 - 0.03 X10*3/uL [facility] Lymphocytes Absolute Auto 2.4 1.2 - 4.9 X10*3/uL [facility] Monocytes Absolute Auto 0.6 0.1 - 1.2 X10*3/uL [facility] Eosinophils Absolute Auto 0.1 0.0 - 0.4 X10*3/uL [facility] Basophils Absolute Auto 0.0 0.0 - 0.2 X10*3/uL [facility] NRBC Abs Auto 0.000 0.0 - 0.012 X10*3/uL [facility] 03/27/2024 1:46 PM EST 03/27/2024 1:49 PM EST us Generic External Data Provider LAB BLOOD ORDERAB LES Final Result [facility] [address] [place], [place] [phone] * Partial Thromboplastin Time, Activated (APTT) (03/27/2024 1:46 PM EST) Partial Thromboplastin Time 34.7 26.0 - 36.8 SEC [facility] Comment:For information rega rding the monitoring of direct thrombininhibitors, please refer to Pharmacy. 03/27/2024 1:46 PM EST 03/27/2024 1:49 PM EST Generic External Data Provider LAB BLOOD ORDERAB LES Final Result [facility] [address] [place] [phone] * (ABNORMAL) Prothrombin Time-INR (03/27/2024 1:46 PM EST) Prothrombin Time 13.4(H) 10.9 - 12.4 SEC [facility] INTERNATIONAL NORM RATIO 1.2(H) 0.9 - 1.1 [facility] Comment:INTERNATIONAL NORMAL IZED RATIO (INR) [...] 1:46 PM EST 03/27/2024 1:49 PM EST [employer] External Data Provider LAB BLOOD ORDERAB LES Final Result Performing Organization Address City/[facility]/ZIP Co de Phone Number [facility] [address] [place] [address] [phone] * hCG, Total, Quantitative (03/27/2024 1:46 PM EST) HCG Quantitative <2 mIU/mL [facility] Comment:Weeks post LMP Appr oximate hCG(Last Menstrual Period) Range (mIU/ml)3 - 4 weeks 9 - 1304 - 5 weeks 75 - 2,6005 - 6 weeks 850 - 20,8006 - 7 weeks 4000 - 100,2007 - 12 weeks 11,500 - 289,89498 - 16 weeks 18,300 - 137,83703 - 29 weeks (2nd trimester) 1,400 - 53,52233 - 41 weeks (3rd trimester) 940 - 60,000The [employer] B-hCG assay is used for the early detection ofpregnancy; it cannot be used to diagnose any conditionunrelated to . If a B-hCG level is not supportedby the clinical evidence, results should be confirmed by analternative method (qualitative urine hCG, for example). 03/27/2024 1:46 PM EST 03/27/2024 1:49 PM EST Generic External Data Provider LAB BLOOD ORDERAB LES Final Result Performing Organization Address [facility] Co de Phone Number [facility] [address] [place] [phone] * B Type Natriuretic Peptide (BNP) (03/27/2024 1:46 PM EST) B Type Natriuretic Peptide <10 <100 pg/mL [facility] Comment:For those patients w ho are being treated with Natrecor(nesiritide, recombinant BNP), BNP testing should beperformed at least two hours post treatment in order toensure that only endogenous levels of BNP are detected. 03/27/2024 1:46 PM EST 03/27/2024 1:49 PM EST Generic External Data Provider LAB BLOOD ORDERAB LES Final Result Performing Organization Address [facility] Co de Phone Number [facility] [address] [place] [phone] * Magnesium (03/27/2024 1:46 PM EST) Magnesium 2.0 1.6 - 2.6 mg/dL [facility] 03/27/2024 1:46 PM EST 03/27/2024 1:49 PM EST us Generic External Data Provider LAB BLOOD ORDERAB LES Final Result Performing Organization Address City/[facility]/ZIP Co de Phone Number [facility] [address] [place] [address] [phone] * Creatine Kinase, Total (03/27/2024 1:46 PM EST) Creatine Kinase Total 64 26 - 140 U/L [facility] 03/27/2024 1:46 PM EST 03/27/2024 1:49 PM EST Generic External Data Provider LAB BLOOD ORDERAB LES Final Result Performing Organization Address [facility] Co de Phone Number [facility] [address] [place] [address] [phone] * (ABNORMAL) Comprehensive Metabolic Panel (03/27/2024 1:46 PM EST) Only the most recent of2 resultswithin the time period is included. Sodium 140 135 - 145 mmol/L [facility] Potassium 3.7 3.3 - 5.1 mmol/L [facility] Chloride 107 96 - 108 mmol/L [facility] Carbon Dioxide 25 22 - 29 mmol/L [facility] Anion Gap 12 12 - 20 [facility] Urea Nitrogen (BUN) 11 9 - 16 mg/dL [facility] Creatinine, Serum 0.65 0.5 - 1.4 mg/dL [facility] Creatinine Clr Calc Pharmacy 731.9 [facility] Comment:Provided height and weight: 157.48 cm,786 kg.eGFR (calculated from the MDRD study equation) and eCrCl(calculated from the Cockcroft-Gault equation) are based ondifferent parameters and may not yield comparable results.If eCrCl result is absurd, please check patient'sheight/weight. Estimated Glomerular Filt Rate >60 [facility] Comment:Chronic Kidney Disea se: Estimated GFR < 60 mL/min/1.52s1Rtjnjf Kidney Disease: Estimated GFR < 15 mL/min/1.73m2 Glucose 92 60 - 115 mg/dL [facility] Calcium 9.4 8.4 - 10.2 mg/dL [facility] Bilirubin, Total 0.3 0.0 - 1.0 mg/dL [facility] Aspartate Amino Transferase 19 5 - 31 U/L [facility] Alanine Aminotransferase 21 0 - 31 U/L [facility] Total Protein 8.1(H) 6.5 - 8.0 g/dL [facility] Albumin Level 4.5 3.5 - 5.0 g/dL [facility] Alkaline Phosphatase 53 39 - 117 U/L [facility] 03/27/2024 1:46 PM EST 03/27/2024 1:49 PM EST us Generic External Data Provider LAB BLOOD ORDERAB LES Final Result Performing Organization Address City/State/[facility] Co de Phone Number [facility] [address] [place] [phone] * (ABNORMAL) Lipid Panel, Standard (10/28/2023 8:54 AM EDT) Triglycerides 90 <150 mg/dL [facility] Comment:Desirable Triglyceri de: less than 150 mg/dLBorderline High Triglyceride 150-199 mg/dLHigh Triglyceride: 200-499 mg/dLVery High Triglyceride: greater than or equal to 5OO mg/dL Cholesterol 158 <200 mg/dL [facility] Comment:Desirable Cholestero l: less than 200 mg/dLBorderline High Cholesterol: 200-239 mg/dLHigh Cholesterol: greater than 239 mg/dL LDL Cholesterol Calculated 107(H) <100 mg/dL [facility] Comment:Desirable LDL: less than 100 mg/dLNear Optimal/Above Optimal LDL: 110- 129 mg/dLBorderline High LDL: 130-159 mg/dLHigh LDL: 160-189 mg/dLVery High LDL: greater than or equal to 190 mg/dL HDL Cholesterol 33(L) >40 mg/dL [facility] Comment:Desirable HDL: great er than 40 mg/dL Note: This HDL assay may give artificially low results in patients with liver disease. Blood Venous blood specimen / Unknown 10/28/2023 8:54 AM EDT 10/28/2023 11:03 AM EDT us Gail Angelo LE[facility] LAB BLOOD ORDERABLES Final Resu lt [facility] [address] [place] [address] [phone] * Pap Smear (02/06/2022 9:46 AM EST) 02/06/2022 9:46 AM EST 02/06/2022 3:45 PM EST Narrative [facility] - 02/21/2022 5:05 PM EST ----- ------- Name: Anne Ochoa ? Age/Sex: 21/F ? : 2000 Unit#: [id number] ?? Attend Dr: Elizabeth Dickinson CNM ?Re02/06/22 ?Status: DEP REF ? Location: HO.LNP ?Disch: ? ----- ------- SPEC : [id number] ?RECD: 02/06/22-3 ? STATUS: ??SOUT ? REQ NUM: [id number] ? AMRITA: 02/06/22 ? SUBM DR: Elizabeth Dickinson CNM ? ENTERED: ??02/06/22 ?SP TYPE: Pap Smr ?OTHR : ? ORDERED: ??Pap Smear ? Interpretation ?? Satisfactory for evaluation. ?? Negative for intraepithelial lesion or malignancy. ?Clinical Information LMP: 02/13 Previous PAP test: Never ? Material Received ?? ThinPrep-Cervical ----- ------- Signed (signature on file) An A Michelle 02/21/22 [id number] ? ----- ------- ? END OF REPORT ? [facility] External Provider LAB CYT OLOGY ORDERABLES Final Result Performing Organization Address [facility] de Phone Number [facility] [address] [place] [phone] * Hepatitis C Antibody (11/23/2020 3:28 PM EDT) [facility] Hepatitis C Antibody Nonreactive Nonreactive [facility] Comment: Antibodies to HCV not detected; does not exclude early acute HCV infection. HIV AB/AG Nonreactive Nonreactive [facility] Comment: HIV-1 p24 Ag [...] of this assay. ?? The [employer] HIV Ag/Ab Combo assay result and supplemental assay results should be interpreted in conjunction with the patient's clinical presentation, history and other laboratory results. ??If the results are inconsistent with clinical evidence, additional testing is suggested to confirm the result. Hepatitis B Surface Antigen Negative Negative [facility] 11/23/2020 3:28 PM EDT Elizabeth Dickinson HISTORICAL/NON ORDERABLE LABS Fi nal Result Performing Organization Address [facility]/State/ZIP Co de Phone Number [facility] [address] * CHLAMYDIA/N. GONORRHOEAE RNA, TMA, UROGENITAL (04/25/2020 3:36 PM EST) Chlamydia trachomatis RNA, TMA, Urogenital NOT DETECTED NOT DETECTED [facility] COMMENT SEE COMMENT [facility] Comment: The analytical performance characteristics of this assay, when used to test SurePath(TM) specimens have been determined by [employer]. The modifications have not been cleared or approved by the FDA. This assay has been validated pursuant to the CLIA regulations and is used for clinical purposes. ?? For additional information, please refer to https://education.griddig/faq/ZTJ325 (This link is being provided for information/ educational purposes only.) ?? Neisseria gonorrhoeae RNA, TMA, Urogenital NOT DETECTED NOT DETECTED [facility] 04/25/2020 3:36 PM EST us Brinda Lizarraga NP HISTORICAL/NON ORDERABLE LABS F inal Result Performing Organization Address City/[facility] Co de Phone Number [facility] [address] from Last 3 Months or Most Recently Relevant to Health Maintenance Insurance [facility] C3 Care Teams Reinforcing Steel Erector Relationship Specialty Start Date End Date Gail Stephens NP [address] [place] [phone] PCP - General Family Medicine 01/12/23
--- OUTSIDE RECORDS SUMMARY | 2024-05-30 07:52 | XMS_ITS | Encounter Summary ---
Author Organization [employer] Address [address] [facility] [address] [place] [address] Care Team Providers Care Cover Marker Name Role Phone Gail Stephens NP Primary Care Provider [phone] Reason for Visit * Reason Onset Date Comments Med Refill 04/18/2024 Encounter Details Date Type Department Care Team (Late st Contact Info) Description 04/18/2024 Refill [facility] [address] [place] [address] Denise Aguirre CNP [address] [place] [address] Pain in both knees, unspecified chronicity Social [...] Description 07/04/2024 3:00 PM EDT Office Visit [facility] [address] [place] [address] Gail Stephens NP [address] [place] [address] documented as of this encounter Visit Diagnoses Diagnosis Pain in both knees, unspecified chronicity documented in this encounter Additional Health Concerns Assessment Noted Time PHQ-9 Depression Total Score: 0 10/02/19 24 1:26 PM EDT documented as of this encounter Care Teams Cover Marker Relationship Specialty Start Date End Date Gail Stephens NP [address] [place] [address] PCP - General Family Medicine 01/12/23 documented as of this encounter
--- OUTSIDE RECORDS SUMMARY | 2024-05-30 07:52 | XMS_ITS | Encounter Summary ---
Author Organization [facility] [facility] Address [address] [facility] 7t [place] [address] Care Team Providers Care American History Professor Name Role Phone Gail Stephens NP Primary Care Provider [phone] Reason for Visit * Reason Onset Date Comments Med Refill 11/24/2023 Encounter Details Date Type Department Care Team (Late st Contact Info) Description 11/24/[address] [facility] MED[facility]INE [address] [place] [address] Gail Stephens NP [address] [place] [address] Social History Tobacco Use Types Packs/Day Years [...] Description 07/04/2024 3:00 PM EDT Office Visit [facility] [address] [place] [address] Gail Stephens NP [address] [place] [address] documented as of this encounter Visit Diagnoses Not on filedocumented in this encounter Additional Health Concerns Assessment Noted Time PHQ-9 Depression Total Score: 0 10/02/19 24 1:26 PM EDT documented as of this encounter Care Teams American History Professor Relationship Specialty Start Date End Date Gail Stephens NP [address] [place] [address] PCP - General Family Medicine 01/12/23 documented as of this encounter
[2024-05-30 07:57] LABS: UPreg QC Valid YES; Urine Pregnancy NEGATIVE (NEGATIVE)
[2024-05-30] MEDS: Lactated Ringers 1,000 ML 100 ML IVCONT ×2 (07:57→22:12)
[2024-05-30] MEDS: Scopolamine 1.5 MG PATCH.TD.3 TRANSDERMA (08:07)
[2024-05-30] MEDS: ceFAZolin Sodium/Dextrose,Iso 2 GM/50 ML PIGGYBACK IV (08:15)
--- NOTE | 2024-05-30 09:11 | P.OP_ITS ---
Operative Note Operative Note Date of Service: 05/30/24 Narrative: Preoperative diagnosis: Chronic mastitis right breast Postoperative diagnosis: Same Procedure: Right breast lumpectomy Surgeon: Leoncio Nunez MD [employer] Crewman: Aleida Paredes PA-C; SHIRA Jackson Anesthesia: General LMA Indications for procedure: 23-year-old female patient with a chronically draining abscess of the right breast upper inner quadrant status post previous excision, incision and drainage, and multiple courses of antibiotics. She presents today for wide excision of the persistently infected breast tissue Operative findings: 6 cm wide area of chronically infected mastitis with m ultiple purulent collections noted within including a fistula to the skin around the nipple and right upper inner quadrant Specimen: Right breast lumpectomy for inner quadrant Estimated blood loss: 20 mL Complications: None Procedure details: Patient was brought to the OR placed in a supine position. After administering general anesthesia the patient's right breast was prepped with ChloraPrep and draped in sterile fashion. A surgical time-out was called the consent confirmed. Patient received preoperative antibiotics and Venodyne boots were in place. Local anesthesia consisting of 0.5% Sensorcaine was infiltrated around the area mastitis in the upper inner quadrant. An elliptical incision was then created oriented transversely and carried down into the subcutaneous tissue. Superior and inferior skin flaps were then created using electrocautery. The chronically infected tissue was then excised using electrocautery extending down to the chest wall starting from the superior margin, medial margin, inferior margin, lateral margin and finally posterior margin. The cutaneous fistula in the periareolar location right upper quadrant was included in the excision with an elliptical incision to include the entire fistula. Lesion was passed off the table and sent to pathology for further examination. Hemostasis was assured using electrocautery. Wounds were then irrigated with Betadine solution. Deep breast tissue was then reapproximated using interrupted 3-0 Polysorb sutures. Dermis was reapproximated using interrupted 3-0 Polysorb sutures. Skin was then closed using a running subcuticular 4-0 Polysorb suture. Sterile dressings consisting of 4 x 4 gauze and Tegaderm were then applied. The patient tolerated the procedure well. Sponge, instrument, and needle counts reported as correct. The patient was transferred to PACU in stable condition.
[2024-05-30] MEDS: fentaNYL citrate/PF 100 MCG/2 ML VIAL 25 MCG IVPUSH ×4 (09:25→09:40)
--- NOTE | 2024-05-30 10:18 | PHA.MEDREC ---
Addendum entered by Danish Arrieta RPh 05/30/24 10:27: MED REC CHECKED BY [facility] Original Note: Pharmacy Consult ? Medication Reconciliation Pharmacy has reviewed the medication reconciliation done by nursing. Claims match med list.
[2024-05-30] MEDS: HYDROmorphone HCl 0.5 MG/0.5 ML SYRINGE IVPUSH ×2 (11:15→18:51)
[2024-05-30] MEDS: Piperacillin Sodium/Tazobactam 3.375 GM in 0.9 % Sodium Chloride 50 ML IV ×3 (11:19→22:11)
[2024-05-30 11:49] LABS: Creatinine Clr Calc Pharmacy 114.2; Estimated Glomerular Filt Rate > 60
[2024-05-30] MEDS: oxyCODONE HCl Immed Release 5 MG TABLET PO (13:40)
[2024-05-31] MEDS: oxyCODONE HCl Immed Release 5 MG TABLET PO ×2 (03:16→09:32)
[2024-05-31 03:18] VITALS: BP 103/61; PULSE 69; RESP 17; TEMP 36; O2SAT 98
[2024-05-31] MEDS: Piperacillin Sodium/Tazobactam 3.375 GM in 0.9 % Sodium Chloride 50 ML IV ×4 (04:06→21:55)
[2024-05-31] MEDS: Acetaminophen 1,000 MG/100 ML PIGGYBACK 400 MG IV ×2 (05:57→17:37)
[2024-05-31 06:02] LABS: MANUAL DIFF FLAG NO
[2024-05-31 06:22] LABS: Basophils Percent Auto 0.2 % (0-2); Eosinophils Absolute Auto 0.1 X10*3/uL (0.0-0.4); Eosinophils Percent Auto 0.4 % (0-4); Hematocrit 33.9 % (37.0-47.0); Hemoglobin 11.7 g/dl (12.0-16.0); Imm Gran Abs Auto 0.07 X10*3/uL (0.00-0.03); Imm Gran Pct Auto 0.5 % (0.0-0.4); Lymphocytes Absolute Auto 3.2 X10*3/uL (1.2-4.9); Lymphocytes Percent Auto 23.2 % (20-40); Mean Corpuscular HGB Conc 34.5 g/dl (31.0-35.0); Mean Corpuscular Hemoglobin 29.8 pg (27.0-33.0); Mean Corpuscular Volume 86.5 fL (80.0-98.0); Mean Platelet Volume 9.4 fL (9.4-12.3); Monocytes Absolute Auto 0.7 X10*3/uL (0.1-1.2); Neutrophils Absolute Auto 9.8 x10*3/uL (2.0-8.3); Neutrophils Percent Auto 70.7 % (45-73); Platelet Count 296 X10*3/uL (160-400); Red Blood Count 3.92 X10*6/uL (4.20-5.50); White Blood Count 13.9 X10*3/uL (4.8-10.8)
--- NOTE | 2024-05-31 06:54 | P.PNGS_ITS ---
Subjective Subjective Date of Service: 05/31/24 <Julio Smit - Last Filed: 05/31/24 07:08> 05/31/24 <Leoncio Nunez MD - Last Filed: 05/31/24 07:44> Interval history: No overnight events Anne feels well this morning. She reports some nausea that has been well managed with her patch. She also reports a mild L sided headache since 3 am with mild photophobia. No blurry vision, vision changes, hearing issues, swallowing difficulty, no shortness of breath, chest pain. She endorses using her IS. She has tolerated liquids, no solids. Ambulating to restroom. Voiding clear urine, with no BM or flatus. Bandages clean and dry with diffuse R breast tenderness. <[facility] - Last Filed: 05/31/24 07:08> Physical Exam 2 Vital Signs: Vital Signs: Last Vital Signs Temp 96.8 F 05/31/24 03:18 Pulse 69 05/31/24 03:18 Resp 17 05/31/24 03:18 BP 103/61 05/31/24 03:18 Pulse Ox 98 05/31/24 03:18 O2 Del Method Room Air 05/31/24 03:18 O2 Flow Rate 10 05/30/24 09:21 BMI result Body Mass Index 32.2 <[facility] - Last Filed: 05/31/24 07:08> Const: General: comfortable and no acute distress <[facility] - Last Filed: 05/31/24 07:08> Orientation/consciousness: patient oriented x3 <[facility] - Last Filed: 05/31/24 07:08> HEENT: Head: Yes atraumatic <[facility] - Last Filed: 05/31/24 07:08> Eyes: Conjunctivae: conjunctivae normal <[facility] - Last Filed: 05/31/24 07:08> Sclerae: sclerae normal <[facility] Last Filed: 05/31/24 07:08> Pupils: Equal, round and reactive pupils present <[facility] Last Filed: 05/31/24 07:08> EOM: EOMs intact bilaterally <[facility] Last Filed: 05/31/24 07:08> Chest: Other: R breast diffusely tender to palpation dressings dry and without drainage no surrounding erythema or induration <[facility] - Last Filed: 05/31/24 07:08> Resp: Effort & Inspection: normal respiratory effort and able to speak in complete sentences <[facility] Last Filed: 05/31/24 07:08> Auscultation: clear to auscultation bilaterally <[facility] Last Filed: 05/31/24 07:08> Cardio: Rate: regular rate <[facility] Last Filed: 05/31/24 07:08> Rhythm: regular rhythm <[facility] Last Filed: 05/31/24 07:08> Heart sounds: S1 normal heart sound present and S2 normal heart sound present <[facility] Last Filed: 05/31/24 07:08> GI: Palpation (GI): No hepatosplenomegaly present <[facility] Last Filed: 05/31/24 07:08> Skin: General skin exam: no rashes or lesions noted <[facility] Last Filed: 05/31/24 07:08> Neuro: Other: CN II -XII grossly intact <[facility] Last Filed: 05/31/24 07:08> General: patient oriented x3 <[facility] Last Filed: 05/31/24 07:08> Cranial nerves: Yes Equal, round and reactive pupils present <[facility] Last Filed: 05/31/24 07:08> Extrem: Other: moving all ext spontaneously <[facility] Last Filed: 05/31/24 07:08> Objective Data Active Medications Calcium Carbonate (Calcium Carbonate 750 Mg Tab.Chew) 750 mg PO Q4H PRN PRN Reason: Heartburn Hydromorphone HCl (Hydromorphone Hcl 0.5 Mg/0.5 Ml Syringe) 0.5 mg IVPUSH Q3H PRN; Protocol PRN Reason: Pain, Severe (Pain Scale 7-10) Last Admin: 05/30/24 18:51 Dose: 0.5 mg Documented By: ILSA Lactated Ringer's (Lr) 1,000 mls @ 100 mls/hr IVCONT .Q10H VENICE Last Admin: 05/30/24 22:12 Dose: 100 mls/hr Documented By: RAJENDRA Piperacillin Sod/Tazobactam (Sod 3.375 gm/ Sodium Chloride) 50 mls @ 100 mls/hr IV Q6H [facility] Last Infusion: 05/31/24 04:39 Dose: Infused Documented By: RAJENDRA Acetaminophen (Ofirmev) 1,000 mg in 100 mls @ 400 mls/hr IV Q6H PRN PRN Reason: Pain, Mild (Pain Scale 1-3) Last Infusion: 05/31/24 06:36 Dose: Infused Documented By: RAJENDRA Magnesium Hydroxide (Milk Of Magnesia 30 Ml Oral.Susp) 30 ml PO DAILY PRN PRN Reason: Constipation Ondansetron HCl (Ondansetron Hcl 4 Mg/2 Ml Vial) 4 mg IVPUSH QID PRN PRN Reason: Nausea Oxycodone HCl (Oxycodone Hcl Immed Release 5 Mg Tablet) 5 mg PO Q6H PRN PRN Reason: Pain, Moderate(Pain Scale 4-6) Last Admin: 05/31/24 03:16 Dose: 5 mg Documented By: RAJENDRA Sodium Chloride (0.9 % Sodium Chloride Flush 3 Ml Syringe) [facility] Last Admin: 05/31/24 00:18 Dose: Not Given Documented By: RAJENDRA Non-Admin Reason: IV Running Zolpidem Tartrate (Zolpidem Tartrate 5 Mg Tablet) 5 mg PO BEDTIME PRN PRN Reason: Insomnia <Julio Weller - Last Filed: 05/31/24 07:08> Labs CBC & Chem 7: 05/31/24 05:25 05/30/24 11:30 <Julio Weller - Last Filed: 05/31/24 07:08> Labs: Laboratory Results - last 24 hr 05/30/24 05/30/24 05/31/24 07:39 11:30 05:25 MCV 86.5 MCH 29.8 MCHC 34.5 RDW 13.0 Plt Count 296 MPV 9.4 Immature Gran % (Auto) 0.5 H Neut % (Auto) 70.7 Lymph % (Auto) 23.2 Beadle % (Auto) 5.0 Eos % (Auto) 0.4 Baso % (Auto) 0.2 Lymph # (Auto) 3.2 Beadle # (Auto) 0.7 Eos # (Auto) 0.1 Baso # (Auto) 0.0 Abs Immat Gran (auto) 0.07 H Absolute Neuts (auto) 9.8 H Absolute Nucleated RBC 0.000 Nucleated RBC % (auto) 0.0 Estim Creat Clear Calc 114.2 Estimated GFR > 60 Urine Test NEGATIVE <Julio Weller - Last Filed: 05/31/24 07:08> Procedures Date of Service Date of Service: 05/31/24 <Julio Suárezt - Last Filed: 05/31/24 07:08> 05/31/24 <Leoncio Nunez MD - Last Filed: 05/31/24 07:44> Progress Note: A&P Assessment and plan (1) Mastitis of right breast unrelated to of : Status: Acute <Julio Weller - Last Filed: 05/31/24 07:08> (2) Breast mass, right: Status: Acute <Julio Weller - Last Filed: 05/31/24 07:08> Assessment and Plan: Anne is POD 1 frorm Right breast lumpectomy for recurrent mastitis. Vitally stable, without concerning signs. Plan to advance diet as tolerated and await BM. On Pip-tazo with WBC of 13.9 this AM. Pain well managed, and exam remarkable for expected incisional pain. Plan to discharge later today. IRVING Rodriguez <Julio Weller - Last Filed: 05/31/24 07:08> Anne is POD 1 frorm Right breast lumpectomy for recurrent mastitis. Vitally stable, without concerning signs. Plan to advance diet as tolerated and await BM. On Pip-tazo with WBC of 13.9 this AM. Pain well managed, and exam remarkable for expected incisional pain. Plan to discharge later today. IRVING Rodriguez Patient seen and examined independently. Patient mainly complaining of headache this morning. Breast soreness as expected, pain well controlled with current pain meds. Wounds are clean, dry, and intact without evidence of erythema or purulence discharge. Plan to continue IV antibiotics for 1 more day with probable discharge in a.m. tomorrow on oral antibiotics. Patient expressed understanding and agrees with the plan. <Leoncio Nunez MD - Last Filed: 05/31/24 07:44> Time Spent With Patient Time: Total time managing care of this patient today ____ minutes. <Julio Weller - Last Filed: 05/31/24 07:08> Quality Stroke Does the patient have a stroke diagnosis?: No <Leoncio Nunez MD - Last Filed: 05/31/24 07:44> VTE Prior VTE?: No <Leoncio Nunez MD - Last Filed: 05/31/24 07:44> VTE Risk Level:: Surgical - low <Julio Weller - Last Filed: 05/31/24 07:08> VTE Device Contraindication: N/A - Device Ordered <Julio Weller - Last Filed: 05/31/24 07:08> VTE Drug Contraindication: Treatment Not Indicated <Julio Weller - Last Filed: 05/31/24 07:08>
--- NOTE | 2024-05-31 07:29 | HO.POSTANES ---
Post Anesthesia Evaluation Post Anesthesia Evaluation Date of Service: 05/31/24 Vital Signs: Vital Signs Temp Pulse Resp BP Pulse Ox O2 Del Method 05/31/24 03:18 96.8 F 69 17 103/61 98 Room Air 05/30/24 19:37 97.9 F 90 17 117/59 L 98 Room Air Anesthesia: General LMA Mental Status: Sedated (asleep) Pain Control: Satisfactory Nausea/Vomiting: None Hydration: Adequate Anesthesia-Related Issues: No Anes. Related Issues
[2024-05-31 07:36] VITALS: BP 106/59; PULSE 73; RESP 18; TEMP 36.6; O2SAT 97
--- NOTE | 2024-05-31 11:38 | MHC.CM.PN ---
CM MET WITH PT AT BEDSIDE. PT LIVES WITH FAMILY AND IS FUNCTIONALLY INDEPENDENT. PT DECLINES COMPLETING A HCP AT THIS TIME. PCP DR. CHAUDHARI. DP: HOME, NO SERVICES IS ANTICIPATED. PT DOES NOT WANT VNA, WILL BE ABLE TO MANAGE OWN DRESSINGS IF NEEDED. CM WILL CONTINUE TO FOLLOW FOR ANY CHANGE TO DC PLAN/NEEDS.
[2024-05-31 14:57] VITALS: BP 114/69; PULSE 75; RESP 12; TEMP 36.4; O2SAT 99
[2024-05-31] MEDS: Milk of Magnesia 30 ML ORAL.SUSP PO (15:05)
[2024-05-31] MEDS: 0.9 % Sodium Chloride Flush 3 ML SYRINGE IVFLUSH ×2 (15:46→21:56)
[2024-05-31] MEDS: ondansetron HCL 4 MG/2 ML VIAL IVPUSH (17:39)
[2024-05-31 19:47] VITALS: BP 121/58; PULSE 78; RESP 18; TEMP 36.5; O2SAT 100
[2024-06-01 03:26] VITALS: BP 106/55; PULSE 67; RESP 18; TEMP 36.5; O2SAT 98
[2024-06-01] MEDS: Piperacillin Sodium/Tazobactam 3.375 GM in 0.9 % Sodium Chloride 50 ML IV (05:12)
[2024-06-01] MEDS: Acetaminophen 1,000 MG/100 ML PIGGYBACK 400 MG IV (05:20)
--- NOTE | 2024-06-01 06:56 | P.PNGS_ITS ---
Subjective Subjective Date of Service: 06/01/24 <Julio Reich Last Filed: 06/01/24 07:00> 06/01/24 <Aleida Paredes PA-C - Last Filed: 06/01/24 12:11> Interval history: No overnight events. Anne feels well this morning. She reports mild incision pain and tenderness. She reports no nausea today, improved from yesterday. Ambulating well, without syncope or weakness. Eating and moving bowels without issue. <Julio Weller - Last Filed: 06/01/24 07:00> Physical Exam 2 Vital Signs: Vital Signs: Last Vital Signs Temp 97.7 F 06/01/24 03:26 Pulse 67 06/01/24 03:26 Resp 18 06/01/24 03:26 BP 106/55 L 06/01/24 03:26 Pulse Ox 98 06/01/24 03:26 O2 Del Method Room Air 06/01/24 03:26 O2 Flow Rate 10 05/30/24 09:21 BMI result Body Mass Index 32.2 <Julio Weller - Last Filed: 06/01/24 07:00> Const: General: comfortable and no acute distress <Julio Weller - Last Filed: 06/01/24 07:00> Orientation/consciousness: patient oriented x3 <Julio Weller Damir Last Filed: 06/01/24 07:00> Chest: Other: right breat incision clean appearing, steris intact, mild tenderness <Aleida Paredes PA-C - Last Filed: 06/01/24 12:11> Resp: Effort & Inspection: normal respiratory effort and able to speak in complete sentences <Julio Weller - Last Filed: 06/01/24 07:00> Auscultation: clear to auscultation bilaterally <Julio Weller - Last Filed: 06/01/24 07:00> Cardio: Rate: regular rate <Julio Nithin - Last Filed: 06/01/24 07:00> Rhythm: regular rhythm <Julio Weller - Last Filed: 06/01/24 07:00> Heart sounds: S1 normal heart sound present and S2 normal heart sound present <Julio Weller - Last Filed: 06/01/24 07:00> Skin: Other: no rashes <Julio Weller - Last Filed: 06/01/24 07:00> Neuro: Other: moving all extremities spontaneously <Julio Weller - Last Filed: 06/01/24 07:00> General: patient oriented x3 <Julio Suárezt - Last Filed: 06/01/24 07:00> Objective Data Active Medications Calcium Carbonate (Calcium Carbonate 750 Mg Tab.Chew) 750 mg PO Q4H PRN PRN Reason: Heartburn Hydromorphone HCl (Hydromorphone Hcl 0.5 Mg/0.5 Ml Syringe) 0.5 mg IVPUSH Q3H PRN; Protocol PRN Reason: Pain, Severe (Pain Scale 7-10) Last Admin: 05/30/24 18:51 Dose: 0.5 mg Documented By: ILSA Piperacillin Sod/Tazobactam (Sod 3.375 gm/ Sodium Chloride) 50 mls @ 100 mls/hr IV Q6H [facility]PLAC[facility] Last Infusion: 06/01/24 06:12 Dose: Infused Documented By: ANKIT Acetaminophen (Ofirmev) 1,000 mg in 100 mls @ 400 mls/hr IV Q6H PRN PRN Reason: Pain, Mild (Pain Scale 1-3) Last Infusion: 06/01/24 05:35 Dose: Infused Documented By: ANKIT Magnesium Hydroxide (Milk Of Magnesia 30 Ml Oral.Susp) 30 ml PO DAILY PRN PRN Reason: Constipation Last Admin: 05/31/24 15:05 Dose: 30 ml Documented By: ILAS Ondansetron HCl (Ondansetron Hcl 4 Mg/2 Ml Vial) 4 mg IVPUSH QID PRN PRN Reason: Nausea Last Admin: 05/31/24 17:39 Dose: 4 mg Documented By: ILSA Oxycodone HCl (Oxycodone Hcl Immed Release 5 Mg Tablet) 5 mg PO Q6H PRN PRN Reason: Pain, Moderate(Pain Scale 4-6) Last Admin: 05/31/24 09:32 Dose: 5 mg Documented By: ILSA Sodium Chloride (0.9 % Sodium Chloride Flush 3 Ml Syringe) 3 ml IVFLUSH [facility] Last Admin: 05/31/24 21:56 Dose: 3 ml Documented By: ANKIT Zolpidem Tartrate (Zolpidem Tartrate 5 Mg Tablet) 5 mg PO BEDTIME PRN PRN Reason: Insomnia <Julio Weller - Last Filed: 06/01/24 07:00> Labs CBC & Chem 7: 05/31/24 05:25 05/30/24 11:30 <Julio Weller - Last Filed: 06/01/24 07:00> Procedures Date of Service Date of Service: 06/01/24 <Julio Weller - Last Filed: 06/01/24 07:00> 06/01/24 <Aleida Paredes PA-C - Last Filed: 06/01/24 12:11> Progress Note: A&P Assessment and plan (1) Breast mass, right: Status: Acute <Julio Weller - Last Filed: 06/01/24 07:00> (2) S/P lumpectomy, right breast: Status: Acute <Julio Weller - Last Filed: 06/01/24 07:00> Assessment and Plan: Anne is POD 2 from R breast lumpectomy. Doing well on IV antibiotics. VSS. Ambulating well, tolerating solids and liquids, with expected incisional pain. Plan to discharge on oral antibiotics. <Julio Weller Last Filed: 06/01/24 07:00> Anne is POD 2 from R breast lumpectomy. Doing well on IV antibiotics. VSS. Ambulating well, tolerating solids and liquids, with expected incisional pain. Plan to discharge on oral antibiotics. Agree with above assessment and plan. She is doing well post op. Pain is well controlled. VSS. Incision clean, steris intact, appropriate post op tenderness. She is comfortable and feels ready for discharge. Dc to home today on oral abx, f/u in office in 1 week. Patient comfortable with plan. <Aleida Paredes PA-C - Last Filed: 06/01/24 12:11> Time Spent With Patient Time: Total time managing care of this patient today ____ minutes. <Julio Weller - Last Filed: 06/01/24 07:00> Quality Stroke Does the patient have a stroke diagnosis?: No <Julio Weller - Last Filed: 06/01/24 07:00> VTE Prior VTE?: No <Julio Weller - Last Filed: 06/01/24 07:00> VTE Risk Level:: Surgical - low <Julio Weller - Last Filed: 06/01/24 07:00> VTE Device Contraindication: N/A - Device Ordered <Julio Weller - Last Filed: 06/01/24 07:00> VTE Drug Contraindication: Treatment Not Indicated <Julio Weller - Last Filed: 06/01/24 07:00>
[2024-06-01 07:09] VITALS: BP 110/68; PULSE 55; RESP 16; TEMP 36.2; O2SAT 100
[2024-06-01] MEDS: 0.9 % Sodium Chloride Flush 3 ML SYRINGE IVFLUSH (07:13)
--- NOTE | 2024-06-01 09:21 | MHC.CM.PN ---
Rita is discharged to home self care. She has arranged for a family member to provide transportation home.
--- NOTE | 2024-06-01 14:05 | P.DS_ITS ---
DS: Providers Provider Date of Service: 06/01/24 Date of admission: 05/30/24 07:47 Date of discharge: 06/01/24 Primary care physician: Gail Stephens Attending physician on admission: Leoncio Nunez Attending physician on discharge: Leoncio Nunez DS: Diagnosis Discharge Diagnosis (1) Breast mass, right: Status: Acute (2) S/P lumpectomy, right breast: Status: Acute DS: Summary Hospital Course Hospital Course: HPI AT ADMISSION: 23-year-old female patient returning for follow-up examination of a right upper inner quadrant breast mass with abscess, status post repeat incision and drainage 2 weeks ago. She continues to note drainage from the wound as well as pain when the lesion is palpated however overall feels much improved. Continues to feel a mass in the upper inner quadrant. There is also drainage from the Brook areolar incision. Wound cultures were negative for any bacteria. Remains on the doxycycline and is tolerating this well. She denies any fever or chills. She was scheduled for excision of the mass on 05/30/2024. She will be admitted postoperatively for IV antibiotics given the persistent infection in the right breast. She presents now for the planned procedure. HOSPITAL COURSE: On 05/30/24, right breast lumpectomy was performed by Dr. Nunez without complication for the chronic mastitis. She was admitted post operatively for observation and IV abx. She had an uncomplicated recovery course. She remained inpatient for 2 days of IV abx. On the day of discharge, she had mild incisional pain and was comfortable. She was tolerating a solid diet. She was ambulating without difficulty. Her incision was clean without erythema with steris intact and appropriate post op tenderness. She felt ready for discharge. She was discharged to home on 06/01/24 in stable condition. She was discharged on a short course of oral augmentin. She is to follow up in the office in 1 week. Status at Discharge Functional status at discharge: independent ambulation Overall status at discharge: patient is progressing back to baseline Time Attestation Discharge Coordination Time (in mins): 30 Quality: Safe Use of Opioids Does Pt have an Active Cancer Diagnosis on the Problem List?: No Quality: Stroke Does the patient have a stroke diagnosis?: No Physical Exam Vital Signs: Vital Signs: Last Vital Signs Temp 97.1 F 06/01/24 07:09 Pulse 55 04/09/25 07:09 Resp 16 06/01/24 07:09 BP 110/68 06/01/24 07:09 Pulse Ox 100 06/01/24 07:09 O2 Del Method Room Air 06/01/24 07:09 O2 Flow Rate 10 05/30/24 09:21 BMI result Body Mass Index 32.2 Const: General: comfortable, no acute distress and alert Orientation/consciousness: patient oriented x3 Chest: Other: right breast incision clean, steris intact, mild tenderness Resp: Effort & Inspection: normal respiratory effort Skin: General skin exam: no rashes or lesions noted Neuro: General: patient oriented x3 and moves all extremities DS: Data Data Completed and Pending Completed studies during hospitalization [Text1]: Pending at discharge 05/30/24 08:46 Surgical [PTH] Routine Breast, right, lumpectomy: - Breast tissue with multifocal abscess and granulation tissue formation with associated granulomatous inflammation and surrounding stromal fibrosis. - Skin with dermal acute and chronic inflammation. - No atypia or malignancy identified. Procedures Drainage of Right Breast, Open Approach (04/13/24) Discharge Plan Discharge Anticipated Discharge Date/Time: 06/01/24 09:32 Patient Disposition: Home, Self-Care Discharge Diagnosis: s/p right breast lumpectomy Referrals: Leoncio Nunez MD [Physician] - 1 Week Gail Stephens [Primary Care Provider] - 1 Week Discharge Medications: New amoxicillin-pot clavulanate 875-125 mg tablet 1 tab PO BID Qty: 10 0RF oxycodone 5 mg tablet 5 mg PO Q4H PRN (Reason: pain (scale score 7-10)) Qty: 24 0RF Rx Instructions: Partial Fill upon patient request. Continued cetirizine 5 mg tablet 10 mg PO DAILY PRN (Reason: Allergy Symptoms) ondansetron HCl 4 mg tablet 4 mg PO Q8H PRN (Reason: nausea) Qty: 10 0RF Patient Comments: postop meds hydroxyzine pamoate 25 mg Capsule 25 mg PO QID Mirena 20 mcg/24 hours (8 yrs) 52 mg intrauterine device 1 device intrauterine ONCE Rx Instructions: implanted in pt ibuprofen 800 mg tablet 800 mg PO TID Qty: 20 0RF Discharge Orders: Discharge Order (Routine); Ordered 06/01/24 Ordered By: Aleida Paredes Diet: Advance to usual diet Activity on Discharge: No heavy lifting Stand Alone Forms: Patient Portal Discharge page Print Language: Citizen Of [place] Activity Restrictions/Additional Instructions: If the incision area is tender, you may apply an ice pack for short intervals (No more than 20 minutes on, followed by at least 20 minutes off). Do not apply heat. Do not use creams, lotions, or topical antibiotics. Ok to shower. Remove clear dressings 3 days following your procedure. You have steri strips (small white cloth strips) covering your incision- these will fall off ~1 week. No heavy lifting (>10lbs) or strenuous activity! Take Tylenol Extra-strength 1-2 tabs every 6 hours for the first day, then as needed. Oxycodone every 6-8 hours as needed for pain. Colace 100 mg every day as needed for constipation. Follow up in office with Dr. Nunez in 1 week. ([phone]) Call Your Doctor If: -Your temperature exceeds 101? F -You experience excessive pain or swelling -You have an unexpected reaction to medication -You have excessive bleeding -You experience continued vomiting/nausea -Your incision begins to separate -Your incision shows signs of infection such as increased redness, swelling, excessive pain, drainage (light blood or clear fluid is normal) or heat Care Plan Goals: Return to baseline health and resume normal activities following recovery period. Health Concerns: chronically draining abscess of the right breast, hx of previous excision, incision and drainage Plan of Treatment: s/p right breast lumpectomy IV transitioned to oral abx pain control F/u in office in 1 week Assessment: Doing well post op. Discharge Date/Time: 06/01/24 09:45
== END 2024-06-01 09:45 | disposition home or self-care (01) | DRG 363 ==
LOC: HO.SSSA 07:48 → HO.S3 10:07
PROVIDERS: Nurse Practitioner; Admitting Provider Surgery; PCP Nurse Practitioner; Visit Provider Surgery
PROC: 0HBT0ZZ Excision of Right Breast, Open Approach (ICD-10-PCS; CPT 19301; principal; 2024-05-30 09:00)
DX: N61.1 Abscess of the breast and nipple (principal); Z79.899 Other long term (current) drug therapy
CPT/HCPCS: 36415; 81025; 82565; 85025; 88307; 88312; A6260; J0131; J0690; J1100; J1171; J2003; J2250; J2405; J2543; J2704; J2795; J3010; J7120

== ENCOUNTER → 2024-05-30 07:47 | Outpatient (BNV) | payer MEDICAID, SELFPAY | PROVIDERS: Admitting Provider Surgery; PCP Nurse Practitioner; Visit Provider Surgery | DX: N61.0 Mastitis without abscess (principal); N63.12 Unspecified lump in the right breast, upper inner quadrant | CPT/HCPCS: 99024 ==

== ENCOUNTER 2024-06-09 10:32 | Outpatient (AMB) | payer MEDICAID, SELFPAY ==
--- NOTE | 2024-06-09 10:52 | A.OFFVIS_ITS ---
Vital Signs 3 06/09/24 10:54 Height 5 ft 1 in Weight 175 lb BMI 33.1 BP 134/71 Blood Pressure Location Lt brachial Position Sitting Pulse 75 Intake Visit Reasons: S/P Rt breast lumpectomy Intake Note: Patient is seen in office for post op assessment post right breast lumpectomy. Pt c/o: denies any concerns surgery:05/30/24 Distance Education Faculty Liaison Required: No Accompanied by: Self / Same As Patient Allergies No Known Allergies [No Known Allergies*] Allergy (Verified 06/09/24 10:53) HPI Comments Details: Anne returns 1 week following discharge from the hospital following a right breast lumpectomy with admission for IV antibiotics. Since her discharge she reports feeling much improved with no further pain, redness or discharge. Pathology revealed granulomatous mastitis. She completed the oral antibiotics as prescribed. FORMERLY [facility], [facility]1983 Medical History PONV (postoperative nausea and vomiting) Panic attacks Anxiety Mastitis Hx of iron deficiency anemia Surgical History History of lumpectomy of right breast (05/30/24) History of lumpectomy of right breast (02/29/24) Family History Mother Hypertension Maternal Grandfather Colon cancer Maternal Aunt Hx of breast cancer Social History Household Members: Family and Children Both parents involved: Yes Caregiver staying overnight: No Housing: Apartment Are you a primary ocular care technologist to a significant other at home: No Do you presently have visiting nurse or other home services: No 75 years or older and lives alone: No Alcohol intake: current Alcohol intake frequency: does not drink Comment: Patient felt dizzy on previous shift Patient Tobacco Use Status: Never used Tobacco Second Hand Smoke Exposure: No Special abbey needs: No Agree to transfusion: Yes service: No Female Reproductive History Menstrual Age of Menarche: 11 Physical Exam Vital Signs: Last Vital Signs Pulse 75 06/09/24 10:54 BP 134/71 06/09/24 10:54 BMI result Body Mass Index 33.1 Const General: comfortable Nutritional Appearance: well nourished Orientation/consciousness: patient oriented x3 Chest Other: Well-healed incision in the upper inner quadrant right breast with intact Steri- Strips. Periareolar incision is also clean and intact with intact Steri-Strips. No redness, hematoma or seroma is identified. No discharge is noted. Chest/axillae images: 2 1. 2. Resp Effort & Inspection: normal respiratory effort Neuro General: patient oriented x3 Extrem Other: No edema Assessment & Plan Assessment & Plan (1) Granulomatous mastitis of right breast: Code(s): N61.21 - Granulomatous mastitis, right breast Category: Medical Plan 23-year-old female patient returning 1 week following discharge from the hospital after a right breast lumpectomy for granulomatous mastitis involving the upper inner quadrant. Prior wound cultures revealed Corynebacterium and she underwent IV antibiotics followed by oral antibiotics she has now completed. Wounds are clean and intact without evidence of recurrent infection. I will provide her with a additional antibiotics should the symptoms return. I have asked her to return to the office in approximately 1 month for follow-up examination. She is welcome to call sooner for any new concerns. Medications: Refilled 2 amoxicillin-pot clavulanate 875-125 mg 1 tab PO BID 20 tabs 0RF Coding Level of Care Code Global (60395) Diagnoses Granulomatous mastitis of right breast N61.21
[2024-06-09 10:54] VITALS: BP 134/71; PULSE 75; BMI 33.1
--- OUTSIDE RECORDS SUMMARY | 2024-06-09 12:39 | XMS_ITS | Encounter Summary ---
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 Name Role Phone Gail Stephens NP Primary Care Provider [phone] Reason for Visit * Reason Onset Date Comments Med Refill 11/24/2023 Encounter Details Date Type Department Care Team (Late st Contact Info) Description 11/24/2023 Refill [facility] MED[facility]INE [address] [place] [address] Gail Stephens NP [address] [place] [address] Social History Tobacco Use Types Packs/Day Years [...] Description 07/04/2024 3:00 PM EDT Office Visit [facility] [address] [place] [address] Gail Stephens NP [address] [place] [address] documented as of this encounter Visit Diagnoses Not on filedocumented in this encounter Additional Health Concerns Assessment Noted Time PHQ-9 Depression Total Score: 0 10/02/19 24 1:26 PM EDT documented as of this encounter Care Teams Laminating Machine Operator Helper Relationship Specialty Start Date End Date Gail Stephens NP [address] [place] [address] PCP - General Family Medicine 01/12/23 documented as of this encounter
--- OUTSIDE RECORDS SUMMARY | 2024-06-09 12:39 | XMS_ITS | Encounter Summary ---
Author Organization [employer] Address [address] [facility] 7t [place] [address] Care Team Providers Care Sales Teacher Name Role Phone Gail Stephens NP Primary Care Provider [phone] Reason for Visit * Reason Onset Date Comments Med Refill 04/18/2024 Encounter Details Date Type Department Care Team (Late st Contact Info) Description 04/18/2024 Refill [facility] MED[facility]INE [address] [place] [address] Denise Aguirre CNP [address] [place] [address] Pain in both knees, unspecified chronicity Social [...] with others, in a hotel, in a group home, living outside on the street, on [...] Description 07/04/2024 3:00 PM EDT Office Visit [facility] MED[facility]INE [address] [place] [address] Gali Stephens NP [address] [place] [address] documented as of this encounter Visit Diagnoses Diagnosis Pain in both knees, unspecified chronicity documented in this encounter Additional Health Concerns Assessment Noted Time PHQ-9 Depression Total Score: 0 10/02/19 24 1:26 PM EDT documented as of this encounter Care Teams Sales Teacher Relationship Specialty Start Date End Date Gail Stephens NP [address] [place] [address] PCP - General Family Medicine 01/12/23 documented as of this encounter
--- OUTSIDE RECORDS SUMMARY | 2024-06-09 12:39 | XMS_ITS | Clinical Summary ---
Author Organization [employer] Address [address] [facility] 7t [place] [address] Care Team Providers Care Director Sales Training Name Role Phone Gail Stephens NP Primary Care Provider [phone] Allergies No known active allergies Medications * This document contains information received from the source organization and may not represent a complete record from that organization. cetirizine (ZyrTEC) 5 MG tablet TAKE 2 TABLETS BY MOUTH EVERY DAY 180 tablet 1 02/22/2024 Active ibuprofen 800 MG tablet Take 1 tablet by mouth 3 times daily. 04/27/2024 Active ondansetron (Zofran) 4 MG tablet Take 1 tablet by mouth every 8 (eight) hours if needed for nausea. 04/16/2024 Active hydrOXYzine HCl (Atarax) 25 MG tabletIndicatio ns:Anxiety Take 1 tablet (25 mg) by mouth 4 times daily. 120 tablet 1 05/06/2024 Active Active Problems Problem Noted Date Diagnosed [...] 2:30 PM EDT Office Visit [facility] MEDICINE [address] [place] [address] Gail Stephens NP Wound of right breast, subsequent encounter (Primary Dx); Adjustment disorder with anxious mood; Obesity (BMI 30-39.9) 05/23/2024 Travel 05/16/2024 Telephone [facility] MEDICINE [address] [place] [address] Rukhsana Aguilar MA chartprep 05/06/2024 2:00 PM EDT Office Visit [facility] MEDICINE [address] [place] [address] Gail Stephens NP Anxiety (Primary Dx) 05/06/2024 Population Health Risk Score [facility] [address] [place] [address] [place] [phone] Provider, Population Health Generic 05/03/2024 Telephone [facility] MEDICINE [address] [place] [phone] Rukhsana Aguilar MA chartprep 04/18/[address] [address] Aguirre, Guichos, ELECTRONICS REPAIR TECHNICIAN Pain in both knees, unspecified chronicity 04/18/2024 Patient Outreach [facility] MED & PEDS [address] [place] [address] Gail Stephens NP Transition Of Care (Tcm) (HDF scheduled. ) 04/15/[address] [address] Gail Stephens NP No Show 04/05/2024 Telephone [facility] WALK-IN CENTER [address] [place] [address] Gail Stephens NP Chart Prep 04/01/2024 11:15 AM EST Office Visit [address] [address] Aguirre, Guichos, ELECTRONICS REPAIR TECHNICIAN Pain in both knees, unspecified chronicity (Primary Dx); Soft tissue infection 03/31/2024 Telephone [facility] W[facility] [address] [place] [address] Gail Stephens NP Chart Prep 03/29/[address] [address] Gail Stephens NP ER Follow-up from Last 3 Months Immunizations Name Administration [...] 3:00 PM EDT Office Visit [facility] MEDICINE [address] [place] [address] Gail Stephens NP [address] [place], [place] [phone] Health Maintenance Due Date Last Done Comments [...] EST 04/28/2024 2:26 PM EST Comment:Breast Narrative [facility] - 04/30/2024 8:35 AM EST Gram stain results: 4+ polys 2+ epithelial cells 4+ red blood cells No organisms seen Routine Culture No growth after 2 days Specimen Source: Breast us Generic External Data Provider LAB MICROBIOLOGY - GENERAL ORDERABLES Final Result [facility] [address] [place] [address] [phone] * VASC US Lower Extremity Venous Duplex Bilateral (03/27/2024 3:02 PM EST) 03/27/2024 3:02 PM EST Narrative [facility] - 03/27/2024 3:03 PM EST ? [facility] ?[address] ?[place] [address] ? Ultrasound Report ? Signed ? Patient: Go Lange,Grace ?MR#: ?? [id number] ? : 2000 ?Acct:[id number] ? Age/Sex: 23 / F ?ADM Date: 03/27/24 ? Loc: HO.ED ? Attending Dr: ? Ordering Physician: Tima Gillespie ?? Date of Service: 03/27/24 ?? Procedure(s): US venous duplex LE BI ?? Accession Number(s): [id number] ? cc: Tima Gillespie; [facility] ? CLINICAL HISTORY: Bilateral calf pain. [...] DD/ 1502 ? TD/TT: 03/27/24 1502 ? Flooring Mechanic: ? Procedure Note [place], Image - 03/27/[address] [address] Ultrasound Report Signed Patient: Anne Ochoa MMR#: [id number] : 2000Acct:[id number] Age/Sex: 23 FADM Date: 03/27/24 Loc: HO.ED Attending Dr: Ordering Physician: Tima Gillespie Date of Service: 03/27/24 Procedure(s): US venous duplex LE BI Accession Number(s): [id number] cc: Tima Gillespie; [facility] CLINICAL HISTORY: Bilateral calf pain. DVT? [...] 03/27/24 1503 DD/ 1502 TD/TT: 03/27/24 1502 Flooring Mechanic: [facility] External Provider CV VASC ULAR PROCEDURES Edited Result - Final [facility] [address] [place] [phone] * (ABNORMAL) CBC auto differential (03/27/2024 1:46 PM EST) Only the most recent of3 resultswithin the time period is included. White Blood Count 10.2 4.8 - 10.8 X10*3/uL [facility] Red Blood Count 4.46 4.20 - 5.50 X10*6/uL [facility] Hemoglobin 13.1 12.0 - 16.0 g/dl [facility] Hematocrit 37.3 37.0 - 47.0 % [facility] Mean Corpuscular Volume 83.6 80.0 - 98.0 fL [facility] Mean Corpuscular Hemoglobin 29.4 27.0 - 33.0 pg [facility] Mean Corpuscular HGB Conc 35.1(H) 31.0 - 35.0 g/dl [facility] Red Cell Distribution Width 12.5 11.0 - 16.0 % [facility] Platelet Count 310 160 - 400 X10*3/uL [facility] Mean Platelet Volume 9.1(L) 9.4 - 12.3 fL [facility] Neutrophils Percent Auto 69.2 45 - 73 % [facility] Imm Gran Pct Auto 0.2 0.0 - 0.4 % [facility] Lymphocytes Percent Auto 23.8 20 - 40 % [facility] Monocytes Percent Auto 5.6 2 - 11 % [facility] Eosinophils Percent Auto 1.0 0 - 4 % [facility] Basophils Percent Auto 0.2 0 - 2 % [facility] NRBC Pct Auto 0.0 0.0 - 0.2 /100WBC [facility] Neutrophils Absolute Auto 7.1 2.0 - 8.3 x10*3/uL [facility] Imm Gran Abs Auto 0.02 0.00 - 0.03 X10*3/uL [facility] Lymphocytes Absolute Auto 2.4 1.2 - 4.9 X10*3/uL [facility] Monocytes Absolute Auto 0.6 0.1 - 1.2 X10*3/uL [facility] Eosinophils Absolute Auto 0.1 0.0 - 0.4 X10*3/uL [facility] Basophils Absolute Auto 0.0 0.0 - 0.2 X10*3/uL [facility] NRBC Abs Auto 0.000 0.0 - 0.012 X10*3/uL [facility] 03/27/2024 1:46 PM EST 03/27/2024 1:49 PM EST Generic External Data Provider LAB BLOOD ORDERAB LES Final Result Performing Organization Address [facility] Co de Phone Number [facility] [address] [place] [phone] * Partial Thromboplastin Time, Activated (APTT) (03/27/2024 1:46 PM EST) Partial Thromboplastin Time 34.7 26.0 - 36.8 SEC [facility] Comment:For information rega rding the monitoring of direct thrombininhibitors, please refer to Pharmacy. 03/27/2024 1:46 PM EST 03/27/2024 1:49 PM EST nVoq External Data Provider LAB BLOOD ORDERAB LES Final Result Performing Organization Address [facility] de Phone Number [facility] [address] [place] [phone] * (ABNORMAL) Prothrombin Time-INR (03/27/2024 1:46 PM EST) Prothrombin Time 13.4(H) 10.9 - 12.4 SEC [facility] INTERNATIONAL NORM RATIO 1.2(H) 0.9 - 1.1 [facility] Comment:INTERNATIONAL NORMAL IZED RATIO [...] Final Result Performing Organization Address [facility] Co de Phone Number [facility] [address] [place] [phone] * hCG, Total, Quantitative (03/27/2024 1:46 PM EST) HCG Quantitative <2 mIU/mL [facility] Comment:Weeks post LMP Appr oximate hCG(Last Menstrual Period) Range (mIU/ml)3 - 4 weeks 9 - 1304 - 5 weeks 75 - 2,6005 - 6 weeks 850 - 20,8006 - 7 weeks 4000 - 100,2007 - 12 weeks 11,500 - 289,76894 - 16 weeks 18,300 - 137,57126 - 29 weeks (2nd trimester) 1,400 - 53,25770 - 41 weeks (3rd trimester) 940 - [...] Final Result Performing Organization Address [facility] Co de Phone Number [facility] [address] [place] [phone] * B Type Natriuretic Peptide (BNP) (03/27/2024 1:46 PM EST) B Type Natriuretic Peptide <10 <100 pg/mL [facility] Comment:For those patients w ho are being treated with Natrecor(nesiritide, recombinant BNP), BNP testing should beperformed at least two hours post treatment in order toensure that only endogenous levels of BNP are detected. 03/27/2024 1:46 PM EST 03/27/2024 1:49 PM EST us Generic External Data Provider LAB BLOOD ORDERAB LES Final Result Performing Organization Address [facility] Phone Number [facility] [address] [place] [phone] * Magnesium (03/27/2024 1:46 PM EST) Pathologist [facility] Magnesium 2.0 1.6 - 2.6 mg/dL [facility] 03/27/2024 1:46 PM EST 03/27/2024 1:49 PM EST Generic External Data Provider LAB BLOOD ORDERAB LES Final Result Performing Organization Address [facility] Phone Number [facility] [address] [place] [phone] * Creatine Kinase, Total (03/27/2024 1:46 PM EST) Pathologist [facility] Creatine Kinase Total 64 26 - 140 U/L [facility] 03/27/2024 1:46 PM EST 03/27/2024 1:49 PM EST Generic External Data Provider LAB BLOOD ORDERAB LES Final Result Performing Organization Address [facility] Phone Number [facility] [address] [place] [phone] * (ABNORMAL) Comprehensive Metabolic Panel (03/27/2024 1:46 PM EST) Only the most recent of2 resultswithin the time period is included. Pathologist [facility] Sodium 140 135 - 145 mmol/L [facility] Potassium 3.7 3.3 - 5.1 mmol/L [facility] Chloride 107 96 - 108 mmol/L [facility] Carbon Dioxide 25 22 - 29 mmol/L [facility] Anion Gap 12 12 - 20 [facility] Urea Nitrogen (BUN) 11 9 - 16 mg/dL [facility] Creatinine, Serum 0.65 0.5 - 1.4 mg/dL [facility] Creatinine Clr Calc Pharmacy 731.9 [facility] Comment:Provided height and weight: 157.48 cm,786 kg.eGFR (calculated from the MDRD study equation) and eCrCl(calculated from the Cockcroft-Gault equation) are based ondifferent parameters and may not yield comparable results.If eCrCl result is absurd, please check patient'sheight/weight. Estimated Glomerular Filt Rate >60 [facility] Comment:Chronic Kidney Disea se: Estimated GFR < 60 mL/min/1.60p3Tugxqe Kidney Disease: Estimated GFR < 15 mL/min/1.73m2 Glucose 92 60 - 115 mg/dL [facility] Calcium 9.4 8.4 - 10.2 mg/dL [facility] Bilirubin, Total 0.3 0.0 - 1.0 mg/dL [facility] Aspartate Amino Transferase 19 5 - 31 U/L [facility] Alanine Aminotransferase 21 0 - 31 U/L [facility] Total Protein 8.1(H) 6.5 - 8.0 g/dL [facility] Albumin Level 4.5 3.5 - 5.0 g/dL [facility] Alkaline Phosphatase 53 39 - 117 U/L [facility] 03/27/2024 1:46 PM EST 03/27/2024 1:49 PM EST us Generic External Data Provider LAB BLOOD ORDERAB LES Final Result [facility] [address] [place], [place] [phone] * (ABNORMAL) Lipid Panel, Standard (10/28/2023 8:54 AM EDT) Triglycerides 90 <150 mg/dL [facility] Comment:Desirable Triglyceri de: less than 150 mg/dLBorderline High Triglyceride 150-199 mg/dLHigh Triglyceride: 200-499 mg/dLVery High Triglyceride: greater than or equal to 5OO mg/dL Cholesterol 158 <200 mg/dL [facility] Comment:Desirable Cholestero l: less than 200 mg/dLBorderline High Cholesterol: 200-239 mg/dLHigh Cholesterol: greater than 239 mg/dL LDL Cholesterol Calculated 107(H) <100 mg/dL [facility] Comment:Desirable LDL: less than 100 mg/dLNear Optimal/Above Optimal LDL: 110- 129 mg/dLBorderline High LDL: 130-159 mg/dLHigh LDL: 160-189 mg/dLVery High LDL: greater than or equal to 190 mg/dL HDL Cholesterol 33(L) >40 mg/dL [facility] Comment:Desirable HDL: great er than 40 mg/dL Note: This HDL assay may give artificially low results in patients with liver disease. Blood Venous blood specimen / Unknown 10/28/2023 8:54 AM EDT 10/28/2023 11:03 AM EDT Gail Stephens SOFTWARE APPLICATIONS ARCHITECT LAB BLOOD ORDERABLES Final Resu lt [facility] [address] [place] [address] [phone] * Pap Smear (02/06/2022 9:46 AM EST) 02/06/2022 9:46 AM EST 02/06/2022 3:45 PM EST Narrative [facility] - 02/21/2022 5:05 PM EST ----- ------- Name: Anne Ochoa ? Age/Sex: 21/F ? : 2000 Unit#: [id number] ?? Attend Dr: Elizabeth Dickinson CNDestinee ?Re02/06/22 ?Status: DEP REF ? Location: HO.LNP ?Disch: ? ----- ------- SPEC : [id number] ?RECD: 02/06/22-1545 ? STATUS: ??SOUT ? REQ NUM: [id number] ? AMRITA: 02/06/22-46 ? SUBM DR: Elizabeth Dickinson CNDestinee ? ENTERED: ??02/06/22-1613 ?SP TYPE: Pap Smr ?OTHR DR: ? ORDERED: ??Pap Smear ? Interpretation ?? Satisfactory for evaluation. ?? Negative for intraepithelial lesion or malignancy. ?Clinical Information LMP: 02/13 Previous PAP test: Never ? Material Received ?? ThinPrep-Cervical ----- ------- Signed (signature on file) An Martinez 02/21/221704 ? ----- ------- ? END OF REPORT ? [facility] External Provider LAB CYT OLOGY ORDERABLES Final Result [facility] [address] [place] [phone] * Hepatitis C Antibody (11/23/2020 3:28 PM EDT) Pathologist [facility] Hepatitis C Antibody Nonreactive Nonreactive [facility] [...] detection of this assay. ?? The Ochoa [employer] T[employer] HIV Ag/Ab Combo assay result and supplemental assay results should be interpreted in conjunction with the patient's clinical presentation, history and other laboratory results. ??If the results are inconsistent with clinical evidence, additional testing is suggested to confirm the result. Hepatitis B Surface Antigen Negative Negative [facility] 11/23/2020 3:28 PM EDT us Elizabeth Harrison HISTORICAL/NON ORDERABLE LABS Fi nal Result Performing Organization Address [facility] Co de Phone Number [facility] [address] * CHLAMYDIA/N. GONORRHOEAE RNA, TMA, UROGENITAL (04/25/2020 3:36 PM EST) Chlamydia trachomatis RNA, TMA, Urogenital NOT DETECTED NOT DETECTED [facility] COMMENT SEE COMMENT [facility] Comment: The analytical performance characteristics of this assay, when used to test SurePath(TM) specimens have been determined by [employer] The modifications have not been cleared or approved by the FDA. This assay has been validated pursuant to the CLIA regulations and is used for clinical purposes. ?? For additional information, please refer to https://education.[employer]/faq/WYJ321 (This link is being provided for information/ educational purposes only.) ?? Neisseria gonorrhoeae RNA, TMA, Urogenital NOT DETECTED NOT DETECTED [facility] 04/25/2020 3:36 PM EST Brinda Lizarraga NP HISTORICAL/NON ORDERABLE LABS F inal Result Performing Organization Address [facility] Co de Phone Number [facility] [address] from Last 3 Months or Most Recently Relevant to Health Maintenance Insurance [facility] C3 Care Teams Director Sales Training Relationship Specialty Start Date End Date Gail Stephens NP [address] [place] [phone] PCP - General Family Medicine 01/12/23
== END 2024-06-09 10:59 | disposition home or self-care (01) ==
PROVIDERS: PCP Internal Medicine; Visit Provider Surgery
DX: N61.21 Granulomatous mastitis, right breast (principal)
CPT/HCPCS: 99024

== ENCOUNTER → 2024-06-09 10:32 | Outpatient (BNVA) | payer MEDICAID, SELFPAY | PROVIDERS: PCP Internal Medicine; Visit Provider Surgery | DX: N61.21 Granulomatous mastitis, right breast (principal) | CPT/HCPCS: 99212 ==

== ENCOUNTER 2024-07-07 13:45 | Outpatient (AMB) | payer MEDICAID, SELFPAY ==
--- NOTE | 2024-07-07 14:21 | MHC.OFFVIS ---
Vital Signs 07/07/24 14:27 Height 5 ft 1 in Weight 180 lb BMI 34.0 BP 116/68 Blood Pressure Location Lt brachial Position Sitting Pulse 79 Intake Visit Reasons: one month post Rt breast lumpectomy Intake Note: Patient is seen in office for one month follow up visit, post right breast lumpectomy. Pt c/o: denies any concerns Blow Pit Operator Required: No Accompanied by: Self / Same As Patient Allergies No Known Allergies [No Known Allergies*] Allergy (Verified 07/07/24 14:26) HPI Comments Details: Patient returns today with no further complaints. Her wounds are well healed with no pain or discharge noted. [facility]LY [facility] Medical History PONV (postoperative nausea and vomiting) Panic attacks Anxiety Mastitis Hx of iron deficiency anemia Surgical History History of lumpectomy of right breast (05/30/24) History of lumpectomy of right breast (02/29/24) Family History Mother Hypertension Maternal Grandfather Colon cancer Maternal Aunt Hx of breast cancer Social History Household Members: Family and Children Both parents involved: Yes Caregiver staying overnight: No Housing: Apartment Are you a primary residential child care counselor to a significant other at home: No Do you presently have visiting nurse or other home services: No 75 years or older and lives alone: No Alcohol intake: current Alcohol intake frequency: does not drink Comment: Patient felt dizzy on previous shift Patient Tobacco Use Status: Never used Tobacco Second Hand Smoke Exposure: No Special abbey needs: No Agree to transfusion: Yes service: No Female Reproductive History Menstrual Age of Menarche: 11 Physical Exam Vital Signs: Last Vital Signs Pulse 79 07/07/24 14:27 BP 116/68 07/07/24 14:27 BMI result Body Mass Index 34.0 Const General: no acute distress Nutritional Appearance: well nourished Orientation/consciousness: patient oriented x3 Chest Other: Right breast: Well-healed were a breast incision without redness or discharge. No tenderness to palpation. Chest/axillae images: 1. 2. Neuro General: patient oriented x3 Assessment & Plan Assessment & Plan (1) Granulomatous mastitis of right breast: Code(s): N61.21 - Granulomatous mastitis, right breast Category: Medical (2) S/P lumpectomy, right breast: Code(s): Z98.890 - Other specified postprocedural states Category: Medical Plan Patient returns 1 month following wide excision of granulomatous lesion of the right breast. Her wounds are now well healed without evidence of recurrent infection. She should follow up as needed. Coding Level of Care Code Global (63012) Diagnoses Granulomatous mastitis of right breast N61.21 S/P lumpectomy, right breast Z98.890
--- OUTSIDE RECORDS SUMMARY | 2024-07-07 14:25 | XMS_ITS | Encounter Summary ---
Author Organization [employer] Address [address] [facility] [address] [place] [address] Care Team Providers Care Sole Sewer Hand Name Role Phone Gail Stephens NP Primary Care Provider [phone] Reason for Visit * Reason Onset Date Comments Med Refill 04/18/2024 Encounter Details Date Type Department Care Team (Late st Contact Info) Description 04/18/2024 Refill [facility] [address] [place] [address] Denise Aguirre CNP [address] [place] [address] Pain in both knees, unspecified chronicity Social [...] Care Team (Late st Contact Info) Description 08/05/2024 11:00 AM EDT Office Visit [facility] [address] [place] [address] Gail Stephens NP [address] [place] [address] 09/28/2024 3:30 PM EDT Office Visit [facility] OPTOMETRY [address] [place] [address] Brinda Peters, OD [address] [place] [address] documented as of this encounter Visit Diagnoses Diagnosis Pain in both knees, unspecified chronicity documented in this encounter Additional Health Concerns Assessment Noted Time PHQ-9 Depression Total Score: 0 10/02/19 24 1:26 PM EDT documented as of this encounter Care Teams Sole Sewer Hand Relationship Specialty Start Date End Date Gail Stephens NP [address] [place] [address] PCP - General Family Medicine 01/12/23 documented as of this encounter
--- OUTSIDE RECORDS SUMMARY | 2024-07-07 14:25 | XMS_ITS | Encounter Summary ---
Author Organization [employer] Address [address] [facility] [address] [place] [address] Care Team Providers Care Strap Cutter Name Role Phone Gail Stephens NP Primary Care Provider [phone] Reason for Visit * Reason Onset Date Comments Medication Question 07/06/2024 Encounter Details Date Type Department Care Team ([facility] st Contact Info) Description 07/06/2024 Telephone [facility] [address] [place] [address] Gail Stephens NP [address] [place] [address] Medication Question Social History Tobacco Use Types Packs/Day Years [...] encounter Miscellaneous Notes * Telephone Encounter - Jessica Almaguer RN - 07/06/2024 2:15 PM EDT TC x 2 placed to pt via [employer] code number stamper (Johan ID#[id number]) to inform of below PCP message that medication sent to pharmacy on file. Advised pt per prescription that they are to take before breakfast. Pt verbalized understanding and denies questions at this time. Gail Stephens NP: Medication sent to pharmacy patient has on file * Telephone Encounter - Seda Keys - 07/06/2024 10:47 AM EDT Tc from pt stating that she was seen on 07/04/24 they talk about getting Weight medication. Pt Mom requesting status Contact pt at [phone] documented in this encounter Plan of Treatment Upcoming Encounters Date Type Department Care Team (Late st Contact Info) Description 08/05/2024 11:00 AM EDT Office Visit [facility] [address] [place] [address] Gail Stephens NP [address] [place] [address] 09/28/2024 3:30 PM EDT Office Visit [facility] OPTOMETRY [address] [place] [address] Brinda Peters, OD [address] [place] [address] documented as of this encounter Visit Diagnoses Not on filedocumented in this encounter Additional Health Concerns Assessment Noted Time PHQ-9 Depression Total Score: 5 05/07/19 25 3:13 PM EDT documented as of this encounter Care Teams Strap Cutter Relationship Specialty Start Date End Date Gail Stephens NP [address] [place] [address] PCP - General Family Medicine 01/12/23 documented as of this encounter
--- OUTSIDE RECORDS SUMMARY | 2024-07-07 14:25 | XMS_ITS | Encounter Summary ---
Author Organization [employer] Address [address] [facility] [address] [place] [address] Care Team Providers Care Patient Case Coordinator Name Role Phone Gail Stephens NP Primary Care Provider [phone] Reason for Referral * Consultation (Routine) - Closed Specialty Diagnoses / Procedures Referred By Eric canas Referred To Contact Optometry Diagnoses Routine adult health maintenance Gail Stephens NP [address] [place] [address] Phone: tel: fax: [facility] [address] [place] [id number] Phone: tel: fax: Referral ID Status Reason Start Date Expiration Date V isits Requested Visits Authorized [id number] Closed Consult and Treat 07/06/2024 07/06/2025 1 1 Reason for Visit * Reason Comments Follow-up Encounter Details Date Type Department Care Team (Late st Contact Info) Description 07/04/2024 3:00 PM EDT Office Visit [facility] [address] [place] [address] Gail Stephens NP [address] [place] [address] Obesity (BMI 30-39.9) (Primary Dx); Routine adult health maintenance Social History Tobacco Use Types Packs/Day Years [...] Sign Reading Time Taken Comments Blood Pressure 114/83 07/04/2024 3:41 PM EDT Pulse 78 07/04/2024 3:41 PM EDT Temperature 37.1 ??C (98.7 ??F) 07/04/2024 3:41 PM ED T Respiratory Rate 18 07/04/2024 3:41 PM EDT Oxygen Saturation 98% 07/04/2024 3:41 PM EDT Inhaled Oxygen Concentration - - Weight 81.2 kg (179 lb) 07/04/2024 3:41 PM EDT Height 154.9 cm (5' 1 ) 07/04/2024 3:41 PM EDT Body Mass Index 33.82 07/04/2024 3:41 PM EDT documented in this encounter Plan of Treatment Upcoming Encounters Date Type Department Care Team (Late st Contact Info) Description 08/05/2024 11:00 AM EDT Office Visit [facility] [address] [place] [address] Gail Stephens NP [address] [place] [address] 09/28/2024 3:30 PM EDT Office Visit [facility] OPTOMETRY [address] [place], [place] [id number] Tarka, Brinda, OD [address] [place] [address] Scheduled Referrals Name Type Priority Associated Diagnoses Orde r Schedule Referral to [facility] Outpatient Referral Routine Routine adult health maintenance Expected: 07/06/2024 (Approximate), Expires: 07/04/2025 documented as of this encounter Visit Diagnoses Diagnosis Obesity (BMI 30-39.9)- Primary Routine adult health maintenance documented in this encounter Additional Health Concerns Assessment Noted Time PHQ-9 Depression Total Score: 5 05/07/19 25 3:13 PM EDT documented as of this encounter Care Teams Patient Case Coordinator Relationship Specialty Start Date End Date Gail Stephens NP [address] [place] [address] PCP - General Family Medicine 01/12/23 documented as of this encounter
--- OUTSIDE RECORDS SUMMARY | 2024-07-07 14:25 | XMS_ITS | Encounter Summary ---
Author Organization [employer] Address [address] [facility] [address] [place] [address] Care Team Providers Care Rn Eligibility Name Role Phone Gail Stephens NP Primary Care Provider [phone] Reason for Visit * Reason Onset Date Comments Med Refill 11/24/2023 Encounter Details Date Type Department Care Team (Late st Contact Info) Description 11/24/2023 Refill [facility] [address] [place] [address] Gail Stephens NP [address] [place] [address] Social History Tobacco Use Types Packs/Day Years [...] Description 08/05/2024 11:00 AM EDT Office Visit [facility] [address] [place] [address] Gail Stehpens NP [address] [place] [address] 09/28/2024 3:30 PM EDT Office Visit [facility] OPTOMETRY [address] [place] [address] Brinda Peters, ALECIA [address] [place] [address] documented as of this encounter Visit Diagnoses Not on filedocumented in this encounter Additional Health Concerns Assessment Noted Time PHQ-9 Depression Total Score: 0 10/02/19 24 1:26 PM EDT documented as of this encounter Care Teams Rn Eligibility Relationship Specialty Start Date End Date Gail Stephens NP [address] [place] [address] PCP - General Family Medicine 01/12/23 documented as of this encounter
--- OUTSIDE RECORDS SUMMARY | 2024-07-07 14:25 | XMS_ITS | Clinical Summary ---
Author Organization [employer] Address [address] [place] [address] Care Team Providers Care Nanotechnologist Name Role Phone Gail Stephens NP Primary Care Provider [phone] Allergies No known active allergies Medications * This document contains information received from the source organization and may not represent a complete record from that organization. ibuprofen 800 MG tablet Take 1 tablet by mouth 3 times daily. 5 Active ondansetron (Zofran) 4 MG tablet Take 1 tablet by mouth every 8 (eight) hours if needed for nausea. 5 Active cetirizine (ZyrTEC) 10 MG tablet Take 1 tablet (10 mg) by mouth Once per day. 90 tablet 5 09/15/19 25 Active fluticasone (Flonase) 50 MCG/ACT nasal spray Administer 1 spray into each nostril Once per day. 16 g 2 5 07/17/19 25 Active acetaminophen (Tylenol Extra Strength) 500 MG tablet Take 1 tablet (500 mg) by mouth every 6 (six) hours if needed for mild pain. 120 tablet 5 07/17/19 25 Active phentermine 15 MG capsuleIndicat ions:Obesity (BMI 30-39.9) Take 1 capsule (15 mg) by mouth before breakfast for 14 days. Take with topiramate 14 capsule 5 07/21/19 25 Active topiramate (Topamax) 25 MG tabletIndicati ons:Obesity (BMI 30-39.9) Take 1 tablet (25 mg) by mouth Once per day for 14 days. Take with phentermine 14 tablet 5 07/21/19 25 Active cetirizine (ZyrTEC) 5 MG tablet TAKE 2 TABLETS BY MOUTH EVERY DAY 180 tablet 1 4 06/17/19 25 Discontin ued(Ineff ective) hydrOXYzine HCl (Atarax) 25 MG tabletIndicati ons:Anxiety Take 1 tablet (25 mg) by mouth 4 times daily. 120 tablet 1 5 06/17/19 25 Discontin ued(Ineff ective) Active Problems Problem Noted Date Diagnosed Date Viral upper respiratory tract infection 06/17/19 25 Assessment & Plan (06/16/2024 9:30 AM EDT): Negative viral test today. Rest (sleep at least 8 hours a night). Hydrate with plenty of water (avoid caffeine and alcohol). Use saline nose drops to loosen mucus + Flonase nasal + cetirizine x 5 days Take Acetaminophen (Tylenol??)/Ibuprofen as needed to reduce fever, headache, body aches or discomfort Gargle with salt water and use throat sprays/lozenges for throat pain. Use heated, humidified air. If you do not have a humidifier, take hot showers. Cover coughs and sneezes using the crook of your elbow. Patient may also have viral sinusitis, discussed with patient regarding progression of symptoms and potential complications including need for antibiotics if symptoms do not improve within 5 days, she will reconsult as needed If you have a fever, stay home and away from others (self isolation) until fever-free for 72 hours (temperature should be less than 100??F without medication). Adjustment disorder with anxious mood 05/06/2024 Assessment [...] Overview (03/03/2024): Procedure performed 02/29/2024 at [facility] Mass overlapping multiple quadrants of right maryjane [...] organization. Date Type Department Care Team Description 07/06/2024 Telephone [facility] [address] [place] [phone] Gail Stephens NP Medication Question 07/04/2024 3:00 PM EDT Office Visit [facility] [address] [place] [phone] Gail Stephens NP Obesity (BMI 30-39.9) (Primary Dx); Routine adult health maintenance 07/04/2024 Travel 07/01/2024 Telephone [facility] [address] [place] [phone] Rukhsana Aguilar MA chartprep 06/16/2024 9:20 AM EDT Office Visit [facility] [address] [place] [phone] Niki Muniz MD Viral upper respiratory tract infection (Primary Dx); Sore throat 05/23/2024 2:30 PM EDT Office Visit [facility] [address] [place] [phone] Gail Stephens NP Wound of right breast, subsequent encounter (Primary Dx); Adjustment disorder with anxious mood; Obesity (BMI 30-39.9) 05/23/2024 Travel 05/16/[address] [phone] Rukhsana Aguilar MA chartprep 05/06/2024 2:00 PM EDT Office Visit [address] [address] Gail Stephens NP Anxiety (Primary Dx) 05/06/2024 Population Health Risk Score [facility] () Department [address] [place] [phone] Provider, Population Health Generic 05/03/[address] [address] Rukhsana Aguilar MA chartprep 04/18/[address] [address] Denise Aguirre, FLAT GRINDER OPERATOR Pain in both knees, unspecified chronicity 04/18/[address] [facility] [address] [place], [place] [phone] Gail Stephens NP Transition Of Care (Tcm) (HDF scheduled. ) 04/15/[address] [address] Gail Stephens NP No Show from Last 3 Months Immunizations Immunization Administration Dates Next Due DTaP 09/25/2004, 3,11/30/2001,05/05,2000 [...] Mass Index 33.82 07/04/2024 3:41 PM EDT Plan of Treatment Upcoming Encounters Date Type Department Care Team (Late st Contact Info) Description 08/05/2024 11:00 AM EDT Office Visit [facility] [address] [place] [address] Gail Stephens, IRISH MOSS BLEACHER [address] [place] [address] 09/28/2024 3:30 PM EDT Office Visit [facility] [address] [place] [address] Brinda Peters, OD [address] [place] [address] Health Maintenance Due Date Last Done Comments Family Planning (PISQ) 08/07/2015 Meningococcal B Vaccine (1 of 2 - Standard) 2016 Chlamydia and Gonorrhea Screening 04/25/2021 04/25/2020 DTaP/Tdap/Td Vaccines (7 - Td or Tdap) 12/08/2021 12/09/2011, 09/25/2004, 08/15/2002, Additional history exists COVID-19 Vaccine ( season) 2023 11/03/2020, 10/06/2020 Influenza Vaccine (#1) 2023 , 02/13/2015, 01/23/2014, Additional history exists Alcohol/Substance Use Screening 10/01/2024 10/02/2023 SDOH Screening 10/01/2024 10/02/2023 Pap Smear 02/06/2025 02/06/2022 Depression Screening 05/06/2025 05/06/2024, 05/07/19 Tobacco Screening 05/24/2025 05/24/2024 Lipid Panel 10/27/2028 [...] Procedure Name Priority Date/Time Associated Diagnosis Comments POCT INFLUENZA A (ID NOW RAPID MOLECULAR) Routine 06/16/2024 9:17 AM EDT Sore throat POCT INFLUENZA B (ID NOW RAPID MOLECULAR) Routine 06/16/2024 9:16 AM EDT Sore throat POCT RAPID COVID ANTIGEN Routine 06/16/2024 9:05 AM EDT Sore throat POCT RAPID STREP A Routine 06/16/2024 9: 05 AM EDT Sore throat GRAM STAIN Routine 04/28/2024 12:56 PM EST LIPID PANEL, STANDARD Routine 10/28/2023 8:54 AM EDT Obesity (BMI 30-39.9) PAP SMEAR Routine 02/06/2022 9:46 AM EST [facility] HISTORICAL HEPATITIS C ANTIBODY Routine 11/23/2020 3:28 PM EDT [facility] HISTORICAL CHLAMYDIA/N. GONORRHOEAE RNA, TMA, UROGENITAL Routine 04/25/2020 3:36 PM EST from Last 3 Months or Most Recently Relevant to Health Maintenance Results * Influenza A (ID NOW Rapid Molecular) (06/16/2024 9:17 AM EDT) [facility] Influenza A Negative Negative, Indeterminate [facility] Swab 06/16/2024 9:17 AM EDT Niki Muniz MD POINT OF CARE TEST ENTER /EDIT ORDERABLES Final Result Performing Organization Address [facility]/ZIP Co de Phone Number [facility] [address] [place] [phone] * Influenza B (ID NOW Rapid Molecular) (06/16/2024 9:16 AM EDT) [facility] Influenza B Negative Negative, Indeterminate [facility] Swab 06/16/2024 9:16 AM EDT Niki Muniz MD POINT OF CARE TEST ENTER /EDIT ORDERABLES Final Result Performing Organization Address City/[facility] Co de Phone Number [facility] [address] [place] [phone] * POCT Rapid COVID Ag (06/16/2024 9:05 AM EDT) [facility] Rapid COVID Ag Negative Swab 06/16/2024 9:05 AM EDT Niki Muniz MD POINT OF CARE TEST ENTER /EDIT ORDERABLES Final Result * POCT rapid strep A manually resulted (06/16/2024 9:05 AM EDT) [facility] Rapid Strep A Screen Negative Negative, None Detected Swab 06/16/2024 9:05 AM EDT Niki Muniz MD POINT OF CARE TEST ENTER /EDIT ORDERABLES Final Result * Gram stain (04/28/2024 12:56 PM EST) 04/28/2024 12:5 6 PM EST 04/28/2024 2:26 PM EST Comment:Breast Narrative [facility] - 04/30/2024 8:35 AM EST Gram stain results: 4+ polys 2+ epithelial cells 4+ red blood cells No organisms seen Routine Culture No growth after 2 days Specimen Source: Breast us Generic External Data Provider LAB MICROBIOLOGY - GENERAL ORDERABLES Final Result Performing Organization Address [facility] Co de Phone Number [facility] [address] [place] [phone] * (ABNORMAL) Lipid Panel, Standard (10/28/2023 8:54 AM EDT) Triglycerides 90 <150 mg/dL [facility] Comment:Desirable Triglyceri de: less than 150 mg/dLBorderline High Triglyceride 150-199 mg/dLHigh Triglyceride: 200-499 mg/dLVery High Triglyceride: greater than or equal to 5OO mg/dL Cholesterol 158 <200 mg/dL [facility] Comment:Desirable Cholestero l: less than 200 mg/dLBorderline High Cholesterol: 200-239 mg/dLHigh Cholesterol: greater than 239 mg/dL LDL Cholesterol Calculated 107(H) <100 mg/dL [facility] Comment:Desirable LDL: less than 100 mg/dLNear Optimal/Above Optimal LDL: 110- 129 mg/dLBorderline High LDL: 130-159 mg/dLHigh LDL: 160-189 mg/dLVery High LDL: greater than or equal to 190 mg/dL HDL Cholesterol 33(L) >40 mg/dL [facility] Comment:Desirable HDL: great er than 40 mg/dL Note: This HDL assay may give artificially low results in patients with liver disease. Blood Venous blood specimen / Unknown 10/28/2023 8:54 AM EDT 10/28/2023 11:03 AM EDT us Gail Stephens IRISH MOSS BLEACHER LAB BLOOD ORDERABLES Final Resu lt Performing Organization Address [facility]/ZIP Co de Phone Number [facility] [address] [place] [phone] * Pap Smear (02/06/2022 9:46 AM EST) 02/06/2022 9:46 AM EST 02/06/2022 3:45 PM EST [facility] - 02/21/2022 5:05 PM EST ----- ------- Name: Anne Ochoa ? Age/Sex: 21/F ? : 2000 Unit#: [id number] ?? Attend Dr: Elizabeth Dickinson CNM ?Re02/06/22 ?Status: DEP REF ? Location: HO.LNP ?Disch: ? ----- ------- SPEC : [id number] ?RECD: 02/06/22-1545 ? STATUS: ??SOUT ? REQ NUM: [id number] ? AMRITA: 02/06/22-945 ? SUBM DR: AlokElizabeth KNIGHT ? ENTERED: ??02/06/22-1612 ?SP TYPE: Pap Smr ?OTHR : ? ORDERED: ??Pap Smear ? Interpretation ?? Satisfactory for evaluation. ?? Negative for intraepithelial lesion or malignancy. ?Clinical Information LMP: 02/13 Previous PAP test: Never ? Material Received ?? ThinPrep-Cervical ----- ------- Signed (signature on file) An Orosco Michelle 02/21/22 2514 ? ----- ------- ? END OF REPORT ? [facility] External Provider LAB CYT OLOGY ORDERABLES Final Result Performing Organization Address [facility] Co de Phone Number [facility] [address] [place] [phone] * Hepatitis C Antibody (11/23/2020 3:28 PM EDT) Hepatitis C Antibody Nonreactive Nonreactive [facility] Comment: Antibodies to HCV not detected; does not exclude early acute HCV infection. HIV AB/AG Nonreactive Nonreactive [facility] Comment: HIV-1 p24 Ag [...] detection of this assay. ?? The [facility] HIV Ag/Ab Combo assay result and supplemental assay results should be interpreted in conjunction with the patient's clinical presentation, history and other laboratory results. ??If the results are inconsistent with clinical evidence, additional testing is suggested to confirm the result. Hepatitis B Surface Antigen Negative Negative [facility] 11/23/2020 3:28 PM EDT Elizabeth [place]field HISTORICAL/NON ORDERABLE LABS Fi nal Result Performing Organization Address [facility] Co de Phone Number [facility] [address] * CHLAMYDIA/N. GONORRHOEAE RNA, TMA, UROGENITAL (04/25/2020 3:36 PM EST) Pathologist [facility] Chlamydia trachomatis RNA, TMA, Urogenital NOT DETECTED NOT DETECTED [facility] COMMENT SEE COMMENT [facility] Comment: The analytical performance characteristics of this assay, when used to test SurePath(TM) specimens have been determined by [employer]. The modifications have not been cleared or approved by the FDA. This assay has been validated pursuant to the CLIA regulations and is used for clinical purposes. ?? For additional information, please refer to https://education.SkuRun.SmartFocus/faq/NUA981 (This link is being provided for information/ educational purposes only.) ?? Neisseria gonorrhoeae RNA, TMA, Urogenital NOT DETECTED NOT DETECTED [facility] 04/25/2020 3:36 PM EST us Brinda Lizarraga NP HISTORICAL/NON ORDERABLE LABS F inal Result [facility] [address] from Last 3 Months or Most Recently Relevant to Health Maintenance Insurance WANDA Shepard [id number] [facility] C3 WANDA Shepard [id number] WANDA Shepard [id number] Care Teams Nanotechnologist Relationship Specialty Start Date End Date Appram, Gail, IRISH MOSS BLEACHER [address] [place] [phone] PCP - General Family Medicine 01/12/23
--- OUTSIDE RECORDS SUMMARY | 2024-07-07 14:25 | XMS_ITS | Encounter Summary ---
Author Organization [employer] Address [address] [facility] [address] [place] [address] Care Team Providers Care Solar System Designer Name Role Phone Gail Stephens NP Primary Care Provider [phone] Encounter Details Date Type Department Care Team (Latest Contact Info) Description 07/04/2024 Travel Social History Tobacco Use Types Packs/Day Years [...] Description 08/05/2024 11:00 AM EDT Office Visit [facility] [address] [place] [address] Gail Stephens NP [address] [place] [address] 09/28/2024 3:30 PM EDT Office Visit [facility] OPT[facility] [address] [place] [address] Tarka, Brinda, OD [address] [place] [address] documented as of this encounter Visit Diagnoses Not on filedocumented in this encounter Additional Health Concerns Assessment Noted Time PHQ-9 Depression Total Score: 5 05/07/19 25 3:13 PM EDT documented as of this encounter Care Teams Solar System Designer Relationship Specialty Start Date End Date Gail Stephens NP [address] [place] [address] PCP - General Family Medicine 01/12/23 documented as of this encounter
[2024-07-07 14:27] VITALS: BP 116/68; PULSE 79; BMI 34.0
== END 2024-07-07 14:40 | disposition home or self-care (01) ==
LOC: HO.HGS 13:46
PROVIDERS: PCP Internal Medicine; Visit Provider Surgery
DX: N61.21 Granulomatous mastitis, right breast (principal); Z98.890 Other specified postprocedural states
CPT/HCPCS: 99024

== ENCOUNTER → 2024-07-07 13:45 | Outpatient (BNVA) | payer MEDICAID, SELFPAY | PROVIDERS: PCP Internal Medicine; Visit Provider Surgery | DX: Z48.817 Encounter for surgical aftercare following surgery on the skin and subcutaneous tissue (principal); Z98.890 Other specified postprocedural states | CPT/HCPCS: 99212 ==

== ENCOUNTER 2024-10-05 12:20 | Outpatient (REF) | payer MEDICAID, SELFPAY ==
--- OUTSIDE RECORDS SUMMARY | 2024-10-05 13:01 | XMS_ITS | Encounter Summary ---
Author Organization [employer] Address [address] [place] [address] Care Team Providers Care Retail Pharmacy Merchandiser Name Role Phone Gail Stephens NP Primary Care Provider [phone] Reason for Visit * Reason Onset Date Comments Med Refill 09/06/2024 Encounter Details Date Type Department Care Team (Late st Contact Info) Description 09/06/2024 Refill [facility] [address] [place] [address] Gail Stephens NP [address] [place] [address] Obesity (BMI 30-39.9) Social History Tobacco Use Types Packs/Day Years [...] Care Team (Late st Contact Info) Description 01/10/2025 3:15 PM EST Office Visit [facility] [address] [place] [address] Brinda Peters, OD [address] [place] [address] documented as of this encounter Visit Diagnoses Diagnosis Obesity (BMI 30-39.9) documented in this encounter Additional Health Concerns Assessment Noted Time PHQ-9 Depression Total Score: 5 05/07/19 25 3:13 PM EDT documented as of this encounter Care Teams Retail Pharmacy Merchandiser Relationship Specialty Start Date End Date Gail Stephens NP [address] [place] [address] PCP - General Family Medicine 01/12/23 documented as of this encounter
[2024-10-05 13:56] LABS: Hemoglobin A1C 110.4197 umol/L; Total Hemoglobin (HGBA1C) 3491.8279 umol/L
[2024-10-05 13:59] LABS: Anion Gap 11 (12-20); Blood Urea Nitrogen 11 mg/dL (9-16); Calcium 9.4 mg/dL (8.4-10.2); Carbon Dioxide 27 mmol/L (22-29); Chloride 106 mmol/L (96-108); Cholesterol 174 mg/dL (<200); Estimated Glomerular Filt Rate > 60; HDL Cholesterol 38 mg/dL (>40); Potassium 4.0 mmol/L (3.3-5.1); Sodium 140 mmol/L (135-145); Triglycerides 104 mg/dL (<150)
== END 2024-10-05 12:21 | disposition home or self-care (01) ==
LOC: HO.HHCL 12:20
PROVIDERS: PCP Nurse Practitioner; Visit Provider Nurse Practitioner
DX: E66.9 Obesity, unspecified (principal)
CPT/HCPCS: 36415; 80048; 80061; 83036

== ENCOUNTER 2024-12-14 13:05 | Outpatient (AMB) | payer MEDICAID, SELFPAY ==
--- NOTE | 2024-12-14 13:07 | MHC.OFFVIS ---
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 She is not having any problems with the IUD at all this year she had lots of problems with her breast her right breast. She had a lump and then she had a biopsy in a lump removed am to her breast later got infected and kept getting worse and worse and she was hospitalized twice for 5 days each and had other surgery as well it now it is finally healing well but it was a very difficult experience for her last year her babies 3 years old and doing well her mom helped her with the baby she is sexually active she has no worries about infection she likes the IUD she does not get periods she is not planning on any babies any time soon.. She says she never had a breast infection while she was nursing. [facility] Medical History PONV (postoperative nausea and vomiting) Panic attacks Anxiety Mastitis Hx of iron deficiency anemia Surgical History History of lumpectomy of right breast (05/30/24) History of lumpectomy of right breast (02/29/24) Family History Mother Hypertension Maternal Grandfather Colon cancer Maternal Aunt Hx of breast cancer Social History Household Members: Family and Children Both parents involved: Yes Caregiver staying overnight: No Housing: Apartment Are you a primary care program director to a significant other at home: No Do you presently have visiting nurse or other home services: No 75 years or older and lives alone: No Alcohol intake: current Alcohol intake frequency: does not drink Comment: Patient felt dizzy on previous shift Patient Tobacco Use Status: Never used Tobacco Second Hand Smoke Exposure: No Special abbey needs: No Agree to transfusion: Yes service: No Female Reproductive History Menstrual Age of Menarche: 11 control method: progestin IUCD (Mirena ) Total pregnancies: 1 Full term: 1 Date of last pap smear: 02/06/22 (negative pap smear ) History of abnormal pap smear: No Physical Exam Vital Signs: Last Vital Signs BP 112/72 12/14/24 13:15 BMI result Body Mass Index 32.1 Const General: healthy appearing, comfortable, no acute distress, well developed and alert Nutritional Appearance: average body habitus Orientation/consciousness: patient oriented x3 Limitations: no limitations HEENT Head: Yes normocephalic Neck Neck: Yes normal visual inspection Chest Other: Patient has scars as from lumpectomies and biopsies. Status post prolonged experience with mastitis right breast Chest palpation & inspection: normal inspection of the chest Breast/axilla inspection: normal inspection of the breasts and normal inspection of the axillae Breast/axilla palpation: normal palpation of the breasts and normal palpation of the axillae Resp Effort & Inspection: normal respiratory effort GI Inspection: Yes normal to inspection, No Abdominal wall edema and No distended Palpation (GI): Soft to palpation and nontender Other: External exam within normal limits vagina is pink and moist with whitish clearish discharge cervix multiparous pink smooth healthy appearing with Mirena string and the aforementioned mucus uterus midposition mobile nontender adnexa nontender good muscle tone. General: Yes bladder normal to palpation External Female Exam: normal external appearance and normal appearance of the urethra Speculum Exam - Vagina: normal appearance of the vagina, normal palpation and normal vaginal discharge Speculum Exam - Cervix: normal appearance of the cervix, normal palpation and nontender Bimanual exam- vagina & uterus: normal bimanual exam, normal palpation, uterine size normal, bladder normal to palpation, consistency normal, normal palpation, uterine mobility normal, uterine shape normal, No Cervical tenderness present, non-tender and no cervical motion tenderness Bimanual Exam- Adnexa, other: normal adnexae, no masses, normal and No adnexal tenderness Neuro General: patient oriented x3 Assessment & Plan Assessment & Plan (1) Well woman exam with routine gynecological exam: Code(s): Z01.419 - Encounter for gynecological examination (general) (routine) without abnormal findings Category: Medical (2) Presence of 52 mg levonorgestrel-releasing intrauterine device (IUD): Comment: Per ultrasound IUD was slightly low in the uterus, mirena replaced on 06/05/23... Code(s): Z97.5 - Presence of (intrauterine) contraceptive device Category: Social Hx (3) Granulomatous mastitis of right breast: Comment: s/p, now well healed 12/17. Code(s): N61.21 - Granulomatous mastitis, right breast Category: Medical (4) Cervical cancer screening: Comment: 02/06/2022 Pap is negative.;12/14/24 pap done Code(s): Z12.4 - Encounter for screening for malignant neoplasm of cervix Category: Medical (5) Screen for sexually transmitted diseases: Comment: Accepted testing with the exam declined blood work Code(s): Z11.3 - Encounter for screening for infections with a predominantly sexual mode of transmission Category: Medical Plan -----Discussed in this visit the following: healthy balanced diet, regular and consistent exercise, getting recommended health screens, doing the best she can for her particular health concerns, kegel exercises, pap smear screening and followup recommendations, mammography screening and SBE, normal changes in cycles in her life stage--- . Patient filled me in on her lengthy experience with recurring mastitis in the past year over a course of several months she showed me her pictures and reviewed how traumatizing the experience was and she thought she was going to . She is now very well healed. She shared that she never had a breast infection when she was . She is happy with the IUD and not planning any babies any time soon her baby is 3 years old and doing well. Pap smear and testing for gonorrhea chlamydia and trichomoniasis done as well as bacterial vaginosis and yeast and if the latter 2 were positive she would not need treatment unless she had symptoms. She has lost weight and is feeling healthier RTC 1 year. Coding Level of Care Code Est Pt Prev Care [id number]) Diagnoses Well woman exam with routine gynecological exam Z01.419 Presence of 52 mg levonorgestrel-releasing intrauterine device (IUD) Z97.5 Granulomatous mastitis of right breast N61.21 Cervical cancer screening Z12.4 Screen for sexually transmitted diseases Z11.3
[2024-12-14 13:15] VITALS: BP 112/72; BMI 32.1
--- OUTSIDE RECORDS SUMMARY | 2024-12-14 18:21 | XMS_ITS | Encounter Summary ---
Author Organization [employer] Address [address] [facility] 7t [place] [address] Care Team Providers Care Duralumin Mechanic Name Role Phone Gail Stephens NP Primary Care Provider [phone] Reason for Visit * Reason Onset Date Comments Med Refill 11/24/2023 Encounter Details Date Type Department Care Team (Late st Contact Info) Description 11/24/2023 Refill [facility] MEDICINE [address] [place] [address] Gail Stephens NP [address] [place] [address] Social History Tobacco Use Types Packs/Day Years [...] Care Team (Late st Contact Info) Description 01/09/2025 3:30 PM EST Office Visit [facility] MEDICINE [address] [place] [address] Gail Stephens NP [address] [place] [address] 01/10/2025 3:15 PM EST Office Visit [facility] OPTOMETRY [address] [place] [address] Brinda Peters, OD [address] [place] [address] 01/24/2025 2:00 PM EST Nutrition [facility] DIABETES/NUTRITION [address] [place] [address] [place] [address] documented as of this encounter Visit Diagnoses Not on filedocumented in this encounter Additional Health Concerns Assessment Noted Time PHQ-9 Depression Total Score: 0 10/02/19 24 1:26 PM EDT documented as of this encounter Care Teams Duralumin Mechanic Relationship Specialty Start Date End Date Gail Stephens NP [address] [place] [address] PCP - General Family Medicine 01/12/23 documented as of this encounter
--- OUTSIDE RECORDS SUMMARY | 2024-12-14 18:21 | XMS_ITS | Encounter Summary ---
Author Organization [employer] Address [address] 7[address] [place] [address] Care Team Providers Care Drafting Technician Name Role Phone Gail Stephens NP Primary Care Provider [phone] Reason for Visit * Reason Onset Date Comments Med Refill 09/06/2024 Encounter Details Date Type Department Care Team (Late st Contact Info) Description 09/06/2024 Refill [facility] MEDICINE [address] [place] [address] Gail Stephens NP [address] [place] [address] Obesity (BMI 30-39.9) Social History Tobacco Use [...] Description 01/09/2025 3:30 PM EST Office Visit [facility] MEDICINE [address] [place] [address] Gail Stephens NP [address] [place] [address] 01/10/2025 3:15 PM EST Office Visit [facility] OPTOMETRY [address] [place] [address] Brinda Peters, OD [address] [place] [address] 01/24/2025 2:00 PM EST Nutrition [facility] DIABETES/NUTRITION [address] [place] [address] [place], [place] [phone] documented as of this encounter Visit Diagnoses Diagnosis Obesity (BMI 30-39.9) documented in this encounter Additional Health Concerns Assessment Noted Time PHQ-9 Depression Total Score: 5 05/07/19 25 3:13 PM EDT documented as of this encounter Care Teams Drafting Technician Relationship Specialty Start Date End Date Gail Stephens NP [address] [place] [address] PCP - General Family Medicine 01/12/23 documented as of this encounter
--- OUTSIDE RECORDS SUMMARY | 2024-12-14 18:21 | XMS_ITS | Encounter Summary ---
Author Organization [employer] Address [address] [facility] [address] [place] [address] Care Team Providers Care Grooming Assistant Name Role Phone Gail Stephens NP Primary Care Provider [phone] Reason for Visit * Reason Onset Date Comments Med Refill 10/26/2024 Encounter Details Date Type Department Care Team (Late st Contact Info) Description 10/26/2024 Refill [facility] MEDICINE [address] [place] [address] Gail Stephens NP [address] [place] [address] Obesity (BMI 30-39.9) Social History Tobacco Use [...] What is your housing situation today? I have nerissa novak 10/05/[address] you li ve. Do you have problems with any of the following? None of the above 10/05/2024 Food Insecurity Answer Date Recorded Within the past 12 months, y ou worried that your food would run out before you got money to buy more: Never True 10/05/2024 Within the past 12 months,th e food you bought just didn't last and you didn't have enough money to get more: Never True Transportation Answer Date Recorded In the past 12 months, has l ack of transportation kept you from medical appts, meetings, work or from getting things needed for daily living? No 10/05/2024 Utilities Answer Date Recorded In the past 12 months, has t he electric, gas, oil or water company threatened to shut off services in your home? No 10/05/2024 Depression Answer Date Recorded Patient Health Questionnaire-2 Score 0 05/06/2024 Internet Access Answer Date Recorded Internet Access Q1 Yes 10/05/2024 Internet Access Q2 Not on file 10/05/2024 Comments Unknown Sex and Gender Information Value [...] Description 01/09/2025 3:30 PM EST Office Visit [facility] MEDICINE [address] [place] [address] Gail Stephens NP [address] [place] [address] 01/10/2025 3:15 PM EST Office Visit [facility] OPTOMETRY [address] [place] [address] Brinda Peters OD [address] [place] [address] 01/24/2025 2:00 PM EST Nutrition [facility] DIABETES/NUTRITION [address] [place] [address] [place] [address] documented as of this encounter Visit Diagnoses Diagnosis Obesity (BMI 30-39.9) documented in this encounter Additional Health Concerns Assessment Noted Time PHQ-9 Depression Total Score: 5 05/07/19 25 3:13 PM EDT documented as of this encounter Care Teams Grooming Assistant Relationship Specialty Start Date End Date Gail Stephens NP [address] [place] [address] PCP - General Family Medicine 01/12/23 documented as of this encounter
--- OUTSIDE RECORDS SUMMARY | 2024-12-14 18:21 | XMS_ITS | Encounter Summary ---
Author Organization [employer] Address [address] [facility] [address] [place] [address] Care Team Providers Care Php Web Developer Name Role Phone Gail Stephens NP Primary Care Provider [phone] Reason for Visit * Reason Onset Date Comments Med Refill 04/18/2024 Encounter Details Date Type Department Care Team (Late st Contact Info) Description 04/18/2024 Refill [facility] MEDICINE [address] [place] [address] Denise Aguirre CNP [address] [place] [address] Pain in both knees, unspecified chronicity Social [...] Description 01/09/2025 3:30 PM EST Office Visit [facility] MEDICINE [address] [place] [address] Gail Stephens NP 230 [place] [address] 01/10/2025 3:15 PM EST Office Visit [facility] OPTOMETRY [address] [place] [address] Brinda Peters, OD [address] [place] [address] 01/24/2025 2:00 PM EST Nutrition [facility] DIABETES/NUTRITION [address] [place] [address] [place], [place] [phone] documented as of this encounter Visit Diagnoses Diagnosis Pain in both knees, unspecified chronicity documented in this encounter Additional Health Concerns Assessment Noted Time PHQ-9 Depression Total Score: 0 10/02/19 24 1:26 PM EDT documented as of this encounter Care Teams Php Web Developer Relationship Specialty Start Date End Date Gail Stephens NP [address] [place] [address] PCP - General Family Medicine 01/12/23 documented as of this encounter
--- OUTSIDE RECORDS SUMMARY | 2024-12-14 18:21 | XMS_ITS | Clinical Summary ---
Author Organization [employer] Address [address] 7[address] [place] [address] Care Team Providers Care Distribution Dispatcher Name Role Phone Gail Stephens NP Primary Care Provider [phone] Allergies No known active allergies Medications * This document contains information received from the source organization and may not represent a complete record from that organization. ibuprofen 800 MG tablet Take 1 tablet by mouth 3 times daily. 5 Active ondansetron (Zofran) 4 MG tablet Take 1 tablet by mouth every 8 (eight) hours if needed for nausea. 5 Active fluticasone (Flonase) 50 MCG/ACT nasal spray ADMINISTER 1 SPRAY INTO EACH NOSTRIL ONCE PER DAY. 48 mL 5 Active cetirizine (ZyrTEC) 10 MG tablet TAKE 1 TABLET BY MOUTH EVERY DAY 90 tablet 5 Active topiramate (Topamax) 25 MG tabletIndicatio ns:Obesity (BMI 30-39.9) Take 1 tablet (25 mg) by mouth Once per day. Take with phentermine 30 tablet 2 5 01/04/20 25 Active phentermine 15 MG capsuleIndicati ons:Obesity (BMI 30-39.9) Take 1 capsule (15 mg) by mouth before breakfast. Take with topiramate 30 capsule 2 5 01/04/20 25 Active hydrOXYzine HCl (Atarax) 25 MG tabletIndicatio ns:Anxiety Take 1 tablet (25 mg) by mouth 4 times daily. 120 tablet 2 5 01/04/20 Active Active Problems Problem Noted Date Diagnosed Date Anxiety 07/23/2024 Assessment & Plan (09/24/2024 11:14 PM EDT): -reports continued improvement with recovery from recent health crisis Assessment & Plan (07/23/2024 9:05 AM EDT): - Situational anxiety related to current health state - consulted see consult note for plan -Rx'd trial of hydroxyzine 25 mg 4 times daily as needed Viral upper respiratory tract infection 06/17/19 Assessment & Plan (06/16/2024 9:30 AM EDT): Negative viral test today. Rest (sleep at least 8 hours a night). Hydrate with plenty of water (avoid caffeine and alcohol). Use saline nose drops to loosen mucus + Flonase nasal + cetirizine x 5 days Take Acetaminophen (Tylenol )/Ibuprofen as needed to reduce fever, headache, body [...] 72 hours (temperature should be less than 100 F without medication). Adjustment disorder with anxious mood [...] 03/03/2024 Overview (03/03/2024): Procedure performed 02/29/2024 at [facility] Mass overlapping multiple quadrants of right maryjane ast 01/19/2024 Breast abscess 01/19/2024 Assessment & Plan (07/23/2024 9:06 AM EDT): - Connected with [facility] surgeons actively undergoing interventions - Informed we do not have access to special dressing requested and she is encouraged to reach out to the surgeons for additional supply Assessment & Plan (01/19/2024 6:01 PM EST): [...] Obesity (BMI 30-39.9) 10/05/2023 Assessment & Plan (10/20/2024 2:52 PM EDT): -Refills provided for both phentermine and topamax -continues diet and lifestyle modifications encouraged Assessment & Plan (10/18/2024 7:39 AM EDT): -Was tolerating topamax and phentermine -medication refills provided. Encouraged to call the clinic with problems obtaining prescriptions -continued diet and lifestyle modifications encouraged Assessment & Plan (09/24/2024 11:23 PM EDT): -discussed pharmacological options for weight loss and specific insurance requirements -patient has weight loss goal of 32 lbs. -patient agrees to trial phentermine 15 mg with topamax 25 mg daily. Will follow-up in 2 weeks to assess tolerance -medication side effects are reviewed -starting measurements: abdominal circumference at umbilicus: 45 in; hip circumference: 43.9 in -dietary and lifestyle modifications are encouraged in addition to pharmacological treatment -referred to nutrition Assessment & Plan (10/05/2023 9:54 PM EDT): [...] adult health maintenance 10/05/2023 Assessment & Plan (09/24/2024 11:13 PM EDT): -Has appointment with [facility] provider for pap -referred for vision exam Assessment & Plan (10/05/2023 10:04 PM EDT): [...] Encounters Date Type Department Care Team Description 11/21/[address] Nutrition Referral 10/26/[address] [address] Gail Stephens NP Obesity (BMI 30-39.9) 10/19/[address] [address] Gail Stephens NP december10/06/2024 Results Follow-Up [address] [address] Gail Stephens NP Lipid Panel, Standard, Hemoglobin A1c, Basic Metabolic Panel 10/05/2024 11:00 AM EDT Office Visit [address] [address] Gail Stephens NP Anxiety (Primary Dx); Obesity (BMI 30-39.9); Dietary counseling; Exercise counseling; Grieving 10/05/2024 Travel 10/04/[address] [address] Rukhsana Aguilar [place] CHARTPREP from Last 3 Months Immunizations Immunization Administration [...] Sign Reading Time Taken Comments Blood Pressure 124/80 10/05/2024 11:51 AM EDT Pulse 91 10/05/2024 11:51 AM EDT Temperature 37.3 C (99.2 F) 10/05/2024 11:51 AM EDT Respiratory Rate 23 10/05/2024 11:5 1 AM EDT Oxygen Saturation 96% 10/05/2024 11: 51 AM EDT Inhaled Oxygen Concentration - - Weight 77.9 kg (171 lb 12.8 oz) 025 11:51 AM EDT Height 154.9 cm (5' 1 ) 10/05/2024 11:5 1 AM EDT Body Mass Index 32.46 10/05/2024 11:51 AM EDT Plan of Treatment Upcoming Encounters Date Type Department Care Team (Late st Contact Info) Description 01/09/2025 3:30 PM EST Office Visit [facility] MEDICINE [address] [place] [address] Gail Stephens NP [address] [place] [address] 01/10/2025 3:15 PM EST Office Visit [facility] OPTOMETRY [address] [place] [address] Brinda Peters, OD [address] [place] [address] 01/24/2025 2:00 PM EST Nutrition [facility] DIABETES/NUTRITION [address] [place] [address] Odalys Westfall, RD [address] [place] [address] Health Maintenance Due Date Last Done Comments Alcohol/Substance Use Screening 2012 Family Planning (PISQ) 08/07/2015 DTaP/Tdap/Td Vaccines (7 - Td or Tdap) 12/08/2021 12/09/2011, 09/25/2004, 08/15/2002, Additional history exists COVID-19 Vaccine ( - season) 2024 11/03/2020, 10/06/2020 Influenza Vaccine (#1) 2024 , 02/13/2015, 01/23/2014, Additional history exists Pap Smear 02/06/2025 02/06/2022 Depression Screening 05/06/2025 05/06/2024, 05/07/19 Disability Screening 05/23/2025 05/23/2024 SDOH Screening 10/05/2025 10/05/2024 Tobacco Screening 10/18/2025 10/18/2024 Lipid Panel 10/05/2029 10/05/2024, 10/28/2023 Zoster Vaccines (1 of 2) 2050 RSV Patients and Patients Aged 60 years or older (1 - 1-dose 75+ series) 08/07/2075 HIB Vaccines Completed 11/30/2001, 10/2000, 2000 Hepatitis B Vaccines Completed 11/30/2001, 01/01/2001, 2000 Pneumococcal Vaccine: Pediatrics (0 to 5 Years) and At-Risk Patients (6 to 49) Years Aged Out 11/30/2001, 05/07/2001 No longer eligibl [...] 04/25/2020 Hepatitis C Screening Completed 11/23/2020, 021 Meningococcal B Vaccine Aged Out No l onger eligible based on patient's age to complete this topic RSV under 20 months Aged Out No longe r eligible based on patient's age to complete this topic Rotavirus Vaccines Aged Out No longer eligible based on patient's age to complete this topic Procedures Procedure Name Priority Date/Time Associated Diagnosis Comments BASIC METABOLIC PANEL Routine 10/05/2024 12:23 PM EDT Obesity (BMI 30-39.9) HEMOGLOBIN A1C Routine 10/05/2024 12:23 PM EDT Obesity (BMI 30-39.9) LIPID PANEL, STANDARD Routine 10/05/2024 12:23 PM EDT Obesity (BMI 30-39.9) PAP SMEAR Routine 02/06/2022 9:46 AM EST ZZZ HISTORICAL HEPATITIS C ANTIBODY Routine 11/23/2020 3:28 PM EDT from Last 3 Months or Most Recently Relevant to Health Maintenance Results * Hemoglobin A1c (10/05/2024 12:23 PM EDT) Hemoglobin A1c 5.0 <6.0 % [facility] Comment:Hemoglobin A1C Refer ence Range Adults: 4.8 - 6.0 % Non diabetic: < 6.0 % Goal: < 7.0 %Additional Action Suggested: > 8.0 %Note: Hemoglobin A1c results are invalid for patients with abnormal amounts of HbF. Blood transfusions may impact the HbA1c concentration in the patient sample. Estimated Average Glucose 97 mg/dL [facility] Comment:eAG = Estimated ave rage glucose which is %A1C expressed asaverage glucose, using the formula of the M6O-XahhdikTdvdogy Glucose study (ADAG), Diabetes Care, Vol.31,#8,Sep. 2007 Blood Venous blood specimen / Unknown 10/05/2024 12:23 PM EDT 10/05/2024 1:32 PM EDT Gail Stephens SADDLE AND SIDE WIRE STITCHER LAB BLOOD ORDERABLES Final Resu lt [facility] [address] [place] [address] [phone] * (ABNORMAL) Lipid Panel, Standard (10/05/2024 12:23 PM EDT) Triglycerides 104 <150 mg/dL [facility] Comment:Desirable Triglyceri de: less than 150 mg/dLBorderline High Triglyceride 150-199 mg/dLHigh Triglyceride: 200-499 mg/dLVery High Triglyceride: greater than or equal to 5OO mg/dL Cholesterol 174 <200 mg/dL [facility] Comment:Desirable Cholestero l: less than 200 mg/dLBorderline High Cholesterol: 200-239 mg/dLHigh Cholesterol: greater than 239 mg/dL LDL Cholesterol Calculated 116(H) <100 mg/dL [facility] Comment:Desirable LDL: less than 100 mg/dLNear Optimal/Above Optimal LDL: 110- 129 mg/dLBorderline High LDL: 130-159 mg/dLHigh LDL: 160-189 mg/dLVery High LDL: greater than or equal to 190 mg/dL HDL Cholesterol 38(L) >40 mg/dL [facility] Comment:Desirable HDL: great er than 40 mg/dL Note: This HDL assay may give artificially low results in patients with liver disease. Blood Venous blood specimen / Unknown 10/05/2024 12:23 PM EDT 10/05/2024 1:32 PM EDT us Gail Stephens SADDLE AND SIDE WIRE STITCHER LAB BLOOD ORDERABLES Final Resu lt Performing Organization Address [facility] de Phone Number [facility] [address] [place] [address] [phone] * (ABNORMAL) Basic Metabolic Panel (10/05/2024 12:23 PM EDT) Sodium 140 135 - 145 mmol/L [facility] Potassium 4.0 3.3 - 5.1 mmol/L [facility] Chloride 106 96 - 108 mmol/L [facility] Carbon Dioxide 27 22 - 29 mmol/L [facility] Anion Gap 11(L) 12 - 20 [facility] Urea Nitrogen (BUN) 11 9 - 16 mg/dL [facility] Creatinine, Serum 0.58 0.5 - 1.4 mg/dL [facility] Estimated Glomerular Filt Rate >60 [facility] Comment:Chronic Kidney Disea se: Estimated GFR < 60 mL/min/1.19i1Isiouu Kidney Disease: Estimated GFR < 15 mL/min/1.73m2 Glucose 95 60 - 115 mg/dL [facility] Calcium 9.4 8.4 - 10.2 mg/dL [facility] Blood Venous blood specimen / Unknown 10/05/2024 12:23 PM EDT 10/05/2024 1:32 PM EDT Gail Stephens [employer]ADDLE [employer] SIDE W[employer] STITCHER LAB BLOOD ORDERABLES Final Resu lt Performing Organization Address City/[facility] Co de Phone Number [facility] [address] [place] [address] [phone] * Pap Smear (02/06/2022 9:46 AM EST) 02/06/2022 9:46 AM EST 02/06/2022 3:45 PM EST Narrative [facility] - 02/21/2022 5:05 PM EST ----- ------- Name: Anne Ochoa Age/Sex: 21/F : 2000 Unit#: [id number] Attend Dr: Elizabeth Dickinson [facility] Re02/06/22 Status: DEP REF Location: HO.LNP Disch: ----- ------- SPEC : [id number] RECD: 02/06/22 STATUS: KATHY MANNINGAshwini NUM: [id number] AMRITA: 02/06/224[address] [facility] [address]: Elizabeth Dickinson [facility] ENTERED: 02/06/22 SP TYPE: Pap Smr WILLIAN DR: ORDERED: Pap Smear Interpretation Satisfactory for evaluation. Negative for intraepithelial lesion or malignancy. Clinical Information LMP: 02/13 Previous PAP test: Never Material Received ThinPrep-Cervical ----- ------- Signed (signature on file) An Martinez 02/21/22 [id number] ----- ------- END OF REPORT [facility] External Provider LAB CYT OLOGY ORDERABLES Final Result [facility] [address] [place] [address] [phone] * Hepatitis C Antibody (11/23/2020 3:28 PM EDT) Pathologist [facility] Hepatitis C Antibody Nonreactive Nonreactive [facility] Comment: Antibodies to HCV not detected; does not exclude early acute HCV infection. HIV AB/AG Nonreactive Nonreactive [facility] Comment: HIV-1 p24 Ag and/or HIV-1/HIV-2 Ab not detected. A test result that is nonreactive does not exclude the possibility of exposure to or infection with HIV-1 and/or HIV-2. Nonreactive results in this assay for individuals with prior exposure to HIV-1 and/or HIV-2 may be due to antigen and antibody levels that are below the limit of detection of this assay. The [facility]a Heel [employer]ayer HIV Ag/Ab Combo assay result and supplemental assay results should be interpreted in conjunction with the patient's clinical presentation, history and other laboratory results. If the results are inconsistent with clinical evidence, additional testing is suggested to confirm the result. Hepatitis B Surface Antigen Negative Negative [facility] 11/23/2020 3:28 PM EDT Elizabeth Dickinson HISTORICAL/NON ORDERABLE LABS Fi nal Result [facility] [address] from Last 3 Months or Most Recently Relevant to Health Maintenance [facility] [employer] Care Teams Distribution Dispatcher Relationship Specialty Start Date End Date Gail Stephens NP [address] [place] [phone] PCP - General Family Medicine 01/12/23
== END 2024-12-14 15:50 | disposition home or self-care (01) ==
LOC: HO.HWSM 13:05
PROVIDERS: PCP Nurse Practitioner; Visit Provider Advanced Practice Midwife
DX: Z01.419 Encounter for gynecological examination (general) (routine) without abnormal findings (principal); Z97.5 Presence of (intrauterine) contraceptive device; N61.21 Granulomatous mastitis, right breast; Z11.3 Encounter for screening for infections with a predominantly sexual mode of transmission
CPT/HCPCS: 99395; 99459

== ENCOUNTER 2024-12-14 13:05 | Outpatient (REF) | payer MEDICAID, SELFPAY ==
[2024-12-15 05:51] LABS: Bacterial Vaginosis PCR POSITIVE (Negative); Candida Group PCR NOT DETECTED (Not Detect); Candida glab krusei PCR NOT DETECTED (Not Detect); Trichomonas vaginalis PCR NOT DETECTED (Not Detect)
[2024-12-15 06:21] LABS: CT PCR NOT DETECTED (Not Detect.); NG PCR NOT DETECTED (Not Detect.)
== END 2024-12-14 13:06 | disposition home or self-care (01) ==
LOC: HO.LNP 13:05
PROVIDERS: PCP Nurse Practitioner; Visit Provider Advanced Practice Midwife
DX: Z01.419 Encounter for gynecological examination (general) (routine) without abnormal findings (principal); Z20.2 Contact with and (suspected) exposure to infections with a predominantly sexual mode of transmission; Z11.51 Encounter for screening for human papillomavirus (HPV); Z97.5 Presence of (intrauterine) contraceptive device
CPT/HCPCS: 81515; 87491; 87591; 87626; 88175; 99395; 99459